=== PATIENT | male | born 1945 | race Caucasian/White ===

== ENCOUNTER 2020-07-28 23:53 | Inpatient (IN) ==
[2020-07-29] MEDS ORDERED: 0.9 % SODIUM CHLORIDE 1,000 ML IV ONE (00:06)
[2020-07-29] MEDS ORDERED: ACETAMINOPHEN 325 MG TABLET PO ONE (00:06)
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
[2020-07-29 02:11] LABS: Basophils # (Auto) 0.01 K/mcL (0.00-0.20); Basophils % (Auto) 0.1 % (0.0-2.0); Eosinophils # (Auto) 0.03 K/mcL (0.00-0.70); Eosinophils % (Auto) 0.3 % (0.0-7.0); Hematocrit 36.3 % (41.0-55.0); Hemoglobin 11.3 g/dL (13.5-16.5); Lymphocytes # (Auto) 0.92 K/mcL (1.50-4.80); Mean Cell Volume 91.7 fL (80.0-100.0); Mean Corpuscular HGB Conc 31.1 g/dL (31.0-36.0); Mean Platelet Volume 9.4 fL (7.4-10.4); Monocytes % (Auto) 6.5 % (1.0-12.0); Neutrophils % (Auto) 83.1 % (38.0-78.0); Platelet Count 198 K/mcL (140-440); RBC 3.96 M/mcL (4.50-5.90); Red Cell Distribution Width 16.1 % (11.5-14.5); WBC 9.2 K/mcL (4.5-11.0)
[2020-07-29 02:38] LABS: Appearance,Urine CLEAR (Clear); Bilirubin,Urine Negative (Negative); Color,Urine YELLOW; Culture Indicated,Urine No; Glucose,Urine (UA) Negative (Negative); Ketones,Urine Negative (Negative); Leukocyte Esterase,Urine Negative /ug (Negative); Mucus,Urine FEW /hpf; Nitrate,Urine Negative (Negative); Protein,Urine 30 mg/dL (Negative); Specific Gravity,Urine 1.015 (1.000-1.035); Urine Blood Negative (Negative); Urine Hyaline Cast 1 /lph (0-2); Urine RBC 6 /hpf (0-3); Urine Squamous Epithelial Cell < 1 /hpf (0-4); Urine WBC < 1 /hpf (0-4); Urobilinogen,Urine Negative
[2020-07-29 02:42] LABS: ALT/SGPT 33 U/L (<40); AST/SGOT 29 U/L (<40); Albumin 4.1 gm/dL (3.2-5.2); Albumin/Globulin Ratio 1.3 (1.0-2.3); Alkaline Phosphatase 96 U/L (39-117); Bilirubin,Total 0.2 mg/dL (0.1-1.0); Blood Urea Nitrogen 44 mg/dL (8-23); Calcium 8.7 mg/dL (8.6-10.4); Carbon Dioxide 22 mmol/L (22-30); Chloride 99 mmol/L (96-108); Globulin 3.2 gm/dL (2.2-3.7); Glomerular Filtration Rate 44; Glucose 122 mg/dL (70-105)
[2020-07-29] MEDS ORDERED: 0.9 % SODIUM CHLORIDE 1,000 ML IV SCH (03:15)
[2020-07-29] MEDS ORDERED: HYDROcodone/APAP 10/325MG TABLET PO ONE (07:16)
[2020-07-29] MEDS ORDERED: HYDROcodone/APAP 5/325MG TABLET PO ONE ×2 (07:21→07:28)
[2020-07-29] MEDS ORDERED: ONDANSETRON 4 MG/2 ML VIAL IV PRN (08:57)
[2020-07-29] MEDS ORDERED: DEXTROSE 31 GM ORAL.SUSP PO PRN (08:57)
[2020-07-29] MEDS ORDERED: HYDROcodone/APAP 5/325MG TABLET PO PRN (08:57)
[2020-07-29] MEDS ORDERED: DEXTROSE 50% 50 ML VIAL IV PRN (08:57)
[2020-07-29] MEDS ORDERED: REMDESIVIR 200 MG in 0.9 % SODIUM CHLORIDE 250 ML IV ONE ×2 (08:57→11:00)
[2020-07-29] MEDS ORDERED: ACETAMINOPHEN 325 MG TABLET PO PRN (08:57)
[2020-07-29] MEDS ORDERED: LACTULOSE 20 GM/30 ML ORAL.SOL PO PRN (08:57)
[2020-07-29] MEDS ORDERED: SENNOSIDES 1 TABLET PO PRN (08:57)
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
--- NOTE | 2020-07-29 09:18 | XRay Report ---
HISTORY: Fever FINDINGS: Lung volumes are normal. There is respiration motion artifact above the diaphragms. There is no apparent pneumonia. The heart is borderline enlarged but magnified. No congestive heart failure or pleural effusion are present. Degenerative changes are present in the cervical and thoracic spine. IMPRESSION: No evidence of pneumonia Interpreted and Authenticated by: Franki Jacobs 07/29/20
[2020-07-29 09:33] LABS: C-Reactive Protein 5.2 mg/dL (0.03-0.80); proBNP 443.8 pg/mL (<450.0)
[2020-07-29 10:06] LABS: Partial Thromboplastin Time 52.8 sec (20.0-37.0); Prothrombin Time 13.1 sec (11.9-14.5)
[2020-07-29] MEDS: ENOXAPARIN 40 MG/0.4 ML SYRINGE SQ SCH ×2 (10:09→20:18)
[2020-07-29] MEDS: DEXAMETHASONE 10 MG/ML VIAL IV SCH (10:09)
[2020-07-29] MEDS: DOCUSATE SODIUM 100 MG CAPSULE PO SCH ×2 (10:09→20:17)
[2020-07-29] MEDS: 0.9 % SODIUM CHLORIDE 1,000 ML IV SCH ×2 (10:10→23:46)
[2020-07-29] MEDS ORDERED: GABAPENTIN 300 MG CAPSULE PO ONE ×2 (10:44→11:32)
[2020-07-29] MEDS: INSULIN LISPRO 1 UNIT/0.01 ML UNIT SQ SCH ×3 (11:06→20:17)
[2020-07-29] MEDS: 0.9 % SODIUM CHLORIDE 10 ML SYRINGE IV SCH ×2 (14:49→20:18)
[2020-07-29] MEDS: HYDROcodone/APAP 10/325MG TABLET PO PRN ×2 (16:55→21:50)
[2020-07-29] MEDS: SIMVASTATIN 20 MG TABLET PO SCH (20:17)
[2020-07-29] MEDS: GABAPENTIN 300 MG CAPSULE PO SCH (20:17)
[2020-07-29] MEDS: VIT A,C & E/LUTEIN/MINERALS TABLET PO SCH (20:17)
[2020-07-29] MEDS: MAGNESIUM OXIDE 400 MG TABLET PO SCH (20:17)
[2020-07-30] MEDS: HYDROcodone/APAP 10/325MG TABLET PO PRN ×2 (04:04→11:59)
[2020-07-30] MEDS: 0.9 % SODIUM CHLORIDE 10 ML SYRINGE IV SCH ×3 (04:09→20:28)
[2020-07-30 06:35] LABS: Basophils # (Auto) 0.01 K/mcL (0.00-0.20); Basophils % (Auto) 0.1 % (0.0-2.0); Eosinophils # (Auto) 0 K/mcL (0.00-0.70); Eosinophils % (Auto) 0 % (0.0-7.0); Hematocrit 32.1 % (41.0-55.0); Hemoglobin 9.9 g/dL (13.5-16.5); Lymphocytes # (Auto) 1.17 K/mcL (1.50-4.80); Lymphocytes % (Auto) 14.2 % (15.0-49.0); Mean Cell Volume 91.5 fL (80.0-100.0); Mean Corpuscular HGB Conc 30.8 g/dL (31.0-36.0); Mean Platelet Volume 9.5 fL (7.4-10.4); Monocytes # (Auto) 0.42 K/mcL (0.10-0.90); Monocytes % (Auto) 5.1 % (1.0-12.0); Neutrophils % (Auto) 80.6 % (38.0-78.0); Platelet Count 162 K/mcL (140-440); RBC 3.51 M/mcL (4.50-5.90); Red Cell Distribution Width 16.1 % (11.5-14.5); WBC 8.2 K/mcL (4.5-11.0)
[2020-07-30 07:01] LABS: ALT/SGPT 29 U/L (<40); AST/SGOT 26 U/L (<40); Albumin 3.3 gm/dL (3.2-5.2); Albumin/Globulin Ratio 1.1 (1.0-2.3); Alkaline Phosphatase 70 U/L (39-117); Bilirubin,Direct < 0.2 mg/dL (0-0.3); Bilirubin,Total < 0.2 mg/dL (0.1-1.0); Blood Urea Nitrogen 28 mg/dL (8-23); Calcium 7.8 mg/dL (8.6-10.4); Carbon Dioxide 20 mmol/L (22-30); Chloride 108 mmol/L (96-108); Globulin 2.9 gm/dL (2.2-3.7); Glomerular Filtration Rate 58; Glucose 116 mg/dL (70-105); Lactate Dehydrogenase 217 U/L (135-225); Phosphorous 2.4 mg/dL (2.5-4.5); Triglycerides 81 mg/dL (<150); Uric Acid 8.1 mg/dL (2.5-8.0)
[2020-07-30] MEDS: GABAPENTIN 300 MG CAPSULE PO SCH ×2 (08:59→20:26)
[2020-07-30] MEDS: ENOXAPARIN 40 MG/0.4 ML SYRINGE SQ SCH ×2 (08:59→20:27)
[2020-07-30] MEDS: DEXAMETHASONE 10 MG/ML VIAL IV SCH (09:00)
[2020-07-30] MEDS: REMDESIVIR 100 MG in 0.9 % SODIUM CHLORIDE 250 ML IV SCH (09:00)
[2020-07-30] MEDS: OLMESARTAN MEDOXOMIL 20 MG TABLET PO SCH (09:00)
[2020-07-30] MEDS: NEUTRA PHOS 1 PACKET PO SCH ×2 (09:00→20:26)
[2020-07-30] MEDS: amLODIPine 5 MG TABLET PO SCH (09:01)
[2020-07-30] MEDS: INSULIN LISPRO 1 UNIT/0.01 ML UNIT SQ SCH ×4 (09:01→20:27)
[2020-07-30] MEDS: FUROSEMIDE 40 MG TABLET PO SCH (09:01)
[2020-07-30] MEDS: DOCUSATE SODIUM 100 MG CAPSULE PO SCH ×2 (09:01→20:26)
[2020-07-30] MEDS: ASPIRIN 325 MG ENTERIC COATED TABLET PO SCH (09:01)
[2020-07-30] MEDS: PANTOPRAZOLE 40 MG TABLET PO SCH (09:01)
[2020-07-30] MEDS: ALLOPURINOL 100 MG TABLET PO SCH (09:03)
[2020-07-30] MEDS: VIT A,C & E/LUTEIN/MINERALS TABLET PO SCH ×2 (09:03→20:26)
[2020-07-30] MEDS: 0.9 % SODIUM CHLORIDE 1,000 ML IV SCH ×2 (12:02→15:33)
--- NOTE | 2020-07-30 13:46 | Internal Med Progress Note ---
SUBJECTIVE Subjective Patient information: Note initiated : 07/30/20 at 1:41 pm Service Date, if different from initiated Date: [] Patient: Shubham Ceballos a 74 y/o M admitted on 07/29/20 for fever. Chief Complaint: [] Interval history: 07/29 Mr. Ceballos is a 74 year old M with a history of COPD, type 2 diabetes with neuropathy, hypertension, obstructive sleep apnea on CPAP at night who presents to the ED with 3 days of symptoms. History is obtained speaking the patient as well as reviewing old records. Patient received his first COVID-19 vaccine on 07/20. Initially did well after that. However last on 07/26 he started to develop head congestion, felt like he was having a head cold coming on. The next day on Thursday he felt like he was "hit by a truck" with severe myalgias, shaking chills and malaise. He was using pain medications and muscle relaxers with minimal relief. He slept most of the day. On Thursday he was still feeling poorly, by that evening he was too weak to get up out of bed and presents the ED late on Thursday with the above complaints. In the emergency department, the patient was febrile to 104.7 degrees, had room air sats of 90%, which improved with 2 L nasal cannula, was tachypneic at 25 breaths/min with normal pulse at 80. White count was normal, generally normal chemistries. Chest x-ray was clear. SARS-CoV-2 antigen was positive. Confirmatory Cepheid NAAT was also positive for SARS-CoV-2, negative for influenza and RSV. Patient is being admitted for treatment of severe COVID-19. 07/30 Patient feels about the same, still quite weak, though myalgias seem to be somewhat improved. Requiring 2 L nasal cannula. Notes he cannot taste or smell anything today. Tolerating remdesivir and dexamethasone. Pertinent ROS: As above. In addition cough, nonproductive. No chills today. Mouth does not feel is dry. Constitutional Vitals: Vital Signs Temp Pulse Resp BP Pulse Ox 100.1 F H 67 16 115/60 89 L 07/30/20 12:07 07/30/20 12:07 07/30/20 12:52 07/30/20 12:07/30/20 12:07 Period Temp Pulse Resp BP Sys/Gonzalez Pulse Ox Last 24 Hr 98.1 F-100.1 F 52-97 14-31 111-173/51-123 89-99 Intake and Output 07/29/20 07/30/20 07/30/20 21:59 05:59 13:59 Intake Total 475 1475 730 Output Total 1426 400 400 Balance -951 1075 330 Weight 276 lb 9.6 oz GENERAL: Sitting on edge of bed, appears mildly uncomfortable RESPIRATORY: Breath sounds coarse with scattered expiratory wheezes CARDIOVASCULAR: Regular rate and rhythm ABDOMEN: Obese, active bowel sounds, soft EXTREMITIES: Trace edema, warm NEURO: Alert, oriented x3, moves all extremities but has generalized weakness Intake & Output: Intake & Output 07/29/20 07/30/20 07/30/20 21:59 05:59 13:59 Intake Total 475 1475 730 Output Total 1426 400 400 Balance -951 1075 330 Weight 276 lb 9.6 oz Intake: IV 1000 250 Sodium Chloride 0.9% 1,000 ml @ 1000 75 mls/hr IV .[id number] [facility] Rx#: [id number] [place] 100 mg In Sodium 250 Chloride 0.9% 250 ml @ 500 mls/ hr IV DAILY [facility] Rx#:[id number] Oral 475 475 480 Output: Void Amount 1425 400 400 # of times incontinent of urine 1 Other: Meal Dinner Lunch Percent of Meal Consumed 100% 100% Urine Appearance Clear Clear Clear Urine Color Bright Yellow Dark Yellow Bright Yellow Urine Odor Normal # Voids 1 OBJ DATA Labs CBC & Chem 7: 07/30/20 05:14 07/30/20 05:14 Labs: Abnormal Lab Results 07/30/20 07/30/20 07/29/20 05:14 05:14 01:19 RBC 3.51 L Hgb 9.9 L Hct 32.1 L MCHC 30.8 L RDW 16.1 H Neut % (Auto) 80.6 H Lymph % (Auto) 14.2 L Lymph # (Auto) 1.17 L APTT D-Dimer Potassium Carbon Dioxide 20 L BUN 28 H Creatinine Glucose 116 H Uric Acid 8.1 H Calcium 7.8 L Phosphorus 2.4 L Lactate Dehydrogenase C-Reactive Protein Urine Protein 30 A Urine RBC 6 H Urine Mucus Few A 0307/29/20 07/29/20 00:29 00:29 00:25 RBC Hgb Hct MCHC RDW Neut % (Auto) Lymph % (Auto) Lymph # (Auto) APTT 52.8 H D-Dimer 1.23 H Potassium 5.3 H Carbon Dioxide BUN 44 H Creatinine 1.5 H Glucose 122 H Uric Acid Calcium Phosphorus Lactate Dehydrogenase 262 H C-Reactive Protein 5.20 H Urine Protein Urine RBC Urine Mucus 07/29/20 00:25 RBC 3.96 L Hgb 11.3 L Hct 36.3 L MCHC RDW 16.1 H Neut % (Auto) 83.1 H Lymph % (Auto) 10.0 L Lymph # (Auto) 0.92 L APTT D-Dimer Potassium Carbon Dioxide BUN Creatinine Glucose Uric Acid Calcium Phosphorus Lactate Dehydrogenase C-Reactive Protein Urine Protein Urine RBC Urine Mucus Meds: Medications Acetaminophen (Acetaminophen 325 Mg Tablet) 650 mg PO Q6HP PRN; Protocol PRN Reason: Per Pain Protocol/Fever > 101 Hydrocodone Bitart/Acetaminophen (Hydrocodone/Apap 10/325mg Tablet) 1 tab PO Q4-6HP PRN; Protocol PRN Reason: Per Pain Protocol Last Admin: 07/30/20 11:59 Dose: 1 tab Documented by: Allopurinol (Allopurinol 100 Mg Tablet) 100 mg PO QDAY [facility] Last Admin: 07/30/20 09:03 Dose: 100 mg Documented by: Amlodipine Besylate (Amlodipine 5 Mg Tablet) 5 mg PO DAILY [facility] Last Admin: 07/30/20 09:01 Dose: 5 mg Documented by: Aspirin (Aspirin 325 Mg Enteric Coated Tablet) 325 mg PO DAILY [facility] Last Admin: 07/30/20 09:01 Dose: 325 mg Documented by: Dexamethasone (Dexamethasone 10 Mg/Ml Vial) 6 mg IV DAILY [facility] Last Admin: 07/30/20 09:00 Dose: 6 mg Documented by: Dextrose (Dextrose 50% 50 Ml Vial) 0 ml IV UD PRN PRN Reason: Hypoglycemia Diagnostic Test (Pha) (Accu-Chek 1 Each Strip) 1 each FS ACHS [facility] Last Admin: 07/30/20 11:50 Dose: 1 each Documented by: Docusate Sodium (Docusate Sodium 100 Mg Capsule) 100 mg PO BID [facility] Last Admin: 07/30/20 09:01 Dose: 100 mg Documented by: Enoxaparin Sodium (Enoxaparin 40 Mg/0.4 Ml Syringe) 40 mg SQ BID [facility] Last Admin: 07/30/20 08:59 Dose: 40 mg Documented by: Furosemide (Furosemide 40 Mg Tablet) 40 mg PO DAILY [facility] Last Admin: 07/30/20 09:01 Dose: 40 mg Documented by: Gabapentin (Gabapentin 300 Mg Capsule) 1,800 mg PO BID [facility] Last Admin: 07/30/20 08:59 Dose: 1,800 mg Documented by: Glucose (Dextrose 31 Gm Oral.Susp) 15 gm PO PRN PRN PRN Reason: Hypoglycemia Sodium Chloride (Sodium Chloride 0.9%) 1,000 mls @ 75 mls/hr IV .[id number] [facility] Last Admin: 07/30/20 12:02 Dose: Not Given Documented by: REMDESIVIR 100 mg/ Sodium (Chloride) 250 mls @ 500 mls/hr IV DAILY [facility] Stop: 08/02/20 09:29 Last Infusion: 07/30/20 09:35 Dose: Infused Documented by: Insulin Human Lispro (Insulin Lispro 1 Unit/0.01 Ml Unit) 0 unit SQ ACHS [facility]; Protocol Last Admin: 07/30/20 11:58 Dose: 2 unit Documented by: Lactulose (Lactulose 20 Gm/30 Ml Oral.Samantha) 10 gm PO DAILYP PRN PRN Reason: Constipation Magnesium Oxide (Magnesium Oxide 400 Mg Tablet) 400 mg PO HS [facility] Last Admin: 07/29/20 20:17 Dose: 400 mg Documented by: Multivitamins/Minerals (Vit A,C & E/Lutein/Minerals Tablet) 1 tab PO BID [facility] Last Admin: 07/30/20 09:03 Dose: 1 tab Documented by: Olmesartan (Olmesartan Medoxomil 20 Mg Tablet) 40 mg PO DAILY [facility] Last Admin: 07/30/20 09:00 Dose: 40 mg Documented by: Ondansetron HCl (Ondansetron 4 Mg/2 Ml Vial) 4 mg IV Q4HP PRN; Protocol PRN Reason: Nausea And Vomiting Pantoprazole Sodium (Pantoprazole 40 Mg Tablet) 40 mg PO QAMAC [facility] Last Admin: 07/30/20 09:01 Dose: 40 mg Documented by: Budesonide- Formoterol [ Symbicort] 160-4.5 Mcg/Act Inhaler 1 dose INH BID [facility] Last Admin: 07/30/20 09:02 Dose: Not Given Documented by: Potassium/Phosphorus/Sodium (Neutra Phos 1 Packet) 2 packet PO BID [facility] Stop: 07/30/20 21:01 Last Admin: 07/30/20 09:00 Dose: 2 packet Documented by: Senna (Sennosides 1 Tablet) 2 tab PO HSP PRN PRN Reason: Constipation Simvastatin (Simvastatin 20 Mg Tablet) 20 mg PO HS [facility] Last Admin: 07/29/20 20:17 Dose: 20 mg Documented by: Sodium Chloride (0.9 % Sodium Chloride 10 Ml Syringe) 10 ml IV Q8 [facility] Last Admin: 07/30/20 04:09 Dose: 10 ml Documented by: A/P Narrative A/P Narrative: 74-year-old male with COPD, type 2 diabetes with neuropathy, chronic pain, sleep apnea presents with fevers, chills, dyspnea, found to be positive for SARS-CoV-2 #COVID-19: Severe Covid with room air saturations less than 94%, requiring supplemental oxygen -No infiltrates on chest x-ray at admission -Onset of symptoms approximately 6 days post first vaccine dose, unlikely to have achieved immunity at that point -SARS-CoV-2 rapid antigen and NAAT both positive #COPD: Not on oxygen at baseline, uses Symbicort -Follows with Dr. Post, last FEV1 noted in chart was 2.55 from 11/2016 -Wheezing on 07/30, will add albuterol #Anemia: Hemoglobin dropped with hydration. Has had mild normocytic anemia going back about 3 years #Type 2 diabetes: On Metformin #Peripheral neuropathy: On gabapentin. 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 #Obstructive sleep apnea: Requires CPAP at night to sleep #Spinal stenosis and chronic pain: Uses [place] and gabapentin at home #Coronary artery disease: Asymptomatic #Hypertension: On amlodipine #Hypercholesterolemia: On simvastatin (atorvastatin allergy noted, but simvastatin is a home med) #Alcohol use: Drinks 6+ beers a day, no history of withdrawal problems Plan: * Continue remdesivir, day #2/5 * Dexamethasone 6 mg IV daily, day #2 * Supplemental oxygen as needed * Continue Symbicort * Albuterol as needed for bronchospasm * CPAP at night per home settings * Follow hemoglobin * Hold metformin with illness * Diabetic diet, Accu-Cheks, sliding scale insulin * May need to consider long-acting insulin if significant hyperglycemia while receiving dexamethasone * Monitor for evidence of alcohol withdrawal * Continue home amlodipine, simvastatin, gabapentin, [place] for pain Prophylaxis: Enoxaparin 40 mg twice daily (higher dosing for COVID-19) CODE STATUS: Full code, discussed and he would wish to be intubated in event of worsening respiratory status Time Spent With Patient Total time spent with greater than 50% in coordination of care (as documented) at patient's floor/unit and/or counseling patient:: Greater than 35 minutes QUALITY VTE Deep Vein Thrombosis/Pulmonary Embolism Present on Admission: Yes
[2020-07-30] MEDS ORDERED: ALBUTEROL SULFATE 200 PUFF INHALER INH PRN (17:27)
[2020-07-30] MEDS: SIMVASTATIN 20 MG TABLET PO SCH (20:26)
[2020-07-30] MEDS: MAGNESIUM OXIDE 400 MG TABLET PO SCH (20:26)
[2020-07-31] MEDS: 0.9 % SODIUM CHLORIDE 1,000 ML IV SCH (04:54)
[2020-07-31] MEDS: 0.9 % SODIUM CHLORIDE 10 ML SYRINGE IV SCH ×4 (04:55→20:26)
[2020-07-31 07:24] LABS: Basophils # (Auto) 0.01 K/mcL (0.00-0.20); Basophils % (Auto) 0.2 % (0.0-2.0); Eosinophils # (Auto) 0 K/mcL (0.00-0.70); Eosinophils % (Auto) 0 % (0.0-7.0); Hematocrit 34.5 % (41.0-55.0); Hemoglobin 10.5 g/dL (13.5-16.5); Lymphocytes % (Auto) 19.7 % (15.0-49.0); Mean Corpuscular HGB Conc 30.4 g/dL (31.0-36.0); Mean Platelet Volume 9.6 fL (7.4-10.4); Monocytes # (Auto) 0.49 K/mcL (0.10-0.90); Monocytes % (Auto) 8.8 % (1.0-12.0); Neutrophils % (Auto) 71.3 % (38.0-78.0); Platelet Count 196 K/mcL (140-440); RBC 3.71 M/mcL (4.50-5.90); WBC 5.6 K/mcL (4.5-11.0)
[2020-07-31] MEDS: PANTOPRAZOLE 40 MG TABLET PO SCH (07:41)
[2020-07-31] MEDS: INSULIN LISPRO 1 UNIT/0.01 ML UNIT SQ SCH ×4 (07:41→19:53)
[2020-07-31 07:50] LABS: ALT/SGPT 42 U/L (<40); AST/SGOT 33 U/L (<40); Albumin 3.2 gm/dL (3.2-5.2); Albumin/Globulin Ratio 0.9 (1.0-2.3); Alkaline Phosphatase 75 U/L (39-117); Bilirubin,Direct < 0.2 mg/dL (0-0.3); Bilirubin,Total 0.3 mg/dL (0.1-1.0); Blood Urea Nitrogen 27 mg/dL (8-23); Calcium 7.9 mg/dL (8.6-10.4); Carbon Dioxide 20 mmol/L (22-30); Chloride 110 mmol/L (96-108); Globulin 3.4 gm/dL (2.2-3.7); Glomerular Filtration Rate 82; Glucose 118 mg/dL (70-105); Lactate Dehydrogenase 297 U/L (135-225); Phosphorous 2.5 mg/dL (2.5-4.5); Triglycerides 123 mg/dL (<150); Uric Acid 7.1 mg/dL (2.5-8.0)
[2020-07-31] MEDS: HYDROcodone/APAP 10/325MG TABLET PO PRN ×2 (09:39→22:18)
[2020-07-31] MEDS: OLMESARTAN MEDOXOMIL 20 MG TABLET PO SCH (09:39)
[2020-07-31] MEDS: VIT A,C & E/LUTEIN/MINERALS TABLET PO SCH ×2 (09:39→19:52)
[2020-07-31] MEDS: DOCUSATE SODIUM 100 MG CAPSULE PO SCH ×2 (09:40→19:52)
[2020-07-31] MEDS: ALLOPURINOL 100 MG TABLET PO SCH (09:40)
[2020-07-31] MEDS: FUROSEMIDE 40 MG TABLET PO SCH (09:40)
[2020-07-31] MEDS: amLODIPine 5 MG TABLET PO SCH (09:40)
[2020-07-31] MEDS: ASPIRIN 325 MG ENTERIC COATED TABLET PO SCH (09:40)
[2020-07-31] MEDS: REMDESIVIR 100 MG in 0.9 % SODIUM CHLORIDE 250 ML IV SCH (09:41)
[2020-07-31] MEDS: DEXAMETHASONE 10 MG/ML VIAL IV SCH (09:41)
[2020-07-31] MEDS: GABAPENTIN 300 MG CAPSULE PO SCH ×2 (09:44→19:51)
[2020-07-31] MEDS: ENOXAPARIN 40 MG/0.4 ML SYRINGE SQ SCH ×2 (09:44→19:51)
--- NOTE | 2020-07-31 11:26 | Internal Med Progress Note ---
SUBJECTIVE Subjective Patient information: Note initiated : 07/31/20 at 11:22 am Service Date, if different from initiated Date: [] Patient: Shubham Ceballos a 74 y/o M admitted on 07/29/20 for fever. Principal diagnosis: COVID-19 Interval history: 07/29 Mr. Ceballos is a 74 year old M with a history of COPD, type 2 diabetes with randolph ropathy, hypertension, obstructive sleep apnea on CPAP at night who presents to the ED with 3 days of symptoms. History is obtained speaking the patient as well as reviewing old records. Patient received his first COVID-19 vaccine on 07/20. Initially did well after that. However last on 07/26 he started to develop head congestion, felt like he was having a head cold coming on. The next day on Thursday he felt like he was "hit by a truck" with severe myalgias, shaking chills and malaise. He was using pain medications and muscle relaxers with minimal relief. He slept most of the day. On Thursday he was still feeling poorly, by that evening he was too weak to get up out of bed and presents the ED late on Thursday with the above complaints. In the emergency department, the patient was febrile to 104.7 degrees, had room air sats of 90%, which improved with 2 L nasal cannula, was tachypneic at 25 breaths/min with normal pulse at 80. White count was normal, generally normal chemistries. Chest x-ray was clear. SARS-CoV-2 antigen was positive. Confirmatory Cepheid NAAT was also positive for SARS-CoV-2, negative for influenza and RSV. Patient is being admitted for treatment of severe COVID-19. 07/30 Patient feels about the same, still quite weak, though myalgias seem to be somewhat improved. Requiring 2 L nasal cannula. Notes he cannot taste or smell anything today. Tolerating remdesivir and dexamethasone. 07/31 Patient up to chair for meals. Still feels quite weak and unsteady. Gets a bit lightheaded when moving around. Breathing is improved however. Inflammatory markers improving. Using CPAP with good saturations on room air (chronic for sleep) Pertinent ROS: As above Constitutional Vitals: Vital Signs Temp Pulse Resp BP Pulse Ox 98.1 F 66 24 H 166/73 92 07/31/20 09:01 07/31/20 11:05 07/31/20 11:05 07/31/20 11:01 07/31/20 11:05 Period Temp Pulse Resp BP Sys/Gonzalez Pulse Ox Last 24 Hr 97.4 F-100.1 F 36-91 13-30 115-179/55-123 88-98 Intake and Output 07/30/20 07/31/20 07/31/20 21:59 05:59 13:59 Intake Total 1000 1000 240 Output Total 1250 650 Balance -250 350 240 Weight 272 lb 8 oz GENERAL: In bed with CPAP on, appears comfortable RESPIRATORY: Few scattered expiratory wheezes bilaterally CARDIOVASCULAR: Regular, distant ABDOMEN: Obese, soft EXTREMITIES: No edema NEURO: Alert, oriented x3, generalized weakness Intake & Output: Intake & Output 07/30/20 07/31/20 07/31/20 21:59 05:59 13:59 Intake Total 1000 1000 240 Output Total 1250 650 Balance -250 350 240 Weight 272 lb 8 oz Intake: IV 1000 1000 Sodium Chloride 0.9% 1,000 ml @ 1000 1000 75 mls/hr IV .[id number] [facility] Rx#: [id number] Oral 240 Output: Urine Catheter Amount 600 Void Amount 650 650 Other: Urine Appearance Clear Clear Urine Color Bright Yellow Bright Yellow Urine Odor Normal Normal OBJ DATA Labs CBC & Chem 7: 07/31/20 05:24 07/31/20 05:23 Labs: Abnormal Lab Results 07/31/20 07/31/20 07/30/20 05:24 05:23 05:14 RBC 3.71 L Hgb 10.5 L Hct 34.5 L MCHC 30.4 L RDW 16.0 H Neut % (Auto) Lymph % (Auto) Lymph # (Auto) 1.10 L APTT D-Dimer Potassium Chloride 110 H Carbon Dioxide 20 L 20 L BUN 27 H 28 H Creatinine Glucose 118 H 116 H Uric Acid 8.1 H Calcium 7.9 L 7.8 L Phosphorus 2.4 L ALT 42 H Lactate Dehydrogenase 297 H C-Reactive Protein 4.10 H Albumin/Globulin Ratio 0.9 L Urine Protein Urine RBC Urine Mucus 07/30/20 07/29/20 07/29/20 05:14 01:19 00:29 RBC 3.51 L Hgb 9.9 L Hct 32.1 L MCHC 30.8 L RDW 16.1 H Neut % (Auto) 80.6 H Lymph % (Auto) 14.2 L Lymph # (Auto) 1.17 L APTT D-Dimer Potassium Chloride Carbon Dioxide BUN Creatinine Glucose Uric Acid Calcium Phosphorus ALT Lactate Dehydrogenase 262 H C-Reactive Protein 5.20 H Albumin/Globulin Ratio Urine Protein 30 A Urine RBC 6 H Urine Mucus Few A 07/29/20 07/29/20 07/29/20 00:29 00:25 00:25 RBC 3.96 L Hgb 11.3 L Hct 36.3 L MCHC RDW 16.1 H Neut % (Auto) 83.1 H Lymph % (Auto) 10.0 L Lymph # (Auto) 0.92 L APTT 52.8 H D-Dimer 1.23 H Potassium 5.3 H Chloride Carbon Dioxide BUN 44 H Creatinine 1.5 H Glucose 122 H Uric Acid Calcium Phosphorus ALT Lactate Dehydrogenase C-Reactive Protein Albumin/Globulin Ratio Urine Protein Urine RBC Urine Mucus Meds: Medications Acetaminophen (Acetaminophen 325 Mg Tablet) 650 mg PO Q6HP PRN; Protocol PRN Reason: Per Pain Protocol/Fever > 101 Hydrocodone Bitart/Acetaminophen (Hydrocodone/Apap 10/325mg Tablet) 1 tab PO Q4-6HP PRN; Protocol PRN Reason: Per Pain Protocol Last Admin: 07/31/20 09:39 Dose: 1 tab Documented by: Albuterol Sulfate (Albuterol Sulfate 200 Puff Inhaler) 2 puff INH Q4HP PRN PRN Reason: Shortness Of Breath Allopurinol (Allopurinol 100 Mg Tablet) 100 mg PO QDAY [facility] Last Admin: 07/31/20 09:40 Dose: 100 mg Documented by: Amlodipine Besylate (Amlodipine 5 Mg Tablet) 5 mg PO DAILY [facility] Last Admin: 07/31/20 09:40 Dose: 5 mg Documented by: Aspirin (Aspirin 325 Mg Enteric Coated Tablet) 325 mg PO DAILY [facility] Last Admin: 07/31/20 09:40 Dose: 325 mg Documented by: Dexamethasone (Dexamethasone 10 Mg/Ml Vial) 6 mg IV DAILY [facility] Last Admin: 07/31/20 09:41 Dose: 6 mg Documented by: Dextrose (Dextrose 50% 50 Ml Vial) 0 ml IV UD PRN PRN Reason: Hypoglycemia Diagnostic Test (Pha) (Accu-Chek 1 Each Strip) 1 each FS ACHS [facility] Last Admin: 07/31/20 07:41 Dose: 1 each Documented by: Docusate Sodium (Docusate Sodium 100 Mg Capsule) 100 mg PO BID [facility] Last Admin: 07/31/20 09:40 Dose: 100 mg Documented by: Enoxaparin Sodium (Enoxaparin 40 Mg/0.4 Ml Syringe) 40 mg SQ BID [facility] Last Admin: 07/31/20 09:44 Dose: 40 mg Documented by: Furosemide (Furosemide 40 Mg Tablet) 40 mg PO DAILY [facility] Last Admin: 07/31/20 09:40 Dose: 40 mg Documented by: Gabapentin (Gabapentin 300 Mg Capsule) 1,800 mg PO BID [facility] Last Admin: 07/31/20 09:44 Dose: 1,800 mg Documented by: Glucose (Dextrose 31 Gm Oral.Susp) 15 gm PO PRN PRN PRN Reason: Hypoglycemia Sodium Chloride (Sodium Chloride 0.9%) 1,000 mls @ 75 mls/hr IV .[id number] [facility] Last Admin: 07/31/20 04:54 Dose: 75 mls/hr Documented by: REMDESIVIR 100 mg/ Sodium (Chloride) 250 mls @ 500 mls/hr IV DAILY [facility] Stop: 08/02/20 09:29 Last Admin: 07/31/20 09:41 Dose: 500 mls/hr Documented by: Insulin Human Lispro (Insulin Lispro 1 Unit/0.01 Ml Unit) 0 unit SQ [facility]; Protocol Last Admin: 07/31/20 07:41 Dose: Not Given Documented by: Lactulose (Lactulose 20 Gm/30 Ml Oral.Samantha) 10 gm PO DAILYP PRN PRN Reason: Constipation Magnesium Oxide (Magnesium Oxide 400 Mg Tablet) 400 mg PO HS [facility] Last Admin: 07/30/20 20:26 Dose: 400 mg Documented by: Multivitamins/Minerals (Vit A,C & E/Lutein/Minerals Tablet) 1 tab PO BID [facility] Last Admin: 07/31/20 09:39 Dose: 1 tab Documented by: Olmesartan (Olmesartan Medoxomil 20 Mg Tablet) 40 mg PO DAILY [facility] Last Admin: 07/31/20 09:39 Dose: 40 mg Documented by: Ondansetron HCl (Ondansetron 4 Mg/2 Ml Vial) 4 mg IV Q4HP PRN; Protocol PRN Reason: Nausea And Vomiting Pantoprazole Sodium (Pantoprazole 40 Mg Tablet) 40 mg PO QAMAC [facility] Last Admin: 07/31/20 07:41 Dose: 40 mg Documented by: Budesonide- Formoterol [ Symbicort] 160-4.5 Mcg/Act Inhaler 1 dose INH BID [facility] Last Admin: 07/31/20 09:41 Dose: Not Given Documented by: Senna (Sennosides 1 Tablet) 2 tab PO HSP PRN PRN Reason: Constipation Simvastatin (Simvastatin 20 Mg Tablet) 20 mg PO HS [facility] Last Admin: 07/30/20 20:26 Dose: 20 mg Documented by: Sodium Chloride (0.9 % Sodium Chloride 10 Ml Syringe) 10 ml IV Q8 [facility] Last Admin: 07/31/20 04:55 Dose: 10 ml Documented by: A/P Narrative A/P Narrative: 74-year-old male with COPD, type 2 diabetes with neuropathy, chronic pain, sleep apnea presents with fevers, chills, dyspnea, found to be positive for SARS-CoV-2 #COVID-19: Severe Covid with room air saturations less than 94%, requiring supplemental oxygen -No infiltrates on chest x-ray at admission -Onset of symptoms approximately 6 days post first vaccine dose, unlikely to have achieved immunity at that point -SARS-CoV-2 rapid antigen and NAAT both positive -Starting to improve 07/31 #COPD: Not on oxygen at baseline, uses Symbicort -Follows with Dr. Post, last FEV1 noted in chart was 2.55 from 11/2016 -Wheezing on 07/30, will add albuterol PRN #Anemia: Hemoglobin dropped with hydration. Has had mild normocytic anemia going back about 3 years; improved 07/31 #Type 2 diabetes: On Metformin #Peripheral neuropathy: On gabapentin. Status post toe amputations due to nonh ealing neuropathic ulcers #Obstructive sleep apnea: Requires CPAP at night to sleep #Spinal stenosis and chronic pain: Uses [place] and gabapentin at home #Coronary artery disease: Asymptomatic #Hypertension: On amlodipine #Hypercholesterolemia: On simvastatin (atorvastatin allergy noted, but simvasta tin is a home med) #Alcohol use: Drinks 6+ beers a day, no history of withdrawal problems Plan: * Continue remdesivir, day #3/5 * Dexamethasone 6 mg IV daily, day #3 * Supplemental oxygen as needed * Continue Symbicort * Albuterol as needed for bronchospasm * CPAP at night per home settings * Saline lock * Follow hemoglobin * Hold metformin with illness * Diabetic diet, Accu-Cheks, sliding scale insulin * May need to consider long-acting insulin if significant hyperglycemia while receiving dexamethasone * Monitor for evidence of alcohol withdrawal * Continue home amlodipine, simvastatin, gabapentin, [place] for pain * Transfer to medical status Prophylaxis: Enoxaparin 40 mg twice daily (higher dosing for COVID-19) CODE STATUS: Full code, discussed and he would wish to be intubated in event of worsening respiratory status QUALITY VTE Deep Vein Thrombosis/Pulmonary Embolism Present on Admission: Yes
[2020-07-31] MEDS ORDERED: HYDROcodone/APAP 10/325MG TABLET PO PRN (13:06)
[2020-07-31] MEDS ORDERED: ONDANSETRON 4 MG/2 ML VIAL IV PRN (13:06)
[2020-07-31] MEDS ORDERED: ALBUTEROL SULFATE 200 PUFF INHALER INH PRN (13:06)
[2020-07-31] MEDS ORDERED: LACTULOSE 20 GM/30 ML ORAL.SOL PO PRN (13:06)
[2020-07-31] MEDS ORDERED: ACETAMINOPHEN 325 MG TABLET PO PRN (13:06)
[2020-07-31] MEDS ORDERED: SENNOSIDES 1 TABLET PO PRN (13:06)
[2020-07-31] MEDS ORDERED: DEXTROSE 50% 50 ML VIAL IV PRN (13:06)
[2020-07-31] MEDS ORDERED: DEXTROSE 31 GM ORAL.SUSP PO PRN (13:06)
[2020-07-31] MEDS ORDERED: LORazepam 2 MG/ML VIAL ONE (15:03)
[2020-07-31] MEDS: metFORMIN 500 MG TABLET PO SCH (16:33)
[2020-07-31] MEDS ORDERED: hydrALAZINE 20 MG/ML VIAL IV PRN (18:05)
[2020-07-31] MEDS: SIMVASTATIN 20 MG TABLET PO SCH (19:52)
[2020-07-31] MEDS: MAGNESIUM OXIDE 400 MG TABLET PO SCH (19:52)
[2020-07-31] MEDS: CRANBERRY EXTRACT 300 MG PO SCH (20:37)
[2020-08-01] MEDS: 0.9 % SODIUM CHLORIDE 10 ML SYRINGE IV SCH ×4 (05:00→20:50)
[2020-08-01] MEDS: INSULIN LISPRO 1 UNIT/0.01 ML UNIT SQ SCH ×4 (07:16→19:36)
[2020-08-01] MEDS: metFORMIN 500 MG TABLET PO SCH ×2 (07:20→17:07)
[2020-08-01] MEDS: PANTOPRAZOLE 40 MG TABLET PO SCH (07:28)
[2020-08-01] MEDS: POTASSIUM CHLORIDE 10 MEQ TABLET PO SCH (07:29)
[2020-08-01] MEDS: GABAPENTIN 300 MG CAPSULE PO SCH ×2 (07:29→19:33)
[2020-08-01] MEDS: DOCUSATE SODIUM 100 MG CAPSULE PO SCH ×2 (08:12→19:33)
[2020-08-01] MEDS: VIT A,C & E/LUTEIN/MINERALS TABLET PO SCH ×2 (08:13→19:33)
[2020-08-01] MEDS: OLMESARTAN MEDOXOMIL 20 MG TABLET PO SCH (08:13)
[2020-08-01] MEDS: FUROSEMIDE 40 MG TABLET PO SCH (08:13)
[2020-08-01] MEDS: ASPIRIN 325 MG ENTERIC COATED TABLET PO SCH (08:14)
[2020-08-01] MEDS: VITAMIN B COMPLEX 1 CAPSULE PO SCH (08:14)
[2020-08-01] MEDS: ENOXAPARIN 40 MG/0.4 ML SYRINGE SQ SCH ×2 (08:18→19:34)
[2020-08-01] MEDS: DEXAMETHASONE 10 MG/ML VIAL IV SCH (08:18)
[2020-08-01] MEDS: REMDESIVIR 100 MG in 0.9 % SODIUM CHLORIDE 250 ML IV SCH (08:32)
[2020-08-01] MEDS: CRANBERRY EXTRACT 300 MG PO SCH ×2 (08:32→20:50)
[2020-08-01] MEDS ORDERED: amLODIPine 5 MG TABLET PO SCH (09:00)
[2020-08-01] MEDS ORDERED: amLODIPine 5 MG TABLET PO ONE (09:15)
[2020-08-01] MEDS: ALLOPURINOL 100 MG TABLET PO SCH (09:20)
--- NOTE | 2020-08-01 14:04 | Internal Med Progress Note ---
SUBJECTIVE Subjective Patient information: Note initiated : 08/01/20 at 2:04 pm Service Date, if different from initiated Date: [] Patient: Shubham Ceballos a 74 y/o M admitted on 07/29/20 for fever. Chief Complaint: [] Principal diagnosis: COVID-19 Interval history: 07/29 Mr. Ceballos is a 74 year old M with a history of COPD, type 2 diabetes with neuropathy, hypertension, obstructive sleep apnea on CPAP at night who presents to the ED with 3 days of symptoms. History is obtained speaking the patient as well as reviewing old records. Patient received his first COVID-19 vaccine on 07/20. Initially did well after that. However last on 07/26 he started to develop head congestion, felt like he was having a head cold coming on. The next day on Thursday he felt like he was "hit by a truck" with severe myalgias, shaking chills and malaise. He was using pain medications and muscle relaxers with minimal relief. He slept most of the day. On Thursday he was still feeling poorly, by that evening he was too weak to get up out of bed and presents the ED late on Thursday with the above complaints. In the emergency department, the patient was febrile to 104.7 degrees, had room air sats of 90%, which improved with 2 L nasal cannula, was tachypneic at 25 breaths/min with normal pulse at 80. White count was normal, generally normal chemistries. Chest x-ray was clear. SARS-CoV-2 antigen was positive. Confirmatory Cepheid NAAT was also positive for SARS-CoV-2, negative for influenza and RSV. Patient is being admitted for treatment of severe COVID-19. 07/30 Patient feels about the same, still quite weak, though myalgias seem to be somewhat improved. Requiring 2 L nasal cannula. Notes he cannot taste or smell anything today. Tolerating remdesivir and dexamethasone. 07/31 Patient up to chair for meals. Still feels quite weak and unsteady. Gets a bit lightheaded when moving around. Breathing is improved however. Inflammatory markers improving. Using CPAP with good saturations on room air (chronic for sleep) 08/01-patient doing well. Day 4 remdesivir. Denies chest pain or shortness of breath. Currently on room air. No overnight events. No additional concerns per nursing staff. Stable hemodynamics. Tolerating diet. Maintaining contact precautions. LFTs minimal elevation. Anticipate discharge in 24 hours after last dose remdesivir Constitutional Vitals: Vital Signs Temp Pulse Resp BP Pulse Ox 98.8 F 74 14 175/87 95 08/01/20 12:00 08/01/20 12:00 08/01/20 12:00 08/01/20 12:00 08/01/20 12:00 Period Temp Pulse Resp BP Sys/Gonzalez Pulse Ox Last 24 Hr 96.4 F-98.8 F 41-74 14-22 124-175/61-87 94-96 Intake and Output 08/01/20 08/01/20 08/01/20 05:59 13:59 21:59 Intake Total 400 250 Balance 400 250 Alert oriented, no labored breathing, Nondistended abdomen No anxiety Intake & Output: Intake & Output 08/01/20 08/01/20 08/01/20 05:59 13:59 21:59 Intake Total 400 250 Balance 400 250 Intake: IV 250 Veklury 100 mg In Sodium 250 Chloride 0.9% 250 ml @ 500 mls/ hr IV DAILY [facility] Rx#:[id number] Oral 400 Other: Urine Appearance Clear Urine Color Bright Yellow Urine Odor Normal Stool Size Large Stool Color Brown Stool Consistency Soft Loose # Bowel Movements 1 OBJ DATA Labs CBC & Chem 7: 07/31/20 05:24 08/02/20 05:41 Labs: Abnormal Lab Results 07/31/20 07/31/20 07/30/20 05:24 05:23 05:14 RBC 3.71 L Hgb 10.5 L Hct 34.5 L MCHC 30.4 L RDW 16.0 H Neut % (Auto) Lymph % (Auto) Lymph # (Auto) 1.10 L Chloride 110 H Carbon Dioxide 20 L 20 L BUN 27 H 28 H Glucose 118 H 116 H Uric Acid 8.1 H Calcium 7.9 L 7.8 L Phosphorus 2.4 L ALT 42 H Lactate Dehydrogenase 297 H C-Reactive Protein 4.10 H Albumin/Globulin Ratio 0.9 L 07/30/20 05:14 RBC 3.51 L Hgb 9.9 L Hct 32.1 L MCHC 30.8 L RDW 16.1 H Neut % (Auto) 80.6 H Lymph % (Auto) 14.2 L Lymph # (Auto) 1.17 L Chloride Carbon Dioxide BUN Glucose Uric Acid Calcium Phosphorus ALT Lactate Dehydrogenase C-Reactive Protein Albumin/Globulin Ratio Meds: Medications Acetaminophen (Acetaminophen 325 Mg Tablet) 650 mg PO Q6HP PRN; Protocol PRN Reason: Per Pain Protocol/Fever > 101 Hydrocodone Bitart/Acetaminophen (Hydrocodone/Apap 10/325mg Tablet) 1 tab PO Q4-6HP PRN; Protocol PRN Reason: Per Pain Protocol Last Admin: 07/31/20 22:18 Dose: 1 tab Documented by: Albuterol Sulfate (Albuterol Sulfate 200 Puff Inhaler) 2 puff INH Q4HP PRN PRN Reason: Shortness Of Breath Allopurinol (Allopurinol 100 Mg Tablet) 100 mg PO QDAY [facility] Last Admin: 08/01/20 09:20 Dose: 100 mg Documented by: Amlodipine Besylate (Amlodipine 5 Mg Tablet) 10 mg PO DAILY [facility] Aspirin (Aspirin 325 Mg Enteric Coated Tablet) 325 mg PO DAILY [facility] Last Admin: 08/01/20 08:14 Dose: 325 mg Documented by: Dexamethasone (Dexamethasone 10 Mg/Ml Vial) 6 mg IV DAILY [facility] Last Admin: 08/01/20 08:18 Dose: 6 mg Documented by: Dextrose (Dextrose 50% 50 Ml Vial) 0 ml IV UD PRN PRN Reason: Hypoglycemia Diagnostic Test (Pha) (Accu-Chek 1 Each Strip) 1 each FS ACHS [facility] Last Admin: 08/01/20 11:16 Dose: 1 each Documented by: Docusate Sodium (Docusate Sodium 100 Mg Capsule) 100 mg PO BID [facility] Last Admin: 08/01/20 08:12 Dose: 100 mg Documented by: Enoxaparin Sodium (Enoxaparin 40 Mg/0.4 Ml Syringe) 40 mg SQ BID [facility] Last Admin: 08/01/20 08:18 Dose: 40 mg Documented by: Furosemide (Furosemide 40 Mg Tablet) 40 mg PO DAILY [facility] Last Admin: 08/01/20 08:13 Dose: 40 mg Documented by: Gabapentin (Gabapentin 300 Mg Capsule) 1,800 mg PO BID [facility] Last Admin: 08/01/20 07:29 Dose: 1,800 mg Documented by: Glucose (Dextrose 31 Gm Oral.Susp) 15 gm PO PRN PRN PRN Reason: Hypoglycemia Hydralazine HCl (Hydralazine 20 Mg/Ml Vial) 10 mg IV Q4-6HP PRN PRN Reason: Hypertension Last Admin: 07/31/20 19:53 Dose: 10 mg Documented by: REMDESIVIR 100 mg/ Sodium (Chloride) 250 mls @ 500 mls/hr IV DAILY [facility] Stop: 08/02/20 09:29 Last Infusion: 08/01/20 11:17 Dose: Infused Documented by: Insulin Human Lispro (Insulin Lispro 1 Unit/0.01 Ml Unit) 0 unit SQ [facility]; Protocol Last Admin: 08/01/20 11:16 Dose: Not Given Documented by: Lactulose (Lactulose 20 Gm/30 Ml Oral.Samantha) 10 gm PO DAILYP PRN PRN Reason: Constipation Magnesium Oxide (Magnesium Oxide 400 Mg Tablet) 400 mg PO HS [facility] Last Admin: 07/31/20 19:52 Dose: 400 mg Documented by: Metformin HCl (Metformin 500 Mg Tablet) 1,000 mg PO BIDCC [facility] Last Admin: 08/01/20 07:20 Dose: 1,000 mg Documented by: Multivitamins/Minerals (Vit A,C & E/Lutein/Minerals Tablet) 1 tab PO BID [facility] Last Admin: 08/01/20 08:13 Dose: 1 tab Documented by: Olmesartan (Olmesartan Medoxomil 20 Mg Tablet) 40 mg PO DAILY [facility] Last Admin: 08/01/20 08:13 Dose: 40 mg Documented by: Ondansetron HCl (Ondansetron 4 Mg/2 Ml Vial) 4 mg IV Q4HP PRN; Protocol PRN Reason: Nausea And Vomiting Pantoprazole Sodium (Pantoprazole 40 Mg Tablet) 40 mg PO QAMAC [facility] Last Admin: 08/01/20 07:28 Dose: 40 mg Documented by: Budesonide- Formoterol [ Symbicort] 160-4.5 Mcg/Act Inhaler 1 dose INH BID [facility] Last Admin: 08/01/20 08:33 Dose: Not Given Documented by: Cranberry Extract (300 Mg Tab) 1 dose PO BID [facility] Last Admin: 08/01/20 08:32 Dose: Not Given Documented by: Potassium Chloride (Potassium Chloride 10 Meq Tablet) 10 meq PO QAMCC [facility] Last Admin: 08/01/20 07:29 Dose: 10 meq Documented by: Senna (Sennosides 1 Tablet) 2 tab PO HSP PRN PRN Reason: Constipation Last Admin: 07/31/20 16:34 Dose: 2 tab Documented by: Simvastatin (Simvastatin 20 Mg Tablet) 20 mg PO HS [facility] Last Admin: 07/31/20 19:52 Dose: 20 mg Documented by: Sodium Chloride (0.9 % Sodium Chloride 10 Ml Syringe) 10 ml IV Q8 [facility] Last Admin: 08/01/20 05:00 Dose: 10 ml Documented by: Vitamin B Complex (Vitamin B Complex 1 Capsule) 1 cap PO DAILY [facility] Last Admin: 08/01/20 08:14 Dose: 1 cap Documented by: A/P Narrative A/P Narrative: 74-year-old male with COPD, type 2 diabetes with neuropathy, chronic pain, sleep apnea presents with fevers, chills, dyspnea, found to be positive for SARS-CoV-2 #COVID-19: Severe Covid with room air saturations less than 94%, requiring supplemental oxygen -No infiltrates on chest x-ray at admission -Onset of symptoms approximately 6 days post first vaccine dose, unlikely to have achieved immunity at that point -SARS-CoV-2 rapid antigen and NAAT both positive -Clinically improved now on room air #COPD: Not on oxygen at baseline, uses Symbicort -Follows with Dr. Post, last FEV1 noted in chart was 2.55 from 11/2016 -Wheezing on 07/30, will add albuterol PRN #Anemia: Hemoglobin dropped with hydration. Has had mild normocytic anemia going back about 3 years; improved 07/31 #Type 2 diabetes: On Metformin #Peripheral neuropathy: On gabapentin. 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 #Obstructive sleep apnea: Requires CPAP at night to sleep #Spinal stenosis and chronic pain: Uses [place] and gabapentin at home #Coronary artery disease: Asymptomatic #Hypertension: On amlodipine #Hypercholesterolemia: On simvastatin (atorvastatin allergy noted, but simvastatin is a home med) #Alcohol use: Drinks 6+ beers a day, no history of withdrawal problems Plan: * Continue remdesivir, day #4/5 * Dexamethasone 6 mg IV daily, day #4 * Supplemental oxygen as needed * Diabetic diet, Accu-Cheks, sliding scale insulin * Continue home amlodipine, simvastatin, gabapentin, [place] for pain Prophylaxis: Enoxaparin 40 mg twice daily (higher dosing for COVID-19) CODE STATUS: Full code, discussed and he would wish to be intubated in event of worsening respiratory status Time Spent With Patient Time: Total time spent is greater than 50% in coordination of care (as docshea mackenzie) at patient's floor/unit and/or counseling patient: QUALITY VTE Deep Vein Thrombosis/Pulmonary Embolism Present on Admission: Yes
[2020-08-01] MEDS: SIMVASTATIN 20 MG TABLET PO SCH (19:33)
[2020-08-01] MEDS: MAGNESIUM OXIDE 400 MG TABLET PO SCH (19:33)
[2020-08-01] MEDS: HYDROcodone/APAP 10/325MG TABLET PO PRN (19:36)
[2020-08-02] MEDS: 0.9 % SODIUM CHLORIDE 10 ML SYRINGE IV SCH ×2 (04:52→13:50)
[2020-08-02 06:49] LABS: ALT/SGPT 105 U/L (<40); AST/SGOT 51 U/L (<40); Albumin 3.3 gm/dL (3.2-5.2); Albumin/Globulin Ratio 0.9 (1.0-2.3); Alkaline Phosphatase 83 U/L (39-117); Bilirubin,Direct < 0.2 mg/dL (0-0.3); Bilirubin,Total 0.3 mg/dL (0.1-1.0); Blood Urea Nitrogen 33 mg/dL (8-23); Calcium 8.3 mg/dL (8.6-10.4); Carbon Dioxide 23 mmol/L (22-30); Chloride 108 mmol/L (96-108); Globulin 3.6 gm/dL (2.2-3.7); Glomerular Filtration Rate 64; Glucose 95 mg/dL (70-105); Lactate Dehydrogenase 245 U/L (135-225); Phosphorous 3.5 mg/dL (2.5-4.5); Triglycerides 254 mg/dL (<150)
[2020-08-02] MEDS: INSULIN LISPRO 1 UNIT/0.01 ML UNIT SQ SCH ×2 (07:17→11:45)
[2020-08-02] MEDS: metFORMIN 500 MG TABLET PO SCH (07:35)
[2020-08-02] MEDS: GABAPENTIN 300 MG CAPSULE PO SCH (07:36)
[2020-08-02] MEDS: PANTOPRAZOLE 40 MG TABLET PO SCH (07:37)
[2020-08-02] MEDS ORDERED: amLODIPine 5 MG TABLET PO SCH (09:00)
[2020-08-02] MEDS: VITAMIN B COMPLEX 1 CAPSULE PO SCH (09:16)
[2020-08-02] MEDS: OLMESARTAN MEDOXOMIL 20 MG TABLET PO SCH (09:26)
[2020-08-02] MEDS: DOCUSATE SODIUM 100 MG CAPSULE PO SCH (09:26)
[2020-08-02] MEDS: VIT A,C & E/LUTEIN/MINERALS TABLET PO SCH (09:27)
[2020-08-02] MEDS: ALLOPURINOL 100 MG TABLET PO SCH (09:28)
[2020-08-02] MEDS: ASPIRIN 325 MG ENTERIC COATED TABLET PO SCH (09:28)
[2020-08-02] MEDS: POTASSIUM CHLORIDE 10 MEQ TABLET PO SCH (09:28)
[2020-08-02] MEDS: DEXAMETHASONE 10 MG/ML VIAL IV SCH (09:29)
[2020-08-02] MEDS: ENOXAPARIN 40 MG/0.4 ML SYRINGE SQ SCH (09:29)
[2020-08-02] MEDS: FUROSEMIDE 40 MG TABLET PO SCH (09:30)
[2020-08-02] MEDS: REMDESIVIR 100 MG in 0.9 % SODIUM CHLORIDE 250 ML IV SCH (09:31)
[2020-08-02] MEDS: CRANBERRY EXTRACT 300 MG PO SCH (10:02)
--- NOTE | 2020-08-02 11:54 | Discharge Summary ---
Discharge Provider Provider Patient information: Note initiated : 08/02/20 at 11:52 am Service Date, if different from initiated Date: [] Patient: Shubham Ceballos 74 y/o M admitted on 07/29/20 for fever. Discharge diagnosis #COVID-19: Clinically improved status post 5 days remdesivir and dexamethasone. #COPD: -Continue bronchodilators.-Follows with Dr. Post, last FEV1 noted in chart was 2.55 from 11/2016 #Anemia: Mild stable #Type 2 diabetes: On Metformin/CC diet #Peripheral neuropathy: On gabapentin. 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 Ceballos is a 74 year old M with a history of COPD, type 2 diabetes with neurop athy, hypertension, obstructive sleep apnea on CPAP at night who presents to the ED with 3 days of symptoms. History is obtained speaking the patient as well as reviewing old records. Patient received his first COVID-19 vaccine on 07/20. Initially did well after that. However last on 07/26 he started to develop head congestion, felt like he was having a head cold coming on. The next day on Thursday he felt like he was "hit by a truck" with severe myalgias, shaking chills and malaise. He was using pain medications and muscle relaxers with minimal relief. He slept most of the day. On Thursday he was still feeling poorly, by that evening he was too weak to get up out of bed and presents the ED late on Thursday with the above complaints. In the emergency department, the patient was febrile to 104.7 degrees, had room air sats of 90%, which improved with 2 L nasal cannula, was tachypneic at 25 breaths/min with normal pulse at 80. White count was normal, generally normal chemistries. Chest x-ray was clear. SARS-CoV-2 antigen was positive. Confirmatory Cepheid NAAT was also positive for SARS-CoV-2, negative for influenza and RSV. Patient is being admitted for treatment of severe COVID-19. 07/30 Patient feels about the same, still quite weak, though myalgias seem to be somewhat improved. Requiring 2 L nasal cannula. Notes he cannot taste or smell anything today. Tolerating remdesivir and dexamethasone. 07/31 Patient up to chair for meals. Still feels quite weak and unsteady. Gets a bit lightheaded when moving around. Breathing is improved however. Inflammatory markers improving. Using CPAP with good saturations on room air (chronic for sleep) 08/01-patient doing well. Day 4 remdesivir. Denies chest pain or shortness of breath. Currently on room air. No overnight events. No additional concerns per nursing staff. Stable hemodynamics. Tolerating diet. Maintaining contact precautions. LFTs minimal elevation. Anticipate discharge in 24 hours after last dose remdesivir -08/02 patient doing a lot better. No overnight events. No concerns per staff. No fever chills nausea vomiting. Completed 5 days remdesivir. Discharging on additional 5 days oral dexamethasone. Follow-up PCP in 5 to 7 days Date of admission: 07/29/20 09:04 Discharge date: 08/02/20 Primary care physician: Reza Graham MD Consults: 07/29/20 Consult to Physician [CONS] Stat Comment: Consulting Provider: Abbi Frost Reason For Exam: Physician to Consult Discharge Meds Discharge Medications Home Medications cranberry extract 300 mg PO BID 02/12/15 [History Confirmed 07/29/20 Last Taken 03/28/18 08:00] vitamin B comp with C no.4 150 mg PO DAILY 02/12/15 [History Confirmed 07/29/20 Last Taken 03/28/18 08:00] aspirin 325 mg PO DAILY 06/05/15 [History Confirmed 07/29/20 Last Taken 07/28/20] CPAP #1 each 12/11/16 [Rx Confirmed 07/29/20 Last Taken Unknown] cpap mask #1 ea 06/01/18 [Rx Confirmed 07/29/20 Last Taken Unknown] amlodipine 5 mg tablet 5 mg PO DAILY #90 tab 02/24/19 [Rx Confirmed 07/29/20 Last Taken 07/28/20] metformin 500 mg tablet 1,000 mg PO BIDCC #180 tab 02/24/19 [Rx Confirmed 07/29/20 Last Taken 07/28/20] blood sugar diagnostic #10 each 03/25/19 [History Confirmed 07/29/20 Last Taken Unknown] lancets #100 each 05/30/19 [Rx Confirmed 07/29/20 Last Taken Unknown] furosemide 40 mg tablet 40 mg PO DAILY #90 tab 07/05/19 [Rx Confirmed 07/29/20 Last Taken 07/28/20] potassium chloride 10 mEq capsule,extended release 10 meq PO QAMCC #90 cap 07/05/19 [Rx Confirmed 07/29/20 Last Taken 07/28/20] simvastatin 20 mg tablet 20 mg PO HS #90 tab 09/23/19 [Rx Confirmed 07/29/20 Last Taken 07/28/20] Diabetic shoes #1 ea 11/01/19 [Rx Confirmed 07/29/20 Last Taken Unknown] budesonide-formoterol HFA 160 mcg-4.5 mcg/actuation aerosol inhaler 2 puff INHALATION BID PRN g 03/27/20 [History Confirmed 07/29/20 Last Taken 07/27/20] valsartan 320 mg tablet 320 mg PO QDAY 03/27/20 [History Confirmed 07/29/20 Last Taken 07/28/20] hydrocodone 10 mg-acetaminophen 325 mg tablet 1 tab PO Q4-6H PRN #180 tab 07/25/20 [Rx Confirmed 07/29/20 Last Taken 07/28/20 14:00] PreserVision AREDS-2 1 tab PO BID 07/29/20 [History Confirmed 07/29/20 Last Taken Unknown] allopurinol 100 mg PO QDAY 07/29/20 [History Confirmed 07/29/20 Last Taken Unknown] gabapentin 1,800 mg PO BID 07/29/20 [History Confirmed 07/29/20 Last Taken 07/28/20] garlic 1,250 mg PO BID 07/29/20 [History Confirmed 07/29/20 Last Taken Unknown] magnesium oxide 420 mg PO QHS 07/29/20 [History Confirmed 07/29/20 Last Taken 07/28/20] omega 5-eiq-nkm-fish oil 1 cap PO BID 07/29/20 [History Confirmed 07/29/20 Last Taken 07/28/20] dexamethasone 6 mg PO QDAY #5 tab 08/02/20 [Rx Last Taken Unknown] COURSE Hospital Course Hospital course: . Discharge diagnosis: COVID-19 Time Spent with Patient Time attestation: Total time spent providing and/or coordinating discharge services: EXAM Constitutional Vitals: Temp Pulse Resp BP Pulse Ox 98.0 F 88 18 143/65 93 08/02/20 11:46 08/02/20 11:46 08/02/20 11:46 08/02/20 11:46 08/02/20 11:46 Discharge Data Data Completed and Pending Labs on day of discharge: Labs from last 24 hours 08/02/20 05:41 Sodium 144 Potassium 4.3 Chloride 108 Carbon Dioxide 23 Anion Gap 13.0 BUN 33 H Creatinine 1.1 GFR Calculation 64 Glucose 95 Uric Acid 8.0 Calcium 8.3 L Phosphorus 3.5 Magnesium 1.8 Total Bilirubin 0.3 Direct Bilirubin < 0.2 GGT 59 AST 51 H ALT 105 H Alkaline Phosphatase 83 Lactate Dehydrogenase 245 H Total Protein 6.9 Albumin 3.3 Globulin 3.6 Albumin/Globulin Ratio 0.9 L Triglycerides 254 H Preliminary micro results at discharge 07/29/20 00:30 Blood Culture - Preliminary Blood 07/29/20 00:25 Blood Culture - Preliminary Blood Discharge Plan Patient/Caregiver Discharge Instructions Activity: other Diet: Consistent Carbohydrate Activity Restrictions/Additional Instructions: Continue dexamethasone for 5 days Follow-up PCP in 5 to 7 days Return to ER worsening fever chills shortness of breath Prescriptions: New dexamethasone 6 mg tablet 6 mg PO QDAY Qty: 5 RF: 0 Continued (DME) Accu-Chek Jeimy Plus test strp strip See Rx Instructions .ROUTE .MEDSUPPLY Qty: 10 RF: 0 amlodipine 5 mg tablet 5 mg PO DAILY Qty: 90 RF: 0 metformin 500 mg tablet 1,000 mg PO BIDCC Qty: 180 RF: 0 (DME) lancets [Accu-Chek Softclix Lancets] Misc See Rx Instructions .ROUTE .MEDSUPPLY Qty: 100 RF: 5 furosemide 40 mg tablet 40 mg PO DAILY Qty: 90 RF: 3 potassium chloride 10 mEq capsule, extended release 10 meq PO QAMCC Qty: 90 RF: 3 simvastatin 20 mg tablet 20 mg PO HS Qty: 90 RF: 3 (DME) Diabetic shoes Qty: 1 RF: 0 hydrocodone-acetaminophen 10-325 mg tablet 1 tab PO Q4-6H PRN (Reason: pain) Qty: 180 RF: 0 (DME) CPAP Qty: 1 RF: 8 Symbicort 160-4.5 mcg/actuation HFA aerosol inhaler 2 puff INHALATION BID PRN (Reason: COPD) RF: 0 valsartan 320 mg tablet 320 mg PO QDAY RF: 0 (DME) cpap mask Qty: 1 RF: 0 cranberry extract 300 MG tablet 300 mg PO BID RF: 0 vitamin B comp with C no.4 150 MG tablet 150 mg PO DAILY RF: 0 aspirin 325 MG tablet,delayed release (DR/EC) 325 mg PO DAILY RF: 0 gabapentin 600 mg tablet 1,800 mg PO BID RF: 0 omega 4-nln-evb-fish oil 300-1,000 mg capsule 1 cap PO BID RF: 0 magnesium oxide 400 mg magnesium capsule 420 mg PO QHS RF: 0 allopurinol 100 mg Tablet 100 mg PO QDAY RF: 0 garlic 1,250 mg Tablet 1,250 mg PO BID RF: 0 PreserVision AREDS-2 250-90-40-1 mg Capsule 1 tab PO BID RF: 0 Follow Up Plan Follow up with: Reza Graham MD [Primary Care Provider] - Patient Disposition: Home, Self-Care Rehab Potential: Fair I certify that the patient requires SNF services: No Overall status at discharge: patient is progressing back to baseline Discharge Orders: Discharge Order (Routine); Ordered 08/02/20 Ordered By: Garry HOBSON VTE Deep Vein Thrombosis/Pulmonary Embolism Present on Admission: Yes
== END 2020-08-02 14:22 | disposition home or self-care (01) | DRG 178 ==
LOC: ED 23:53 → ICU 07-29 08:50 → MEDSUR 07-31 15:40
PROVIDERS: ADMIT Internal Medicine; ATTEND Internal Medicine

== ENCOUNTER 2021-03-15 18:44 | Inpatient (IN) ==
[2021-03-15] MEDS ORDERED: IOPAMIDOL 100 ML BOTTLE IV ONE (18:45)
[2021-03-15] MEDS ORDERED: methylPREDNISolone SOD SUCC 125 MG/2 ML VIAL IV ONE (19:07)
[2021-03-15] MEDS ORDERED: IPRATROPIUM/ALBUTEROL 3 ML AMPUL.NEB NEB ONE (19:07)
[2021-03-15 19:56] LABS: Basophils # (Auto) 0.04 K/mcL (0.00-0.30); Basophils % (Auto) 0.2 % (0.0-2.0); Eosinophils # (Auto) 0.14 K/mcL (0.00-0.70); Eosinophils % (Auto) 0.9 % (0.0-7.0); Hematocrit 35.6 % (40.1-51.0); Hemoglobin 11.4 g/dL (13.7-17.5); Lymphocytes # (Auto) 1.45 K/mcL (1.50-4.80); Lymphocytes % (Auto) 8.9 % (15.5-49.0); Mean Cell Volume 93.4 fL (80.0-100.0); Mean Platelet Volume 9.7 fL (7.4-10.4); Monocytes # (Auto) 1.14 K/mcL (0.10-0.90); Platelet Count 281 K/mcL (140-440); RBC 3.81 M/mcL (4.63-6.08); Red Cell Distribution Width 15.2 % (11.5-14.5); WBC 16.3 K/mcL (4.5-11.0)
[2021-03-15 20:20] LABS: ALT/SGPT 18 U/L (<40); AST/SGOT 15 U/L (<40); Albumin 3.9 gm/dL (3.2-5.2); Albumin/Globulin Ratio 1.1 (1.0-2.3); Alkaline Phosphatase 107 U/L (39-117); Bilirubin,Total 0.3 mg/dL (0.1-1.0); Blood Urea Nitrogen 44 mg/dL (8-23); Calcium 8.8 mg/dL (8.6-10.4); Carbon Dioxide 20 mmol/L (22-30); Chloride 99 mmol/L (96-108); Globulin 3.7 gm/dL (2.2-3.7); Glomerular Filtration Rate 35; Glucose 133 mg/dL (70-105)
[2021-03-15] MEDS ORDERED: LORazepam 2 MG/ML VIAL IV ONE (20:20)
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
[2021-03-15] MEDS ORDERED: 0.9 % SODIUM CHLORIDE 500 ML IV ONE (21:13)
[2021-03-15] MEDS ORDERED: morphine 4 MG/ML VIAL IV ONE (21:18)
[2021-03-15] MEDS ORDERED: FUROSEMIDE 40 MG/4 ML VIAL IV ONE (22:42)
[2021-03-15] MEDS ORDERED: ONDANSETRON 4 MG/2 ML VIAL IV PRN (22:54)
[2021-03-15] MEDS ORDERED: HYDROcodone/APAP 5/325MG TABLET PO PRN (22:54)
[2021-03-15] MEDS ORDERED: ACETAMINOPHEN 325 MG TABLET PO PRN (22:54)
[2021-03-15] MEDS ORDERED: LORazepam 2 MG/ML VIAL IV PRN (23:14)
[2021-03-15] MEDS ORDERED: IPRATROPIUM/ALBUTEROL 3 ML AMPUL.NEB NEB PRN (23:15)
--- NOTE | 2021-03-16 04:56 | Ultrasound Report ---
CLINICAL INFORMATION: Right leg swelling COMPARISON: None. FINDINGS: The entire deep venous system including the common femoral, superficial femoral, popliteal and paired trifurcation calf veins are easily compressible and show normal venous blood flow on color and spectral Doppler. No evidence of thrombus IMPRESSION: Negative exam - no evidence of deep vein thrombosis. Interpreted and Authenticated by: Buster Luciano 03/16/21
--- NOTE | 2021-03-16 05:09 | XRay Report ---
CLINICAL INFORMATION: dyspnea COMPARISON: 03/14/2021 FINDINGS: Heart size is normal for technique. Mediastinum and pulmonary vessels are unremarkable. Small vague infiltrate seen in the right base. Minor left basilar atelectasis noted IMPRESSION: Small vague right basilar infiltrate and minor left basilar atelectasis Interpreted and Authenticated by: Buster Luciano 03/16/21
--- NOTE | 2021-03-16 06:11 | Cat Scan Report ---
CLINICAL INFORMATION: Dyspnea and elevated d-dimer COMPARISON: Abdomen CT 02/01/2014. TECHNIQUE: 80ml of Isovue-370 were injected intravenously. Using SmartPrep to maximize pulmonary artery opacification, .625mm helical slices were obtained from the lung apices through the lung bases. Following reconstruction, 2.5 mm sagittal, coronal, and axial reformations were processed. The exam was reviewed at mediastinal, lung, and bone windows. The exam was performed using radiation dose optimization techniques including, but not limited to, automated exposure control, adjustment of the mA and/or kV according to patient size and use of iterative reconstruction technique. FINDINGS: Pulmonary parenchymal windows show subsegmental atelectasis in the posterior lower lobes. Small focal region of airspace disease in the anterior segment left upper lobe on image 41 likely focal fibrosis. Pleural parenchymal scarring in the apical regions noted. The pleural spaces are normal-no effusions Mediastinal windows show the heart is mildly enlarged with moderate calcific and fibrofatty plaque in the coronary arteries. Lipomatous infiltration of the interatrial septum is unchanged from 2014 CT. The pulmonary arteries are normal diameter and well-opacified without evidence of embolus. Thoracic aorta is also normal diameter and well-opacified. There is no adenopathy in the mediastinal, hilar or axillary regions. Esophagus is grossly normal. Bone windows show moderate degenerative change throughout the mid/ lower thoracic spine with syndesmophytes bridging the thoracic vertebral bodies. No focal osseous lesions. Soft tissues of the chest wall are unremarkable. An 8.2 cm low-attenuation, gently lobulated left adrenal mass has slowly grown since the CT over eight years ago. At that time, it was 3 cm. This should represent a slow-growing, yet benign, adrenal adenoma. A 2.2 cm nodule, in the superior pole of the right kidney with central low-attenuation, was not seen on [address] This could represent a small renal cell carcinoma. 11 mm low-attenuation lesions posteriorly superior pole likely represents a cyst IMPRESSION: 1. No evidence of pulmonary embolus or other acute cardiopulmonary process. 2. 2.2 cm mass in the superior pole the right kidney not seen on the remote 2014 CT. This could represent renal cell carcinoma. Suggest: CT IVP. 3. 8.2 cm low-attenuation mass in the left adrenal gland shows very slow growth over the past eight years. 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 Interpreted and Authenticated by: Buster Luciano 03/16/21
[2021-03-16] MEDS ORDERED: hydrALAZINE 20 MG/ML VIAL IV PRN (08:42)
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
[2021-03-16 10:01] LABS: Anisocytosis 1+ (None Seen); Band Neutrophils % 4 % (0-10); Lymphocytes % 3 % (15-49); Monocytes % (Manual) 2 % (1-12); Platelet Estimate NORMAL (Normal); RBC Morphology ABNORMAL (Normal); Segmented Neutrophils % 91 % (38-78)
[2021-03-16] MEDS: FUROSEMIDE 40 MG TABLET PO SCH (10:05)
[2021-03-16] MEDS: metFORMIN 500 MG TABLET PO SCH ×2 (10:05→17:38)
[2021-03-16] MEDS: GABAPENTIN 300 MG CAPSULE PO SCH ×2 (10:05→20:19)
[2021-03-16] MEDS: ASPIRIN 325 MG ENTERIC COATED TABLET PO SCH (10:05)
[2021-03-16] MEDS: FOLIC ACID 1 MG TABLET PO SCH (10:05)
[2021-03-16] MEDS: THIAMINE 100 MG TABLET PO SCH (10:05)
[2021-03-16] MEDS: ALLOPURINOL 100 MG TABLET PO SCH (10:06)
[2021-03-16] MEDS: MULTIVIT,THER IRON,CA,FA & MIN 1 TABLET PO SCH (10:06)
[2021-03-16] MEDS ORDERED: VANCOMYCIN PER PHARMACY IV SCH (10:46)
[2021-03-16] MEDS ORDERED: DEXTROSE 50% 50 ML VIAL IV PRN (10:46)
[2021-03-16] MEDS ORDERED: POTASSIUM CHLORIDE 40 MEQ in DEXTROSE 5% IN WATER 500 ML IV PRN (10:46)
[2021-03-16] MEDS ORDERED: METOCLOPRAMIDE 10 MG/2 ML VIAL IV PRN (10:46)
[2021-03-16] MEDS ORDERED: POTASSIUM CHLORIDE 20 MEQ TABLET PO PRN ×2 (10:46)
[2021-03-16] MEDS ORDERED: SENNOSIDES 1 TABLET PO PRN (10:46)
[2021-03-16] MEDS ORDERED: ONDANSETRON 4 MG/2 ML VIAL IV PRN (10:46)
[2021-03-16] MEDS ORDERED: DEXTROSE 31 GM ORAL.SUSP PO PRN (10:46)
[2021-03-16] MEDS ORDERED: ACETAMINOPHEN 325 MG TABLET PO PRN (10:46)
[2021-03-16] MEDS ORDERED: MAGNESIUM SULFATE 2 GM/50 ML BAG IV PRN (10:46)
[2021-03-16] MEDS ORDERED: POLYETHYLENE GLYCOL 3350 17 GM PACKET PO PRN (10:46)
[2021-03-16] MEDS: HYDROcodone/APAP 10/325MG TABLET PO PRN ×2 (10:55→15:56)
[2021-03-16 11:45] LABS: Basophils # (Auto) 0.01 K/mcL (0.00-0.30); Basophils % (Auto) 0.1 % (0.0-2.0); Eosinophils # (Auto) 0 K/mcL (0.00-0.70); Eosinophils % (Auto) 0 % (0.0-7.0); Hematocrit 35.3 % (40.1-51.0); Hemoglobin 11.5 g/dL (13.7-17.5); Lymphocytes # (Auto) 0.69 K/mcL (1.50-4.80); Lymphocytes % (Auto) 4.3 % (15.5-49.0); Mean Cell Volume 93.1 fL (80.0-100.0); Mean Corpuscular HGB Conc 32.6 g/dL (31.0-36.0); Mean Platelet Volume 9.7 fL (7.4-10.4); Monocytes # (Auto) 0.41 K/mcL (0.10-0.90); Monocytes % (Auto) 2.5 % (1.0-12.0); Neutrophils % (Auto) 93.1 % (38.0-78.0); Platelet Count 267 K/mcL (140-440); RBC 3.79 M/mcL (4.63-6.08); Red Cell Distribution Width 15.2 % (11.5-14.5); WBC 16.2 K/mcL (4.5-11.0)
[2021-03-16 12:10] LABS: ALT/SGPT 18 U/L (<40); AST/SGOT 11 U/L (<40); Albumin 3.6 gm/dL (3.2-5.2); Albumin/Globulin Ratio 0.8 (1.0-2.3); Alkaline Phosphatase 113 U/L (39-117); Bilirubin,Direct < 0.2 mg/dL (0-0.3); Bilirubin,Total 0.2 mg/dL (0.1-1.0); Blood Urea Nitrogen 42 mg/dL (8-23); Calcium 9.3 mg/dL (8.6-10.4); Carbon Dioxide 17 mmol/L (22-30); Chloride 97 mmol/L (96-108); Globulin 4.3 gm/dL (2.2-3.7); Glomerular Filtration Rate 48; Glucose 257 mg/dL (70-105); Lactate Dehydrogenase 161 U/L (135-225); Phosphorous 2.6 mg/dL (2.5-4.5); Triglycerides 58 mg/dL (<150); Uric Acid 8.5 mg/dL (2.5-8.0)
[2021-03-16] MEDS ORDERED: METOPROLOL TARTRATE 5 MG/5 ML VIAL IV PRN (12:38)
[2021-03-16] MEDS: CEFEPIME 2 GM VIAL IV SCH ×2 (12:38→20:18)
[2021-03-16] MEDS: ENOXAPARIN 40 MG/0.4 ML SYRINGE SQ SCH ×2 (12:39→20:18)
[2021-03-16] MEDS: predniSONE 20 MG TABLET PO SCH (12:39)
[2021-03-16] MEDS: metroNIDAZOLE 500 MG/100 ML BAG IV SCH ×2 (12:40→19:05)
[2021-03-16] MEDS: INSULIN LISPRO 1 UNIT/0.01 ML UNIT SQ SCH ×3 (12:40→20:19)
[2021-03-16 13:04] LABS: Erythrocyte Sedimentation Rate 114 mm/hr (0-15)
[2021-03-16] MEDS: IPRATROPIUM/ALBUTEROL 3 ML AMPUL.NEB NEB SCH ×2 (13:10→19:13)
[2021-03-16] MEDS: METOPROLOL TARTRATE 5 MG/5 ML VIAL IV PRN (14:16)
[2021-03-16] MEDS: 0.9 % SODIUM CHLORIDE 10 ML SYRINGE IV SCH ×2 (14:17→20:20)
[2021-03-16] MEDS: VANCOMYCIN 2,000 MG in 0.9 % SODIUM CHLORIDE 500 ML IV SCH (14:21)
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
[2021-03-16] MEDS: SIMVASTATIN 20 MG TABLET PO SCH (20:19)
[2021-03-16] MEDS: DOCUSATE SODIUM 100 MG CAPSULE PO SCH (20:19)
[2021-03-17] MEDS: metroNIDAZOLE 500 MG/100 ML BAG IV SCH ×3 (02:54→20:26)
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
[2021-03-17] MEDS: metFORMIN 500 MG TABLET PO SCH ×2 (08:12→17:53)
[2021-03-17] MEDS ORDERED: INSULIN GLARGINE, HUMAN 1 UNIT/0.01 ML SQ ONE (08:15)
--- NOTE | 2021-03-17 08:15 | Internal Med Progress Note ---
SUBJECTIVE Subjective Patient information: Note initiated : 03/17/21 at 8:14 am Service Date, if different from initiated Date: [] Patient: Shubham Ceballos a 75 y/o M admitted on 03/16/21 for SOB and leg swelling. Chief Complaint: [] Interval history: History of present illness: Mr. Ceballos is a 75 year old M Presents to the ED with right leg swelling and also states more short of breath recently. was recently started on antibiotics for pneumonia at PCP office on . patient states that since he started taking antibiotic he felt dizzy and woozy and because of the leg is the reason he came into the ED. Afebrile in the ED. Sats low nineties on room air. Leukocytosis 16. Chronic anemia stable. Creatinine elevated in the ED 1.8. ED provider evaluated him and thought it related to COPD and CHF. As he was given Solu-Medrol and diuretics. Right leg ultrasound no DVT. CTA chest showed an incidental mass on the right kidney but otherwise unremarkable. Has been vaccinated against Covid. Patient has a wound of his right foot that has been seeing wound care for. His leg is swollen but he denies any increased redness or pain. Although his foot has been more painful. Feels little bit wheezy. States the breathing treatments he got in the ED h elped. Drinks 6-8 beers a night. 03/17 Patient feeling better today. Feels shortness of breath is baseline. Chronic cough stable. No new complaints. Seen by podiatry yesterday. Review of Systems: denies headache/fever/chills/nausea/vomiting/chest or abdominal pain/diarrhea. Otherwise see above. Constitutional Vitals: Vital Signs Temp Pulse Resp BP Pulse Ox 97.2 F 75 20 130/72 95 03/17/21 04:00 03/17/21 04:00 03/17/21 04:00 03/17/21 04:00 03/17/21 04:00 Period Temp Pulse Resp BP Sys/Gonzalez Pulse Ox Last 24 Hr 97.2 F-98.4 F 73-92 18-24 129-153/68-73 90-96 Intake and Output 03/16/21 03/17/21 03/17/21 21:59 05:59 13:59 Intake Total 700 100 Output Total 400 450 Balance 700 -300 -450 Weight 130.272 kg Intake & Output: Intake & Output 03/16/21 03/17/21 03/17/21 21:59 05:59 13:59 Intake Total 700 100 Output Total 400 450 Balance 700 -300 -450 Weight 130.272 kg Intake: IV 700 100 Vancomycin 2,000 mg In Sodium 500 Chloride 0.9% 500 ml @ 250 mls/ hr IV DAILY [facility] Rx#:[id number] Output: Void Amount 400 450 Other: Meal Dinner Percent of Meal Consumed 100% Feeding Ability Independent Urine Appearance Clear Clear Urine Color Straw Bright Yellow Exam: General: Alert, Awake, No acute Distress, obesity Eyes/N/T: EOMI, Head/Neck: neck supple, CV: RRR, No murmurs, Pulm: mild exp wheezing b/l, no rhonchi Abd: soft, nontender, +BS x4 Ext: no clubbing/cyanosis, RLE edema 2-3+ nontender to touch along leg, purulent small ulcer between 4th & 5th toe - malodorous Neuro: Alert, no focal deficits, moves all extremities, Skin: warm/dry OBJ DATA Labs CBC & Chem 7: 03/17/21 07:49 03/16/21 11:14 Labs: Abnormal Lab Results 03/16/21 03/16/21 03/16/21 11:14 11:14 09:02 WBC 16.2 H RBC 3.79 L Hgb 11.5 L Hct 35.3 L RDW 15.2 H Neut % (Auto) 93.1 H Lymph % (Auto) 4.3 L Lymph # (Auto) 0.69 L [place] # (Auto) Seg Neutrophils % Lymphocytes % Absolute Neutrophils 15.08 H RBC Morphology Anisocytosis ESR 114 H D-Dimer Sodium 129 L Carbon Dioxide 17 L BUN 42 H Creatinine 1.4 H Glucose 257 H Uric Acid 8.5 H C-Reactive Protein NT-Pro-B Natriuret Pep Globulin 4.3 H Albumin/Globulin Ratio 0.8 L Procalcitonin 0.17 H 03/16/21 03/16/21 03/15/21 09:02 09:02 19:16 WBC RBC Hgb Hct RDW Neut % (Auto) Lymph % (Auto) Lymph # (Auto) [place] # (Auto) Seg Neutrophils % 91 H Lymphocytes % 3 L Absolute Neutrophils RBC Morphology Abnormal A Anisocytosis 1+ A ESR D-Dimer Sodium Carbon Dioxide 20 L BUN 44 H Creatinine 1.8 H Glucose 133 H Uric Acid C-Reactive Protein 26.50 H NT-Pro-B Natriuret Pep 1253.0 H Globulin Albumin/Globulin Ratio Procalcitonin 03/15/21 03/15/21 19:16 19:16 WBC 16.3 H RBC 3.81 L Hgb 11.4 L Hct 35.6 L RDW 15.2 H Neut % (Auto) 83.0 H Lymph % (Auto) 8.9 L Lymph # (Auto) 1.45 L [place] # (Auto) 1.14 H Seg Neutrophils % Lymphocytes % Absolute Neutrophils 13.49 H RBC Morphology Anisocytosis ESR D-Dimer 2.36 H Sodium Carbon Dioxide BUN Creatinine Glucose Uric Acid C-Reactive Protein NT-Pro-B Natriuret Pep Globulin Albumin/Globulin Ratio Procalcitonin Meds: Medications Acetaminophen (Acetaminophen 325 Mg Tablet) 650 mg PO Q6HP PRN; Protocol PRN Reason: Per Pain Protocol/Fever > 101 Acetaminophen (Acetaminophen 325 Mg Tablet) 650 mg PO Q6HP PRN; Protocol PRN Reason: Per Pain Protocol/Fever > 101 Hydrocodone Bitart/Acetaminophen (Hydrocodone/Apap 10/325mg Tablet) 1 - 2 tab PO Q4-6HP PRN; Protocol PRN Reason: pain Last Admin: 03/16/21 15:56 Dose: 1 tab Documented by: Albuterol/Ipratropium (Ipratropium/Albuterol 3 Ml Ampul.Neb) 3 ml NEB Q4HP PRN PRN Reason: Shortness Of Breath Allopurinol (Allopurinol 100 Mg Tablet) 100 mg PO QDAY [facility] Last Admin: 03/16/21 10:06 Dose: 100 mg Documented by: Aspirin (Aspirin 325 Mg Enteric Coated Tablet) 325 mg PO DAILY [facility] Last Admin: 03/16/21 10:05 Dose: 325 mg Documented by: Cefepime HCl (Cefepime 2 Gm Vial) 1 gm IV Q12H [facility]; Protocol Last Admin: 03/16/21 20:18 Dose: 1 gm Documented by: Dextrose (Dextrose 50% 50 Ml Vial) 0 ml IV UD PRN PRN Reason: Hypoglycemia Diagnostic Test (Pha) (Accu-Chek 1 Each Strip) 1 each FS ACHS [facility] Last Admin: 03/17/21 08:11 Dose: 1 each Documented by: Docusate Sodium (Docusate Sodium 100 Mg Capsule) 100 mg PO BID [facility] Last Admin: 03/16/21 20:19 Dose: 100 mg Documented by: Enoxaparin Sodium (Enoxaparin 40 Mg/0.4 Ml Syringe) 40 mg SQ BID [facility] Last Admin: 03/16/21 20:18 Dose: 40 mg Documented by: Folic Acid (Folic Acid 1 Mg Tablet) 1 mg PO DAILY [facility] Last Admin: 03/16/21 10:05 Dose: 1 mg Documented by: Furosemide (Furosemide 40 Mg Tablet) 40 mg PO DAILY [facility] Last Admin: 03/16/21 10:05 Dose: 40 mg Documented by: Gabapentin (Gabapentin 300 Mg Capsule) 600 mg PO BID [facility] Last Admin: 03/16/21 20:19 Dose: 600 mg Documented by: Glucose (Dextrose 31 Gm Oral.Susp) 15 gm PO PRN PRN PRN Reason: Hypoglycemia Hydralazine HCl (Hydralazine 20 Mg/Ml Vial) 0 mg IV Q2HP PRN PRN Reason: Hypertension Potassium Chloride 40 meq/ (Dextrose) 520 mls @ 130 mls/hr IV UD PRN PRN Reason: Potassium < 3 Magnesium Sulfate (Magnesium Sulfate) 2 gm in 50 mls @ 50 mls/hr IV UD PRN PRN Reason: Magnesium </= 1.6 Metronidazole (Flagyl) 500 mg in 100 mls @ 100 mls/hr IV Q8H [facility]; Protocol Last Infusion: 03/17/21 04:50 Dose: Infused Documented by: Vancomycin HCl 2,000 mg/ (Sodium Chloride) 500 mls @ 250 mls/hr IV DAILY [facility] Stop: 03/17/21 13:00 Last Infusion: 03/16/21 16:54 Dose: Infused Documented by: Insulin Human Lispro (Insulin Lispro 1 Unit/0.01 Ml Unit) 0 unit SQ ACHS [facility]; Protocol Last Admin: 03/16/21 20:19 Dose: 8 units Documented by: Iron Carb/Multivit/[place]/Folic Acid (Multivit,Ther Iron,Ca,Fa & Min 1 Tablet) 1 tab PO DAILY [facility] Last Admin: 03/16/21 10:06 Dose: 1 tab Documented by: Lorazepam (Lorazepam 2 Mg/Ml Vial) 1 mg IV Q2-4HP PRN; Protocol PRN Reason: Alcohol Withdrawal Metformin HCl (Met[facility] 500 Mg Tablet) [facility] Last Admin: 03/17/21 08:12 Dose: Not Given Documented by: Metoclopramide HCl (Metoclopramide 10 Mg/2 Ml Vial) 10 mg IV Q6HP PRN PRN Reason: Nausea And Vomiting Metoprolol Tartrate (Metoprolol Tartrate 5 Mg/5 Ml Vial) 5 mg IV Q2HP PRN PRN Reason: Tachyarrhythmias HR>110 Last Admin: 03/16/21 14:16 Dose: 5 mg Documented by: Ondansetron HCl (Ondansetron 4 Mg/2 Ml Vial) 4 mg IV Q4HP PRN; Protocol PRN Reason: Nausea And Vomiting Ondansetron HCl (Ondansetron 4 Mg/2 Ml Vial) 4 mg IV Q4HP PRN PRN Reason: Nausea And Vomiting Budesonide- Formoterol [ Symbicort] 160-4.5 Mcg/Actuation Inhaler 1 dose INH BIDP PRN PRN Reason: COPD Polyethylene Glycol (Polyethylene Glycol 3350 17 Gm Packet) 17 gm PO DAILYP PRN PRN Reason: Constipation Potassium Chloride (Potassium Chloride 20 Meq Tablet) 40 meq PO UD PRN PRN Reason: Potssium is 3-3.5 Potassium Chloride (Potassium Chloride 20 Meq Tablet) 40 meq PO UD PRN PRN Reason: Potassium < 3 Prednisone (Prednisone 20 Mg Tablet) 60 mg PO [facility] Last Admin: 03/16/21 12:39 Dose: 60 mg Documented by: Senna (Sennosides 1 Tablet) 2 tab PO DAILYP PRN PRN Reason: Constipation Simvastatin (Simvastatin 20 Mg Tablet) 20 mg PO QHS [facility] Last Admin: 03/16/21 20:19 Dose: 20 mg Documented by: Sodium Chloride (0.9 % Sodium Chloride 10 Ml Syringe) 10 ml IV Q8 [facility] Last Admin: 03/16/21 20:20 Dose: 10 ml Documented by: Thiamine HCl (Thiamine 100 Mg Tablet) 100 mg PO DAILY [facility] Last Admin: 03/16/21 10:05 Dose: 100 mg Documented by: Tizanidine HCl (Tizanidine 4 Mg Tablet) 4 mg PO BIDP PRN PRN Reason: muscle spasticity Vancomycin HCl (Vancomycin Per Pharmacy) 1 order IV [facility]; Protocol A/P Narrative A/P Narrative: A: *Right foot/toe infection w/likely Osteo: -no DVT on u/s -leukocytosis slowly improving *AECOPD (Not on oxygen), mild: -CTA unremarkable *Generalized weakness/deconditioning: *Morbid obesity: *DM w/neuropathy: *LIV on CKD III: *Anemia, chronic: *KEZIA w/CPAP: *Spinal stenosis and chronic pain: *HTN/HLD: *Alcohol abuse: P: -steroids/nebs/RT -IS/Acapella -IV abx, pending WC -wound care team/podiatry -prn lasix -elevate legs -echo -CIWA, Beer with meals -SSI -home cpap -hold home norvasc/ARB for edema and liv - -pt/ot -ppx: lovenox Full code Time Spent With Patient Time: Total time spent is greater than 50% in coordination of care (as documented) at patient's floor/unit and/or counseling patient: QUALITY VTE Deep Vein Thrombosis/Pulmonary Embolism Present on Admission: No
[2021-03-17 08:59] LABS: Vancomycin,Random 8.1 ug/mL
[2021-03-17 09:00] LABS: Basophils # (Auto) 0.02 K/mcL (0.00-0.30); Basophils % (Auto) 0.1 % (0.0-2.0); Eosinophils # (Auto) 0 K/mcL (0.00-0.70); Eosinophils % (Auto) 0 % (0.0-7.0); Hematocrit 33.1 % (40.1-51.0); Hemoglobin 10.4 g/dL (13.7-17.5); Lymphocytes # (Auto) 0.83 K/mcL (1.50-4.80); Lymphocytes % (Auto) 5.4 % (15.5-49.0); Mean Cell Volume 94.6 fL (80.0-100.0); Mean Corpuscular HGB Conc 31.4 g/dL (31.0-36.0); Mean Platelet Volume 9.7 fL (7.4-10.4); Monocytes # (Auto) 0.58 K/mcL (0.10-0.90); Monocytes % (Auto) 3.8 % (1.0-12.0); Neutrophils % (Auto) 90.7 % (38.0-78.0); Platelet Count 269 K/mcL (140-440); Red Cell Distribution Width 15.4 % (11.5-14.5); WBC 15.3 K/mcL (4.5-11.0)
[2021-03-17] MEDS: INSULIN LISPRO 1 UNIT/0.01 ML UNIT SQ SCH ×4 (09:00→20:32)
[2021-03-17] MEDS: HYDROcodone/APAP 10/325MG TABLET PO PRN ×2 (09:01→14:00)
[2021-03-17] MEDS: MULTIVIT,THER IRON,CA,FA & MIN 1 TABLET PO SCH (09:01)
[2021-03-17] MEDS: 0.9 % SODIUM CHLORIDE 10 ML SYRINGE IV SCH ×3 (09:01→20:34)
[2021-03-17] MEDS: ASPIRIN 325 MG ENTERIC COATED TABLET PO SCH (09:02)
[2021-03-17] MEDS: FOLIC ACID 1 MG TABLET PO SCH (09:02)
[2021-03-17] MEDS: predniSONE 20 MG TABLET PO SCH ×2 (09:02→10:34)
[2021-03-17] MEDS: FUROSEMIDE 40 MG TABLET PO SCH (09:02)
[2021-03-17] MEDS: THIAMINE 100 MG TABLET PO SCH (09:03)
[2021-03-17] MEDS: GABAPENTIN 300 MG CAPSULE PO SCH ×2 (09:03→20:31)
[2021-03-17] MEDS: DOCUSATE SODIUM 100 MG CAPSULE PO SCH ×2 (09:03→20:31)
[2021-03-17] MEDS: ALLOPURINOL 100 MG TABLET PO SCH (09:03)
[2021-03-17] MEDS: ENOXAPARIN 40 MG/0.4 ML SYRINGE SQ SCH (09:03)
[2021-03-17] MEDS: CEFEPIME 2 GM VIAL IV SCH ×2 (09:06→21:35)
[2021-03-17 09:14] LABS: ALT/SGPT 24 U/L (<40); AST/SGOT 16 U/L (<40); Albumin 3.5 gm/dL (3.2-5.2); Albumin/Globulin Ratio 0.9 (1.0-2.3); Alkaline Phosphatase 100 U/L (39-117); Bilirubin,Direct < 0.2 mg/dL (0-0.3); Bilirubin,Total < 0.2 mg/dL (0.1-1.0); Blood Urea Nitrogen 42 mg/dL (8-23); Calcium 9.1 mg/dL (8.6-10.4); Carbon Dioxide 18 mmol/L (22-30); Chloride 107 mmol/L (96-108); Globulin 3.7 gm/dL (2.2-3.7); Glomerular Filtration Rate 64; Glucose 220 mg/dL (70-105); Lactate Dehydrogenase 144 U/L (135-225); Phosphorous 2.9 mg/dL (2.5-4.5); Triglycerides 126 mg/dL (<150); Uric Acid 8.5 mg/dL (2.5-8.0)
[2021-03-17] MEDS: IPRATROPIUM/ALBUTEROL 3 ML AMPUL.NEB NEB SCH ×4 (09:45→22:06)
[2021-03-17] MEDS: VANCOMYCIN 2,000 MG in 0.9 % SODIUM CHLORIDE 500 ML IV SCH (10:38)
--- NOTE | 2021-03-17 14:05 | XRay Report ---
CLINICAL INFORMATION: cellulitis right foot COMPARISON: MRI 03/16/2021. FINDINGS: Second ray amputation MTP level again noted. Moderate deformity of the the third and fourth proximal phalanges and the fifth proximal middle and distal phalanx suggesting malunified old fractures. There is no specific evidence for osteomyelitis the fourth proximal phalanx which is known to show increased signal on MRI. Periosteal new bone in the proximal and mid first metatarsal a 6 mm radiolucent lesion be supportive of osteomyelitis in the first metatarsal. Moderate degenerative change noted in the first MTP. There are hammertoe deformities in the third fourth and fifth toes. Two screws transfix old medial malleolar fracture and a lateral plate and screws transfix an old lateral malleolar fracture. Bone fracture is solidly unified and anatomically aligned. Diffuse soft tissue swelling is compatible with cellulitis IMPRESSION: 1. Osteomyelitis in the first metatarsal. Increased signal in this region acknowledged on prior day with MRI. 2. Deformity fourth proximal phalanx suggesting malunified old fracture. No specific evidence of osteomyelitis but this was clearly evident on MRI one day prior. 3. Malunified fractures of the third proximal phalanx and the fifth proximal, middle and distal phalanges. 4. Second ray amputation MTP level Interpreted and Authenticated by: Buster Luciano 03/17/21
--- NOTE | 2021-03-17 16:19 | EKG ---
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
--- NOTE | 2021-03-17 16:20 | EKG ---
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
[2021-03-17] MEDS: SIMVASTATIN 20 MG TABLET PO SCH (20:32)
[2021-03-17] MEDS: APIXABAN 5 MG TABLET PO SCH (20:32)
[2021-03-17] MEDS: tiZANidine 4 MG TABLET PO PRN (20:42)
[2021-03-18] MEDS: metroNIDAZOLE 500 MG/100 ML BAG IV SCH (03:56)
[2021-03-18] MEDS: HYDROcodone/APAP 10/325MG TABLET PO PRN ×4 (05:03→19:22)
[2021-03-18] MEDS: IPRATROPIUM/ALBUTEROL 3 ML AMPUL.NEB NEB SCH ×3 (06:17→21:29)
[2021-03-18] MEDS: 0.9 % SODIUM CHLORIDE 10 ML SYRINGE IV SCH ×3 (06:17→20:44)
[2021-03-18 06:26] LABS: Basophils # (Auto) 0.02 K/mcL (0.00-0.30); Basophils % (Auto) 0.2 % (0.0-2.0); Eosinophils # (Auto) 0 K/mcL (0.00-0.70); Eosinophils % (Auto) 0 % (0.0-7.0); Hematocrit 33.8 % (40.1-51.0); Hemoglobin 10.7 g/dL (13.7-17.5); Lymphocytes # (Auto) 1.67 K/mcL (1.50-4.80); Lymphocytes % (Auto) 14.2 % (15.5-49.0); Mean Cell Volume 94.9 fL (80.0-100.0); Mean Corpuscular HGB Conc 31.7 g/dL (31.0-36.0); Mean Platelet Volume 9.3 fL (7.4-10.4); Monocytes # (Auto) 0.55 K/mcL (0.10-0.90); Monocytes % (Auto) 4.7 % (1.0-12.0); Neutrophils % (Auto) 80.9 % (38.0-78.0); Platelet Count 287 K/mcL (140-440); RBC 3.56 M/mcL (4.63-6.08); Red Cell Distribution Width 15.3 % (11.5-14.5); WBC 11.7 K/mcL (4.5-11.0)
[2021-03-18] MEDS: INSULIN LISPRO 1 UNIT/0.01 ML UNIT SQ SCH ×4 (07:00→20:41)
--- NOTE | 2021-03-18 08:28 | Internal Med Progress Note ---
SUBJECTIVE Subjective Patient information: Note initiated : 03/18/21 at 8:25 am Service Date, if different from initiated Date: [] Patient: Shubham Ceballos a 75 y/o M admitted on 03/16/21 for SOB and leg swelling. Chief Complaint: [] Interval history: History of present illness: Mr. Ceballos is a 75 year old M Presents to the ED with right leg swelling and also states more short of breath recently. was recently started on antibiotics for pneumonia at PCP office on . patient states that since he started taking antibiotic he felt dizzy and woozy and because of the leg is the reason he came into the ED. Afebrile in the ED. Sats low nineties on room air. Leukocytosis 16. Chronic anemia stable. Creatinine elevated in the ED 1.8. ED provider evaluated him and thought it related to COPD and CHF. As he was given Solu-Medrol and diuretics. Right leg ultrasound no DVT. CTA chest showed an incidental mass on the right kidney but otherwise unremarkable. Has been vaccinated against Covid. Patient has a wound of his right foot that has been seeing wound care for. His leg is swollen but he denies any increased redness or pain. Although his foot has been more painful. Feels little bit wheezy. States the breathing treatments he got in the ED h elped. Drinks 6-8 beers a night. 03/17 Patient feeling better today. Feels shortness of breath is baseline. Chronic cough stable. No new complaints. Seen by podiatry yesterday. 03/18 Patient states poor sleep last night. Foot pain. No other complaints. Awaiting follow-up chemistry. Review of Systems: denies headache/fever/chills/nausea/vomiting/chest or abdominal pain/diarrhea. Otherwise see above. Constitutional Vitals: Vital Signs Temp Pulse Resp BP Pulse Ox 96.6 F L 74 20 144/82 95 03/18/21 04:00 03/18/21 04:00 03/18/21 07:46 03/18/21 04:00 03/18/21 07:46 Period Temp Pulse Resp BP Sys/Gonzalez Pulse Ox Last 24 Hr 96.6 F-98.6 F 71-85 16-22 129-151/68-84 93-98 Intake and Output 03/17/21 03/18/21 03/18/21 21:59 05:59 13:59 Intake Total 550 340 Output Total 250 1625 Balance 300 -1285 Intake & Output: Intake & Output 03/17/21 03/18/21 03/18/21 21:59 05:59 13:59 Intake Total 550 340 Output Total 250 1625 Balance 300 -1285 Intake: IV 200 100 Oral 350 240 Output: Void Amount 250 1625 Other: Meal Dinner Percent of Meal Consumed 100% Urine Appearance Clear Clear Urine Color Bright Yellow Straw Urine Odor Normal Normal Exam: General: Alert, Awake, No acute Distress, obesity Eyes/N/T: EOMI, Head/Neck: neck supple, CV: RRR, No murmurs, Pulm: mild exp wheezing b/l, no rhonchi Abd: soft, nontender, +BS x4 Ext: no clubbing/cyanosis, R foot in dressings Neuro: Alert, no focal deficits, moves all extremities, Skin: warm/dry OBJ DATA Labs CBC & Chem 7: 03/18/21 05:33 03/17/21 07:49 Labs: Abnormal Lab Results 03/18/21 03/17/21 03/17/21 05:33 07:49 07:49 WBC 11.7 H 15.3 H RBC 3.56 L 3.50 L Hgb 10.7 L 10.4 L Hct 33.8 L 33.1 L RDW 15.3 H 15.4 H Neut % (Auto) 80.9 H 90.7 H Lymph % (Auto) 14.2 L 5.4 L Lymph # (Auto) 0.83 L [place] # (Auto) Seg Neutrophils % Lymphocytes % Absolute Neutrophils 9.49 H 13.85 H RBC Morphology Anisocytosis ESR D-Dimer Sodium Carbon Dioxide 18 L BUN 42 H Creatinine Glucose 220 H Uric Acid 8.5 H C-Reactive Protein 13.50 H NT-Pro-B Natriuret Pep Globulin Albumin/Globulin Ratio 0.9 L Procalcitonin 03/16/21 03/16/21 03/16/21 11:14 11:14 09:02 WBC 16.2 H RBC 3.79 L Hgb 11.5 L Hct 35.3 L RDW 15.2 H Neut % (Auto) 93.1 H Lymph % (Auto) 4.3 L Lymph # (Auto) 0.69 L [place] # (Auto) Seg Neutrophils % Lymphocytes % Absolute Neutrophils 15.08 H RBC Morphology Anisocytosis ESR 114 H D-Dimer Sodium 129 L Carbon Dioxide 17 L BUN 42 H Creatinine 1.4 H Glucose 257 H Uric Acid 8.5 H C-Reactive Protein NT-Pro-B Natriuret Pep Globulin 4.3 H Albumin/Globulin Ratio 0.8 L Procalcitonin 0.17 H 03/16/21 03/16/21 03/15/21 09:02 09:02 19:16 WBC RBC Hgb Hct RDW Neut % (Auto) Lymph % (Auto) Lymph # (Auto) [place] # (Auto) Seg Neutrophils % 91 H Lymphocytes % 3 L Absolute Neutrophils RBC Morphology Abnormal A Anisocytosis 1+ A ESR D-Dimer Sodium Carbon Dioxide 20 L BUN 44 H Creatinine 1.8 H Glucose 133 H Uric Acid C-Reactive Protein 26.50 H NT-Pro-B Natriuret Pep 1253.0 H Globulin Albumin/Globulin Ratio Procalcitonin 03/15/21 03/15/21 19:16 19:16 WBC 16.3 H RBC 3.81 L Hgb 11.4 L Hct 35.6 L RDW 15.2 H Neut % (Auto) 83.0 H Lymph % (Auto) 8.9 L Lymph # (Auto) 1.45 L [place] # (Auto) 1.14 H Seg Neutrophils % Lymphocytes % Absolute Neutrophils 13.49 H RBC Morphology Anisocytosis ESR D-Dimer 2.36 H Sodium Carbon Dioxide BUN Creatinine Glucose Uric Acid C-Reactive Protein NT-Pro-B Natriuret Pep Globulin Albumin/Globulin Ratio Procalcitonin Meds: Medications Acetaminophen (Acetaminophen 325 Mg Tablet) 650 mg PO Q6HP PRN; Protocol PRN Reason: Per Pain Protocol/Fever > 101 Last Admin: 03/17/21 20:42 Dose: 650 mg Documented by: Acetaminophen (Acetaminophen 325 Mg Tablet) 650 mg PO Q6HP PRN; Protocol PRN Reason: Per Pain Protocol/Fever > 101 Hydrocodone Bitart/Acetaminophen (Hydrocodone/Apap 10/325mg Tablet) 1 - 2 tab PO Q4-6HP PRN; Protocol PRN Reason: pain Last Admin: 03/18/21 05:03 Dose: 1 tab Documented by: Albuterol/Ipratropium (Ipratropium/Albuterol 3 Ml Ampul.Neb) 3 ml NEB Q4HP PRN PRN Reason: Shortness Of Breath Albuterol/Ipratropium (Ipratropium/Albuterol 3 Ml Ampul.Neb) 3 ml NEB Q8H [facility] Last Admin: 03/18/21 06:17 Dose: 3 ml Documented by: Allopurinol (Allopurinol 100 Mg Tablet) 100 mg PO QDAY [facility] Last Admin: 03/17/21 09:03 Dose: 100 mg Documented by: Apixaban (Apixaban 5 Mg Tablet) 5 mg PO BID [facility] Last Admin: 03/17/21 20:32 Dose: 5 mg Documented by: Cefepime HCl (Cefepime 2 Gm Vial) 1 gm IV Q12H [facility]; Protocol Last Admin: 03/17/21 21:35 Dose: 1 gm Documented by: Dextrose (Dextrose 50% 50 Ml Vial) 0 ml IV UD PRN PRN Reason: Hypoglycemia Diagnostic Test (Pha) (Accu-Chek 1 Each Strip) 1 each FS ACHS [facility] Last Admin: 03/18/21 07:00 Dose: 1 each Documented by: Docusate Sodium (Docusate Sodium 100 Mg Capsule) 100 mg PO BID [facility] Last Admin: 03/17/21 20:31 Dose: 100 mg Documented by: Folic Acid (Folic Acid 1 Mg Tablet) 1 mg PO DAILY [facility] Last Admin: 03/17/21 09:02 Dose: 1 mg Documented by: Furosemide (Furosemide 40 Mg Tablet) 40 mg PO DAILY [facility] Last Admin: 03/17/21 09:02 Dose: 40 mg Documented by: Gabapentin (Gabapentin 300 Mg Capsule) 600 mg PO BID [facility] Last Admin: 03/17/21 20:31 Dose: 600 mg Documented by: Glucose (Dextrose 31 Gm Oral.Susp) 15 gm PO PRN PRN PRN Reason: Hypoglycemia Hydralazine HCl (Hydralazine 20 Mg/Ml Vial) 0 mg IV Q2HP PRN PRN Reason: Hypertension Potassium Chloride 40 meq/ (Dextrose) 520 mls @ 130 mls/hr IV UD PRN PRN Reason: Potassium < 3 Magnesium Sulfate (Magnesium Sulfate) 2 gm in 50 mls @ 50 mls/hr IV UD PRN PRN Reason: Magnesium </= 1.6 Metronidazole (Flagyl) 500 mg in 100 mls @ 100 mls/hr IV Q8H [facility]; Protocol Last Infusion: 03/18/21 05:18 Dose: Infused Documented by: Vancomycin HCl 2,000 mg/ (Sodium Chloride) 500 mls @ 250 mls/hr IV DAILY [facility] Insulin Human Lispro (Insulin Lispro 1 Unit/0.01 Ml Unit) [address] [facility]; Protocol Last Admin: 03/18/21 07:00 Dose: Not Given Documented by: Iron Carb/Multivit/Psych Np/Folic Acid (Multivit,Ther Iron,Ca,Fa & Min 1 Tablet) 1 tab PO DAILY [facility] Last Admin: 03/17/21 09:01 Dose: 1 tab Documented by: Lorazepam (Lorazepam 2 Mg/Ml Vial) 1 mg IV Q2-4HP PRN; Protocol PRN Reason: Alcohol Withdrawal Metoclopramide HCl (Metoclopramide 10 Mg/2 Ml Vial) 10 mg IV Q6HP PRN PRN Reason: Nausea And Vomiting Metoprolol Tartrate (Metoprolol Tartrate 5 Mg/5 Ml Vial) 5 mg IV Q2HP PRN PRN Reason: Tachyarrhythmias HR>110 Last Admin: 03/16/21 14:16 Dose: 5 mg Documented by: Ondansetron HCl (Ondansetron 4 Mg/2 Ml Vial) 4 mg IV Q4HP PRN PRN Reason: Nausea And Vomiting Budesonide- Formoterol [ Symbicort] 160-4.5 Mcg/Actuation Inhaler 1 dose INH BIDP PRN PRN Reason: COPD Polyethylene Glycol (Polyethylene Glycol 3350 17 Gm Packet) 17 gm PO DAILYP PRN PRN Reason: Constipation Last Admin: 03/17/21 10:02 Dose: 17 gm Documented by: Potassium Chloride (Potassium Chloride 20 Meq Tablet) 40 meq PO UD PRN PRN Reason: Potssium is 3-3.5 Potassium Chloride (Potassium Chloride 20 Meq Tablet) 40 meq PO UD PRN PRN Reason: Potassium < 3 Prednisone (Prednisone 20 Mg Tablet) 40 mg PO [facility] Last Admin: 03/17/21 09:02 Dose: 40 mg Documented by: Senna (Sennosides 1 Tablet) 2 tab PO DAILYP PRN PRN Reason: Constipation Simvastatin (Simvastatin 20 Mg Tablet) 20 mg PO QHS [facility] Last Admin: 03/17/21 20:32 Dose: 20 mg Documented by: Sodium Chloride (0.9 % Sodium Chloride 10 Ml Syringe) 10 ml IV Q8 [facility] Last Admin: 10/25/21 06:17 Dose: 10 ml Documented by: Thiamine HCl (Thiamine 100 Mg Tablet) 100 mg PO DAILY [facility] Last Admin: 03/17/21 09:03 Dose: 100 mg Documented by: Tizanidine HCl (Tizanidine 4 Mg Tablet) 4 mg PO BIDP PRN PRN Reason: muscle spasticity Last Admin: 03/17/21 20:42 Dose: 4 mg Documented by: Vancomycin HCl (Vancomycin Per Pharmacy) 1 order IV UD [facility]; Protocol A/P Narrative A/P Narrative: A: *Right foot/toe infection w/likely Osteo (strep agalactiae): -no DVT on u/s -leukocytosis improving, ESR high, crp improving *AECOPD (Not on oxygen), mild: -CTA unremarkable *Aflutter (new dx): 4:1 on ekg *Generalized weakness/deconditioning: *Morbid obesity: *DM w/neuropathy: *LIV on CKD III: improved *Anemia, chronic: *KEZIA w/CPAP: *Spinal stenosis and chronic pain: *HTN/HLD: *Alcohol abuse: P: -steroids(wean)/nebs/RT -IS/Acapella -IV abx (d/c vanco/flagyl, continue cefepime), pending final WC -wound care team/podiatry -prn IV lasix, cont home PO lasix -elevate legs -echo -CIWA, Beer with meals -SSI -home cpap -switched norvasc to lopressor, cont ARB -pt/ot -f/u with cardiology for Aflutter -ppx: eliqis started for aflutter Full code Time Spent With Patient Time: Total time spent is greater than 50% in coordination of care (as documented) at patient's floor/unit and/or counseling patient: QUALITY VTE Deep Vein Thrombosis/Pulmonary Embolism Present on Admission: No
[2021-03-18] MEDS: GABAPENTIN 300 MG CAPSULE PO SCH ×2 (08:32→20:40)
[2021-03-18] MEDS: APIXABAN 5 MG TABLET PO SCH ×2 (08:32→20:40)
[2021-03-18] MEDS: FUROSEMIDE 40 MG TABLET PO SCH (08:32)
[2021-03-18] MEDS: MULTIVIT,THER IRON,CA,FA & MIN 1 TABLET PO SCH (08:32)
[2021-03-18] MEDS: ALLOPURINOL 100 MG TABLET PO SCH (08:32)
[2021-03-18] MEDS: predniSONE 20 MG TABLET PO SCH (08:32)
[2021-03-18] MEDS: FOLIC ACID 1 MG TABLET PO SCH (08:32)
[2021-03-18] MEDS: METOPROLOL TARTRATE 5 MG/5 ML VIAL IV PRN (08:40)
[2021-03-18] MEDS: CEFEPIME 2 GM VIAL IV SCH ×2 (08:40→23:09)
[2021-03-18] MEDS: DOCUSATE SODIUM 100 MG CAPSULE PO SCH ×2 (08:46→20:40)
[2021-03-18] MEDS: THIAMINE 100 MG TABLET PO SCH (08:46)
[2021-03-18] MEDS ORDERED: LABETALOL 5 MG/ML ML IV PRN (08:51)
[2021-03-18] MEDS ORDERED: VANCOMYCIN 2,000 MG in 0.9 % SODIUM CHLORIDE 500 ML IV SCH (09:00)
--- NOTE | 2021-03-18 09:00 | EKG ---
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
[2021-03-18 09:02] LABS: ALT/SGPT 37 U/L (<40); AST/SGOT 19 U/L (<40); Albumin 3.4 gm/dL (3.2-5.2); Albumin/Globulin Ratio 0.9 (1.0-2.3); Alkaline Phosphatase 98 U/L (39-117); Bilirubin,Direct < 0.2 mg/dL (0-0.3); Bilirubin,Total < 0.2 mg/dL (0.1-1.0); Blood Urea Nitrogen 37 mg/dL (8-23); Carbon Dioxide 18 mmol/L (22-30); Chloride 113 mmol/L (96-108); Globulin 3.6 gm/dL (2.2-3.7); Glomerular Filtration Rate 72; Glucose 105 mg/dL (70-105); Lactate Dehydrogenase 152 U/L (135-225); Phosphorous 2.5 mg/dL (2.5-4.5); Triglycerides 81 mg/dL (<150); Uric Acid 8.5 mg/dL (2.5-8.0)
[2021-03-18] MEDS ORDERED: HYDROCHLOROTHIAZIDE 25 MG TABLET PO ONE (09:14)
[2021-03-18] MEDS ORDERED: DEXTROSE 5% IN WATER 250 ML IV SCH (09:15)
[2021-03-18] MEDS: INSULIN GLARGINE, HUMAN 1 UNIT/0.01 ML SQ SCH (09:20)
[2021-03-18] MEDS: OLMESARTAN MEDOXOMIL 20 MG TABLET PO SCH (09:20)
[2021-03-18] MEDS: METOPROLOL TARTRATE 25 MG TABLET PO SCH ×2 (09:25→20:39)
--- NOTE | 2021-03-18 15:08 | Orthopedic Progress Note ---
SUBJECTIVE Subjective Patient information: Note initiated : 03/18/21 at 3:06 pm Service Date, if different from initiated Date: [] Patient: Shubham Ceballos 75 y/o M admitted on 03/16/21 for SOB and leg swelling. Chief Complaint: [Right leg redness] No changes in leg / foot pain. Trouble sleeping. Constitutional Vitals: Vital Signs Temp Pulse Resp BP Pulse Ox 97.7 F 87 18 145/72 94 03/18/21 12:00 03/18/21 14:18 03/18/21 14:18 03/18/21 12:00 03/18/21 14:18 Period Temp Pulse Resp BP Sys/Gonzalez Pulse Ox Last 24 Hr 96.6 F-98.6 F 71-123 18-24 125-151/67-84 93-96 Intake and Output 03/18/21 03/18/21 03/18/21 05:59 13:59 21:59 Intake Total 340 1050 Output Total 1625 1950 Balance -1285 -900 Weight 287 lb 3.2 oz Patient Weight 03/19/21 05:59 Weight 287 lb 3.2 oz Intake & Output: Intake & Output 03/18/21 03/18/21 03/18/21 05:59 13:59 21:59 Intake Total 340 1050 Output Total 1625 1950 Balance -1285 -900 Weight 287 lb 3.2 oz Intake: IV 100 250 Dextrose 5% in Water 250 ml @ 250 125 mls/hr IV .Q2H GRISEL Rx#: [id number] Oral 240 800 Output: Void Amount 1625 1950 Other: Meal Lunch Percent of Meal Consumed 100% Feeding Ability Assist with Tray Set Up Urine Appearance Clear Clear Urine Color Bright Yellow Straw Urine Odor Normal Normal Stool Size Large Stool Color Brown Stool Consistency Formed # Voids 1 # Bowel Movements 1 OBJ DATA Labs CBC & Chem 7: 03/18/21 05:33 03/18/21 05:21 Labs: Abnormal Lab Results 03/18/21 03/18/21 03/17/21 05:33 05:21 07:49 WBC 11.7 H RBC 3.56 L Hgb 10.7 L Hct 33.8 L RDW 15.3 H Neut % (Auto) 80.9 H Lymph % (Auto) 14.2 L Lymph # (Auto) [place] # (Auto) Seg Neutrophils % Lymphocytes % Absolute Neutrophils 9.49 H RBC Morphology Anisocytosis ESR D-Dimer Sodium 147 H Chloride 113 H Carbon Dioxide 18 L 18 L BUN 37 H 42 H Creatinine Glucose 220 H Uric Acid 8.5 H 8.5 H C-Reactive Protein 13.50 H NT-Pro-B Natriuret Pep Globulin Albumin/Globulin Ratio 0.9 L 0.9 L Procalcitonin 03/17/21 03/16/21 03/16/21 07:49 11:14 11:14 WBC 15.3 H 16.2 H RBC 3.50 L 3.79 L Hgb 10.4 L 11.5 L Hct 33.1 L 35.3 L RDW 15.4 H 15.2 H Neut % (Auto) 90.7 H 93.1 H Lymph % (Auto) 5.4 L 4.3 L Lymph # (Auto) 0.83 L 0.69 L [place] # (Auto) Seg Neutrophils % Lymphocytes % Absolute Neutrophils 13.85 H 15.08 H RBC Morphology Anisocytosis ESR 114 H D-Dimer Sodium 129 L Chloride Carbon Dioxide 17 L BUN 42 H Creatinine 1.4 H Glucose 257 H Uric Acid 8.5 H C-Reactive Protein NT-Pro-B Natriuret Pep Globulin 4.3 H Albumin/Globulin Ratio 0.8 L Procalcitonin 03/16/21 03/16/21 03/16/21 09:02 09:02 09:02 WBC RBC Hgb Hct RDW Neut % (Auto) Lymph % (Auto) Lymph # (Auto) [place] # (Auto) Seg Neutrophils % 91 H Lymphocytes % 3 L Absolute Neutrophils RBC Morphology Abnormal A Anisocytosis 1+ A ESR D-Dimer Sodium Chloride Carbon Dioxide BUN Creatinine Glucose Uric Acid C-Reactive Protein 26.50 H NT-Pro-B Natriuret Pep Globulin Albumin/Globulin Ratio Procalcitonin 0.17 H 03/15/21 03/15/21 03/15/21 19:16 19:16 19:16 WBC 16.3 H RBC 3.81 L Hgb 11.4 L Hct 35.6 L RDW 15.2 H Neut % (Auto) 83.0 H Lymph % (Auto) 8.9 L Lymph # (Auto) 1.45 L [place] # (Auto) 1.14 H Seg Neutrophils % Lymphocytes % Absolute Neutrophils 13.49 H RBC Morphology Anisocytosis ESR D-Dimer 2.36 H Sodium Chloride Carbon Dioxide 20 L BUN 44 H Creatinine 1.8 H Glucose 133 H Uric Acid C-Reactive Protein NT-Pro-B Natriuret Pep 1253.0 H Globulin Albumin/Globulin Ratio Procalcitonin Meds: Medications Acetaminophen (Acetaminophen 325 Mg Tablet) 650 mg PO Q6HP PRN; Protocol PRN Reason: Per Pain Protocol/Fever > 101 Last Admin: 03/17/21 20:42 Dose: 650 mg Documented by: Acetaminophen (Acetaminophen 325 Mg Tablet) 650 mg PO Q6HP PRN; Protocol PRN Reason: Per Pain Protocol/Fever > 101 Hydrocodone Bitart/Acetaminophen (Hydrocodone/Apap 10/325mg Tablet) 1 - 2 tab PO Q4-6HP PRN; Protocol PRN Reason: pain Last Admin: 03/18/21 14:44 Dose: 1 tab Documented by: Albuterol/Ipratropium (Ipratropium/Albuterol 3 Ml Ampul.Neb) 3 ml NEB Q4HP PRN PRN Reason: Shortness Of Breath Albuterol/Ipratropium (Ipratropium/Albuterol 3 Ml Ampul.Neb) 3 ml NEB Q8H [facility] Last Admin: 03/18/21 13:59 Dose: 3 ml Documented by: Allopurinol (Allopurinol 100 Mg Tablet) 100 mg PO QDAY [facility] Last Admin: 03/18/21 08:32 Dose: 100 mg Documented by: Apixaban (Apixaban 5 Mg Tablet) 5 mg PO BID [facility] Last Admin: 03/18/21 08:32 Dose: 5 mg Documented by: Cefepime HCl (Cefepime 2 Gm Vial) 1 gm IV Q12H [facility]; Protocol Last Admin: 03/18/21 08:40 Dose: 1 gm Documented by: Dextrose (Dextrose 50% 50 Ml Vial) 0 ml IV UD PRN PRN Reason: Hypoglycemia Diagnostic Test (Pha) (Accu-Chek 1 Each Strip) 1 each FS ACHS [facility] Last Admin: 03/18/21 11:30 Dose: 1 each Documented by: Docusate Sodium (Docusate Sodium 100 Mg Capsule) 100 mg PO BID [facility] Last Admin: 03/18/21 08:46 Dose: 100 mg Documented by: Folic Acid (Folic Acid 1 Mg Tablet) 1 mg PO DAILY [facility] Last Admin: 03/18/21 08:32 Dose: 1 mg Documented by: Furosemide (Furosemide 40 Mg Tablet) 40 mg PO DAILY [facility] Last Admin: 03/18/21 08:32 Dose: 40 mg Documented by: Gabapentin (Gabapentin 300 Mg Capsule) 600 mg PO BID [facility] Last Admin: 03/18/21 08:32 Dose: 600 mg Documented by: Glucose (Dextrose 31 Gm Oral.Susp) 15 gm PO PRN PRN PRN Reason: Hypoglycemia Hydralazine HCl (Hydralazine 20 Mg/Ml Vial) 0 mg IV Q2HP PRN PRN Reason: Hypertension Potassium Chloride 40 meq/ (Dextrose) 520 mls @ 130 mls/hr IV UD PRN PRN Reason: Potassium < 3 Magnesium Sulfate (Magnesium Sulfate) 2 gm in 50 mls @ 50 mls/hr IV UD PRN PRN Reason: Magnesium </= 1.6 Insulin Glargine (Insulin Glargine, Human 1 Unit/0.01 Ml) 10 unit SQ DAILY [facility] Last Admin: 03/18/21 09:20 Dose: 10 units Documented by: Insulin Human Lispro (Insulin Lispro 1 Unit/0.01 Ml Unit) 0 unit SQ ACHS [facility]; Protocol Last Admin: 03/18/21 11:30 Dose: 6 units Documented by: Iron Carb/Multivit/Podiatric Aide/Folic Acid (Multivit,Ther Iron,Ca,Fa & Min 1 Tablet) 1 tab PO DAILY [facility] Last Admin: 03/18/21 08:32 Dose: 1 tab Documented by: Labetalol HCl (Labetalol 5 Mg/Ml Ml) 0 mg IV Q2HP PRN PRN Reason: Hypertension Lorazepam (Lorazepam 2 Mg/Ml Vial) 1 mg IV Q2-4HP PRN; Protocol PRN Reason: Alcohol Withdrawal Metoclopramide HCl (Metoclopramide 10 Mg/2 Ml Vial) 10 mg IV Q6HP PRN PRN Reason: Nausea And Vomiting Metoprolol Tartrate (Metoprolol Tartrate 5 Mg/5 Ml Vial) 5 mg IV Q2HP PRN PRN Reason: Tachyarrhythmias HR>110 Last Admin: 03/18/21 08:40 Dose: 5 mg Documented by: Metoprolol Tartrate (Metoprolol Tartrate 25 Mg Tablet) 12.5 mg PO BID [facility] Last Admin: 03/18/21 09:25 Dose: 12.5 mg Documented by: Olmesartan (Olmesartan Medoxomil 20 Mg Tablet) 40 mg PO DAILY [facility] Last Admin: 03/18/21 09:20 Dose: 40 mg Documented by: Ondansetron HCl (Ondansetron 4 Mg/2 Ml Vial) 4 mg IV Q4HP PRN PRN Reason: Nausea And Vomiting Budesonide- Formoterol [ Symbicort] 160-4.5 Mcg/Actuation Inhaler 1 dose INH BIDP PRN PRN Reason: COPD Polyethylene Glycol (Polyethylene Glycol 3350 17 Gm Packet) 17 gm PO DAILYP PRN PRN Reason: Constipation Last Admin: 03/17/21 10:02 Dose: 17 gm Documented by: Potassium Chloride (Potassium Chloride 20 Meq Tablet) 40 meq PO UD PRN PRN Reason: Potssium is 3-3.5 Potassium Chloride (Potassium Chloride 20 Meq Tablet) 40 meq PO UD PRN PRN Reason: Potassium < 3 Prednisone (Prednisone 20 Mg Tablet) [address] [facility] Senna (Sennosides 1 Tablet) 2 tab PO DAILYP PRN PRN Reason: Constipation Simvastatin (Simvastatin 20 Mg Tablet) 20 mg PO QHS [facility] Last Admin: 03/17/21 20:32 Dose: 20 mg Documented by: Sodium Chloride (0.9 % Sodium Chloride 10 Ml Syringe) 10 ml IV Q8 [facility] Last Admin: 03/18/21 13:09 Dose: 10 ml Documented by: Thiamine HCl (Thiamine 100 Mg Tablet) 100 mg PO DAILY [facility] Last Admin: 03/18/21 08:46 Dose: 100 mg Documented by: Tizanidine HCl (Tizanidine 4 Mg Tablet) 4 mg PO BIDP PRN PRN Reason: muscle spasticity Last Admin: 03/17/21 20:42 Dose: 4 mg Documented by: A/P Time Spent With Patient Time: Total time spent is greater than 50% in coordination of care (as documented) at patient's floor/unit and/or counseling patient: - Possible surgical candidate pending response to IV antibiotics - Possible amputaiton of right fourth toe / I&D right foot - Continue daily dressing changes
[2021-03-18] MEDS: SIMVASTATIN 20 MG TABLET PO SCH (20:39)
[2021-03-19] MEDS: IPRATROPIUM/ALBUTEROL 3 ML AMPUL.NEB NEB SCH ×3 (05:39→21:10)
[2021-03-19] MEDS: 0.9 % SODIUM CHLORIDE 10 ML SYRINGE IV SCH ×3 (05:39→21:46)
[2021-03-19] MEDS: INSULIN LISPRO 1 UNIT/0.01 ML UNIT SQ SCH ×4 (07:28→21:41)
[2021-03-19] MEDS: HYDROcodone/APAP 10/325MG TABLET PO PRN ×4 (07:48→21:43)
[2021-03-19 08:18] LABS: Basophils # (Auto) 0.03 K/mcL (0.00-0.30); Basophils % (Auto) 0.3 % (0.0-2.0); Eosinophils # (Auto) 0.07 K/mcL (0.00-0.70); Eosinophils % (Auto) 0.6 % (0.0-7.0); Hematocrit 34.9 % (40.1-51.0); Hemoglobin 11.3 g/dL (13.7-17.5); Lymphocytes % (Auto) 17.2 % (15.5-49.0); Mean Cell Volume 92.8 fL (80.0-100.0); Mean Corpuscular HGB Conc 32.4 g/dL (31.0-36.0); Mean Platelet Volume 9.5 fL (7.4-10.4); Monocytes % (Auto) 6.3 % (1.0-12.0); Neutrophils % (Auto) 75.6 % (38.0-78.0); Platelet Count 323 K/mcL (140-440); RBC 3.76 M/mcL (4.63-6.08); Red Cell Distribution Width 15.7 % (11.5-14.5); WBC 11.1 K/mcL (4.5-11.0)
[2021-03-19 08:43] LABS: ALT/SGPT 33 U/L (<40); AST/SGOT 12 U/L (<40); Albumin 3.6 gm/dL (3.2-5.2); Alkaline Phosphatase 97 U/L (39-117); Bilirubin,Total < 0.2 mg/dL (0.1-1.0); Blood Urea Nitrogen 28 mg/dL (8-23); Calcium 9.2 mg/dL (8.6-10.4); Carbon Dioxide 23 mmol/L (22-30); Chloride 108 mmol/L (96-108); Globulin 3.5 gm/dL (2.2-3.7); Glomerular Filtration Rate 82; Glucose 104 mg/dL (70-105)
[2021-03-19] MEDS: FOLIC ACID 1 MG TABLET PO SCH (09:04)
[2021-03-19] MEDS: DOCUSATE SODIUM 100 MG CAPSULE PO SCH ×2 (09:04→21:46)
[2021-03-19] MEDS: THIAMINE 100 MG TABLET PO SCH (09:04)
[2021-03-19] MEDS: GABAPENTIN 300 MG CAPSULE PO SCH ×2 (09:04→21:44)
[2021-03-19] MEDS: predniSONE 20 MG TABLET PO SCH (09:04)
[2021-03-19] MEDS: OLMESARTAN MEDOXOMIL 20 MG TABLET PO SCH (09:05)
[2021-03-19] MEDS: INSULIN GLARGINE, HUMAN 1 UNIT/0.01 ML SQ SCH (09:05)
[2021-03-19] MEDS: APIXABAN 5 MG TABLET PO SCH (09:05)
[2021-03-19] MEDS: FUROSEMIDE 40 MG TABLET PO SCH (09:05)
[2021-03-19] MEDS: MULTIVIT,THER IRON,CA,FA & MIN 1 TABLET PO SCH (09:05)
[2021-03-19] MEDS: ALLOPURINOL 100 MG TABLET PO SCH (09:05)
[2021-03-19] MEDS: METOPROLOL TARTRATE 25 MG TABLET PO SCH ×2 (09:05→21:45)
[2021-03-19] MEDS: CEFEPIME 1 GM VIAL IV SCH ×2 (09:27→21:44)
--- NOTE | 2021-03-19 11:24 | Internal Med Progress Note ---
SUBJECTIVE Subjective Patient information: Note initiated : 03/19/21 at 11:18 am Service Date, if different from initiated Date: [] Patient: Shubham Ceballos a 75 y/o M admitted on 03/16/21 for SOB and leg swelling. Chief Complaint: [right foot osteomyelitis] Interval history: History of present illness: Mr. Ceballos is a 75 year old M Presents to the ED with right leg swelling and also states more short of breath recently. was recently started on antibiotics for pneumonia at PCP office on . patient states that since he started taking antibiotic he felt dizzy and woozy and because of the leg is the reason he came into the ED. Afebrile in the ED. Sats low nineties on room air. Leukocytosis 16. Chronic anemia stable. Creatinine elevated in the ED 1.8. ED provider evaluated him and thought it related to COPD and CHF. As he was given Solu-Medrol and diuretics. Right leg ultrasound no DVT. CTA chest showed an incidental mass on the right kidney but otherwise unremarkable. Has been vaccinated against Covid. Patient has a wound of his right foot that has been seeing wound care for. His leg is swollen but he denies any increased redness or pain. Although his foot has been more painful. Feels little bit wheezy. States the breathing treatments he got in the ED helped. Drinks 6-8 beers a night. 03/17 Patient feeling better today. Feels shortness of breath is baseline. Chronic cough stable. No new complaints. Seen by podiatry yesterday. 03/18 Patient states poor sleep last night. Foot pain. No other complaints. Awaiting follow-up chemistry. 03/19: Afebrile overnight. c/o 7/10 sharp constant right foot pain. Denies fever or chills. c/o productive cough with white sputum. c/o wheezing. Denies chest pain or tightness. Constitutional Vitals: Vital Signs Temp Pulse Resp BP Pulse Ox 36.7 C 62 24 H 177/75 95 03/19/21 07:42 03/19/21 07:42 03/19/21 07:50 03/19/21 07:42 03/19/21 07:50 Period Temp Pulse Resp BP Sys/Gonzalez Pulse Ox Last 24 Hr 36.3 C-36.8 C 62-90 18-28 141-177/72-81 92-96 Intake and Output 03/18/21 03/19/21 03/19/21 21:59 05:59 13:59 Intake Total 1300 300 Output Total 1525 250 450 Balance -225 50 -450 Weight 126.099 kg Intake & Output: Intake & Output 03/18/21 03/19/21 03/19/21 21:59 05:59 13:59 Intake Total 1300 300 Output Total 1525 250 450 Balance -225 50 -450 Weight 126.099 kg Intake: Oral 1300 300 Output: Void Amount 1525 250 450 # of times incontinent of urine 0 Other: Meal Dinner Percent of Meal Consumed 100% Feeding Ability Independent Urine Appearance Clear Clear Clear Urine Color Bright Yellow Bright Yellow Pale Urine Odor Normal Normal General appearance: cooperative and no acute distress Head Head exam: Present atraumatic and normocephalic Eye Eye exam: Present EOMI and PERRL ENT ENT exam: Present mucous membranes moist, normal exam and normal external ear exam Neck Neck exam: Present normal inspection; Absent lymphadenopathy, tenderness and thyromegaly Respiratory Respiratory exam: Absent accessory muscle use, respiratory distress and wheezes Cardiovascular Cardiovascular exam: Present irregular rhythm; Absent JVD GI/Abdominal GI/Abdominal exam: Present normal bowel sounds and soft; Absent organomegaly and tenderness Rectal Rectal exam: Present deferred Extremities Exam Extremities exam: Present full ROM, normal capillary refill, pedal edema and tenderness; Absent normal inspection Additional comments: Right 2nd toe surgically amputated. Ulcer between the web of right 4th and 5th toe with surrounding erythema swelling and tenderness to palpation. Neurological Exam Neurological exam: Present alert, CN II-XII intact and oriented X3; Absent motor sensory deficit Psychiatric Psychiatric exam: Present normal affect and normal mood; Absent anxious and depressed Skin Skin exam: Present dry, erythema and warm; Absent intact Additional comments: Right 2nd toe surgically amputated. Ulcer between the web of right 4th and 5th toe with surrounding erythema swellin g and tenderness to palpation. OBJ DATA Labs CBC & Chem 7: 03/19/21 05:25 03/19/21 05:25 Labs: Abnormal Lab Results 03/19/21 03/19/21 03/18/21 05:25 05:25 05:33 WBC 11.1 H 11.7 H RBC 3.76 L 3.56 L Hgb 11.3 L 10.7 L Hct 34.9 L 33.8 L RDW 15.7 H 15.3 H Neut % (Auto) 80.9 H Lymph % (Auto) 14.2 L Lymph # (Auto) Absolute Neutrophils 8.36 H 9.49 H ESR Sodium Chloride Carbon Dioxide BUN 28 H Creatinine Glucose Uric Acid C-Reactive Protein Globulin Albumin/Globulin Ratio 03/18/21 03/17/21 03/17/21 05:21 07:49 07:49 WBC 15.3 H RBC 3.50 L Hgb 10.4 L Hct 33.1 L RDW 15.4 H Neut % (Auto) 90.7 H Lymph % (Auto) 5.4 L Lymph # (Auto) 0.83 L Absolute Neutrophils 13.85 H ESR Sodium 147 H Chloride 113 H Carbon Dioxide 18 L 18 L BUN 37 H 42 H Creatinine Glucose 220 H Uric Acid 8.5 H 8.5 H C-Reactive Protein 13.50 H Globulin Albumin/Globulin Ratio 0.9 L 0.9 L 03/16/21 03/16/21 11:14 11:14 WBC 16.2 H RBC 3.79 L Hgb 11.5 L Hct 35.3 L RDW 15.2 H Neut % (Auto) 93.1 H Lymph % (Auto) 4.3 L Lymph # (Auto) 0.69 L Absolute Neutrophils 15.08 H ESR 114 H Sodium 129 L Chloride Carbon Dioxide 17 L BUN 42 H Creatinine 1.4 H Glucose 257 H Uric Acid 8.5 H C-Reactive Protein Globulin 4.3 H Albumin/Globulin Ratio 0.8 L Meds: Medications Acetaminophen (Acetaminophen 325 Mg Tablet) 650 mg PO Q6HP PRN; Protocol PRN Reason: Per Pain Protocol/Fever > 101 Last Admin: 03/17/21 20:42 Dose: 650 mg Documented by: Acetaminophen (Acetaminophen 325 Mg Tablet) 650 mg PO Q6HP PRN; Protocol PRN Reason: Per Pain Protocol/Fever > 101 Hydrocodone Bitart/Acetaminophen (Hydrocodone/Apap 10/325mg Tablet) 1 - 2 tab PO Q4-6HP PRN; Protocol PRN Reason: pain Last Admin: 03/19/21 07:48 Dose: 2 tab Documented by: Albuterol/Ipratropium (Ipratropium/Albuterol 3 Ml Ampul.Neb) 3 ml NEB Q4HP PRN PRN Reason: Shortness Of Breath Albuterol/Ipratropium (Ipratropium/Albuterol 3 Ml Ampul.Neb) 3 ml NEB Q8H [facility] Last Admin: 03/19/21 05:39 Dose: 3 ml Documented by: Allopurinol (Allopurinol 100 Mg Tablet) 100 mg PO QDAY [facility] Last Admin: 03/19/21 09:05 Dose: 100 mg Documented by: Cefepime HCl (Cefepime 1 Gm Vial) 1 gm IV Q12H [facility]; Protocol Last Admin: 03/19/21 09:27 Dose: 1 gm Documented by: Dextrose (Dextrose 50% 50 Ml Vial) 0 ml IV UD PRN PRN Reason: Hypoglycemia Diagnostic Test (Pha) (Accu-Chek 1 Each Strip) 1 each FS ACHS [facility] Last Admin: 03/19/21 07:28 Dose: 1 each Documented by: Docusate Sodium (Docusate Sodium 100 Mg Capsule) 100 mg PO BID [facility] Last Admin: 03/19/21 09:04 Dose: 100 mg Documented by: Folic Acid (Folic Acid 1 Mg Tablet) 1 mg PO DAILY [facility] Last Admin: 03/19/21 09:04 Dose: 1 mg Documented by: Furosemide (Furosemide 40 Mg Tablet) 40 mg PO DAILY [facility] Last Admin: 03/19/21 09:05 Dose: 40 mg Documented by: Gabapentin (Gabapentin 300 Mg Capsule) 600 mg PO BID [facility] Last Admin: 03/19/21 09:04 Dose: 600 mg Documented by: Glucose (Dextrose 31 Gm Oral.Susp) 15 gm PO PRN PRN PRN Reason: Hypoglycemia Hydralazine HCl (Hydralazine 20 Mg/Ml Vial) 0 mg IV Q2HP PRN PRN Reason: Hypertension Potassium Chloride 40 meq/ (Dextrose) 520 mls @ 130 mls/hr IV UD PRN PRN Reason: Potassium < 3 Magnesium Sulfate (Magnesium Sulfate) 2 gm in 50 mls @ 50 mls/hr IV UD PRN PRN Reason: Magnesium </= 1.6 Insulin Glargine (Insulin Glargine, Human 1 Unit/0.01 Ml) 10 unit SQ DAILY [facility] Last Admin: 03/19/21 09:05 Dose: 10 units Documented by: Insulin Human Lispro (Insulin Lispro 1 Unit/0.01 Ml Unit) 0 unit SQ ACHS [facility]; Protocol Last Admin: 03/19/21 07:28 Dose: Not Given Documented by: Iron Carb/Multivit/[place]/Folic Acid (Multivit,Ther Iron,Ca,Fa & Min 1 Tablet) 1 tab PO DAILY [facility] Last Admin: 03/19/21 09:05 Dose: 1 tab Documented by: Labetalol HCl (Labetalol 5 Mg/Ml Ml) 0 mg IV Q2HP PRN PRN Reason: Hypertension Lorazepam (Lorazepam 2 Mg/Ml Vial) 1 mg IV Q2-4HP PRN; Protocol PRN Reason: Alcohol Withdrawal Metoclopramide HCl (Metoclopramide 10 Mg/2 Ml Vial) 10 mg IV Q6HP PRN PRN Reason: Nausea And Vomiting Metoprolol Tartrate (Metoprolol Tartrate 5 Mg/5 Ml Vial) 5 mg IV Q2HP PRN PRN Reason: Tachyarrhythmias HR>110 Last Admin: 03/18/21 08:40 Dose: 5 mg Documented by: Metoprolol Tartrate (Metoprolol Tartrate 25 Mg Tablet) 12.5 mg PO BID [facility] Last Admin: 03/19/21 09:05 Dose: 12.5 mg Documented by: Morphine Sulfate (Morphine 4 Mg/Ml Vial) 4 mg IV Q4HP PRN; Protocol PRN Reason: Per Pain Protocol Olmesartan (Olmesartan Medoxomil 20 Mg Tablet) 40 mg PO DAILY [facility] Last Admin: 03/19/21 09:05 Dose: 40 mg Documented by: Ondansetron HCl (Ondansetron 4 Mg/2 Ml Vial) 4 mg IV Q4HP PRN PRN Reason: Nausea And Vomiting Budesonide- Formoterol [ Symbicort] 160-4.5 Mcg/Actuation Inhaler 1 dose INH BIDP PRN PRN Reason: COPD Polyethylene Glycol (Polyethylene Glycol 3350 17 Gm Packet) 17 gm PO DAILYP PRN PRN Reason: Constipation Last Admin: 03/17/21 10:02 Dose: 17 gm Documented by: Potassium Chloride (Potassium Chloride 20 Meq Tablet) 40 meq PO UD PRN PRN Reason: Potssium is 3-3.5 Potassium Chloride (Potassium Chloride 20 Meq Tablet) 40 meq PO UD PRN PRN Reason: Potassium < 3 Prednisone (Prednisone 20 Mg Tablet) 20 mg PO [facility] Last Admin: 03/19/21 09:04 Dose: 20 mg Documented by: Senna (Sennosides 1 Tablet) 2 tab PO DAILYP PRN PRN Reason: Constipation Simvastatin (Simvastatin 20 Mg Tablet) 20 mg PO QHS [facility] Last Admin: 03/18/21 20:39 Dose: 20 mg Documented by: Sodium Chloride (0.9 % Sodium Chloride 10 Ml Syringe) 10 ml IV Q8 [facility] Last Admin: 03/19/21 05:39 Dose: 10 ml Documented by: Thiamine HCl (Thiamine 100 Mg Tablet) 100 mg PO DAILY [facility] Last Admin: 03/19/21 09:04 Dose: 100 mg Documented by: Tizanidine HCl (Tizanidine 4 Mg Tablet) 4 mg PO BIDP PRN PRN Reason: muscle spasticity Last Admin: 03/17/21 20:42 Dose: 4 mg Documented by: A/P Assessment and plan (1) COPD exacerbation: Status: Acute (2) Diabetic peripheral neuropathy: Status: Chronic (3) Hyperlipidemia: Status: Chronic (4) KEZIA on CPAP: Status: Chronic (5) Essential (primary) hypertension: Status: Acute (6) Diabetic ulcer of right foot: Status: Acute (7) Osteomyelitis of right foot: Status: Acute Narrative A/P Narrative: Assessment and Plans: 1. Diabetic right foot ulcer with osteomyelitis: Stays in inpatient med surg Dr. Warner on the case Possible surgical candidate pending response to antibiotics Possible amputation of right 4th toe/ I&D right foot on Thursday 03/22 Continue daily dressing change Cefepime Gabapentin Tylenol PRN fever/mild pain [place] PRN moderate pain Morphine IV PRN severe pain Blood culture, no growth to date Wound culture no growth to date Physical therapy Occupational therapy HgA1c Hold any oral hypoglycemics Insulin Lantus 10 unit daily Correctional scale insulin AC HS Accu Chek AC HS Hypoglycemia protocol Diabetic diet then NPO after midnight 2. Atrial flutter: Lopressor for rate control Hold Eliquis for pending surgery on Thursday 3. Essential HTN: Currently normotensive Benicar Lopressor Lasix PO 4. Mixed dyslipidemia: Continue statin therapy 5. COPD exacerbation: Currently on room air DuoNEB NEB scheduled q8hr Prednisone 6. 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
--- NOTE | 2021-03-19 13:50 | Orthopedic Progress Note ---
SUBJECTIVE Subjective Patient information: Note initiated : 03/19/21 at 1:48 pm Service Date, if different from initiated Date: [] Patient: Shubham Ceballos 75 y/o M admitted on 03/16/21 for SOB and leg swelling. Chief Complaint: [right leg pain] Shubham continues to complain of pain to the right lower extremity he says the swelling is not as bad but the pain from his foot is unbearable. He is open to anything at this point including amputation of the toe if it would help his pain. He verbalizes an understanding that this is a serious chronic ongoing condition and that a long-term solution needs to be addressed as to his current infections to his lower extremity. He is open to the idea of having surgery soon and would like to explore that option this week if possible. Constitutional Vitals: Vital Signs Temp Pulse Resp BP Pulse Ox 98.0 F 62 24 H 177/75 95 03/19/21 07:42 03/19/21 07:42 03/19/21 07:50 03/19/21 07:42 03/19/21 07:50 Period Temp Pulse Resp BP Sys/Gonzalez Pulse Ox Last 24 Hr 97.4 F-98.2 F 62-90 18-28 141-177/74-81 92-96 Intake and Output 03/18/21 03/19/21 03/19/21 21:59 05:59 13:59 Intake Total 1300 300 200 Output Total 4981 756 4677 Balance -225 50 -1175 Weight 278 lb Intake & Output: Intake & Output 03/18/21 03/19/21 03/19/21 21:59 05:59 13:59 Intake Total 1300 300 200 Output Total 4749 829 0910 Balance -225 50 -1175 Weight 278 lb Intake: Oral 1300 300 200 Output: Void Amount 3930 479 6677 # of times incontinent of urine 0 Other: Meal Dinner Breakfast Percent of Meal Consumed 100% 0% Feeding Ability Independent Urine Appearance Clear Clear Clear Urine Color Bright Yellow Bright Yellow Bright Yellow Urine Odor Normal Normal OBJ DATA Labs CBC & Chem 7: 03/19/21 05:25 03/19/21 05:25 Labs: Abnormal Lab Results 03/19/21 03/19/21 03/18/21 05:25 05:25 05:33 WBC 11.1 H 11.7 H RBC 3.76 L 3.56 L Hgb 11.3 L 10.7 L Hct 34.9 L 33.8 L RDW 15.7 H 15.3 H Neut % (Auto) 80.9 H Lymph % (Auto) 14.2 L Lymph # (Auto) Absolute Neutrophils 8.36 H 9.49 H Sodium Chloride Carbon Dioxide BUN 28 H Glucose Uric Acid C-Reactive Protein Albumin/Globulin Ratio 03/18/21 03/17/21 03/17/21 05:21 07:49 07:49 WBC 15.3 H RBC 3.50 L Hgb 10.4 L Hct 33.1 L RDW 15.4 H Neut % (Auto) 90.7 H Lymph % (Auto) 5.4 L Lymph # (Auto) 0.83 L Absolute Neutrophils 13.85 H Sodium 147 H Chloride 113 H Carbon Dioxide 18 L 18 L BUN 37 H 42 H Glucose 220 H Uric Acid 8.5 H 8.5 H C-Reactive Protein 13.50 H Albumin/Globulin Ratio 0.9 L 0.9 L Meds: Medications Acetaminophen (Acetaminophen 325 Mg Tablet) 650 mg PO Q6HP PRN; Protocol PRN Reason: Per Pain Protocol/Fever > 101 Last Admin: 03/17/21 20:42 Dose: 650 mg Documented by: Acetaminophen (Acetaminophen 325 Mg Tablet) 650 mg PO Q6HP PRN; Protocol PRN Reason: Per Pain Protocol/Fever > 101 Hydrocodone Bitart/Acetaminophen (Hydrocodone/Apap 10/325mg Tablet) 1 - 2 tab PO Q4-6HP PRN; Protocol PRN Reason: pain Last Admin: 03/19/21 11:53 Dose: 2 tab Documented by: Albuterol/Ipratropium (Ipratropium/Albuterol 3 Ml Ampul.Neb) 3 ml NEB Q4HP PRN PRN Reason: Shortness Of Breath Albuterol/Ipratropium (Ipratropium/Albuterol 3 Ml Ampul.Neb) 3 ml NEB Q8H [facility] Last Admin: 03/19/21 05:39 Dose: 3 ml Documented by: Allopurinol (Allopurinol 100 Mg Tablet) 100 mg PO QDAY [facility] Last Admin: 03/19/21 09:05 Dose: 100 mg Documented by: Cefepime HCl (Cefepime 1 Gm Vial) 1 gm IV Q12H [facility]; Protocol Last Admin: 03/19/21 09:27 Dose: 1 gm Documented by: Dextrose (Dextrose 50% 50 Ml Vial) 0 ml IV UD PRN PRN Reason: Hypoglycemia Diagnostic Test (Pha) (Accu-Chek 1 Each Strip) 1 each FS ACHS [facility] Last Admin: 03/19/21 11:32 Dose: 1 each Documented by: Docusate Sodium (Docusate Sodium 100 Mg Capsule) 100 mg PO BID [facility] Last Admin: 03/19/21 09:04 Dose: 100 mg Documented by: Folic Acid (Folic Acid 1 Mg Tablet) 1 mg PO DAILY [facility] Last Admin: 03/19/21 09:04 Dose: 1 mg Documented by: Furosemide (Furosemide 40 Mg Tablet) 40 mg PO DAILY [facility] Last Admin: 03/19/21 09:05 Dose: 40 mg Documented by: Gabapentin (Gabapentin 300 Mg Capsule) 600 mg PO BID [facility] Last Admin: 03/19/21 09:04 Dose: 600 mg Documented by: Glucose (Dextrose 31 Gm Oral.Susp) 15 gm PO PRN PRN PRN Reason: Hypoglycemia Heparin Sodium (Porcine) (Heparin 5,000 Unit/Ml Vial) 5,000 unit SQ Q12 [facility] Hydralazine HCl (Hydralazine 20 Mg/Ml Vial) 0 mg IV Q2HP PRN PRN Reason: Hypertension Potassium Chloride 40 meq/ (Dextrose) 520 mls @ 130 mls/hr IV UD PRN PRN Reason: Potassium < 3 Magnesium Sulfate (Magnesium Sulfate) 2 gm in 50 mls @ 50 mls/hr IV UD PRN PRN Reason: Magnesium </= 1.6 Insulin Glargine (Insulin Glargine, Human 1 Unit/0.01 Ml) 10 unit SQ DAILY [facility] Last Admin: 03/19/21 09:05 Dose: 10 units Documented by: Insulin Human Lispro (Insulin Lispro 1 Unit/0.01 Ml Unit) 0 unit SQ [facility]; Protocol Last Admin: 03/19/21 11:31 Dose: 2 units Documented by: Iron Carb/Multivit/[place]/Folic Acid (Multivit,Ther Iron,Ca,Fa & Min 1 Tablet) 1 tab PO DAILY [facility] Last Admin: 03/19/21 09:05 Dose: 1 tab Documented by: Labetalol HCl (Labetalol 5 Mg/Ml Ml) 0 mg IV Q2HP PRN PRN Reason: Hypertension Lorazepam (Lorazepam 2 Mg/Ml Vial) 1 mg IV Q2-4HP PRN; Protocol PRN Reason: Alcohol Withdrawal Metoclopramide HCl (Metoclopramide 10 Mg/2 Ml Vial) 10 mg IV Q6HP PRN PRN Reason: Nausea And Vomiting Metoprolol Tartrate (Metoprolol Tartrate 5 Mg/5 Ml Vial) 5 mg IV Q2HP PRN PRN Reason: Tachyarrhythmias HR>110 Last Admin: 03/18/21 08:40 Dose: 5 mg Documented by: Metoprolol Tartrate (Metoprolol Tartrate 25 Mg Tablet) 12.5 mg PO BID [facility] Last Admin: 03/19/21 09:05 Dose: 12.5 mg Documented by: Morphine Sulfate (Morphine 4 Mg/Ml Vial) 4 mg IV Q4HP PRN; Protocol PRN Reason: Per Pain Protocol Olmesartan (Olmesartan Medoxomil 20 Mg Tablet) 40 mg PO DAILY [facility] Last Admin: 03/19/21 09:05 Dose: 40 mg Documented by: Ondansetron HCl (Ondansetron 4 Mg/2 Ml Vial) 4 mg IV Q4HP PRN PRN Reason: Nausea And Vomiting Pantoprazole Sodium (Pantoprazole 40 Mg Tablet) 40 mg PO [facility] Budesonide- Formoterol [ Symbicort] 160-4.5 Mcg/Actuation Inhaler 1 dose INH BIDP PRN PRN Reason: COPD Polyethylene Glycol (Polyethylene Glycol 3350 17 Gm Packet) 17 gm PO DAILYP PRN PRN Reason: Constipation Last Admin: 03/17/21 10:02 Dose: 17 gm Documented by: Potassium Chloride (Potassium Chloride 20 Meq Tablet) 40 meq PO UD PRN PRN Reason: Potssium is 3-3.5 Potassium Chloride (Potassium Chloride 20 Meq Tablet) 40 meq PO UD PRN PRN Reason: Potassium < 3 Prednisone (Prednisone 20 Mg Tablet) 20 mg PO [facility] Last Admin: 03/19/21 09:04 Dose: 20 mg Documented by: Senna (Sennosides 1 Tablet) 2 tab PO DAILYP PRN PRN Reason: Constipation Simvastatin (Simvastatin 20 Mg Tablet) 20 mg PO QHS [facility] Last Admin: 03/18/21 20:39 Dose: 20 mg Documented by: Sodium Chloride (0.9 % Sodium Chloride 10 Ml Syringe) 10 ml IV Q8 [facility] Last Admin: 03/19/21 05:39 Dose: 10 ml Documented by: Thiamine HCl (Thiamine 100 Mg Tablet) 100 mg PO DAILY [facility] Last Admin: 03/19/21 09:04 Dose: 100 mg Documented by: Tizanidine HCl (Tizanidine 4 Mg Tablet) 4 mg PO BIDP PRN PRN Reason: muscle spasticity Last Admin: 03/17/21 20:42 Dose: 4 mg Documented by: A/P Time Spent With Patient Time: Total time spent is greater than 50% in coordination of care (as documented) at patient's floor/unit and/or counseling patient: Patient undergo right fourth toe amputation with incision and drainage of the right foot on Thursday.
[2021-03-19] MEDS: HEPARIN 5,000 UNIT/ML VIAL SQ SCH (21:42)
[2021-03-19] MEDS: SIMVASTATIN 20 MG TABLET PO SCH (21:46)
[2021-03-19] MEDS: PANTOPRAZOLE 40 MG TABLET PO SCH (21:46)
[2021-03-20] MEDS: HYDROcodone/APAP 10/325MG TABLET PO PRN ×4 (05:14→20:58)
[2021-03-20] MEDS: IPRATROPIUM/ALBUTEROL 3 ML AMPUL.NEB NEB SCH ×3 (05:14→22:00)
[2021-03-20] MEDS: 0.9 % SODIUM CHLORIDE 10 ML SYRINGE IV SCH ×3 (05:14→20:56)
[2021-03-20] MEDS: INSULIN LISPRO 1 UNIT/0.01 ML UNIT SQ SCH ×4 (07:33→20:55)
[2021-03-20 07:37] LABS: Basophils # (Auto) 0.06 K/mcL (0.00-0.30); Basophils % (Auto) 0.5 % (0.0-2.0); Eosinophils % (Auto) 1.6 % (0.0-7.0); Hematocrit 37.9 % (40.1-51.0); Hemoglobin 11.6 g/dL (13.7-17.5); Lymphocytes # (Auto) 2.19 K/mcL (1.50-4.80); Lymphocytes % (Auto) 17.9 % (15.5-49.0); Mean Cell Volume 95.7 fL (80.0-100.0); Mean Corpuscular HGB Conc 30.6 g/dL (31.0-36.0); Monocytes # (Auto) 0.87 K/mcL (0.10-0.90); Monocytes % (Auto) 7.1 % (1.0-12.0); Neutrophils % (Auto) 72.9 % (38.0-78.0); Platelet Count 335 K/mcL (140-440); RBC 3.96 M/mcL (4.63-6.08); Red Cell Distribution Width 15.3 % (11.5-14.5); WBC 12.3 K/mcL (4.5-11.0)
[2021-03-20 08:15] LABS: ALT/SGPT 35 U/L (<40); AST/SGOT 16 U/L (<40); Albumin 3.4 gm/dL (3.2-5.2); Albumin/Globulin Ratio 0.9 (1.0-2.3); Alkaline Phosphatase 95 U/L (39-117); Bilirubin,Total 0.2 mg/dL (0.1-1.0); Blood Urea Nitrogen 31 mg/dL (8-23); Calcium 8.8 mg/dL (8.6-10.4); Carbon Dioxide 21 mmol/L (22-30); Chloride 106 mmol/L (96-108); Globulin 3.6 gm/dL (2.2-3.7); Glomerular Filtration Rate 72; Glucose 110 mg/dL (70-105)
[2021-03-20] MEDS: METOPROLOL TARTRATE 25 MG TABLET PO SCH ×2 (09:42→21:03)
[2021-03-20] MEDS: MULTIVIT,THER IRON,CA,FA & MIN 1 TABLET PO SCH (09:42)
[2021-03-20] MEDS: FOLIC ACID 1 MG TABLET PO SCH (09:42)
[2021-03-20] MEDS: OLMESARTAN MEDOXOMIL 20 MG TABLET PO SCH (09:42)
[2021-03-20] MEDS: GABAPENTIN 300 MG CAPSULE PO SCH ×2 (09:42→20:57)
[2021-03-20] MEDS: DOCUSATE SODIUM 100 MG CAPSULE PO SCH ×2 (09:42→20:57)
[2021-03-20] MEDS: THIAMINE 100 MG TABLET PO SCH (09:42)
[2021-03-20] MEDS: HEPARIN 5,000 UNIT/ML VIAL SQ SCH ×2 (09:43→20:56)
[2021-03-20] MEDS: FUROSEMIDE 40 MG TABLET PO SCH (09:43)
[2021-03-20] MEDS: INSULIN GLARGINE, HUMAN 1 UNIT/0.01 ML SQ SCH (09:43)
[2021-03-20] MEDS: ALLOPURINOL 100 MG TABLET PO SCH (09:43)
[2021-03-20] MEDS: predniSONE 20 MG TABLET PO SCH (09:43)
[2021-03-20] MEDS: CEFEPIME 1 GM VIAL IV SCH ×2 (09:44→20:56)
--- NOTE | 2021-03-20 14:28 | Internal Med Progress Note ---
SUBJECTIVE Subjective Patient information: Note initiated : 03/20/21 at 2:25 pm Service Date, if different from initiated Date: [] Patient: Shubham Ceballos a 75 y/o M admitted on 03/16/21 for SOB and leg swelling. Chief Complaint: [right diabetic foot with osteomyelitis] Interval history: History of present illness: Mr. Ceballos is a 75 year old M Presents to the ED with right leg swelling and also states more short of breath recently. was recently started on antibiotics for pneumonia at PCP office on . patient states that since he started taking antibiotic he felt dizzy and woozy and because of the leg is the reason he came into the ED. Afebrile in the ED. Sats low nineties on room air. Leukocytosis 16. Chronic anemia stable. Creatinine elevated in the ED 1.8. ED provider evaluated him and thought it related to COPD and CHF. As he was g iven Solu-Medrol and diuretics. Right leg ultrasound no DVT. CTA chest showed an incidental mass on the right kidney but otherwise unremarkable. Has been vaccinated against Covid. Patient has a wound of his right foot that has been seeing wound care for. His leg is swollen but he denies any increased redness or pain. Although his foot has been more painful. Feels little bit wheezy. States the breathing treatments he got in the ED helped. Drinks 6-8 beers a night. 03/17 Patient feeling better today. Feels shortness of breath is baseline. Chronic cough stable. No new complaints. Seen by podiatry yesterday. 03/18 Patient states poor sleep last night. Foot pain. No other complaints. Awaiting follow-up chemistry. 03/19: Afebrile overnight. c/o 7/10 sharp constant right foot pain. Denies fever or chills. c/o productive cough with white sputum. c/o wheezing. Denies chest pain or tightness. 03/20: Afebrile overnight. c/o mild sharp constant right foot pain. Denies fever or chills. c/o productive cough with white sputum. Denies wheezing. Denies chest pain or tightness. Constitutional Vitals: Vital Signs Temp Pulse Resp BP Pulse Ox 36.4 C 85 24 H 146/82 94 03/20/21 12:00 03/20/21 12:00 03/20/21 12:00 03/20/21 12:00 03/20/21 12:00 Period Temp Pulse Resp BP Sys/Gonzalez Pulse Ox Last 24 Hr 36.0 C-36.7 C 81-93 20-24 135-180/82-95 92-96 Intake and Output 03/20/21 03/20/21 03/20/21 05:59 13:59 21:59 Intake Total 50 Output Total 300 Balance 50 -300 Intake & Output: Intake & Output 03/20/21 03/20/21 03/20/21 05:59 13:59 21:59 Intake Total 50 Output Total 300 Balance 50 -300 Intake: Oral 50 Output: Void Amount 300 General appearance: cooperative and no acute distress Head Head exam: Present atraumatic and normocephalic Eye Eye exam: Present EOMI and PERRL ENT ENT exam: Present mucous membranes moist, normal exam and normal external ear exam Neck Neck exam: Present normal inspection; Absent lymphadenopathy, tenderness and thyromegaly Respiratory Respiratory exam: Present rhonchi; Absent accessory muscle use, respiratory distress and wheezes Cardiovascular Cardiovascular exam: Present irregular rhythm; Absent JVD GI/Abdominal GI/Abdominal exam: Present normal bowel sounds and soft; Absent organomegaly and tenderness Rectal Rectal exam: Present deferred Extremities Exam Extremities exam: Present full ROM, normal capillary refill, pedal edema and tenderness; Absent normal inspection Additional comments: Right 2nd toe surgically amputated. Ulcer between the web of right 4th and 5th toe with surrounding erythema swelling and tenderness to palpation. Neurological Exam Neurological exam: Present alert, CN II-XII intact and oriented X3; Absent motor sensory deficit Psychiatric Psychiatric exam: Present normal affect and normal mood; Absent anxious and depressed Skin Skin exam: Present dry, erythema and warm; Absent intact Additional comments: Right 2nd toe surgically amputated. Ulcer between the web of right 4th and 5th toe with surrounding erythema swelling and tenderness to palpation. OBJ DATA Labs CBC & Chem 7: 03/20/21 05:30 03/20/21 05:30 Labs: Abnormal Lab Results 03/20/21 03/20/21 03/19/21 05:30 05:30 05:25 WBC 12.3 H RBC 3.96 L Hgb 11.6 L Hct 37.9 L MCHC 30.6 L RDW 15.3 H Neut % (Auto) Lymph % (Auto) Absolute Neutrophils 8.93 H Sodium Chloride Carbon Dioxide 21 L BUN 31 H 28 H Glucose 110 H Uric Acid Albumin/Globulin Ratio 0.9 L 03/19/21 03/18/21 03/18/21 05:25 05:33 05:21 WBC 11.1 H 11.7 H RBC 3.76 L 3.56 L Hgb 11.3 L 10.7 L Hct 34.9 L 33.8 L MCHC RDW 15.7 H 15.3 H Neut % (Auto) 80.9 H Lymph % (Auto) 14.2 L Absolute Neutrophils 8.36 H 9.49 H Sodium 147 H Chloride 113 H Carbon Dioxide 18 L BUN 37 H Glucose Uric Acid 8.5 H Albumin/Globulin Ratio 0.9 L Meds: Medications Acetaminophen (Acetaminophen 325 Mg Tablet) 650 mg PO Q6HP PRN; Protocol PRN Reason: Per Pain Protocol/Fever > 101 Last Admin: 03/17/21 20:42 Dose: 650 mg Documented by: Acetaminophen (Acetaminophen 325 Mg Tablet) 650 mg PO Q6HP PRN; Protocol PRN Reason: Per Pain Protocol/Fever > 101 Hydrocodone Bitart/Acetaminophen (Hydrocodone/Apap 10/325mg Tablet) 1 - 2 tab PO Q4-6HP PRN; Protocol PRN Reason: pain Last Admin: 03/20/21 09:43 Dose: 2 tab Documented by: Albuterol/Ipratropium (Ipratropium/Albuterol 3 Ml Ampul.Neb) 3 ml NEB Q4HP PRN PRN Reason: Shortness Of Breath Albuterol/Ipratropium (Ipratropium/Albuterol 3 Ml Ampul.Neb) 3 ml NEB Q8H [facility] Last Admin: 03/20/21 05:14 Dose: 3 ml Documented by: Allopurinol (Allopurinol 100 Mg Tablet) 100 mg PO QDAY [facility] Last Admin: 03/20/21 09:43 Dose: 100 mg Documented by: Cefepime HCl (Cefepime 1 Gm Vial) 1 gm IV Q12H [facility]; Protocol Last Admin: 03/20/21 09:44 Dose: 1 gm Documented by: Dextrose (Dextrose 50% 50 Ml Vial) 0 ml IV UD PRN PRN Reason: Hypoglycemia Diagnostic Test (Pha) (Accu-Chek 1 Each Strip) 1 each FS ACHS [facility] Last Admin: 03/20/21 11:57 Dose: 1 each Documented by: Docusate Sodium (Docusate Sodium 100 Mg Capsule) 100 mg PO BID [facility] Last Admin: 03/20/21 09:42 Dose: 100 mg Documented by: Folic Acid (Folic Acid 1 Mg Tablet) 1 mg PO DAILY [facility] Last Admin: 03/20/21 09:42 Dose: 1 mg Documented by: Furosemide (Furosemide 40 Mg Tablet) 40 mg PO DAILY [facility] Last Admin: 03/20/21 09:43 Dose: 40 mg Documented by: Gabapentin (Gabapentin 300 Mg Capsule) 600 mg PO BID [facility] Last Admin: 03/20/21 09:42 Dose: 600 mg Documented by: Glucose (Dextrose 31 Gm Oral.Susp) 15 gm PO PRN PRN PRN Reason: Hypoglycemia Heparin Sodium (Porcine) (Heparin 5,000 Unit/Ml Vial) 5,000 unit SQ Q12 [facility] Last Admin: 03/20/21 09:43 Dose: 5,000 unit Documented by: Hydralazine HCl (Hydralazine 20 Mg/Ml Vial) 0 mg IV Q2HP PRN PRN Reason: Hypertension Potassium Chloride 40 meq/ (Dextrose) 520 mls @ 130 mls/hr IV UD PRN PRN Reason: Potassium < 3 Magnesium Sulfate (Magnesium Sulfate) 2 gm in 50 mls @ 50 mls/hr IV UD PRN PRN Reason: Magnesium </= 1.6 Insulin Glargine (Insulin Glargine, Human 1 Unit/0.01 Ml) 10 unit SQ DAILY [facility] Last Admin: 03/20/21 09:43 Dose: 10 units Documented by: Insulin Human Lispro (Insulin Lispro 1 Unit/0.01 Ml Unit) 0 unit SQ ACHS [facility]; Protocol Last Admin: 03/20/21 11:57 Dose: 6 units Documented by: Iron Carb/Multivit/[place]/Folic Acid (Multivit,Ther Iron,Ca,Fa & Min 1 Tablet) 1 tab PO DAILY [facility] Last Admin: 03/20/21 09:42 Dose: 1 tab Documented by: Labetalol HCl (Labetalol 5 Mg/Ml Ml) 0 mg IV Q2HP PRN PRN Reason: Hypertension Lorazepam (Lorazepam 2 Mg/Ml Vial) 1 mg IV Q2-4HP PRN; Protocol PRN Reason: Alcohol Withdrawal Metoclopramide HCl (Metoclopramide 10 Mg/2 Ml Vial) 10 mg IV Q6HP PRN PRN Reason: Nausea And Vomiting Metoprolol Tartrate (Metoprolol Tartrate 5 Mg/5 Ml Vial) 5 mg IV Q2HP PRN PRN Reason: Tachyarrhythmias HR>110 Last Admin: 03/18/21 08:40 Dose: 5 mg Documented by: Metoprolol Tartrate (Metoprolol Tartrate 25 Mg Tablet) 12.5 mg PO BID [facility] Last Admin: 03/20/21 09:42 Dose: 12.5 mg Documented by: Morphine Sulfate (Morphine 4 Mg/Ml Vial) 4 mg IV Q4HP PRN; Protocol PRN Reason: Per Pain Protocol Olmesartan (Olmesartan Medoxomil 20 Mg Tablet) 40 mg PO DAILY [facility] Last Admin: 03/20/21 09:42 Dose: 40 mg Documented by: Ondansetron HCl (Ondansetron 4 Mg/2 Ml Vial) 4 mg IV Q4HP PRN PRN Reason: Nausea And Vomiting Pantoprazole Sodium (Pantoprazole 40 Mg Tablet) 40 mg PO [facility] Last Admin: 03/19/21 21:46 Dose: 40 mg Documented by: Budesonide- Formoterol [ Symbicort] 160-4.5 Mcg/Actuation Inhaler 1 dose INH BIDP PRN PRN Reason: COPD Polyethylene Glycol (Polyethylene Glycol 3350 17 Gm Packet) 17 gm PO DAILYP PRN PRN Reason: Constipation Last Admin: 03/17/21 10:02 Dose: 17 gm Documented by: Potassium Chloride (Potassium Chloride 20 Meq Tablet) 40 meq PO UD PRN PRN Reason: Potssium is 3-3.5 Potassium Chloride (Potassium Chloride 20 Meq Tablet) 40 meq PO UD PRN PRN Reason: Potassium < 3 Prednisone (Prednisone 20 Mg Tablet) 20 mg PO [facility] Last Admin: 03/20/21 09:43 Dose: 20 mg Documented by: Senna (Sennosides 1 Tablet) 2 tab PO DAILYP PRN PRN Reason: Constipation Simvastatin (Simvastatin 20 Mg Tablet) 20 mg PO QHS [facility] Last Admin: 03/19/21 21:46 Dose: 20 mg Documented by: Sodium Chloride (0.9 % Sodium Chloride 10 Ml Syringe) 10 ml IV Q8 [facility] Last Admin: 03/20/21 05:14 Dose: 10 ml Documented by: Thiamine HCl (Thiamine 100 Mg Tablet) 100 mg PO DAILY [facility] Last Admin: 03/20/21 09:42 Dose: 100 mg Documented by: Tizanidine HCl (Tizanidine 4 Mg Tablet) 4 mg PO BIDP PRN PRN Reason: muscle spasticity Last Admin: 03/17/21 20:42 Dose: 4 mg Documented by: A/P Assessment and plan (1) COPD exacerbation: Status: Acute (2) Diabetic peripheral neuropathy: Status: Chronic (3) Hyperlipidemia: Status: Chronic (4) KEZIA on CPAP: Status: Chronic (5) Essential (primary) hypertension: Status: Acute (6) Diabetic ulcer of right foot: Status: Acute (7) Osteomyelitis of right foot: Status: Acute Narrative A/P Narrative: Assessment and Plans: 1. Diabetic right foot ulcer with osteomyelitis: Stays in inpatient med surg Dr. Warner on the case Possible surgical candidate pending response to antibiotics Possible amputation of right 4th toe/ I&D right foot on Thursday 03/22 Continue daily dressing change Cefepime Gabapentin Tylenol PRN fever/mild pain [place] PRN moderate pain Morphine IV PRN severe pain Blood culture, no growth to date Wound culture growing group b strep Physical therapy Occupational therapy HgA1c Hold any oral hypoglycemics Insulin Lantus 20 unit daily Correctional scale insulin AC HS Accu Chek AC HS Hypoglycemia protocol Diabetic diet then NPO after midnight 2. Atrial flutter: Lopressor for rate control Hold Eliquis for pending surgery on Thursday 3. Essential HTN: Currently normotensive Benicar Lopressor Lasix PO 4. Mixed dyslipidemia: Continue statin therapy 5. COPD exacerbation: Currently on room air DuoNEB NEB scheduled q8hr Prednisone 6. 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
[2021-03-20] MEDS: PANTOPRAZOLE 40 MG TABLET PO SCH (20:57)
[2021-03-20] MEDS: SIMVASTATIN 20 MG TABLET PO SCH (20:57)
[2021-03-21] MEDS: IPRATROPIUM/ALBUTEROL 3 ML AMPUL.NEB NEB SCH ×2 (06:00→13:22)
[2021-03-21] MEDS: 0.9 % SODIUM CHLORIDE 10 ML SYRINGE IV SCH ×3 (06:00→22:22)
[2021-03-21 07:24] LABS: Basophils # (Auto) 0.08 K/mcL (0.00-0.30); Basophils % (Auto) 0.7 % (0.0-2.0); Eosinophils # (Auto) 0.27 K/mcL (0.00-0.70); Eosinophils % (Auto) 2.2 % (0.0-7.0); Hematocrit 38.1 % (40.1-51.0); Hemoglobin 11.6 g/dL (13.7-17.5); Lymphocytes # (Auto) 2.57 K/mcL (1.50-4.80); Lymphocytes % (Auto) 21.3 % (15.5-49.0); Mean Cell Volume 96.5 fL (80.0-100.0); Mean Corpuscular HGB Conc 30.4 g/dL (31.0-36.0); Mean Platelet Volume 9.2 fL (7.4-10.4); Monocytes # (Auto) 0.78 K/mcL (0.10-0.90); Monocytes % (Auto) 6.5 % (1.0-12.0); Neutrophils % (Auto) 69.3 % (38.0-78.0); Platelet Count 369 K/mcL (140-440); RBC 3.95 M/mcL (4.63-6.08); Red Cell Distribution Width 15.3 % (11.5-14.5); WBC 12.1 K/mcL (4.5-11.0)
[2021-03-21] MEDS: HYDROcodone/APAP 10/325MG TABLET PO PRN ×4 (07:24→23:35)
[2021-03-21] MEDS: GABAPENTIN 300 MG CAPSULE PO SCH ×2 (07:25→21:24)
[2021-03-21] MEDS: morphine 4 MG/ML VIAL IV PRN (07:26)
[2021-03-21 08:08] LABS: ALT/SGPT 30 U/L (<40); AST/SGOT 13 U/L (<40); Albumin 3.2 gm/dL (3.2-5.2); Albumin/Globulin Ratio 0.9 (1.0-2.3); Alkaline Phosphatase 92 U/L (39-117); Bilirubin,Total < 0.2 mg/dL (0.1-1.0); Blood Urea Nitrogen 31 mg/dL (8-23); Calcium 8.8 mg/dL (8.6-10.4); Carbon Dioxide 20 mmol/L (22-30); Chloride 109 mmol/L (96-108); Globulin 3.7 gm/dL (2.2-3.7); Glomerular Filtration Rate 64; Glucose 105 mg/dL (70-105)
[2021-03-21] MEDS: INSULIN LISPRO 1 UNIT/0.01 ML UNIT SQ SCH ×4 (08:58→21:26)
--- NOTE | 2021-03-21 09:42 | Orthopedic Progress Note ---
SUBJECTIVE Subjective Patient information: Note initiated : 03/21/21 at 9:40 am Service Date, if different from initiated Date: [] Patient: Shubham Ceballos 75 y/o M admitted on 03/16/21 for SOB and leg swelling. Chief Complaint: [Right foot infection] Pain continues to be steady with intermittent swelling. Malodorous. Constitutional Vitals: Vital Signs Temp Pulse Resp BP Pulse Ox 98 F 83 17 165/91 92 03/21/21 06:39 03/21/21 06:39 03/21/21 06:39 03/21/21 06:39 03/21/21 06:39 Period Temp Pulse Resp BP Sys/Gonzalez Pulse Ox Last 24 Hr 97.0 F-98.5 F 66-85 17-24 124-165/60-91 91-95 Intake and Output 03/20/21 03/21/21 03/21/21 21:59 05:59 13:59 Intake Total 720 470 Output Total 1225 700 Balance -505 -230 Weight 277 lb Intake & Output: Intake & Output 03/20/21 03/21/21 03/21/21 21:59 05:59 13:59 Intake Total 720 470 Output Total 1225 700 Balance -505 -230 Weight 277 lb Intake: Oral 720 470 Output: Void Amount 1225 700 Other: Meal Dinner Percent of Meal Consumed 100% Feeding Ability Independent Urine Appearance Clear Clear Urine Color Bright Yellow Bright Yellow OBJ DATA Labs CBC & Chem 7: 03/21/21 05:24 03/21/21 05:23 Labs: Abnormal Lab Results 03/21/21 03/21/21 03/20/21 05:24 05:23 05:30 WBC 12.1 H RBC 3.95 L Hgb 11.6 L Hct 38.1 L MCHC 30.4 L RDW 15.3 H Absolute Neutrophils 8.38 H Chloride 109 H Carbon Dioxide 20 L 21 L BUN 31 H 31 H Glucose 110 H Albumin/Globulin Ratio 0.9 L 0.9 L 03/20/21 03/19/21 03/19/21 05:30 05:25 05:25 WBC 12.3 H 11.1 H RBC 3.96 L 3.76 L Hgb 11.6 L 11.3 L Hct 37.9 L 34.9 L MCHC 30.6 L RDW 15.3 H 15.7 H Absolute Neutrophils 8.93 H 8.36 H Chloride Carbon Dioxide BUN 28 H Glucose Albumin/Globulin Ratio Meds: Medications Acetaminophen (Acetaminophen 325 Mg Tablet) 650 mg PO Q6HP PRN; Protocol PRN Reason: Per Pain Protocol/Fever > 101 Last Admin: 03/17/21 20:42 Dose: 650 mg Documented by: Acetaminophen (Acetaminophen 325 Mg Tablet) 650 mg PO Q6HP PRN; Protocol PRN Reason: Per Pain Protocol/Fever > 101 Hydrocodone Bitart/Acetaminophen (Hydrocodone/Apap 10/325mg Tablet) 1 - 2 tab PO Q4-6HP PRN; Protocol PRN Reason: pain Last Admin: 03/21/21 07:24 Dose: 2 tab Documented by: Albuterol/Ipratropium (Ipratropium/Albuterol 3 Ml Ampul.Neb) 3 ml NEB Q4HP PRN PRN Reason: Shortness Of Breath Albuterol/Ipratropium (Ipratropium/Albuterol 3 Ml Ampul.Neb) 3 ml NEB Q8H [facility] Last Admin: 03/21/21 06:00 Dose: 3 ml Documented by: Allopurinol (Allopurinol 100 Mg Tablet) 100 mg PO QDAY [facility] Last Admin: 03/20/21 09:43 Dose: 100 mg Documented by: Cefepime HCl (Cefepime 1 Gm Vial) 1 gm IV Q12H [facility]; Protocol Last Admin: 03/20/21 20:56 Dose: 1 gm Documented by: Dextrose (Dextrose 50% 50 Ml Vial) 0 ml IV UD PRN PRN Reason: Hypoglycemia Diagnostic Test (Pha) (Accu-Chek 1 Each Strip) 1 each FS ACHS [facility] Last Admin: 03/21/21 08:58 Dose: 1 each Documented by: Docusate Sodium (Docusate Sodium 100 Mg Capsule) 100 mg PO BID [facility] Last Admin: 03/20/21 20:57 Dose: 100 mg Documented by: Folic Acid (Folic Acid 1 Mg Tablet) 1 mg PO DAILY [facility] Last Admin: 03/20/21 09:42 Dose: 1 mg Documented by: Furosemide (Furosemide 40 Mg Tablet) 40 mg PO DAILY [facility] Last Admin: 03/20/21 09:43 Dose: 40 mg Documented by: Gabapentin (Gabapentin 300 Mg Capsule) 600 mg PO BID [facility] Last Admin: 03/21/21 07:25 Dose: 600 mg Documented by: Glucose (Dextrose 31 Gm Oral.Susp) 15 gm PO PRN PRN PRN Reason: Hypoglycemia Heparin Sodium (Porcine) (Heparin 5,000 Unit/Ml Vial) 5,000 unit SQ Q12 [facility] Last Admin: 03/20/21 20:56 Dose: 5,000 unit Documented by: Hydralazine HCl (Hydralazine 20 Mg/Ml Vial) 0 mg IV Q2HP PRN PRN Reason: Hypertension Potassium Chloride 40 meq/ (Dextrose) 520 mls @ 130 mls/hr IV UD PRN PRN Reason: Potassium < 3 Magnesium Sulfate (Magnesium Sulfate) 2 gm in 50 mls @ 50 mls/hr IV UD PRN PRN Reason: Magnesium </= 1.6 Insulin Glargine (Insulin Glargine, Human 1 Unit/0.01 Ml) 10 unit SQ DAILY [facility] Last Admin: 03/20/21 09:43 Dose: 10 units Documented by: Insulin Human Lispro (Insulin Lispro 1 Unit/0.01 Ml Unit) 0 unit SQ ACHS [facility]; Protocol Last Admin: 03/21/21 08:58 Dose: Not Given Documented by: Iron Carb/Multivit/[place]/Folic Acid (Multivit,Ther Iron,Ca,Fa & Min 1 Tablet) 1 tab PO DAILY [facility] Last Admin: 03/20/21 09:42 Dose: 1 tab Documented by: Labetalol HCl (Labetalol 5 Mg/Ml Ml) 0 mg IV Q2HP PRN PRN Reason: Hypertension Lorazepam (Lorazepam 2 Mg/Ml Vial) 1 mg IV Q2-4HP PRN; Protocol PRN Reason: Alcohol Withdrawal Metoclopramide HCl (Metoclopramide 10 Mg/2 Ml Vial) 10 mg IV Q6HP PRN PRN Reason: Nausea And Vomiting Metoprolol Tartrate (Metoprolol Tartrate 5 Mg/5 Ml Vial) 5 mg IV Q2HP PRN PRN Reason: Tachyarrhythmias HR>110 Last Admin: 03/18/21 08:40 Dose: 5 mg Documented by: Metoprolol Tartrate (Metoprolol Tartrate 25 Mg Tablet) 12.5 mg PO BID [facility] Last Admin: 03/20/21 21:03 Dose: 12.5 mg Documented by: Morphine Sulfate (Morphine 4 Mg/Ml Vial) 4 mg IV Q4HP PRN; Protocol PRN Reason: Per Pain Protocol Last Admin: 03/21/21 07:26 Dose: 4 mg Documented by: Olmesartan (Olmesartan Medoxomil 20 Mg Tablet) 40 mg PO DAILY [facility] Last Admin: 03/20/21 09:42 Dose: 40 mg Documented by: Ondansetron HCl (Ondansetron 4 Mg/2 Ml Vial) 4 mg IV Q4HP PRN PRN Reason: Nausea And Vomiting Pantoprazole Sodium (Pantoprazole 40 Mg Tablet) 40 mg PO HS [facility] Last Admin: 03/20/21 20:57 Dose: 40 mg Documented by: Budesonide- Formoterol [ Symbicort] 160-4.5 Mcg/Actuation Inhaler 1 dose INH BIDP PRN PRN Reason: COPD Polyethylene Glycol (Polyethylene Glycol 3350 17 Gm Packet) 17 gm PO DAILYP PRN PRN Reason: Constipation Last Admin: 03/17/21 10:02 Dose: 17 gm Documented by: Potassium Chloride (Potassium Chloride 20 Meq Tablet) 40 meq PO UD PRN PRN Reason: Potssium is 3-3.5 Potassium Chloride (Potassium Chloride 20 Meq Tablet) 40 meq PO UD PRN PRN Reason: Potassium < 3 Senna (Sennosides 1 Tablet) 2 tab PO DAILYP PRN PRN Reason: Constipation Simvastatin (Simvastatin 20 Mg Tablet) 20 mg PO QHS [facility] Last Admin: 03/20/21 20:57 Dose: 20 mg Documented by: Sodium Chloride (0.9 % Sodium Chloride 10 Ml Syringe) 10 ml IV Q8 [facility] Last Admin: 03/21/21 06:00 Dose: 10 ml Documented by: Thiamine HCl (Thiamine 100 Mg Tablet) 100 mg PO DAILY [facility] Last Admin: 03/20/21 09:42 Dose: 100 mg Documented by: Tizanidine HCl (Tizanidine 4 Mg Tablet) 4 mg PO BIDP PRN PRN Reason: muscle spasticity Last Admin: 03/17/21 20:42 Dose: 4 mg Documented by: A/P Time Spent With Patient Time: Heart Inspection: No cardiac heaves or lifts. Symmetrical expansion with respiration, no other wall motions. Palpation: No thrills appreciated. Point of maximal impulse (PMI) (apical impulse) noted at midclavicular line, in fifth intercostal space. Auscultation: Normal S1 and S2, with regular rate and rhythm. S2 > S1 at the base, S1 > S2 at apex. No splitting of the heart sounds heard. No murmur. No S3 or S4, no friction rub. Lungs Lungs are clear to auscultation and percussion bilaterally No crackles heard in the lung bases bilaterally PLAN: 1. Incision and drainage of the right foot 2. Amputation right fourth toe
[2021-03-21] MEDS: THIAMINE 100 MG TABLET PO SCH (13:35)
[2021-03-21] MEDS: HEPARIN 5,000 UNIT/ML VIAL SQ SCH ×2 (13:36→22:22)
[2021-03-21] MEDS: METOPROLOL TARTRATE 25 MG TABLET PO SCH ×2 (13:36→21:25)
[2021-03-21] MEDS: FOLIC ACID 1 MG TABLET PO SCH (13:36)
[2021-03-21] MEDS: OLMESARTAN MEDOXOMIL 20 MG TABLET PO SCH (13:36)
[2021-03-21] MEDS: MULTIVIT,THER IRON,CA,FA & MIN 1 TABLET PO SCH (13:37)
[2021-03-21] MEDS: FUROSEMIDE 40 MG TABLET PO SCH (13:37)
[2021-03-21] MEDS: CEFEPIME 1 GM VIAL IV SCH ×2 (13:37→22:22)
[2021-03-21] MEDS: DOCUSATE SODIUM 100 MG CAPSULE PO SCH ×2 (13:38→21:24)
[2021-03-21] MEDS: INSULIN GLARGINE, HUMAN 1 UNIT/0.01 ML SQ SCH (13:38)
[2021-03-21] MEDS: ALLOPURINOL 100 MG TABLET PO SCH (13:39)
--- NOTE | 2021-03-21 15:29 | Internal Med Progress Note ---
SUBJECTIVE Subjective Patient information: Note initiated : 03/21/21 at 3:26 pm Service Date, if different from initiated Date: [] Patient: Shubham Ceballos a 75 y/o M admitted on 03/16/21 for SOB and leg swelling. Chief Complaint: [Right diabetic foot with osteomyelitis] Interval history: History of present illness: Mr. Ceballos is a 75 year old M Presents to the ED with right leg swelling and also states more short of breath recently. was recently started on antibiotics for pneumonia at PCP office on . patient states that since he started taking antibiotic he felt dizzy and woozy and because of the leg is the reason he came into the ED. Afebrile in the ED. Sats low nineties on room air. Leukocytosis 16. Chronic anemia stable. Creatinine elevated in the ED 1.8. ED provider evaluated him and thought it related to COPD and CHF. As he was g iven Solu-Medrol and diuretics. Right leg ultrasound no DVT. CTA chest showed an incidental mass on the right kidney but otherwise unremarkable. Has been vaccinated against Covid. Patient has a wound of his right foot that has been seeing wound care for. His leg is swollen but he denies any increased redness or pain. Although his foot has been more painful. Feels little bit wheezy. States the breathing treatments he got in the ED helped. Drinks 6-8 beers a night. 03/17 Patient feeling better today. Feels shortness of breath is baseline. Chronic cough stable. No new complaints. Seen by podiatry yesterday. 03/18 Patient states poor sleep last night. Foot pain. No other complaints. Awaiting follow-up chemistry. 03/19: Afebrile overnight. c/o 7/10 sharp constant right foot pain. Denies fever or chills. c/o productive cough with white sputum. c/o wheezing. Denies chest pain or tightness. 03/20: Afebrile overnight. c/o mild sharp constant right foot pain. Denies fever or chills. c/o productive cough with white sputum. Denies wheezing. Denies chest pain or tightness. 03/21: Afebrile overnight. c/o mild sharp constant right foot pain. Denies fever or chills. Denies any cough or sputum production. Denies wheezing. Denies chest pain or tightness. Constitutional Vitals: Vital Signs Temp Pulse Resp BP Pulse Ox 36.8 C 85 18 119/66 93 03/21/21 11:21 03/21/21 13:22 03/21/21 13:22 03/21/21 11:21 03/21/21 13:22 Period Temp Pulse Resp BP Sys/Gonzalez Pulse Ox Last 24 Hr 36.1 C-36.9 C 66-85 17-24 119-165/60-91 91-95 Intake and Output 03/21/21 03/21/21 03/21/21 05:59 13:59 21:59 Intake Total 470 480 Output Total 700 1143 Balance -230 -663 Weight 125.645 kg Patient Weight 03/22/21 05:59 Weight 125.645 kg Intake & Output: Intake & Output 03/21/21 03/21/21 03/21/21 05:59 13:59 21:59 Intake Total 470 480 Output Total 700 1143 Balance -230 -663 Weight 125.645 kg Intake: Oral 470 480 Output: Void Amount 700 1140 # of times incontinent of urine 3 Other: Meal Breakfast Percent of Meal Consumed 100% Urine Appearance Clear Urine Color Bright Yellow General appearance: cooperative and no acute distress Head Head exam: Present atraumatic and normocephalic Eye Eye exam: Present EOMI and PERRL ENT ENT exam: Present mucous membranes moist, normal exam and normal external ear exam Neck Neck exam: Present normal inspection; Absent lymphadenopathy, tenderness and thyromegaly Respiratory Respiratory exam: Absent accessory muscle use, respiratory distress and wheezes Cardiovascular Cardiovascular exam: Present normal rate and rhythm; Absent JVD GI/Abdominal GI/Abdominal exam: Present normal bowel sounds and soft; Absent organomegaly and tenderness Rectal Rectal exam: Present deferred Extremities Exam Extremities exam: Present full ROM, normal capillary refill and tenderness; Absent normal inspection Additional comments: Right foot covered by wound dressing Neurological Exam Neurological exam: Present alert, CN II-XII intact and oriented X3; Absent motor sensory deficit Psychiatric Psychiatric exam: Present normal affect and normal mood; Absent anxious and depressed Skin Skin exam: Present dry; Absent intact Additional comments: Right foot covered by wound dressing OBJ DATA Labs CBC & Chem 7: 03/21/21 05:24 03/21/21 05:23 Labs: Abnormal Lab Results 03/21/21 03/21/2121 05:24 05:23 05:30 WBC 12.1 H RBC 3.95 L Hgb 11.6 L Hct 38.1 L MCHC 30.4 L RDW 15.3 H Absolute Neutrophils 8.38 H Chloride 109 H Carbon Dioxide 20 L 21 L BUN 31 H 31 H Glucose 110 H Albumin/Globulin Ratio 0.9 L 0.9 L 03/20/21 03/19/21 03/19/21 05:30 05:25 05:25 WBC 12.3 H 11.1 H RBC 3.96 L 3.76 L Hgb 11.6 L 11.3 L Hct 37.9 L 34.9 L MCHC 30.6 L RDW 15.3 H 15.7 H Absolute Neutrophils 8.93 H 8.36 H Chloride Carbon Dioxide BUN 28 H Glucose Albumin/Globulin Ratio Meds: Medications Acetaminophen (Acetaminophen 325 Mg Tablet) 650 mg PO Q6HP PRN; Protocol PRN Reason: Per Pain Protocol/Fever > 101 Last Admin: 03/17/21 20:42 Dose: 650 mg Documented by: Acetaminophen (Acetaminophen 325 Mg Tablet) 650 mg PO Q6HP PRN; Protocol PRN Reason: Per Pain Protocol/Fever > 101 Hydrocodone Bitart/Acetaminophen (Hydrocodone/Apap 10/325mg Tablet) 1 - 2 tab PO Q4-6HP PRN; Protocol PRN Reason: pain Last Admin: 03/21/21 13:40 Dose: 2 tab Documented by: Albuterol/Ipratropium (Ipratropium/Albuterol 3 Ml Ampul.Neb) 3 ml NEB Q4HP PRN PRN Reason: Shortness Of Breath Albuterol/Ipratropium (Ipratropium/Albuterol 3 Ml Ampul.Neb) 3 ml NEB Q8H [facility] Last Admin: 03/21/21 13:22 Dose: 3 ml Documented by: Allopurinol (Allopurinol 100 Mg Tablet) 100 mg PO QDAY [facility] Last Admin: 03/21/21 13:39 Dose: 100 mg Documented by: Cefepime HCl (Cefepime 1 Gm Vial) 1 gm IV Q12H [facility]; Protocol Last Admin: 03/21/21 13:37 Dose: 1 gm Documented by: Dextrose (Dextrose 50% 50 Ml Vial) 0 ml IV UD PRN PRN Reason: Hypoglycemia Diagnostic Test (Pha) (Accu-Chek 1 Each Strip) 1 each FS ACHS [facility] Last Admin: 03/21/21 13:38 Dose: 1 each Documented by: Docusate Sodium (Docusate Sodium 100 Mg Capsule) 100 mg PO BID [facility] Last Admin: 03/21/21 13:38 Dose: 100 mg Documented by: Folic Acid (Folic Acid 1 Mg Tablet) 1 mg PO DAILY [facility] Last Admin: 03/21/21 13:36 Dose: 1 mg Documented by: Furosemide (Furosemide 40 Mg Tablet) 40 mg PO DAILY [facility] Last Admin: 03/21/21 13:37 Dose: 40 mg Documented by: Gabapentin (Gabapentin 300 Mg Capsule) 600 mg PO BID [facility] Last Admin: 03/21/21 07:25 Dose: 600 mg Documented by: Glucose (Dextrose 31 Gm Oral.Susp) 15 gm PO PRN PRN PRN Reason: Hypoglycemia Heparin Sodium (Porcine) (Heparin 5,000 Unit/Ml Vial) 5,000 unit SQ Q12 [facility] Last Admin: 03/21/21 13:36 Dose: Not Given Documented by: Hydralazine HCl (Hydralazine 20 Mg/Ml Vial) 0 mg IV Q2HP PRN PRN Reason: Hypertension Potassium Chloride 40 meq/ (Dextrose) 520 mls @ 130 mls/hr IV UD PRN PRN Reason: Potassium < 3 Magnesium Sulfate (Magnesium Sulfate) 2 gm in 50 mls @ 50 mls/hr IV UD PRN PRN Reason: Magnesium </= 1.6 Insulin Glargine (Insulin Glargine, Human 1 Unit/0.01 Ml) 10 unit SQ DAILY [facility] Last Admin: 03/21/21 13:38 Dose: 10 units Documented by: Insulin Human Lispro (Insulin Lispro 1 Unit/0.01 Ml Unit) 0 unit SQ [facility]; Protocol Last Admin: 03/21/21 13:37 Dose: 4 units Documented by: Iron Carb/Multivit/[place]/Folic Acid (Multivit,Ther Iron,Ca,Fa & Min 1 Tablet) 1 tab PO DAILY [facility] Last Admin: 03/21/21 13:37 Dose: 1 tab Documented by: Labetalol HCl (Labetalol 5 Mg/Ml Ml) 0 mg IV Q2HP PRN PRN Reason: Hypertension Lorazepam (Lorazepam 2 Mg/Ml Vial) 1 mg IV Q2-4HP PRN; Protocol PRN Reason: Alcohol Withdrawal Metoclopramide HCl (Metoclopramide 10 Mg/2 Ml Vial) 10 mg IV Q6HP PRN PRN Reason: Nausea And Vomiting Metoprolol Tartrate (Metoprolol Tartrate 5 Mg/5 Ml Vial) 5 mg IV Q2HP PRN PRN Reason: Tachyarrhythmias HR>110 Last Admin: 03/18/21 08:40 Dose: 5 mg Documented by: Metoprolol Tartrate (Metoprolol Tartrate 25 Mg Tablet) 12.5 mg PO BID [facility] Last Admin: 03/21/21 13:36 Dose: 12.5 mg Documented by: Morphine Sulfate (Morphine 4 Mg/Ml Vial) 4 mg IV Q4HP PRN; Protocol PRN Reason: Per Pain Protocol Last Admin: 03/21/21 07:26 Dose: 4 mg Documented by: Olmesartan (Olmesartan Medoxomil 20 Mg Tablet) 40 mg PO DAILY [facility] Last Admin: 03/21/21 13:36 Dose: 40 mg Documented by: Ondansetron HCl (Ondansetron 4 Mg/2 Ml Vial) 4 mg IV Q4HP PRN PRN Reason: Nausea And Vomiting Pantoprazole Sodium (Pantoprazole 40 Mg Tablet) 40 mg PO HS [facility] Last Admin: 03/20/21 20:57 Dose: 40 mg Documented by: Budesonide- Formoterol [ Symbicort] 160-4.5 Mcg/Actuation Inhaler 1 dose INH BIDP PRN PRN Reason: COPD Polyethylene Glycol (Polyethylene Glycol 3350 17 Gm Packet) 17 gm PO DAILYP PRN PRN Reason: Constipation Last Admin: 03/17/21 10:02 Dose: 17 gm Documented by: Potassium Chloride (Potassium Chloride 20 Meq Tablet) 40 meq PO UD PRN PRN Reason: Potssium is 3-3.5 Potassium Chloride (Potassium Chloride 20 Meq Tablet) 40 meq PO UD PRN PRN Reason: Potassium < 3 Senna (Sennosides 1 Tablet) 2 tab PO DAILYP PRN PRN Reason: Constipation Simvastatin (Simvastatin 20 Mg Tablet) 20 mg PO QHS [facility] Last Admin: 03/20/21 20:57 Dose: 20 mg Documented by: Sodium Chloride (0.9 % Sodium Chloride 10 Ml Syringe) 10 ml IV Q8 [facility] Last Admin: 03/21/21 13:46 Dose: 10 ml Documented by: Thiamine HCl (Thiamine 100 Mg Tablet) 100 mg PO DAILY [facility] Last Admin: 03/21/21 13:35 Dose: 100 mg Documented by: Tizanidine HCl (Tizanidine 4 Mg Tablet) 4 mg PO BIDP PRN PRN Reason: muscle spasticity Last Admin: 03/17/21 20:42 Dose: 4 mg Documented by: A/P Assessment and plan (1) COPD exacerbation: Status: Acute (2) Diabetic peripheral neuropathy: Status: Chronic (3) Hyperlipidemia: Status: Chronic (4) KEZIA on CPAP: Status: Chronic (5) Essential (primary) hypertension: Status: Acute (6) Diabetic ulcer of right foot: Status: Acute (7) Osteomyelitis of right foot: Status: Acute Narrative A/P Narrative: Assessment and Plans: 1. Diabetic right foot ulcer with osteomyelitis: Stays in inpatient med surg Dr. Warner on the case Possible surgical candidate pending response to antibiotics Possible amputation of right 4th toe/ I&D right foot on Thursday 03/22 Continue daily dressing change Cefepime Gabapentin Tylenol PRN fever/mild pain [place] PRN moderate pain Morphine IV PRN severe pain Blood culture, no growth to date Wound culture growing group b strep Physical therapy Occupational therapy HgA1c Hold any oral hypoglycemics Insulin Lantus 20 unit daily Correctional scale insulin AC HS Accu Chek AC HS Hypoglycemia protocol Diabetic diet then NPO after midnight 2. Atrial flutter: Lopressor for rate control Hold Eliquis for pending surgery on Thursday 3. Essential HTN: Currently normotensive Benicar Lopressor Lasix PO 4. Mixed dyslipidemia: Continue statin therapy 5. COPD exacerbation: Currently on room air DuoNEB NEB scheduled q8hr Prednisone 6. 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
[2021-03-21] MEDS: SIMVASTATIN 20 MG TABLET PO SCH (21:24)
[2021-03-21] MEDS: PANTOPRAZOLE 40 MG TABLET PO SCH (21:25)
[2021-03-22] MEDS: HYDROcodone/APAP 10/325MG TABLET PO PRN ×5 (03:46→20:04)
[2021-03-22] MEDS ORDERED: SCOPOLAMINE 1 PATCH PATCH TOPICAL PRN (07:00)
[2021-03-22 07:01] LABS: Basophils # (Auto) 0.09 K/mcL (0.00-0.30); Basophils % (Auto) 0.7 % (0.0-2.0); Eosinophils # (Auto) 0.37 K/mcL (0.00-0.70); Hematocrit 37.8 % (40.1-51.0); Hemoglobin 11.5 g/dL (13.7-17.5); Lymphocytes # (Auto) 2.59 K/mcL (1.50-4.80); Lymphocytes % (Auto) 20.7 % (15.5-49.0); Mean Cell Volume 95.7 fL (80.0-100.0); Mean Corpuscular HGB Conc 30.4 g/dL (31.0-36.0); Mean Platelet Volume 9.1 fL (7.4-10.4); Monocytes # (Auto) 0.85 K/mcL (0.10-0.90); Monocytes % (Auto) 6.8 % (1.0-12.0); Neutrophils % (Auto) 68.8 % (38.0-78.0); Platelet Count 391 K/mcL (140-440); RBC 3.95 M/mcL (4.63-6.08); Red Cell Distribution Width 15.2 % (11.5-14.5); WBC 12.5 K/mcL (4.5-11.0)
[2021-03-22] MEDS: INSULIN LISPRO 1 UNIT/0.01 ML UNIT SQ SCH ×4 (07:34→21:04)
[2021-03-22 07:40] LABS: ALT/SGPT 25 U/L (<40); AST/SGOT 13 U/L (<40); Albumin 3.1 gm/dL (3.2-5.2); Albumin/Globulin Ratio 0.8 (1.0-2.3); Alkaline Phosphatase 88 U/L (39-117); Bilirubin,Total 0.2 mg/dL (0.1-1.0); Blood Urea Nitrogen 35 mg/dL (8-23); Calcium 9.1 mg/dL (8.6-10.4); Carbon Dioxide 20 mmol/L (22-30); Chloride 108 mmol/L (96-108); Globulin 3.7 gm/dL (2.2-3.7); Glomerular Filtration Rate 52; Glucose 103 mg/dL (70-105)
[2021-03-22] MEDS: 0.9 % SODIUM CHLORIDE 10 ML SYRINGE IV SCH ×3 (07:47→21:06)
[2021-03-22] MEDS ORDERED: ETOMIDATE 20 MG/10 ML VIAL IV ONE (09:04)
[2021-03-22] MEDS ORDERED: GLYCOPYRROLATE 0.2 MG/ML VIAL IV ONE (09:04)
[2021-03-22] MEDS ORDERED: fentaNYL 100 MCG/2 ML VIAL IV ONE (09:04)
[2021-03-22] MEDS ORDERED: MIDAZOLAM 2 MG/2 ML VIAL ONE (09:04)
[2021-03-22] MEDS ORDERED: METOPROLOL TARTRATE 5 MG/5 ML VIAL IV ONE (09:04)
[2021-03-22] MEDS ORDERED: KETAMINE 50 MG/ML Syringe (ANEST) IV ONE (09:04)
[2021-03-22] MEDS ORDERED: DEXAMETHASONE 10 MG/ML VIAL ONE (09:04)
[2021-03-22] MEDS ORDERED: ONDANSETRON 4 MG/2 ML VIAL ONE (09:04)
[2021-03-22] MEDS ORDERED: BUPIVACAINE 0.5% 50 ML VIAL IJ ONE (09:19)
[2021-03-22] MEDS ORDERED: VANCOMYCIN 1 GM VIAL TOPICAL SCH (09:30)
[2021-03-22] MEDS ORDERED: GENTAMICIN SULFATE 800 MG/20 ML VIAL IR ONE (09:30)
[2021-03-22] MEDS ORDERED: IPRATROPIUM/ALBUTEROL 3 ML AMPUL.NEB NEB PRN (09:33)
--- NOTE | 2021-03-22 09:34 | Brief Operative Note ---
Brief Operative Note Date of procedure: 03/22/21 Pre-op diagnosis: Right fourth toe osteomyelitis, right lower extremity cellul itis Post-op diagnosis: same Procedure: Right fourth toe amputation, right foot incision and drainage Grafts/Implants: No Anesthesia: MAC and local Complications: none Surgeon: David Warner Estimated blood loss (cc): 50 Specimens Removed/Pathology: other (right fourth toe, deep culture) Condition: other (fair) Disposition: floor
--- NOTE | 2021-03-22 09:57 | Operative Note ---
DATE OF OPERATION: 03/22/2021 PREOPERATIVE DIAGNOSIS: Right fourth toe osteomyelitis, right lower extremity cellulitis. POSTOPERATIVE DIAGNOSIS: Right fourth toe osteomyelitis, right lower extremity cellulitis. PROCEDURE: Right fourth toe amputation, right foot incision and drainage. IMPLANTS: None. ANESTHESIA: GETA. COMPLICATIONS: None. TOURNIQUET TIME: 50 mL SPECIMENS: Right fourth toe deep culture. CONDITION: Fair. DISPOSITION: Floor. PROCEDURE IN DETAIL: The patient was brought to the operating room in his bed. He remained in his hospital bed throughout the procedure. Monitored anesthesia care was initiated with local injection of 10 mL of 0.5% Marcaine in a proximal Feliciano block fashion. There was noted to be red, swollen foot with a dusky fourth toe consistent with osteomyelitis on preoperative assessment. Malodorous drainage from the fourth/fifth interspace where there was noted to be 0.8 cm wound maceration present. The wound was opened and there was malodorous discharge and drainage, which was cultured with a deep tissue swab and sent for Gram stain microbiological assessment. The fourth toe was then removed completely at the proximal metatarsophalangeal joint. This was sent for pathological assessment. The remaining foot was opened with a 5 cm incision directly overlying the apex of the swelling consistent with MRI. A 3 liter bag of normal saline was used to irrigate this area under pulse lavage. Hemostat was used to open any other additional pockets of abscesses and the area was then packed with Betadine-soaked gauze. A gram of vancomycin powder was added as well. This was dressed with Xeroform, 4 x 4 gauze, Kerlix, Casimiro wrap. The patient tolerated the procedure and anesthesia well. He will be transferred to the floor for continued antibiotic therapy and monitoring. TOMÁS:dami Job ID: [id number] Doc ID: [id number] David Warner DPM
--- NOTE | 2021-03-22 10:25 | Internal Med Progress Note ---
SUBJECTIVE Subjective Patient information: Note initiated : 03/22/21 at 10:23 am Service Date, if different from initiated Date: [] Patient: Shubham Ceballos a 75 y/o M admitted on 03/16/21 for SOB and leg swelling. Chief Complaint: [diabetic foot ] Interval history: History of present illness: Mr. Ceballos is a 75 year old M Presents to the ED with right leg swelling and also states more short of breath recently. was recently started on antibiotics for pneumonia at PCP office on . patient states that since he started taking antibiotic he felt dizzy and woozy and because of the leg is the reason he came into the ED. Afebrile in the ED. Sats low nineties on room air. Leukocytosis 16. Chronic anemia stable. Creatinine elevated in the ED 1.8. ED provider evaluated him and thought it related to COPD and CHF. As he was given Solu-Medrol and diuretics. Right leg ultrasound no DVT. CTA chest showed an incidental mass on the right kidney but otherwise unremarkable. Has been vaccinated against Covid. Patient has a wound of his right foot that has been seeing wound care for. His leg is swollen but he denies any increased redness or pain. Although his foot has been more painful. Feels little bit wheezy. States the breathing treatments he got in the ED helped. Drinks 6-8 beers a night. 03/17 Patient feeling better today. Feels shortness of breath is baseline. Chronic cough stable. No new complaints. Seen by podiatry yesterday. 03/18 Patient states poor sleep last night. Foot pain. No other complaints. Awaiting follow-up chemistry. 03/19: Afebrile overnight. c/o 7/10 sharp constant right foot pain. Denies fever or chills. c/o productive cough with white sputum. c/o wheezing. Denies chest pain or tightness. 03/20: Afebrile overnight. c/o mild sharp constant right foot pain. Denies fever or chills. c/o productive cough with white sputum. Denies wheezing. Denies chest pain or tightness. 03/21: Afebrile overnight. c/o mild sharp constant right foot pain. Denies fever or chills. Denies any cough or sputum production. Denies wheezing. Denies chest pain or tightness. 03/22: Currently in the OR. No major overnight events. Constitutional Vitals: Vital Signs Temp Pulse Resp BP Pulse Ox 37.3 C H 82 16 123/80 92 03/22/21 09:52 03/22/21 09:52 03/22/21 09:52 03/22/21 09:52 03/22/21 09:52 Period Temp Pulse Resp BP Sys/Gonzalez Pulse Ox Last 24 Hr 36.4 C-37.3 C 77-85 16-20 111-154/66-89 92-95 Intake and Output 03/21/21 03/22/21 03/22/21 21:59 05:59 13:59 Intake Total 1080 230 400 Output Total 2343 600 10 Balance -1263 -370 390 Weight 125.645 kg 125.963 kg Intake & Output: Intake & Output 03/21/21 03/22/21 03/22/21 21:59 05:59 13:59 Intake Total 1080 230 400 Output Total 2343 600 10 Balance -1263 -370 390 Weight 125.645 kg 125.963 kg Intake: Oral 1080 230 IV - Manual Only 400 Output: Void Amount 2340 600 # of times incontinent of urine 3 Estimated Blood Loss 10 Other: Meal Lunch Percent of Meal Consumed 100% Urine Appearance Clear Clear Clear Urine Color Bright Yellow Bright Yellow Bright Yellow Urine Odor Normal Stool Size Moderate Stool Color Brown Stool Consistency Formed Hannah # Bowel Movements 1 Exam: Currently in the OR OBJ DATA Labs CBC & Chem 7: 03/22/21 05:27 03/22/21 05:27 Labs: Abnormal Lab Results 03/22/21 03/22/21 03/21/21 05:27 05:27 05:24 WBC 12.5 H 12.1 H RBC 3.95 L 3.95 L Hgb 11.5 L 11.6 L Hct 37.8 L 38.1 L MCHC 30.4 L 30.4 L RDW 15.2 H 15.3 H Absolute Neutrophils 8.62 H 8.38 H Chloride Carbon Dioxide 20 L BUN 35 H Creatinine 1.3 H Glucose Albumin 3.1 L Albumin/Globulin Ratio 0.8 L 03/21/21 03/20/21 03/20/21 05:23 05:30 05:30 WBC 12.3 H RBC 3.96 L Hgb 11.6 L Hct 37.9 L MCHC 30.6 L RDW 15.3 H Absolute Neutrophils 8.93 H Chloride 109 H Carbon Dioxide 20 L 21 L BUN 31 H 31 H Creatinine Glucose 110 H Albumin Albumin/Globulin Ratio 0.9 L 0.9 L Meds: Medications Acetaminophen (Acetaminophen 325 Mg Tablet) 650 mg PO Q6HP PRN; Protocol PRN Reason: Per Pain Protocol/Fever > 101 Last Admin: 03/17/21 20:42 Dose: 650 mg Documented by: Acetaminophen (Acetaminophen 325 Mg Tablet) 650 mg PO Q6HP PRN; Protocol PRN Reason: Per Pain Protocol/Fever > 101 Hydrocodone Bitart/Acetaminophen (Hydrocodone/Apap 10/325mg Tablet) 1 - 2 tab PO Q4-6HP PRN; Protocol PRN Reason: pain Last Admin: 03/22/21 03:46 Dose: 2 tab Documented by: Albuterol/Ipratropium (Ipratropium/Albuterol 3 Ml Ampul.Neb) 3 ml NEB Q4HP PRN PRN Reason: Shortness Of Breath Albuterol/Ipratropium (Ipratropium/Albuterol 3 Ml Ampul.Neb) 3 ml NEB ONCE PRN PRN Reason: Wheezing Stop: 03/22/21 11:33 Allopurinol (Allopurinol 100 Mg Tablet) 100 mg PO QDAY [facility] Last Admin: 03/21/21 13:39 Dose: 100 mg Documented by: Cefepime HCl (Cefepime 1 Gm Vial) 1 gm IV Q12H [facility]; Protocol Last Admin: 03/21/21 22:22 Dose: 1 gm Documented by: Dextrose (Dextrose 50% 50 Ml Vial) 0 ml IV UD PRN PRN Reason: Hypoglycemia Diagnostic Test (Pha) (Accu-Chek 1 Each Strip) 1 each FS ACHS [facility] Last Admin: 03/22/21 07:33 Dose: 1 each Documented by: Docusate Sodium (Docusate Sodium 100 Mg Capsule) 100 mg PO BID [facility] Last Admin: 03/21/21 21:24 Dose: 100 mg Documented by: Folic Acid (Folic Acid 1 Mg Tablet) 1 mg PO DAILY [facility] Last Admin: 03/21/21 13:36 Dose: 1 mg Documented by: Furosemide (Furosemide 40 Mg Tablet) 40 mg PO DAILY [facility] Last Admin: 03/21/21 13:37 Dose: 40 mg Documented by: Gabapentin (Gabapentin 300 Mg Capsule) 600 mg PO BID [facility] Last Admin: 03/21/21 21:24 Dose: 600 mg Documented by: Glucose (Dextrose 31 Gm Oral.Susp) 15 gm PO PRN PRN PRN Reason: Hypoglycemia Heparin Sodium (Porcine) (Heparin 5,000 Unit/Ml Vial) 5,000 unit SQ Q12 [facility] Last Admin: 03/21/21 22:22 Dose: Not Given Documented by: Hydralazine HCl (Hydralazine 20 Mg/Ml Vial) 0 mg IV Q2HP PRN PRN Reason: Hypertension Potassium Chloride 40 meq/ (Dextrose) 520 mls @ 130 mls/hr IV UD PRN PRN Reason: Potassium < 3 Magnesium Sulfate (Magnesium Sulfate) 2 gm in 50 mls @ 50 mls/hr IV UD PRN PRN Reason: Magnesium </= 1.6 Insulin Glargine (Insulin Glargine, Human 1 Unit/0.01 Ml) 10 unit SQ DAILY [facility] Last Admin: 03/21/21 13:38 Dose: 10 units Documented by: Insulin Human Lispro (Insulin Lispro 1 Unit/0.01 Ml Unit) 0 unit SQ ACHS [facility]; Protocol Last Admin: 03/22/21 07:34 Dose: Not Given Documented by: Iron Carb/Multivit/[place]/Folic Acid (Multivit,Ther Iron,Ca,Fa & Min 1 Tablet) 1 tab PO DAILY [facility] Last Admin: 03/21/21 13:37 Dose: 1 tab Documented by: Labetalol HCl (Labetalol 5 Mg/Ml Ml) 0 mg IV Q2HP PRN PRN Reason: Hypertension Lorazepam (Lorazepam 2 Mg/Ml Vial) 1 mg IV Q2-4HP PRN; Protocol PRN Reason: Alcohol Withdrawal Metoclopramide HCl (Metoclopramide 10 Mg/2 Ml Vial) 10 mg IV Q6HP PRN PRN Reason: Nausea And Vomiting Metoprolol Tartrate (Metoprolol Tartrate 5 Mg/5 Ml Vial) 5 mg IV Q2HP PRN PRN Reason: Tachyarrhythmias HR>110 Last Admin: 03/18/21 08:40 Dose: 5 mg Documented by: Metoprolol Tartrate (Metoprolol Tartrate 25 Mg Tablet) 12.5 mg PO BID [facility] Last Admin: 03/21/21 21:25 Dose: 12.5 mg Documented by: Morphine Sulfate (Morphine 4 Mg/Ml Vial) 4 mg IV Q4HP PRN; Protocol PRN Reason: Per Pain Protocol Last Admin: 03/21/21 07:26 Dose: 4 mg Documented by: Olmesartan (Olmesartan Medoxomil 20 Mg Tablet) 40 mg PO DAILY [facility] Last Admin: 03/21/21 13:36 Dose: 40 mg Documented by: Ondansetron HCl (Ondansetron 4 Mg/2 Ml Vial) 4 mg IV Q4HP PRN PRN Reason: Nausea And Vomiting Pantoprazole Sodium (Pantoprazole 40 Mg Tablet) 40 mg PO HS [facility] Last Admin: 03/21/21 21:25 Dose: 40 mg Documented by: Budesonide- Formoterol [ Symbicort] 160-4.5 Mcg/Actuation Inhaler 1 dose INH B IDP PRN PRN Reason: COPD Polyethylene Glycol (Polyethylene Glycol 3350 17 Gm Packet) 17 gm PO DAILYP PRN PRN Reason: Constipation Last Admin: 03/17/21 10:02 Dose: 17 gm Documented by: Potassium Chloride (Potassium Chloride 20 Meq Tablet) 40 meq PO UD PRN PRN Reason: Potssium is 3-3.5 Potassium Chloride (Potassium Chloride 20 Meq Tablet) 40 meq PO UD PRN PRN Reason: Potassium < 3 Scopolamine (Scopolamine 1 Patch Patch) 1 patch TOPICAL PREOP PRN PRN Reason: Nausea And Vomiting Senna (Sennosides 1 Tablet) 2 tab PO DAILYP PRN PRN Reason: Constipation Simvastatin (Simvastatin 20 Mg Tablet) 20 mg PO QHS [facility] Last Admin: 03/21/21 21:24 Dose: 20 mg Documented by: Sodium Chloride (0.9 % Sodium Chloride 10 Ml Syringe) 10 ml IV Q8 [facility] Last Admin: 03/22/21 07:47 Dose: 10 ml Documented by: Thiamine HCl (Thiamine 100 Mg Tablet) 100 mg PO DAILY [facility] Last Admin: 03/21/21 13:35 Dose: 100 mg Documented by: Tizanidine HCl (Tizanidine 4 Mg Tablet) 4 mg PO BIDP PRN PRN Reason: muscle spasticity Last Admin: 03/17/21 20:42 Dose: 4 mg Documented by: Vancomycin HCl (Vancomycin 1 Gm Vial) 1 gm TOPICAL ONCE [facility]; Protocol Last Admin: 03/22/21 09:35 Dose: 1 gm Documented by: A/P Assessment and plan (1) COPD exacerbation: Status: Acute (2) Diabetic peripheral neuropathy: Status: Chronic (3) Hyperlipidemia: Status: Chronic (4) KEZIA on CPAP: Status: Chronic (5) Essential (primary) hypertension: Status: Acute (6) Diabetic ulcer of right foot: Status: Acute (7) Osteomyelitis of right foot: Status: Acute Narrative A/P Narrative: Assessment and Plans: 1. Diabetic right foot ulcer with osteomyelitis: Stays in inpatient med surg Dr. 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 Atrial flutter: Lopressor for rate control Hold Eliquis for pending surgery on Thursday 3. Essential HTN: Currently normotensive Benicar Lopressor Lasix PO 4. Mixed dyslipidemia: Continue statin therapy 5. COPD exacerbation: Currently on room air DuoNEB NEB scheduled q8hr Prednisone 6. 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
[2021-03-22] MEDS: GABAPENTIN 300 MG CAPSULE PO SCH ×2 (10:56→21:06)
[2021-03-22] MEDS: FUROSEMIDE 40 MG TABLET PO SCH (10:57)
[2021-03-22] MEDS: ALLOPURINOL 100 MG TABLET PO SCH (10:57)
[2021-03-22] MEDS: METOPROLOL TARTRATE 25 MG TABLET PO SCH ×2 (11:09→21:06)
[2021-03-22] MEDS: FOLIC ACID 1 MG TABLET PO SCH (11:28)
[2021-03-22] MEDS: HEPARIN 5,000 UNIT/ML VIAL SQ SCH ×2 (11:28→21:04)
[2021-03-22] MEDS: DOCUSATE SODIUM 100 MG CAPSULE PO SCH ×2 (11:29→21:06)
[2021-03-22] MEDS: THIAMINE 100 MG TABLET PO SCH (11:29)
[2021-03-22] MEDS: MULTIVIT,THER IRON,CA,FA & MIN 1 TABLET PO SCH (11:29)
[2021-03-22] MEDS: CEFEPIME 1 GM VIAL IV SCH ×3 (15:21→21:05)
[2021-03-22] MEDS: OLMESARTAN MEDOXOMIL 20 MG TABLET PO SCH (15:22)
[2021-03-22] MEDS: INSULIN GLARGINE, HUMAN 1 UNIT/0.01 ML SQ SCH (15:23)
[2021-03-22] MEDS: SIMVASTATIN 20 MG TABLET PO SCH (21:06)
[2021-03-22] MEDS: PANTOPRAZOLE 40 MG TABLET PO SCH (21:07)
[2021-03-23] MEDS: HYDROcodone/APAP 10/325MG TABLET PO PRN ×4 (02:55→20:36)
[2021-03-23 06:43] LABS: Basophils # (Auto) 0.04 K/mcL (0.00-0.30); Basophils % (Auto) 0.3 % (0.0-2.0); Eosinophils # (Auto) 0.17 K/mcL (0.00-0.70); Eosinophils % (Auto) 1.3 % (0.0-7.0); Hematocrit 35.6 % (40.1-51.0); Hemoglobin 11.3 g/dL (13.7-17.5); Lymphocytes # (Auto) 2.42 K/mcL (1.50-4.80); Lymphocytes % (Auto) 18.1 % (15.5-49.0); Mean Cell Volume 96.2 fL (80.0-100.0); Mean Corpuscular HGB Conc 31.7 g/dL (31.0-36.0); Mean Platelet Volume 9.1 fL (7.4-10.4); Monocytes # (Auto) 0.73 K/mcL (0.10-0.90); Monocytes % (Auto) 5.4 % (1.0-12.0); Neutrophils % (Auto) 74.9 % (38.0-78.0); Platelet Count 391 K/mcL (140-440); WBC 13.4 K/mcL (4.5-11.0)
[2021-03-23 06:54] LABS: ALT/SGPT 25 U/L (<40); AST/SGOT 14 U/L (<40); Albumin 3.1 gm/dL (3.2-5.2); Albumin/Globulin Ratio 0.8 (1.0-2.3); Alkaline Phosphatase 86 U/L (39-117); Bilirubin,Direct < 0.2 mg/dL (0-0.3); Bilirubin,Total 0.2 mg/dL (0.1-1.0); Blood Urea Nitrogen 39 mg/dL (8-23); Calcium 9.1 mg/dL (8.6-10.4); Carbon Dioxide 20 mmol/L (22-30); Chloride 105 mmol/L (96-108); Globulin 3.7 gm/dL (2.2-3.7); Glomerular Filtration Rate 52; Glucose 156 mg/dL (70-105); Lactate Dehydrogenase 153 U/L (135-225); Phosphorous 3.4 mg/dL (2.5-4.5); Triglycerides 241 mg/dL (<150); Uric Acid 8.8 mg/dL (2.5-8.0)
[2021-03-23] MEDS: METOPROLOL TARTRATE 25 MG TABLET PO SCH (07:19)
[2021-03-23] MEDS: 0.9 % SODIUM CHLORIDE 10 ML SYRINGE IV SCH ×4 (07:22→21:41)
[2021-03-23] MEDS: INSULIN LISPRO 1 UNIT/0.01 ML UNIT SQ SCH ×4 (07:22→20:35)
[2021-03-23] MEDS: CEFEPIME 1 GM VIAL IV SCH ×4 (07:49→21:41)
[2021-03-23] MEDS: MULTIVIT,THER IRON,CA,FA & MIN 1 TABLET PO SCH (07:50)
[2021-03-23] MEDS: GABAPENTIN 300 MG CAPSULE PO SCH ×2 (07:50→20:35)
[2021-03-23] MEDS: DOCUSATE SODIUM 100 MG CAPSULE PO SCH ×2 (07:50→20:36)
[2021-03-23] MEDS: OLMESARTAN MEDOXOMIL 20 MG TABLET PO SCH (07:50)
[2021-03-23] MEDS: THIAMINE 100 MG TABLET PO SCH (07:50)
[2021-03-23] MEDS: FOLIC ACID 1 MG TABLET PO SCH (07:50)
[2021-03-23] MEDS: ALLOPURINOL 100 MG TABLET PO SCH (07:50)
[2021-03-23] MEDS: INSULIN GLARGINE, HUMAN 1 UNIT/0.01 ML SQ SCH (07:51)
[2021-03-23] MEDS: FUROSEMIDE 40 MG TABLET PO SCH (07:51)
[2021-03-23] MEDS: HEPARIN 5,000 UNIT/ML VIAL SQ SCH ×2 (07:51→20:34)
--- NOTE | 2021-03-23 19:36 | Internal Med Progress Note ---
SUBJECTIVE Subjective Patient information: Note initiated : 03/23/21 at 7:35 pm Service Date, if different from initiated Date: [] Patient: Shubham Ceballos a 75 y/o M admitted on 03/16/21 for SOB and leg swelling. Chief Complaint: Follow-up diabetic foot infection/osteomyelitis Interval history: Mr. Ceballos is a 75 year old M Presents to the ED with right leg swelling and also states more short of breath recently. was recently started on antibiotics for pneumonia at PCP office on . patient states that since he started taking antibiotic he felt dizzy and woozy and because of the leg is the reason he came into the ED. Afebrile in the ED. Sats low nineties on room air. Leukocytosis 16. Chronic anemia stable. Creatinine elevated in the ED 1.8. ED provider evaluated him and thought it related to COPD and CHF. As he was given Solu-Medrol and diuretics. Right leg ultrasound no DVT. CTA chest showed an incidental mass on the right kidney but otherwise unremarkable. Has been vaccinated against Covid. Patient has a wound of his right foot that has been seeing wound care for. His leg is swollen but he denies any increased redness or pain. Although his foot has been more painful. Feels little bit wheezy. States the breathing treatments he got in the ED helped. Drinks 6-8 beers a night. 03/17 Patient feeling better today. Feels shortness of breath is baseline. Chronic cough stable. No new complaints. Seen by podiatry yesterday. 03/18 Patient states poor sleep last night. Foot pain. No other complaints. Awaiting follow-up chemistry. 03/19: Afebrile overnight. c/o 7/10 sharp constant right foot pain. Denies fever or chills. c/o productive cough with white sputum. c/o wheezing. Denies chest pain or tightness. 03/20: Afebrile overnight. c/o mild sharp constant right foot pain. Denies fever or chills. c/o productive cough with white sputum. Denies wheezing. Denies chest pain or tightness. 03/21: Afebrile overnight. c/o mild sharp constant right foot pain. Denies fever or chills. Denies any cough or sputum production. Denies wheezing. Denies chest pain or tightness. 03/22: Currently in the OR. No major overnight events. 03/23: Recognizes me from when I took care of him back in July when he had COVID-19. Doing well postoperatively. Having lunch when I visited him. Later in the day, having difficulty with IV access. If he is going to require significant IV antibiotics, will require a PICC line, better to put it in sooner than later. Continues to be bradycardic and in atrial flutter rhythm, sometimes dipping into the 30s at night. Intraoperative cultures and bone cultures pending. Constitutional Vitals: Vital Signs Temp Pulse Resp BP Pulse Ox 97.7 F 74 20 105/50 92 03/23/21 15:47 03/23/21 15:47 03/23/21 15:47 03/23/21 15:47 03/23/21 15:47 Period Temp Pulse Resp BP Sys/Gonzalez Pulse Ox Last 24 Hr 97.2 F-98 F 57-83 16-20 105-146/50-90 90-95 Intake and Output 03/23/21 03/23/21 03/23/21 05:59 13:59 21:59 Intake Total 420 1280 480 Output Total 525 600 900 Balance -105 680 -420 Intake & Output: Intake & Output 03/23/21 03/23/21 03/23/21 05:59 13:59 21:59 Intake Total 420 1280 480 Output Total 525 600 900 Balance -105 680 -420 Intake: Oral 420 1280 480 Output: Void Amount 525 600 900 Other: Meal Egg salad, cheese stick Breakfast Lunch Percent of Meal Consumed 100% 100% Feeding Ability Independent Independent Urine Appearance Clear Clear Clear Urine Color Dark Yellow Bright Yellow Bright Yellow Stool Size Large Stool Color Brown Stool Consistency Formed GENERAL: Sitting on edge of bed eating lunch in no acute distress RESPIRATORY: Clear bilaterally CARDIOVASCULAR: Irregular, mildly bradycardic ABDOMEN: Nondistended EXTREMITIES: Right foot with surgical dressings in place, they are clean and intact NEURO: Alert, oriented x3, moves all extremities OBJ DATA Labs CBC & Chem 7: 03/23/21 05:39 03/23/21 05:39 Labs: Abnormal Lab Results 03/23/21 03/23/21 03/22/21 05:39 05:39 05:27 WBC 13.4 H RBC 3.70 L Hgb 11.3 L Hct 35.6 L MCHC RDW 15.0 H Absolute Neutrophils 10.04 H Chloride Carbon Dioxide 20 L 20 L BUN 39 H 35 H Creatinine 1.3 H 1.3 H Glucose 156 H Uric Acid 8.8 H Albumin 3.1 L 3.1 L Albumin/Globulin Ratio 0.8 L 0.8 L Triglycerides 241 H 03/22/21 03/21/21 03/21/21 05:27 05:24 05:23 WBC 12.5 H 12.1 H RBC 3.95 L 3.95 L Hgb 11.5 L 11.6 L Hct 37.8 L 38.1 L MCHC 30.4 L 30.4 L RDW 15.2 H 15.3 H Absolute Neutrophils 8.62 H 8.38 H Chloride 109 H Carbon Dioxide 20 L BUN 31 H Creatinine Glucose Uric Acid Albumin Albumin/Globulin Ratio 0.9 L Triglycerides Microbiology 03/18/21 14:47 Blood Culture - Final Blood 03/18/21 14:40 Blood Culture - Final Blood 03/22/21 10:08 Anaerobic Culture - Preliminary Foot - Right Tissue Culture - Final 03/16/21 13:33 Gram Stain - Final Wound - Superficial Wound Culture - Final Strep agalactiae - (group b) 03/16/21 13:33 Respiratory Virus Panel (PCR) - Final Nasopharynx 03/16/21 13:34 Respiratory Panel (PCR) - Final Nasopharynx 03/16/21 13:29 MRSA (PCR) - Final Nose 03/15/21 23:05 SARS-CoV-2 by PCR (LIZABETH) - Final Nasopharynx Meds: Medications Acetaminophen (Acetaminophen 325 Mg Tablet) 650 mg PO Q6HP PRN; Protocol PRN Reason: Per Pain Protocol/Fever > 101 Hydrocodone Bitart/Acetaminophen (Hydrocodone/Apap 10/325mg Tablet) 1 - 2 tab PO Q4-6HP PRN; Protocol PRN Reason: pain Last Admin: 03/23/21 16:13 Dose: 2 tab Documented by: Albuterol/Ipratropium (Ipratropium/Albuterol 3 Ml Ampul.Neb) 3 ml NEB Q4HP PRN PRN Reason: Shortness Of Breath Allopurinol (Allopurinol 100 Mg Tablet) 100 mg PO QDAY [facility] Last Admin: 03/23/21 07:50 Dose: 100 mg Documented by: Cefepime HCl (Cefepime 1 Gm Vial) 1 gm IV Q12H [facility]; Protocol Last Admin: 03/23/21 07:49 Dose: 1 gm Documented by: Dextrose (Dextrose 50% 50 Ml Vial) 0 ml IV UD PRN PRN Reason: Hypoglycemia Diagnostic Test (Pha) (Accu-Chek 1 Each Strip) 1 each FS [facility] Last Admin: 03/23/21 17:01 Dose: 1 each Documented by: Docusate Sodium (Docusate Sodium 100 Mg Capsule) 100 mg PO BID [facility] Last Admin: 03/23/21 07:50 Dose: 100 mg Documented by: Folic Acid (Folic Acid 1 Mg Tablet) 1 mg PO DAILY [facility] Last Admin: 03/23/21 07:50 Dose: 1 mg Documented by: Furosemide (Furosemide 40 Mg Tablet) 40 mg PO DAILY [facility] Last Admin: 03/23/21 07:51 Dose: 40 mg Documented by: Gabapentin (Gabapentin 300 Mg Capsule) 600 mg PO BID [facility] Last Admin: 03/23/21 07:50 Dose: 600 mg Documented by: Glucose (Dextrose 31 Gm Oral.Susp) 15 gm PO PRN PRN PRN Reason: Hypoglycemia Heparin Sodium (Porcine) (Heparin 5,000 Unit/Ml Vial) 5,000 unit SQ Q12 [facility] Last Admin: 03/23/21 07:51 Dose: 5,000 unit Documented by: Hydralazine HCl (Hydralazine 20 Mg/Ml Vial) 0 mg IV Q2HP PRN PRN Reason: Hypertension Potassium Chloride 40 meq/ (Dextrose) 520 mls @ 130 mls/hr IV UD PRN PRN Reason: Potassium < 3 Magnesium Sulfate (Magnesium Sulfate) 2 gm in 50 mls @ 50 mls/hr IV UD PRN PRN Reason: Magnesium </= 1.6 Insulin Glargine (Insulin Glargine, Human 1 Unit/0.01 Ml) 10 unit SQ DAILY [facility] Last Admin: 03/23/21 07:51 Dose: 10 units Documented by: Insulin Human Lispro (Insulin Lispro 1 Unit/0.01 Ml Unit) 0 unit SQ [facility]; Protocol Last Admin: 03/23/21 17:02 Dose: 6 units Documented by: Iron Carb/Multivit/Dietetic Technician Registered/Folic Acid (Multivit,Ther Iron,Ca,Fa & Min 1 Tablet) 1 tab PO DAILY [facility] Last Admin: 03/23/21 07:50 Dose: 1 tab Documented by: Labetalol HCl (Labetalol 5 Mg/Ml Ml) 0 mg IV Q2HP PRN PRN Reason: Hypertension Lorazepam (Lorazepam 2 Mg/Ml Vial) 1 mg IV Q2-4HP PRN; Protocol PRN Reason: Alcohol Withdrawal Metoclopramide HCl (Metoclopramide 10 Mg/2 Ml Vial) 10 mg IV Q6HP PRN PRN Reason: Nausea And Vomiting Metoprolol Tartrate (Metoprolol Tartrate 5 Mg/5 Ml Vial) 5 mg IV Q2HP PRN PRN Reason: Tachyarrhythmias HR>110 Last Admin: 03/18/21 08:40 Dose: 5 mg Documented by: Morphine Sulfate (Morphine 4 Mg/Ml Vial) 4 mg IV Q4HP PRN; Protocol PRN Reason: Per Pain Protocol Last Admin: 03/21/21 07:26 Dose: 4 mg Documented by: Olmesartan (Olmesartan Medoxomil 20 Mg Tablet) 40 mg PO DAILY [facility] Last Admin: 03/23/21 07:50 Dose: 40 mg Documented by: Ondansetron HCl (Ondansetron 4 Mg/2 Ml Vial) 4 mg IV Q4HP PRN PRN Reason: Nausea And Vomiting Pantoprazole Sodium (Pantoprazole 40 Mg Tablet) 40 mg PO [facility] Last Admin: 03/22/21 21:07 Dose: 40 mg Documented by: Budesonide- Formoterol [ Symbicort] 160-4.5 Mcg/Actuation Inhaler 1 dose INH BIDP PRN PRN Reason: COPD Polyethylene Glycol (Polyethylene Glycol 3350 17 Gm Packet) 17 gm PO DAILYP PRN PRN Reason: Constipation Last Admin: 03/17/21 10:02 Dose: 17 gm Documented by: Potassium Chloride (Potassium Chloride 20 Meq Tablet) 40 meq PO UD PRN PRN Reason: Potssium is 3-3.5 Potassium Chloride (Potassium Chloride 20 Meq Tablet) 40 meq PO UD PRN PRN Reason: Potassium < 3 Scopolamine (Scopolamine 1 Patch Patch) 1 patch TOPICAL PREOP PRN PRN Reason: Nausea And Vomiting Senna (Sennosides 1 Tablet) 2 tab PO DAILYP PRN PRN Reason: Constipation [facility]vastatin ([facility] 20 Mg Table[facility]) [facility] Last Admin: 03/22/21 21:06 Dose: 20 mg Documented by: Sodium Chloride (0.9 % Sodium Chloride 10 Ml Syringe) 10 ml IV Q8 [facility] Last Admin: 03/23/21 12:25 Dose: 10 ml Documented by: Thiamine HCl (Thiamine 100 Mg Tablet) 100 mg PO DAILY [facility] Last Admin: 03/23/21 07:50 Dose: 100 mg Documented by: Tizanidine HCl (Tizanidine 4 Mg Tablet) 4 mg PO BIDP PRN PRN Reason: muscle spasticity Last Admin: 03/17/21 20:42 Dose: 4 mg Documented by: A/P Narrative A/P Narrative: Assessment: Diabetic right foot ulcer with osteomyelitis: -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 Warner following -On cefepime -Initial wound culture growing group b strep -Intraoperative and bone cultures pending Type 2 diabetes mellitus -Hemoglobin A1c 6.0% -On Lantus 20 units daily -On sliding scale insulin Atrial flutter -With bradycardic response -Previously with tachycardia and was on metoprolol (while going through withdrawal) -Stopping metoprolol due to bradycardia 03/23 -Holding apixaban in the postoperative period Alcohol abuse with withdrawal -Drink 6-8 beers a day -Went through withdrawal earlier in hospitalization -Currently without any symptoms as of 03/23 Essential HTN -Currently normotensive -On olmesartan Mixed dyslipidemia -Continue statin therapy COPD exacerbation -Currently on room air -DuoNEB NEB scheduled q8hr -Prednisone Mass on superior pole of right kidney, 2.2cm -Outpatient follow up IV pyelogram Plan: * Continue antibiotics * Follow-up cultures from the OR * Narrow antibiotics based on culture data * Continue to follow white count * Continue with diabetes care * Increase gabapentin to 1200 mg twice daily (states home dose is 1600 mg twice daily) * Resume apixaban when cleared by surgery * Continue with olmesartan for blood pressure * Stop metoprolol given bradycardia * Continue statin * Continue DuoNeb and prednisone for COPD exacerbation * Consider PICC line sooner if it appears he will need prolonged antibiotics (difficult IV access) QUALITY VTE Deep Vein Thrombosis/Pulmonary Embolism Present on Admission: No
[2021-03-23] MEDS: SIMVASTATIN 20 MG TABLET PO SCH (20:35)
[2021-03-23] MEDS: PANTOPRAZOLE 40 MG TABLET PO SCH (20:36)
[2021-03-23] MEDS ORDERED: GABAPENTIN 300 MG CAPSULE PO ONE (21:26)
[2021-03-23] MEDS ORDERED: GABAPENTIN 300 MG CAPSULE ONE (22:19)
[2021-03-24] MEDS: HYDROcodone/APAP 10/325MG TABLET PO PRN ×5 (02:09→21:18)
[2021-03-24] MEDS: 0.9 % SODIUM CHLORIDE 10 ML SYRINGE IV SCH ×3 (05:54→21:24)
[2021-03-24 06:54] LABS: Basophils # (Auto) 0.06 K/mcL (0.00-0.30); Basophils % (Auto) 0.5 % (0.0-2.0); Eosinophils # (Auto) 0.22 K/mcL (0.00-0.70); Eosinophils % (Auto) 1.9 % (0.0-7.0); Hemoglobin 11.4 g/dL (13.7-17.5); Lymphocytes # (Auto) 2.62 K/mcL (1.50-4.80); Lymphocytes % (Auto) 22.4 % (15.5-49.0); Mean Cell Volume 95.5 fL (80.0-100.0); Mean Corpuscular HGB Conc 31.7 g/dL (31.0-36.0); Mean Platelet Volume 9.1 fL (7.4-10.4); Monocytes # (Auto) 0.71 K/mcL (0.10-0.90); Monocytes % (Auto) 6.1 % (1.0-12.0); Neutrophils % (Auto) 69.1 % (38.0-78.0); Platelet Count 370 K/mcL (140-440); RBC 3.77 M/mcL (4.63-6.08); Red Cell Distribution Width 14.9 % (11.5-14.5); WBC 11.7 K/mcL (4.5-11.0)
[2021-03-24 07:10] LABS: Blood Urea Nitrogen 37 mg/dL (8-23); Calcium 9.1 mg/dL (8.6-10.4); Carbon Dioxide 19 mmol/L (22-30); Chloride 106 mmol/L (96-108); Glomerular Filtration Rate 48; Glucose 108 mg/dL (70-105)
[2021-03-24] MEDS: INSULIN LISPRO 1 UNIT/0.01 ML UNIT SQ SCH ×4 (07:21→21:17)
--- NOTE | 2021-03-24 08:22 | Internal Med Progress Note ---
SUBJECTIVE Subjective Patient information: Note initiated : 03/24/21 at 8:22 am Service Date, if different from initiated Date: [] Patient: Shubham Ceballos a 75 y/o M admitted on 03/16/21 for SOB and leg swelling. Chief Complaint: Follow-up diabetic foot infection Interval history: Mr. Ceballos is a 75 year old M Presents to the ED with right leg swelling and also states more short of breath recently. was recently started on antibiotics for pneumonia at PCP office on . patient states that since he started taking antibiotic he felt dizzy and woozy and because of the leg is the reason he came into the ED. Afebrile in the ED. Sats low nineties on room air. Leukocytosis 16. Chronic anemia stable. Creatinine elevated in the ED 1.8. ED provider evaluated him and thought it related to COPD and CHF. As he was given Solu-Medrol and diuretics. Right leg ultrasound no DVT. CTA chest showed an incidental mass on the right kidney but otherwise unremarkable. Has been vaccinated against Covid. Patient has a wound of his right foot that has been seeing wound care for. His leg is swollen but he denies any increased redness or pain. Although his foot has been more painful. Feels little bit wheezy. States the breathing treatments he got in the ED helped. Drinks 6-8 beers a night. 03/17 Patient feeling better today. Feels shortness of breath is baseline. Chronic cough stable. No new complaints. Seen by podiatry yesterday. 03/18 Patient states poor sleep last night. Foot pain. No other complaints. Awaiting follow-up chemistry. 03/19: Afebrile overnight. c/o 7/10 sharp constant right foot pain. Denies fever or chills. c/o productive cough with white sputum. c/o wheezing. Denies chest pain or tightness. 03/20: Afebrile overnight. c/o mild sharp constant right foot pain. Denies fever or chills. c/o productive cough with white sputum. Denies wheezing. Denies chest pain or tightness. 03/21: Afebrile overnight. c/o mild sharp constant right foot pain. Denies fever or chills. Denies any cough or sputum production. Denies wheezing. Denies chest pain or tightness. 03/22: Currently in the OR. No major overnight events. 03/23: Recognizes me from when I took care of him back in July when he had COVID-19. Doing well postoperatively. Having lunch when I visited him. Later in the day, having difficulty with IV access. If he is going to require significant IV antibiotics, will require a PICC line, better to put it in sooner than later. Continues to be bradycardic and in atrial flutter rhythm, sometimes dipping into the 30s at night. Intraoperative cultures and bone cultures pending. 03/24: No new complaints this morning. Up having breakfast. In sinus rhythm this morning. Intraoperative tissue and bone cultures remain pending. White count decreased to 11.7 today. Creatinine up to 1.4. Constitutional Vitals: Vital Signs Temp Pulse Resp BP Pulse Ox 97.8 F 77 20 124/72 91 03/24/21 07:16 03/24/21 07:16 03/24/21 07:16 03/24/21 07:16 03/24/21 07:16 Period Temp Pulse Resp BP Sys/Gonzalez Pulse Ox Last 24 Hr 97.7 F-98.9 F 69-83 16-20 105-146/50-87 91-94 Intake and Output 03/23/21 03/24/21 03/24/21 21:59 05:59 13:59 Intake Total 1080 350 720 Output Total 1550 975 325 Balance -470 -625 395 Weight 275 lb 4.8 oz Intake & Output: Intake & Output 03/23/21 03/24/21 03/24/21 21:59 05:59 13:59 Intake Total 1080 350 720 Output Total 1550 975 325 Balance -470 -625 395 Weight 275 lb 4.8 oz Intake: Oral 1080 350 720 Output: Urine Catheter Amount 325 Void Amount 1225 975 325 Other: Meal Dinner Percent of Meal Consumed 100% Feeding Ability Independent Urine Appearance Clear Clear Clear Urine Color Bright Yellow Bright Yellow Bright Yellow Stool Size Large Stool Color Brown Stool Consistency Formed GENERAL: In bed no acute distress RESPIRATORY: Clear bilaterally CARDIOVASCULAR: Regular ABDOMEN: Obese, soft EXTREMITIES: Right lower extremity with surgical dressings in place, clean and dry NEURO: Alert, oriented x3, decreased sensation in the distal lower extremities OBJ DATA Labs CBC & Chem 7: 03/24/21 05:45 03/24/21 05:44 Labs: Abnormal Lab Results 03/24/21 03/24/21 03/23/21 05:45 05:44 05:39 WBC 11.7 H RBC 3.77 L Hgb 11.4 L Hct 36.0 L MCHC RDW 14.9 H Absolute Neutrophils 8.11 H Carbon Dioxide 19 L 20 L BUN 37 H 39 H Creatinine 1.4 H 1.3 H Glucose 108 H 156 H Uric Acid 8.8 H Albumin 3.1 L Albumin/Globulin Ratio 0.8 L Triglycerides 241 H 03/23/21 03/22/21 03/22/21 05:39 05:27 05:27 WBC 13.4 H 12.5 H RBC 3.70 L 3.95 L Hgb 11.3 L 11.5 L Hct 35.6 L 37.8 L MCHC 30.4 L RDW 15.0 H 15.2 H Absolute Neutrophils 10.04 H 8.62 H Carbon Dioxide 20 L BUN 35 H Creatinine 1.3 H Glucose Uric Acid Albumin 3.1 L Albumin/Globulin Ratio 0.8 L Triglycerides Microbiology 03/22/21 10:08 Anaerobic Culture - Preliminary Foot - Right Tissue Culture - Final 03/18/21 14:47 Blood Culture - Final Blood 03/18/21 14:40 Blood Culture - Final Blood 03/16/21 13:33 Gram Stain - Final Wound - Superficial Wound Culture - Final Strep agalactiae - (group b) 03/16/21 13:33 Respiratory Virus Panel (PCR) - Final Nasopharynx 03/16/21 13:34 Respiratory Panel (PCR) - Final Nasopharynx 03/16/21 13:29 MRSA (PCR) - Final Nose 03/15/21 23:05 SARS-CoV-2 by PCR (LIZABETH) - Final Nasopharynx Meds: Medications Acetaminophen (Acetaminophen 325 Mg Tablet) 650 mg PO Q6HP PRN; Protocol PRN Reason: Per Pain Protocol/Fever > 101 Hydrocodone Bitart/Acetaminophen (Hydrocodone/Apap 10/325mg Tablet) 1 - 2 tab PO Q4-6HP PRN; Protocol PRN Reason: pain Last Admin: 03/24/21 07:12 Dose: 2 tab Documented by: Albuterol/Ipratropium (Ipratropium/Albuterol 3 Ml Ampul.Neb) 3 ml NEB Q4HP PRN PRN Reason: Shortness Of Breath Allopurinol (Allopurinol 100 Mg Tablet) 100 mg PO QDAY [facility] Last Admin: 03/23/21 07:50 Dose: 100 mg Documented by: Cefepime HCl (Cefepime 1 Gm Vial) 1 gm IV Q12H [facility]; Protocol Last Admin: 03/23/21 21:41 Dose: 1 gm Documented by: Dextrose (Dextrose 50% 50 Ml Vial) 0 ml IV UD PRN PRN Reason: Hypoglycemia Diagnostic Test (Pha) (Accu-Chek 1 Each Strip) 1 each FS ACHS [facility] Last Admin: 03/24/21 07:13 Dose: 1 each Documented by: Docusate Sodium (Docusate Sodium 100 Mg Capsule) 100 mg PO BID [facility] Last Admin: 03/23/21 20:36 Dose: 100 mg Documented by: Folic Acid (Folic Acid 1 Mg Tablet) 1 mg PO DAILY [facility] Last Admin: 03/23/21 07:50 Dose: 1 mg Documented by: Furosemide (Furosemide 40 Mg Tablet) 40 mg PO DAILY [facility] Last Admin: 03/23/21 07:51 Dose: 40 mg Documented by: Gabapentin (Gabapentin 400 Mg Capsule) 1,200 mg PO BID [facility] Glucose (Dextrose 31 Gm Oral.Susp) 15 gm PO PRN PRN PRN Reason: Hypoglycemia Heparin Sodium (Porcine) (Heparin 5,000 Unit/Ml Vial) 5,000 unit SQ Q12 [facility] Last Admin: 03/23/21 20:34 Dose: 5,000 unit Documented by: Hydralazine HCl (Hydralazine 20 Mg/Ml Vial) 0 mg IV Q2HP PRN PRN Reason: Hypertension Potassium Chloride 40 meq/ (Dextrose) 520 mls @ 130 mls/hr IV UD PRN PRN Reason: Potassium < 3 Magnesium Sulfate (Magnesium Sulfate) 2 gm in 50 mls @ 50 mls/hr IV UD PRN PRN Reason: Magnesium </= 1.6 Insulin Glargine (Insulin Glargine, Human 1 Unit/0.01 Ml) 10 unit SQ DAILY [facility] Last Admin: 03/23/21 07:51 Dose: 10 units Documented by: Insulin Human Lispro (Insulin Lispro 1 Unit/0.01 Ml Unit) 0 unit SQ [facility]; Protocol Last Admin: 03/24/21 07:21 Dose: Not Given Documented by: Iron Carb/Multivit/[place]/Folic Acid (Multivit,Ther Iron,Ca,Fa & Min 1 Tablet) 1 tab PO DAILY [facility] Last Admin: 03/23/21 07:50 Dose: 1 tab Documented by: Labetalol HCl (Labetalol 5 Mg/Ml Ml) 0 mg IV Q2HP PRN PRN Reason: Hypertension Lorazepam (Lorazepam 2 Mg/Ml Vial) 1 mg IV Q2-4HP PRN; Protocol PRN Reason: Alcohol Withdrawal Metoclopramide HCl (Metoclopramide 10 Mg/2 Ml Vial) 10 mg IV Q6HP PRN PRN Reason: Nausea And Vomiting Metoprolol Tartrate (Metoprolol Tartrate 5 Mg/5 Ml Vial) 5 mg IV Q2HP PRN PRN Reason: Tachyarrhythmias HR>110 Last Admin: 03/18/21 08:40 Dose: 5 mg Documented by: Morphine Sulfate (Morphine 4 Mg/Ml Vial) 4 mg IV Q4HP PRN; Protocol PRN Reason: Per Pain Protocol Last Admin: 03/21/21 07:26 Dose: 4 mg Documented by: Olmesartan (Olmesartan Medoxomil 20 Mg Tablet) 40 mg PO DAILY [facility] Last Admin: 03/23/21 07:50 Dose: 40 mg Documented by: Ondansetron HCl (Ondansetron 4 Mg/2 Ml Vial) 4 mg IV Q4HP PRN PRN Reason: Nausea And Vomiting Pantoprazole Sodium (Pantoprazole 40 Mg Tablet) 40 mg PO HS [facility] Last Admin: 03/23/21 20:36 Dose: 40 mg Documented by: Budesonide- Formoterol [ Symbicort] 160-4.5 Mcg/Actuation Inhaler 1 dose INH BIDP PRN PRN Reason: COPD Polyethylene Glycol (Polyethylene Glycol 3350 17 Gm Packet) 17 gm PO DAILYP PRN PRN Reason: Constipation Last Admin: 03/17/21 10:02 Dose: 17 gm Documented by: Potassium Chloride (Potassium Chloride 20 Meq Tablet) 40 meq PO UD PRN PRN Reason: Potssium is 3-3.5 Potassium Chloride (Potassium Chloride 20 Meq Tablet) 40 meq PO UD PRN PRN Reason: Potassium < 3 Scopolamine (Scopolamine 1 Patch Patch) 1 patch TOPICAL PREOP PRN PRN Reason: Nausea And Vomiting Senna (Sennosides 1 Tablet) 2 tab PO DAILYP PRN PRN Reason: Constipation Simvastatin (Simvastatin 20 Mg Tablet) 20 mg PO QHS [facility] Last Admin: 03/23/21 20:35 Dose: 20 mg Documented by: Sodium Chloride (0.9 % Sodium Chloride 10 Ml Syringe) 10 ml IV Q8 [facility] Last Admin: 03/24/21 05:54 Dose: 10 ml Documented by: Thiamine HCl (Thiamine 100 Mg Tablet) 100 mg PO DAILY [facility] Last Admin: 03/23/21 07:50 Dose: 100 mg Documented by: Tizanidine HCl (Tizanidine 4 Mg Tablet) 4 mg PO BIDP PRN PRN Reason: muscle spasticity Last Admin: 03/17/21 20:42 Dose: 4 mg Documented by: A/P Narrative A/P Narrative: Assessment: Diabetic right foot ulcer with osteomyelitis: -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 Warner following -On cefepime -Initial wound culture growing group b strep -Intraoperative and bone cultures pending Type 2 diabetes mellitus -Hemoglobin A1c 6.0% -On Lantus 20 units daily -On sliding scale insulin Atrial flutter -With bradycardic response -Previously with tachycardia and was on metoprolol (while going through withdrawal) -Stopping metoprolol due to bradycardia 03/23 -Holding apixaban in the postoperative period -In sinus rhythm a.m. 03/24 Alcohol abuse with withdrawal -Drinks 6-8 beers a day -Went through withdrawal earlier in hospitalization -Currently without any symptoms as of 03/23 Essential HTN -Currently normotensive -On olmesartan Mixed dyslipidemia -Continue statin therapy COPD exacerbation -Currently on room air -DuoNEB NEB scheduled q8hr -Prednisone Mass on superior pole of right kidney, 2.2cm -Outpatient follow up IV pyelogram Plan: * Recheck creatinine in a.m., consider IV fluids if not returning towards baseli ne * Continue antibiotics * Follow-up intraoperative tissue and bone cultures * Narrow antibiotics based on culture data * Continue to follow white count * Continue with diabetes care * Continue increased gabapentin dose, 1200 mg twice daily (states home dose is 1600 mg twice daily) * Resume apixaban when cleared by surgery * Continue with olmesartan for blood pressure * Stopped metoprolol due to bradycardia * Continue statin * Continue DuoNeb and prednisone for COPD exacerbation * Consider PICC line sooner if it appears he will need prolonged antibiotics (difficult IV access) Time Spent With Patient Time: Total time spent is greater than 50% in coordination of care (as documented) at patient's floor/unit and/or counseling patient: Total time spent with greater than 50% in coordination of care (as documented) at patient's floor/unit and/or counseling patient:: 25 - 35 minutes QUALITY VTE Deep Vein Thrombosis/Pulmonary Embolism Present on Admission: No
[2021-03-24] MEDS: CEFEPIME 1 GM VIAL IV SCH ×2 (08:49→21:24)
[2021-03-24] MEDS: GABAPENTIN 400 MG CAPSULE PO SCH ×2 (08:50→21:17)
[2021-03-24] MEDS: FOLIC ACID 1 MG TABLET PO SCH (08:50)
[2021-03-24] MEDS: HEPARIN 5,000 UNIT/ML VIAL SQ SCH ×2 (08:50→21:17)
[2021-03-24] MEDS: INSULIN GLARGINE, HUMAN 1 UNIT/0.01 ML SQ SCH (08:50)
[2021-03-24] MEDS: THIAMINE 100 MG TABLET PO SCH (08:50)
[2021-03-24] MEDS: MULTIVIT,THER IRON,CA,FA & MIN 1 TABLET PO SCH (08:50)
[2021-03-24] MEDS: OLMESARTAN MEDOXOMIL 20 MG TABLET PO SCH (08:51)
[2021-03-24] MEDS: ALLOPURINOL 100 MG TABLET PO SCH (08:51)
[2021-03-24] MEDS: DOCUSATE SODIUM 100 MG CAPSULE PO SCH ×2 (08:51→21:17)
[2021-03-24] MEDS: FUROSEMIDE 40 MG TABLET PO SCH (08:51)
[2021-03-24] MEDS: PANTOPRAZOLE 40 MG TABLET PO SCH (21:18)
[2021-03-24] MEDS: SIMVASTATIN 20 MG TABLET PO SCH (21:18)
[2021-03-25] MEDS: HYDROcodone/APAP 10/325MG TABLET PO PRN ×5 (01:51→21:50)
[2021-03-25] MEDS: 0.9 % SODIUM CHLORIDE 10 ML SYRINGE IV SCH ×3 (05:56→21:56)
[2021-03-25] MEDS: INSULIN LISPRO 1 UNIT/0.01 ML UNIT SQ SCH ×4 (07:00→21:46)
[2021-03-25 07:38] LABS: Albumin 3.2 gm/dL (3.2-5.2); Blood Urea Nitrogen 37 mg/dL (8-23); Calcium 8.8 mg/dL (8.6-10.4); Carbon Dioxide 21 mmol/L (22-30); Chloride 105 mmol/L (96-108); Glomerular Filtration Rate 58; Glucose 111 mg/dL (70-105); Phosphorous 3.5 mg/dL (2.5-4.5)
[2021-03-25 08:05] LABS: Basophils # (Auto) 0.07 K/mcL (0.00-0.30); Basophils % (Auto) 0.6 % (0.0-2.0); Eosinophils # (Auto) 0.19 K/mcL (0.00-0.70); Eosinophils % (Auto) 1.6 % (0.0-7.0); Hematocrit 36.6 % (40.1-51.0); Hemoglobin 11.4 g/dL (13.7-17.5); Lymphocytes # (Auto) 2.49 K/mcL (1.50-4.80); Mean Cell Volume 95.6 fL (80.0-100.0); Mean Corpuscular HGB Conc 31.1 g/dL (31.0-36.0); Mean Platelet Volume 9.2 fL (7.4-10.4); Monocytes # (Auto) 0.82 K/mcL (0.10-0.90); Monocytes % (Auto) 6.9 % (1.0-12.0); Neutrophils % (Auto) 69.9 % (38.0-78.0); Platelet Count 390 K/mcL (140-440); RBC 3.83 M/mcL (4.63-6.08); Red Cell Distribution Width 15.1 % (11.5-14.5); WBC 11.9 K/mcL (4.5-11.0)
[2021-03-25] MEDS: INSULIN GLARGINE, HUMAN 1 UNIT/0.01 ML SQ SCH (08:18)
[2021-03-25] MEDS: ALLOPURINOL 100 MG TABLET PO SCH (08:18)
[2021-03-25] MEDS: THIAMINE 100 MG TABLET PO SCH (08:18)
[2021-03-25] MEDS: MULTIVIT,THER IRON,CA,FA & MIN 1 TABLET PO SCH (08:18)
[2021-03-25] MEDS: GABAPENTIN 400 MG CAPSULE PO SCH ×2 (08:18→21:49)
[2021-03-25] MEDS: DOCUSATE SODIUM 100 MG CAPSULE PO SCH ×2 (08:18→21:52)
[2021-03-25] MEDS: OLMESARTAN MEDOXOMIL 20 MG TABLET PO SCH (08:18)
[2021-03-25] MEDS: FUROSEMIDE 40 MG TABLET PO SCH (08:18)
[2021-03-25] MEDS: FOLIC ACID 1 MG TABLET PO SCH (08:18)
[2021-03-25] MEDS: HEPARIN 5,000 UNIT/ML VIAL SQ SCH ×2 (08:19→21:49)
[2021-03-25] MEDS: CEFEPIME 1 GM VIAL IV SCH ×2 (08:25→21:47)
[2021-03-25] MEDS: morphine 4 MG/ML VIAL IV PRN (14:18)
--- NOTE | 2021-03-25 14:38 | Surgical Pathology Report ---
Histology Microscopic Diagnosis Specimen A- RIGHT FOURTH TOE, AMPUTATION: --- SOFT TISSUE ACUTE NECROTIZING INFLAMMATION INVOLVING INKED MARGIN. --- NO ACUTE OSTEOMYELITIS IDENTIFIED. (EBD) Gross Description Received in formalin labeled right fourth toe, is a 5.5 cm long and up to 2.1 cm in diameter [place]-white distal toe. The nail-plate is intact, 1.3 x 1.1 cm and up to 0.2 cm thick. Immediately adjacent to the soft tissue margin is an 1.5 x 1.5 cm area of sloughing. No ulceration is identified. The bone margin extends 2 cm from the skin and soft tissue margins and ends in an articular surface. The margins are inked black. Following decalcification patient representative sections are submitted as follows: A1-A2 - composite cross section of toe; A3 - additional skin with sloughing. (DMT:melina) Electronically Signed Lisette Stevens MD, FCAP Electronically Signed 03/25/2021 14:37
[2021-03-25] MEDS ORDERED: AMPICILLIN SODIUM 2 GM VIAL IV SCH (20:15)
--- NOTE | 2021-03-25 20:26 | Internal Med Progress Note ---
SUBJECTIVE Subjective Patient information: Note initiated : 03/25/21 at 8:19 pm Service Date, if different from initiated Date: [] Patient: Shubham Ceballos 75 y/o M admitted on 03/16/21 for SOB and leg swelling. Chief Complaint: [right foot infection] Principal diagnosis: right foot osteomyelitis Interval history: Pt remains on cefepime but there are cultures growing enterococcus species and the wbc remains elevated. Pt says the right foot inflammation partially improves but persists. Pertinent ROS: denies fevers. continues to have sweats says blood sugars at home up and down like here but at home has not insulin and [facility] only provide and require him to fingerstick once qod. Is willing to give self insulin Additional PMFSH (Level 3 Only): Diabetic foot ulcer Constitutional Vitals: Vital Signs Temp Pulse Resp BP Pulse Ox 99.2 F H 94 H 20 133/69 94 03/25/21 16:00 03/25/21 16:00 03/25/21 16:00 03/25/21 16:00 03/25/21 16:00 Period Temp Pulse Resp BP Sys/Gonzalez Pulse Ox Last 24 Hr 97.0 F-99.2 F 79-94 16-20 115-140/63-85 90-94 Intake and Output 03/25/21 03/25/21 03/25/21 05:59 13:59 21:59 Intake Total 510 750 300 Output Total 725 600 300 Balance -215 150 0 Intake & Output: Intake & Output 03/25/21 03/25/21 03/25/21 05:59 13:59 21:59 Intake Total 510 750 300 Output Total 725 600 300 Balance -215 150 0 Intake: Oral 510 750 300 Output: Urine Catheter Amount 225 Void Amount 500 600 300 Other: Meal Lunch Percent of Meal Consumed 75% Feeding Ability Independent Urine Appearance Clear Clear Clear Urine Color Bright Yellow Bright Yellow Bright Yellow Urine Odor Normal Strong Stool Size Large Stool Color Brown Stool Consistency Soft Additional findings Additional findings: GEN WDWN WM mod obese mentation alert oriented and pleasant CV RRR no murmur Lungs CTA ABd soft obese non tender feet bilat wrapped right met amputation. ankle with edema mild increased warmth. pt able to feel ankles and but feet are numb OBJ DATA Labs CBC & Chem 7: 03/25/21 05:54 03/25/21 05:54 Labs: Abnormal Lab Results 03/25/21 03/25/21 03/24/21 05:54 05:54 05:45 WBC 11.9 H 11.7 H RBC 3.83 L 3.77 L Hgb 11.4 L 11.4 L Hct 36.6 L 36.0 L RDW 15.1 H 14.9 H Absolute Neutrophils 8.29 H 8.11 H Carbon Dioxide 21 L BUN 37 H Creatinine Glucose 111 H Uric Acid Albumin Albumin/Globulin Ratio Triglycerides 03/24/21 03/23/21 03/23/21 05:44 05:39 05:39 WBC 13.4 H RBC 3.70 L Hgb 11.3 L Hct 35.6 L RDW 15.0 H Absolute Neutrophils 10.04 H Carbon Dioxide 19 L 20 L BUN 37 H 39 H Creatinine 1.4 H 1.3 H Glucose 108 H 156 H Uric Acid 8.8 H Albumin 3.1 L Albumin/Globulin Ratio 0.8 L Triglycerides 241 H Meds: Medications Acetaminophen (Acetaminophen 325 Mg Tablet) 650 mg PO Q6HP PRN; Protocol PRN Reason: Per Pain Protocol/Fever > 101 Last Admin: 03/25/21 16:32 Dose: 650 mg Documented by: Hydrocodone Bitart/Acetaminophen (Hydrocodone/Apap 10/325mg Tablet) 1 - 2 tab PO Q4-6HP PRN; Protocol PRN Reason: pain Last Admin: 03/25/21 17:02 Dose: 2 tab Documented by: Albuterol/Ipratropium (Ipratropium/Albuterol 3 Ml Ampul.Neb) 3 ml NEB Q4HP PRN PRN Reason: Shortness Of Breath Allopurinol (Allopurinol 100 Mg Tablet) 100 mg PO QDAY [facility] Last Admin: 03/25/21 08:18 Dose: 100 mg Documented by: Ampicillin Sodium (Ampicillin Sodium 2 Gm Vial) 2 gm IV Q6H [facility]; Protocol Stop: 04/24/21 20:16 Cefepime HCl (Cefepime 1 Gm Vial) 1 gm IV Q12H [facility]; Protocol Last Admin: 03/25/21 08:25 Dose: 1 gm Documented by: Dextrose (Dextrose 50% 50 Ml Vial) 0 ml IV UD PRN PRN Reason: Hypoglycemia Diagnostic Test (Pha) (Accu-Chek 1 Each Strip) 1 each FS ACHS [facility] Last Admin: 03/25/21 16:27 Dose: 1 each Documented by: Docusate Sodium (Docusate Sodium 100 Mg Capsule) 100 mg PO BID [facility] Last Admin: 03/25/21 08:18 Dose: 100 mg Documented by: Folic Acid (Folic Acid 1 Mg Tablet) 1 mg PO DAILY [facility] Last Admin: 03/25/21 08:18 Dose: 1 mg Documented by: Furosemide (Furosemide 40 Mg Tablet) 40 mg PO DAILY [facility] Last Admin: 03/25/21 08:18 Dose: 40 mg Documented by: Gabapentin (Gabapentin 400 Mg Capsule) 1,200 mg PO BID [facility] Last Admin: 03/25/21 08:18 Dose: 1,200 mg Documented by: Glucose (Dextrose 31 Gm Oral.Susp) 15 gm PO PRN PRN PRN Reason: Hypoglycemia Heparin Sodium (Porcine) (Heparin 5,000 Unit/Ml Vial) 5,000 unit SQ Q12 [facility] Last Admin: 03/25/21 08:19 Dose: 5,000 unit Documented by: Hydralazine HCl (Hydralazine 20 Mg/Ml Vial) 0 mg IV Q2HP PRN PRN Reason: Hypertension Potassium Chloride 40 meq/ (Dextrose) 520 mls @ 130 mls/hr IV UD PRN PRN Reason: Potassium < 3 Magnesium Sulfate (Magnesium Sulfate) 2 gm in 50 mls @ 50 mls/hr IV UD PRN PRN Reason: Magnesium </= 1.6 Insulin Glargine (Insulin Glargine, Human 1 Unit/0.01 Ml) 10 unit SQ DAILY [facility] Last Admin: 03/25/21 08:18 Dose: 10 units Documented by: Insulin Human Lispro (Insulin Lispro 1 Unit/0.01 Ml Unit) 0 unit SQ ACHS [facility]; Protocol Last Admin: 03/25/21 16:50 Dose: Not Given Documented by: Iron Carb/Multivit/[employer]/Folic Acid (Multivit,Ther Iron,Ca,Fa & Min 1 Tablet) 1 tab PO DAILY [facility] Last Admin: 03/25/21 08:18 Dose: 1 tab Documented by: Labetalol HCl (Labetalol 5 Mg/Ml Ml) 0 mg IV Q2HP PRN PRN Reason: Hypertension Lorazepam (Lorazepam 2 Mg/Ml Vial) 1 mg IV Q2-4HP PRN; Protocol PRN Reason: Alcohol Withdrawal Metoclopramide HCl (Metoclopramide 10 Mg/2 Ml Vial) 10 mg IV Q6HP PRN PRN Reason: Nausea And Vomiting Metoprolol Tartrate (Metoprolol Tartrate 5 Mg/5 Ml Vial) 5 mg IV Q2HP PRN PRN Reason: Tachyarrhythmias HR>110 Last Admin: 03/18/21 08:40 Dose: 5 mg Documented by: Morphine Sulfate (Morphine 4 Mg/Ml Vial) 4 mg IV Q4HP PRN; Protocol PRN Reason: Per Pain Protocol Last Admin: 03/25/21 14:18 Dose: 4 mg Documented by: Olmesartan (Olmesartan Medoxomil 20 Mg Tablet) 40 mg PO DAILY [facility] Last Admin: 03/25/21 08:18 Dose: 40 mg Documented by: Ondansetron HCl (Ondansetron 4 Mg/2 Ml Vial) 4 mg IV Q4HP PRN PRN Reason: Nausea And Vomiting Pantoprazole Sodium (Pantoprazole 40 Mg Tablet) 40 mg PO HS [facility] Last Admin: 03/24/21 21:18 Dose: 40 mg Documented by: Budesonide- Formoterol [ Symbicort] 160-4.5 Mcg/Actuation Inhaler 1 dose INH BIDP PRN PRN Reason: COPD Polyethylene Glycol (Polyethylene Glycol 3350 17 Gm Packet) 17 gm PO DAILYP PRN PRN Reason: Constipation Last Admin: 03/17/21 10:02 Dose: 17 gm Documented by: Potassium Chloride (Potassium Chloride 20 Meq Tablet) 40 meq PO UD PRN PRN Reason: Potssium is 3-3.5 Potassium Chloride (Potassium Chloride 20 Meq Tablet) 40 meq PO UD PRN PRN Reason: Potassium < 3 Scopolamine (Scopolamine 1 Patch Patch) 1 patch TOPICAL PREOP PRN PRN Reason: Nausea And Vomiting Senna (Sennosides 1 Tablet) 2 tab PO DAILYP PRN PRN Reason: Constipation Simvastatin (Simvastatin 20 Mg Tablet) 20 mg PO QHS [facility] Last Admin: 03/24/21 21:18 Dose: 20 mg Documented by: Sodium Chloride (0.9 % Sodium Chloride 10 Ml Syringe) 10 ml IV Q8 [facility] Last Admin: 03/25/21 14:19 Dose: 10 ml Documented by: Thiamine HCl (Thiamine 100 Mg Tablet) 100 mg PO DAILY [facility] Last Admin: 03/25/21 08:18 Dose: 100 mg Documented by: Tizanidine HCl (Tizanidine 4 Mg Tablet) 4 mg PO BIDP PRN PRN Reason: muscle spasticity Last Admin: 03/17/21 20:42 Dose: 4 mg Documented by: A/P Assessment and plan (1) Osteomyelitis of right foot: Status: Acute Comment: will need to cover enterococcus and start with ampicillin 2gm q 6 now. recheck lab in morning including CRP and procalcitonin (2) Diabetic peripheral neuropathy: Status: Chronic Comment: not complaining of pain Time Spent With Patient Time: Total time spent is greater than 50% in coordination of care (as documented) at patient's floor/unit and/or counseling patient: 30 mins QUALITY VTE Deep Vein Thrombosis/Pulmonary Embolism Present on Admission: No
[2021-03-25] MEDS: AMPICILLIN SODIUM 2 GM in 0.9 % SODIUM CHLORIDE 100 ML IV SCH (21:45)
[2021-03-25] MEDS: PANTOPRAZOLE 40 MG TABLET PO SCH (21:51)
[2021-03-25] MEDS: SIMVASTATIN 20 MG TABLET PO SCH (21:51)
[2021-03-26] MEDS: AMPICILLIN SODIUM 2 GM in 0.9 % SODIUM CHLORIDE 100 ML IV SCH ×5 (01:36→22:33)
[2021-03-26] MEDS: 0.9 % SODIUM CHLORIDE 10 ML SYRINGE IV SCH ×4 (06:00→20:48)
[2021-03-26 06:43] LABS: Basophils # (Auto) 0.07 K/mcL (0.00-0.30); Basophils % (Auto) 0.6 % (0.0-2.0); Eosinophils # (Auto) 0.16 K/mcL (0.00-0.70); Eosinophils % (Auto) 1.3 % (0.0-7.0); Hemoglobin 11.1 g/dL (13.7-17.5); Lymphocytes # (Auto) 2.08 K/mcL (1.50-4.80); Lymphocytes % (Auto) 17.4 % (15.5-49.0); Mean Cell Volume 95.6 fL (80.0-100.0); Mean Platelet Volume 9.2 fL (7.4-10.4); Monocytes # (Auto) 0.69 K/mcL (0.10-0.90); Monocytes % (Auto) 5.8 % (1.0-12.0); Neutrophils % (Auto) 74.9 % (38.0-78.0); Platelet Count 392 K/mcL (140-440); RBC 3.87 M/mcL (4.63-6.08); Red Cell Distribution Width 15.1 % (11.5-14.5)
[2021-03-26] MEDS: HYDROcodone/APAP 10/325MG TABLET PO PRN ×3 (07:07→20:45)
[2021-03-26] MEDS: INSULIN LISPRO 1 UNIT/0.01 ML UNIT SQ SCH ×4 (07:12→20:39)
[2021-03-26 07:21] LABS: ALT/SGPT 23 U/L (<40); AST/SGOT 15 U/L (<40); Albumin/Globulin Ratio 0.7 (1.0-2.3); Alkaline Phosphatase 92 U/L (39-117); Bilirubin,Total 0.2 mg/dL (0.1-1.0); Blood Urea Nitrogen 42 mg/dL (8-23); Calcium 9.2 mg/dL (8.6-10.4); Carbon Dioxide 18 mmol/L (22-30); Chloride 105 mmol/L (96-108); Globulin 4.2 gm/dL (2.2-3.7); Glomerular Filtration Rate 41; Glucose 136 mg/dL (70-105)
[2021-03-26] MEDS: GABAPENTIN 400 MG CAPSULE PO SCH ×2 (08:42→20:38)
[2021-03-26] MEDS: HEPARIN 5,000 UNIT/ML VIAL SQ SCH ×2 (08:42→20:38)
[2021-03-26] MEDS: OLMESARTAN MEDOXOMIL 20 MG TABLET PO SCH (08:42)
[2021-03-26] MEDS: THIAMINE 100 MG TABLET PO SCH (08:43)
[2021-03-26] MEDS: ALLOPURINOL 100 MG TABLET PO SCH (08:43)
[2021-03-26] MEDS: FUROSEMIDE 40 MG TABLET PO SCH (08:43)
[2021-03-26] MEDS: INSULIN GLARGINE, HUMAN 1 UNIT/0.01 ML SQ SCH (08:43)
[2021-03-26] MEDS: DOCUSATE SODIUM 100 MG CAPSULE PO SCH ×2 (08:43→20:40)
[2021-03-26] MEDS: MULTIVIT,THER IRON,CA,FA & MIN 1 TABLET PO SCH (08:43)
[2021-03-26] MEDS: FOLIC ACID 1 MG TABLET PO SCH (08:43)
[2021-03-26] MEDS: CEFEPIME 1 GM VIAL IV SCH ×2 (08:53→20:38)
[2021-03-26] MEDS: PANTOPRAZOLE 40 MG TABLET PO SCH (20:39)
[2021-03-26] MEDS: SIMVASTATIN 20 MG TABLET PO SCH (20:40)
[2021-03-26] MEDS: tiZANidine 4 MG TABLET PO PRN (20:40)
[2021-03-27] MEDS: AMPICILLIN SODIUM 2 GM in 0.9 % SODIUM CHLORIDE 100 ML IV SCH ×5 (06:14→23:32)
[2021-03-27] MEDS: 0.9 % SODIUM CHLORIDE 10 ML SYRINGE IV SCH ×4 (06:15→22:10)
[2021-03-27] MEDS: HYDROcodone/APAP 10/325MG TABLET PO PRN ×4 (06:20→22:05)
[2021-03-27] MEDS: INSULIN LISPRO 1 UNIT/0.01 ML UNIT SQ SCH ×4 (07:03→22:03)
[2021-03-27 08:35] LABS: Basophils # (Auto) 0.07 K/mcL (0.00-0.30); Basophils % (Auto) 0.5 % (0.0-2.0); Eosinophils % (Auto) 1.6 % (0.0-7.0); Hematocrit 35.4 % (40.1-51.0); Hemoglobin 10.5 g/dL (13.7-17.5); Lymphocytes # (Auto) 2.51 K/mcL (1.50-4.80); Lymphocytes % (Auto) 19.7 % (15.5-49.0); Mean Cell Volume 96.7 fL (80.0-100.0); Mean Corpuscular HGB Conc 29.7 g/dL (31.0-36.0); Mean Platelet Volume 9.4 fL (7.4-10.4); Monocytes % (Auto) 6.3 % (1.0-12.0); Neutrophils % (Auto) 71.9 % (38.0-78.0); Platelet Count 385 K/mcL (140-440); RBC 3.66 M/mcL (4.63-6.08); Red Cell Distribution Width 15.2 % (11.5-14.5); WBC 12.8 K/mcL (4.5-11.0)
[2021-03-27 08:43] LABS: Blood Urea Nitrogen 38 mg/dL (8-23); Calcium 9.2 mg/dL (8.6-10.4); Carbon Dioxide 20 mmol/L (22-30); Chloride 103 mmol/L (96-108); Glomerular Filtration Rate 44; Glucose 134 mg/dL (70-105)
[2021-03-27] MEDS: CEFEPIME 1 GM VIAL IV SCH ×2 (08:46→22:04)
[2021-03-27] MEDS: INSULIN GLARGINE, HUMAN 1 UNIT/0.01 ML SQ SCH (08:46)
[2021-03-27] MEDS: HEPARIN 5,000 UNIT/ML VIAL SQ SCH ×2 (08:46→22:04)
[2021-03-27] MEDS: GABAPENTIN 400 MG CAPSULE PO SCH ×2 (08:46→22:05)
[2021-03-27] MEDS: ALLOPURINOL 100 MG TABLET PO SCH (08:47)
[2021-03-27] MEDS: THIAMINE 100 MG TABLET PO SCH (08:47)
[2021-03-27] MEDS: FOLIC ACID 1 MG TABLET PO SCH (08:47)
[2021-03-27] MEDS: MULTIVIT,THER IRON,CA,FA & MIN 1 TABLET PO SCH (08:47)
[2021-03-27] MEDS: FUROSEMIDE 40 MG TABLET PO SCH (08:47)
[2021-03-27] MEDS: DOCUSATE SODIUM 100 MG CAPSULE PO SCH ×2 (08:47→22:06)
[2021-03-27] MEDS: OLMESARTAN MEDOXOMIL 20 MG TABLET PO SCH (08:47)
--- NOTE | 2021-03-27 09:19 | Internal Med Progress Note ---
SUBJECTIVE Subjective Patient information: Note initiated : 03/27/21 at 9:04 am Service Date, if different from initiated Date: [] Patient: Shubham Ceballos 75 y/o M admitted on 03/16/21 for SOB and leg swelling. Chief Complaint: [] Principal diagnosis: right foot osteomyelitis Interval history: 75 yo WM admitted 03/16 with right foot DFU. Pt says doesnt check blood sugars beyond qod at home. pt had resection of right 4th toe 03/22 and grew multiple organisms including actinomyces, enterococcus. I added ampicillin to cefepime for the enterococcus. There is persistent elevated wbc and CRP but procalcitonin was ok on the 03/26. The patient says he cant feel his feet so doesnt hurt. He thinks swelling is down some. Says was discovered when his dog kept licking his right foot so he thought initially was just dirty feet then was suspicious but could examine his own feet and lives alone. Had it looked at at wound care where he was already getting care for left foot. Was bandaged up but then became further right foot infected. see above. Pertinent ROS: no fever Additional PMFSH (Level 3 Only): poorly controlled diabetes Morbid Obesity Obstructive sleep apnea alcohol use habitual Constitutional Vitals: Vital Signs Temp Pulse Resp BP Pulse Ox 98.6 F 75 22 140/81 90 03/27/21 08:00 03/27/21 08:00 03/27/21 08:00 03/27/21 08:00 03/27/21 08:00 Period Temp Pulse Resp BP Sys/Gonzalez Pulse Ox Last 24 Hr 97.8 F-98.6 F 75-103 22-24 109-146/64-81 90-96 Intake and Output 03/26/21 03/27/21 03/27/21 21:59 05:59 13:59 Intake Total 600 590 240 Output Total 250 650 325 Balance 350 -60 -85 Weight 125.373 kg Intake & Output: Intake & Output 03/26/21 03/27/21 03/27/21 21:59 05:59 13:59 Intake Total 600 590 240 Output Total 250 650 325 Balance 350 -60 -85 Weight 125.373 kg Intake: IV 100 100 Ampicillin 2 gm In Sodium 100 100 Chloride 0.9% 100 ml @ 100 mls/ hr IV Q8H [facility] Rx#:[id number] Oral 500 490 240 Output: Void Amount 250 650 325 Other: Urine Appearance Clear Urine Color Light Amee Bright Yellow Urine Odor Strong Strong Additional findings Additional findings: GEN WDWN Morbidly obese WM in NAD CV RRR Lungs CTA Calves 1+ ankle edema right 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 soiled bandage but not soaked or with odor or excess pus. right foot warm and mild erythema but not hot or red. OBJ DATA Labs CBC & Chem 7: 03/27/21 05:18 03/27/21 05:18 Labs: Abnormal Lab Results 03/27/21 03/27/21 03/26/21 05:18 05:18 05:24 WBC 12.8 H RBC 3.66 L Hgb 10.5 L Hct 35.4 L MCHC 29.7 L RDW 15.2 H Absolute Neutrophils 9.18 H Carbon Dioxide 20 L 18 L Anion Gap 17.0 H BUN 38 H 42 H Creatinine 1.5 H 1.6 H Glucose 134 H 136 H C-Reactive Protein 7.10 H 7.10 H Albumin 3.0 L Globulin 4.2 H Albumin/Globulin Ratio 0.7 L 03/26/21 03/25/21 03/25/21 05:24 05:54 05:54 WBC 12.0 H 11.9 H RBC 3.87 L 3.83 L Hgb 11.1 L 11.4 L Hct 37.0 L 36.6 L MCHC 30.0 L RDW 15.1 H 15.1 H Absolute Neutrophils 8.97 H 8.29 H Carbon Dioxide 21 L Anion Gap BUN 37 H Creatinine Glucose 111 H C-Reactive Protein Albumin Globulin Albumin/Globulin Ratio Meds: Medications Acetaminophen (Acetaminophen 325 Mg Tablet) 650 mg PO Q6HP PRN; Protocol PRN Reason: Per Pain Protocol/Fever > 101 Last Admin: 03/25/21 16:32 Dose: 650 mg Documented by: Hydrocodone Bitart/Acetaminophen (Hydrocodone/Apap 10/325mg Tablet) 1 - 2 tab PO Q4-6HP PRN; Protocol PRN Reason: pain Last Admin: 03/27/21 06:20 Dose: 2 tab Documented by: Albuterol/Ipratropium (Ipratropium/Albuterol 3 Ml Ampul.Neb) 3 ml NEB Q4HP PRN PRN Reason: Shortness Of Breath Allopurinol (Allopurinol 100 Mg Tablet) 100 mg PO QDAY [facility] Last Admin: 03/27/21 08:47 Dose: 100 mg Documented by: Cefepime HCl (Cefepime 1 Gm Vial) 1 gm IV Q12H [facility]; Protocol Last Admin: 03/27/21 08:46 Dose: 1 gm Documented by: Dextrose (Dextrose 50% 50 Ml Vial) 0 ml IV UD PRN PRN Reason: Hypoglycemia Diagnostic Test (Pha) (Accu-Chek 1 Each Strip) 1 each FS ACHS [facility] Last Admin: 03/27/21 07:01 Dose: 1 each Documented by: Docusate Sodium (Docusate Sodium 100 Mg Capsule) 100 mg PO BID [facility] Last Admin: 03/27/21 08:47 Dose: 100 mg Documented by: Folic Acid (Folic Acid 1 Mg Tablet) 1 mg PO DAILY [facility] Last Admin: 03/27/21 08:47 Dose: 1 mg Documented by: Furosemide (Furosemide 40 Mg Tablet) 40 mg PO DAILY [facility] Last Admin: 03/27/21 08:47 Dose: 40 mg Documented by: Gabapentin (Gabapentin 400 Mg Capsule) 1,200 mg PO BID [facility] Last Admin: 03/27/21 08:46 Dose: 1,200 mg Documented by: Glucose (Dextrose 31 Gm Oral.Susp) 15 gm PO PRN PRN PRN Reason: Hypoglycemia Heparin Sodium (Porcine) (Heparin 5,000 Unit/Ml Vial) 5,000 unit SQ Q12 [facility] Last Admin: 03/27/21 08:46 Dose: 5,000 unit Documented by: Ampicillin Sodium 2 gm/ Sodium (Chloride) 100 mls @ 100 mls/hr IV Q8H [facility] Last Admin: 03/27/21 06:15 Dose: Not Given Documented by: Insulin Glargine (Insulin Glargine, Human 1 Unit/0.01 Ml) 10 unit SQ DAILY [facility] Last Admin: 03/27/21 08:46 Dose: 10 units Documented by: Insulin Human Lispro (Insulin Lispro 1 Unit/0.01 Ml Unit) 0 unit SQ [facility]; Protocol Last Admin: 03/27/21 07:03 Dose: Not Given Documented by: Iron Carb/Multivit/Surgical Asst/Folic Acid (Multivit,Ther Iron,Ca,Fa & Min 1 Tablet) 1 tab PO DAILY [facility] Last Admin: 03/27/21 08:47 Dose: 1 tab Documented by: Lorazepam (Lorazepam 2 Mg/Ml Vial) 1 mg IV Q2-4HP PRN; Protocol PRN Reason: Alcohol Withdrawal Metoclopramide HCl (Metoclopramide 10 Mg/2 Ml Vial) 10 mg IV Q6HP PRN PRN Reason: Nausea And Vomiting Morphine Sulfate (Morphine 4 Mg/Ml Vial) 4 mg IV Q4HP PRN; Protocol PRN Reason: Per Pain Protocol Last Admin: 03/25/21 14:18 Dose: 4 mg Documented by: Olmesartan (Olmesartan Medoxomil 20 Mg Tablet) 40 mg PO DAILY [facility] Last Admin: 03/27/21 08:47 Dose: 40 mg Documented by: Ondansetron HCl (Ondansetron 4 Mg/2 Ml Vial) 4 mg IV Q4HP PRN PRN Reason: Nausea And Vomiting Pantoprazole Sodium (Pantoprazole 40 Mg Tablet) 40 mg PO HS [facility] Last Admin: 03/26/21 20:39 Dose: 40 mg Documented by: Budesonide- Formoterol [ Symbicort] 160-4.5 Mcg/Actuation Inhaler 1 dose INH BIDP PRN PRN Reason: COPD Polyethylene Glycol (Polyethylene Glycol 3350 17 Gm Packet) 17 gm PO DAILYP PRN PRN Reason: Constipation Last Admin: 03/17/21 10:02 Dose: 17 gm Documented by: Potassium Chloride (Potassium Chloride 20 Meq Tablet) 40 meq PO UD PRN PRN Reason: Potssium is 3-3.5 Potassium Chloride (Potassium Chloride 20 Meq Tablet) 40 meq PO UD PRN PRN Reason: Potassium < 3 Scopolamine (Scopolamine 1 Patch Patch) 1 patch TOPICAL PREOP PRN PRN Reason: Nausea And Vomiting Senna (Sennosides 1 Tablet) 2 tab PO DAILYP PRN PRN Reason: Constipation Simvastatin (Simvastatin 20 Mg Tablet) 20 mg PO QHS [facility] Last Admin: 03/26/21 20:40 Dose: 20 mg Documented by: Sodium Chloride (0.9 % Sodium Chloride 10 Ml Syringe) 10 ml IV Q8 [facility] Last Admin: 03/27/21 06:15 Dose: 10 ml Documented by: Thiamine HCl (Thiamine 100 Mg Tablet) 100 mg PO DAILY [facility] Last Admin: 03/27/21 08:47 Dose: 100 mg Documented by: Tizanidine HCl (Tizanidine 4 Mg Tablet) 4 mg PO BIDP PRN PRN Reason: muscle spasticity Last Admin: 03/26/21 20:40 Dose: 4 mg Documented by: A/P Assessment and plan (1) Osteomyelitis of right foot: Status: Acute Comment: will need to cover enterococcus and start with ampicillin 2gm q 6 now. recheck lab in morning including CRP and procalcitonin again. multiple organisms including soil saprophytes. was licked by a dog for several days. resection cultures still positive but there is some decreased but persistent exam inflammation no odor or pus. 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 I counseled him that he needs to examine his feet daily and needs to lose weight to decrease pressure on his smaller and numb foot. (2) Diabetic ulcer of right foot: Status: Acute Comment: as above (3) Sleep apnea with use of continuous positive airway pressure (CPAP): Status: Chronic Comment: cont CPAP (4) Morbid obesity with BMI of 40.0-44.9, adult: Status: Acute Comment: change to [id number] michelle diet for wt loss weight daily. goal 2-3 lbs wt loss per week Time Spent With Patient Time: Total time spent is greater than 50% in coordination of care (as documented) at patient's floor/unit and/or counseling patient:50 mins QUALITY VTE Deep Vein Thrombosis/Pulmonary Embolism Present on Admission: No
[2021-03-27] MEDS ORDERED: 0.9 % SODIUM CHLORIDE 10 ML SYRINGE IV PRN (11:12)
--- NOTE | 2021-03-27 12:32 | Internal Med Progress Note ---
SUBJECTIVE Subjective Patient information: Note initiated : 03/27/21 at 12:24 pm Service Date, if different from initiated Date: [] Patient: Shubham Ceballos a 75 y/o M admitted on 03/16/21 for SOB and leg swelling. Chief Complaint: [] Principal diagnosis: right foot osteomyelitis Interval history: History of present illness: Mr. Ceballos is a 75 year old M Presents to the ED with right leg swelling and also states more short of breath recently. was recently started on antibiotics for pneumonia at PCP office on . patient states that since he started taking antibiotic he felt dizzy and woozy and because of the leg is the reason he came into the ED. Afebrile in the ED. Sats low nineties on room air. Leukocytosis 16. Chronic anemia stable. Creatinine elevated in the ED 1.8. ED provider evaluated him and thought it related to COPD and CHF. As he was given Solu-Medrol and diuretics. Right leg ultrasound no DVT. CTA chest showed an incidental mass on the right kidney but otherwise unremarkable. Has been vaccinated against Covid. Patient has a wound of his right foot that has been seeing wound care for. His leg is swollen but he denies any increased redness or pain. Although his foot has been more painful. Feels little bit wheezy. States the breathing treatments he got in the ED helped. Drinks 6-8 beers a night. 03/17 Patient feeling better today. Feels shortness of breath is baseline. Chronic cough stable. No new complaints. Seen by podiatry yesterday. 03/18 Patient states poor sleep last night. Foot pain. No other complaints. Awaiting follow-up chemistry. 03/19: Afebrile overnight. c/o 7/10 sharp constant right foot pain. Denies fever or chills. c/o productive cough with white sputum. c/o wheezing. Denies chest pain or tightness. 03/20: Afebrile overnight. c/o mild sharp constant right foot pain. Denies fever or chills. c/o productive cough with white sputum. Denies wheezing. Denies chest pain or tightness. 03/21: Afebrile overnight. c/o mild sharp constant right foot pain. Denies fever or chills. Denies any cough or sputum production. Denies wheezing. Denies chest pain or tightness. 03/22: Currently in the OR. No major overnight events. 03/23: Recognizes me from when I took care of him back in July when he had COVID-19. Doing well postoperatively. Having lunch when I visited him. Later in the day, having difficulty with IV access. If he is going to require significant IV antibiotics, will require a PICC line, better to put it in sooner than later. Continues to be bradycardic and in atrial flutter rhythm, sometimes dipping into the 30s at night. Intraoperative cultures and bone cultures pending. 03/24: No new complaints this morning. Up having breakfast. In sinus rhythm this morning. Intraoperative tissue and bone cultures remain pending. White count decreased to 11.7 today. Creatinine up to 1.4. 03/25 Pt remains on cefepime but there are cultures growing enterococcus species and the wbc remains elevated. Pt says the right foot inflammation partially improves but persists. 03/26 Pt says doesnt check blood sugars beyond qod at home. pt had resection of right 4th toe 03/22 and grew multiple organisms including actinomyces, enterococcus. I added ampicillin to cefepime for the enterococcus. There is persistent elevated wbc and CRP but procalcitonin was ok on the 03/26. The patient says he cant feel his feet so doesnt hurt. He thinks swelling is down some. 03/27 He thinks swelling is down some. Says was discovered when his dog kept licking his right foot so he thought initially was just dirty feet then was suspicious but could examine his own feet and lives alone. Had it looked at at wound care where he was already getting care for left foot. Was bandaged up but then became further right foot infected. see above. 03/28 Review of Systems: denies headache/fever/chills/nausea/vomiting/chest or abdominal pain/diarrhea. Otherwise see above. Constitutional Vitals: Vital Signs Temp Pulse Resp BP Pulse Ox 98.6 F 75 22 140/81 90 03/27/21 08:00 03/27/21 08:00 03/27/21 08:00 03/27/21 08:00 03/27/21 08:00 Period Temp Pulse Resp BP Sys/Gonzalez Pulse Ox Last 24 Hr 97.8 F-98.6 F 75-98 22-24 109-146/67-81 90-94 Intake and Output 03/26/21 03/27/21 03/27/21 21:59 05:59 13:59 Intake Total 600 590 240 Output Total 250 650 525 Balance 350 -60 -285 Weight 125.373 kg Intake & Output: Intake & Output 03/26/21 03/27/21 03/27/21 21:59 05:59 13:59 Intake Total 600 590 240 Output Total 250 650 525 Balance 350 -60 -285 Weight 125.373 kg Intake: IV 100 100 Ampicillin 2 gm In Sodium 100 100 Chloride 0.9% 100 ml @ 100 mls/ hr IV Q8H [facility] Rx#:[id number] Oral 500 490 240 Output: Void Amount 250 650 525 Other: Urine Appearance Clear Urine Color Light Amee Dark Yellow Urine Odor Strong Strong Exam: General: Alert, Awake, No acute Distress, obesity Eyes/N/T: EOMI, Head/Neck: neck supple, CV: RRR, No murmurs, Pulm: mild exp wheezing b/l, no rhonchi Abd: soft, nontender, +BS x4 Ext: no clubbing/cyanosis, b/l LE edema, 4th toe amputation dressings intact Neuro: Alert, no focal deficits, moves all extremities, Skin: warm/dry OBJ DATA Labs CBC & Chem 7: 03/27/21 05:18 03/27/21 05:18 Labs: Abnormal Lab Results 03/27/21 03/27/21 03/26/21 05:18 05:18 05:24 WBC 12.8 H RBC 3.66 L Hgb 10.5 L Hct 35.4 L MCHC 29.7 L RDW 15.2 H Absolute Neutrophils 9.18 H Carbon Dioxide 20 L 18 L Anion Gap 17.0 H BUN 38 H 42 H Creatinine 1.5 H 1.6 H Glucose 134 H 136 H C-Reactive Protein 7.10 H 7.10 H Albumin 3.0 L Globulin 4.2 H Albumin/Globulin Ratio 0.7 L 03/26/21 03/25/21 03/25/21 05:24 05:54 05:54 WBC 12.0 H 11.9 H RBC 3.87 L 3.83 L Hgb 11.1 L 11.4 L Hct 37.0 L 36.6 L MCHC 30.0 L RDW 15.1 H 15.1 H Absolute Neutrophils 8.97 H 8.29 H Carbon Dioxide 21 L Anion Gap BUN 37 H Creatinine Glucose 111 H C-Reactive Protein Albumin Globulin Albumin/Globulin Ratio Meds: Medications Acetaminophen (Acetaminophen 325 Mg Tablet) 650 mg PO Q6HP PRN; Protocol PRN Reason: Per Pain Protocol/Fever > 101 Last Admin: 03/25/21 16:32 Dose: 650 mg Documented by: Hydrocodone Bitart/Acetaminophen (Hydrocodone/Apap 10/325mg Tablet) 1 - 2 tab PO Q4-6HP PRN; Protocol PRN Reason: pain Last Admin: 03/27/21 11:26 Dose: 2 tab Documented by: Albuterol/Ipratropium (Ipratropium/Albuterol 3 Ml Ampul.Neb) 3 ml NEB Q4HP PRN PRN Reason: Shortness Of Breath Allopurinol (Allopurinol 100 Mg Tablet) 100 mg PO QDAY [facility] Last Admin: 03/27/21 08:47 Dose: 100 mg Documented by: Cefepime HCl (Cefepime 1 Gm Vial) 1 gm IV Q12H [facility]; Protocol Last Admin: 03/27/21 08:46 Dose: 1 gm Documented by: Dextrose (Dextrose 50% 50 Ml Vial) 0 ml IV UD PRN PRN Reason: Hypoglycemia Diagnostic Test (Pha) (Accu-Chek 1 Each Strip) 1 each FS ACHS [facility] Last Admin: 03/27/21 11:21 Dose: 1 each Documented by: Docusate Sodium (Docusate Sodium 100 Mg Capsule) 100 mg PO BID [facility] Last Admin: 03/27/21 08:47 Dose: 100 mg Documented by: Folic Acid (Folic Acid 1 Mg Tablet) 1 mg PO DAILY [facility] Last Admin: 03/27/21 08:47 Dose: 1 mg Documented by: Furosemide (Furosemide 40 Mg Tablet) 40 mg PO DAILY [facility] Last Admin: 03/27/21 08:47 Dose: 40 mg Documented by: Gabapentin (Gabapentin 400 Mg Capsule) 1,200 mg PO BID [facility] Last Admin: 03/27/21 08:46 Dose: 1,200 mg Documented by: Glucose (Dextrose 31 Gm Oral.Susp) 15 gm PO PRN PRN PRN Reason: Hypoglycemia Heparin Sodium (Porcine) (Heparin 5,000 Unit/Ml Vial) 5,000 unit SQ Q12 [facility] Last Admin: 03/27/21 08:46 Dose: 5,000 unit Documented by: Heparin Sodium (Porcine) (Heparin Flush 10 Units/Ml 5 Ml Syringe) 2 ml IV Q12 [facility] Ampicillin Sodium 2 gm/ Sodium (Chloride) 100 mls @ 100 mls/hr IV Q8H [facility] Last Admin: 03/27/21 06:15 Dose: Not Given Documented by: Insulin Glargine (Insulin Glargine, Human 1 Unit/0.01 Ml) 10 unit SQ DAILY [facility] Last Admin: 03/27/21 08:46 Dose: 10 units Documented by: Insulin Human Lispro (Insulin Lispro 1 Unit/0.01 Ml Unit) 0 unit SQ ACHS [facility]; Protocol Last Admin: 03/27/21 07:03 Dose: Not Given Documented by: Iron Carb/Multivit/[place]/Folic Acid (Multivit,Ther Iron,Ca,Fa & Min 1 Tablet) 1 tab PO DAILY [facility] Last Admin: 03/27/21 08:47 Dose: 1 tab Documented by: Lorazepam (Lorazepam 2 Mg/Ml Vial) 1 mg IV Q2-4HP PRN; Protocol PRN Reason: Alcohol Withdrawal Metoclopramide HCl (Metoclopramide 10 Mg/2 Ml Vial) 10 mg IV Q6HP PRN PRN Reason: Nausea And Vomiting Morphine Sulfate (Morphine 4 Mg/Ml Vial) 4 mg IV Q4HP PRN; Protocol PRN Reason: Per Pain Protocol Last Admin: 03/25/21 14:18 Dose: 4 mg Documented by: Olmesartan (Olmesartan Medoxomil 20 Mg Tablet) 40 mg PO DAILY [facility] Last Admin: 03/27/21 08:47 Dose: 40 mg Documented by: Ondansetron HCl (Ondansetron 4 Mg/2 Ml Vial) 4 mg IV Q4HP PRN PRN Reason: Nausea And Vomiting Pantoprazole Sodium (Pantoprazole 40 Mg Tablet) 40 mg PO HS [facility] Last Admin: 03/26/21 20:39 Dose: 40 mg Documented by: Budesonide- Formoterol [ Symbicort] 160-4.5 Mcg/Actuation Inhaler 1 dose INH BIDP PRN PRN Reason: COPD Polyethylene Glycol (Polyethylene Glycol 3350 17 Gm Packet) 17 gm PO DAILYP PRN PRN Reason: Constipation Last Admin: 03/17/21 10:02 Dose: 17 gm Documented by: Potassium Chloride (Potassium Chloride 20 Meq Tablet) 40 meq PO UD PRN PRN Reason: Potssium is 3-3.5 Potassium Chloride (Potassium Chloride 20 Meq Tablet) 40 meq PO UD PRN PRN Reason: Potassium < 3 Scopolamine (Scopolamine 1 Patch Patch) 1 patch TOPICAL PREOP PRN PRN Reason: Nausea And Vomiting Senna (Sennosides 1 Tablet) 2 tab PO DAILYP PRN PRN Reason: Constipation Simvastatin (Simvastatin 20 Mg Tablet) 20 mg PO QHS [facility] Last Admin: 03/26/21 20:40 Dose: 20 mg Documented by: Sodium Chloride (0.9 % Sodium Chloride 10 Ml Syringe) 10 ml IV Q8 [facility] Last Admin: 03/27/21 06:15 Dose: 10 ml Documented by: Sodium Chloride (0.9 % Sodium Chloride 10 Ml Syringe) 10 ml IV UD PRN PRN Reason: FLUSH Sodium Chloride (0.9 % Sodium Chloride 10 Ml Syringe) 10 ml IV Q12 [facility] Thiamine HCl (Thiamine 100 Mg Tablet) 100 mg PO DAILY [facility] Last Admin: 03/27/21 08:47 Dose: 100 mg Documented by: Tizanidine HCl (Tizanidine 4 Mg Tablet) 4 mg PO BIDP PRN PRN Reason: muscle spasticity Last Admin: 03/26/21 20:40 Dose: 4 mg Documented by: A/P Narrative A/P Narrative: A: *Right foot/toe infection w/Osteo (wound growing strep agalactiae/actinomyces/enterococcus): 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) - *AECOPD (Not on oxygen), mild: resolved -CTA unremarkable *Aflutter (new dx): BB stopped d/t bradycardia *Generalized weakness/deconditioning: *Morbid obesity: *DM w/neuropathy: *LIV on CKD III: improved *Anemia, chronic: *KEZIA w/CPAP: *Spinal stenosis and chronic pain: *HTN/HLD: *Alcohol abuse: went through withdrawal *Mass on superior pole of right kidney, 2.2cm -Outpatient follow up IV pyelogram P: -ampicillin 2gm q 6 /cefepime -wound care team/podiatry -prn IV lasix, cont home PO lasix -elevate legs -echo -CIWA, Beer with meals -IS/Acapella -SSI -home cpap -cont ARB, stopped BB d/t bradycardia -Continue increased gabapentin dose, 1200 mg twice daily (states home dose is 1600 mg twice daily) Continue with olmesartan for blood pressure -pt/ot -PIC line -f/u with cardiology for Aflutter -ppx: eliqis held for surgery, restart. home ppi Full code Time Spent With Patient Time: Total time spent is greater than 50% in coordination of care (as documented) at patient's floor/unit and/or counseling patient: QUALITY VTE Deep Vein Thrombosis/Pulmonary Embolism Present on Admission: No
--- NOTE | 2021-03-27 17:09 | XRay Report ---
INDICATION: PICC PLACEMENT TECHNIQUE: AP portable semiupright chest x-ray COMPARISON: None FINDINGS:Right-sided PICC line with its tip in the right atrium. Lungs:Lungs are negative. No focal pulmonary parenchymal infiltrate or mass Heart, vascular:No significant cardiomegaly. Pulmonary vascularity is normal. No pulmonary edema or pulmonary congestion Mediastinum, adelina:No mediastinal widening. No hilar mass Pleura:No pleural fluid. No pleural-based mass or calcification Skeletal:Negative. IMPRESSION: Right-sided PICC line has its tip in the right atrium. Interpreted and Authenticated by: Buster Azul 03/27/21
[2021-03-27] MEDS: SIMVASTATIN 20 MG TABLET PO SCH (22:05)
[2021-03-27] MEDS: PANTOPRAZOLE 40 MG TABLET PO SCH (22:06)
[2021-03-28] MEDS: AMPICILLIN SODIUM 2 GM in 0.9 % SODIUM CHLORIDE 100 ML IV SCH ×3 (06:09→22:09)
[2021-03-28] MEDS: 0.9 % SODIUM CHLORIDE 10 ML SYRINGE IV SCH ×5 (06:11→23:17)
[2021-03-28] MEDS: HYDROcodone/APAP 10/325MG TABLET PO PRN ×4 (06:12→21:56)
[2021-03-28 06:32] LABS: Basophils # (Auto) 0.06 K/mcL (0.00-0.30); Basophils % (Auto) 0.6 % (0.0-2.0); Hematocrit 33.8 % (40.1-51.0); Hemoglobin 10.3 g/dL (13.7-17.5); Lymphocytes # (Auto) 2.07 K/mcL (1.50-4.80); Lymphocytes % (Auto) 20.4 % (15.5-49.0); Mean Cell Volume 96.3 fL (80.0-100.0); Mean Corpuscular HGB Conc 30.5 g/dL (31.0-36.0); Mean Platelet Volume 9.1 fL (7.4-10.4); Monocytes # (Auto) 0.71 K/mcL (0.10-0.90); Platelet Count 333 K/mcL (140-440); RBC 3.51 M/mcL (4.63-6.08); Red Cell Distribution Width 14.9 % (11.5-14.5); WBC 10.1 K/mcL (4.5-11.0)
[2021-03-28 07:03] LABS: Estimated Average Glucose(eAG) 134 mg/dL; Hemoglobin A1C 6.3 % Hgb (4.0-6.0)
[2021-03-28 07:08] LABS: Blood Urea Nitrogen 33 mg/dL (8-23); Calcium 9.1 mg/dL (8.6-10.4); Carbon Dioxide 18 mmol/L (22-30); Chloride 106 mmol/L (96-108); Glomerular Filtration Rate 48; Glucose 110 mg/dL (70-105)
[2021-03-28] MEDS: INSULIN LISPRO 1 UNIT/0.01 ML UNIT SQ SCH ×4 (07:30→20:29)
[2021-03-28] MEDS ORDERED: LABETALOL 5 MG/ML ML IV PRN (07:46)
[2021-03-28] MEDS ORDERED: hydrALAZINE 20 MG/ML VIAL IV PRN (07:46)
--- NOTE | 2021-03-28 07:49 | Internal Med Progress Note ---
SUBJECTIVE Subjective Patient information: Note initiated : 03/28/21 at 7:42 am Service Date, if different from initiated Date: [] Patient: Shubham Ceballos a 75 y/o M admitted on 03/16/21 for SOB and leg swelling. Chief Complaint: [] Principal diagnosis: right foot osteomyelitis Interval history: History of present illness: Mr. Ceballos is a 75 year old M Presents to the ED with right leg swelling and also states more short of breath recently. was recently started on antibiotics for pneumonia at PCP office on . patient states that since he started taking antibiotic he felt dizzy and woozy and because of the leg is the reason he came into the ED. Afebrile in the ED. Sats low nineties on room air. Leukocytosis 16. Chronic anemia stable. Creatinine elevated in the ED 1.8. ED provider evaluated him and thought it related to COPD and CHF. As he was given Solu-Medrol and diuretics. Right leg ultrasound no DVT. CTA chest showed an incidental mass on the right kidney but otherwise unremarkable. Has been vaccinated against Covid. Patient has a wound of his right foot that has been seeing wound care for. His leg is swollen but he denies any increased redness or pain. Although his foot has been more painful. Feels little bit wheezy. States the breathing treatments he got in the ED helped. Drinks 6-8 beers a night. 03/17 Patient feeling better today. Feels shortness of breath is baseline. Chronic cough stable. No new complaints. Seen by podiatry yesterday. 03/18 Patient states poor sleep last night. Foot pain. No other complaints. Awaiting follow-up chemistry. 03/19: Afebrile overnight. c/o 7/10 sharp constant right foot pain. Denies fever or chills. c/o productive cough with white sputum. c/o wheezing. Denies chest pain or tightness. 03/20: Afebrile overnight. c/o mild sharp constant right foot pain. Denies fever or chills. c/o productive cough with white sputum. Denies wheezing. Denies chest pain or tightness. 03/21: Afebrile overnight. c/o mild sharp constant right foot pain. Denies fever or chills. Denies any cough or sputum production. Denies wheezing. Denies chest pain or tightness. 03/22: Currently in the OR. No major overnight events. 03/23: Recognizes me from when I took care of him back in July when he had COVID-19. Doing well postoperatively. Having lunch when I visited him. Later in the day, having difficulty with IV access. If he is going to require significant IV antibiotics, will require a PICC line, better to put it in sooner than later. Continues to be bradycardic and in atrial flutter rhythm, sometimes dipping into the 30s at night. Intraoperative cultures and bone cultures pending. 03/24: No new complaints this morning. Up having breakfast. In sinus rhythm this morning. Intraoperative tissue and bone cultures remain pending. White count decreased to 11.7 today. Creatinine up to 1.4. 03/25 Pt remains on cefepime but there are cultures growing enterococcus species and the wbc remains elevated. Pt says the right foot inflammation partially improves but persists. 03/26 Pt says doesnt check blood sugars beyond qod at home. pt had resection of right 4th toe 03/22 and grew multiple organisms including actinomyces, enterococcus. I added ampicillin to cefepime for the enterococcus. There is persistent elevated wbc and CRP but procalcitonin was ok on the 03/26. The patient says he cant feel his feet so doesnt hurt. He thinks swelling is down some. 03/27 He thinks swelling is down some. Says was discovered when his dog kept licking his right foot so he thought initially was just dirty feet then was suspicious but could examine his own feet and lives alone. Had it looked at at wound care where he was already getting care for left foot. Was bandaged up but then became further right foot infected. see above. 03/28 No overnight event or new complaints. Leukocytosis resolved. CRP improving Review of Systems: denies headache/fever/chills/nausea/vomiting/chest or abdominal pain/diarrhea. Otherwise see above. Constitutional Vitals: Vital Signs Temp Pulse Resp BP Pulse Ox 98.1 F 71 19 129/68 91 03/28/21 06:57 03/28/21 06:57 03/28/21 06:57 03/28/21 06:57 03/28/21 06:57 Period Temp Pulse Resp BP Sys/Gonzalez Pulse Ox Last 24 Hr 97.3 F-98.8 F 71-117 19- 126-153/64-82 90-98 Intake and Output 03/27/21 03/28/21 03/28/21 21:59 05:59 13:59 Intake Total 100 700 Output Total 1000 200 525 Balance -900 500 -525 Weight 124.42 kg Intake & Output: Intake & Output 03/27/21 03/28/21 03/28/21 21:59 05:59 13:59 Intake Total 100 700 Output Total 1000 200 525 Balance -900 500 -525 Weight 124.42 kg Intake: IV 100 100 Ampicillin 2 gm In Sodium 100 100 Chloride 0.9% 100 ml @ 100 mls/ hr IV Q8H [facility] Rx#:[id number] Oral 600 Output: Void Amount 1000 200 525 Other: Urine Appearance Clear Clear Urine Color Dark Yellow Bright Yellow Bright Yellow Urine Odor Normal Strong Exam: General: Alert, Awake, No acute Distress, obesity Eyes/N/T: EOMI, Head/Neck: neck supple, CV: RRR, No murmurs, Pulm: clear b/l, no wheezing/rhonchi Abd: soft, nontender, +BS x4 Ext: no clubbing/cyanosis, b/l LE edema, 4th toe amputation dressings intact Neuro: Alert, no focal deficits, moves all extremities, Skin: warm/dry OBJ DATA Labs CBC & Chem 7: 03/28/21 05:28 03/28/21 05:28 Labs: Abnormal Lab Results 03/28/21 03/28/21 03/27/21 05:28 05:28 05:18 WBC RBC 3.51 L Hgb 10.3 L Hct 33.8 L MCHC 30.5 L RDW 14.9 H Absolute Neutrophils Carbon Dioxide 18 L 20 L Anion Gap BUN 33 H 38 H Creatinine 1.4 H 1.5 H Glucose 110 H 134 H Hemoglobin A1c 6.3 H C-Reactive Protein 6.60 H 7.10 H Albumin Globulin Albumin/Globulin Ratio 03/27/21 03/26/21 03/26/21 05:18 05:24 05:24 WBC 12.8 H 12.0 H RBC 3.66 L 3.87 L Hgb 10.5 L 11.1 L Hct 35.4 L 37.0 L MCHC 29.7 L 30.0 L RDW 15.2 H 15.1 H Absolute Neutrophils 9.18 H 8.97 H Carbon Dioxide 18 L Anion Gap 17.0 H BUN 42 H Creatinine 1.6 H Glucose 136 H Hemoglobin A1c C-Reactive Protein 7.10 H Albumin 3.0 L Globulin 4.2 H Albumin/Globulin Ratio 0.7 L 03/25/21 05:54 WBC 11.9 H RBC 3.83 L Hgb 11.4 L Hct 36.6 L MCHC RDW 15.1 H Absolute Neutrophils 8.29 H Carbon Dioxide Anion Gap BUN Creatinine Glucose Hemoglobin A1c C-Reactive Protein Albumin Globulin Albumin/Globulin Ratio Meds: Medications Acetaminophen (Acetaminophen 325 Mg Tablet) 650 mg PO Q6HP PRN; Protocol PRN Reason: Per Pain Protocol/Fever > 101 Last Admin: 03/25/21 16:32 Dose: 650 mg Documented by: Hydrocodone Bitart/Acetaminophen (Hydrocodone/Apap 10/325mg Tablet) 1 - 2 tab PO Q4-6HP PRN; Protocol PRN Reason: pain Last Admin: 03/28/21 06:12 Dose: 2 tab Documented by: Albuterol/Ipratropium (Ipratropium/Albuterol 3 Ml Ampul.Neb) 3 ml NEB Q4HP PRN PRN Reason: Shortness Of Breath Allopurinol (Allopurinol 100 Mg Tablet) 100 mg PO QDAY [facility] Last Admin: 03/27/21 08:47 Dose: 100 mg Documented by: Cefepime HCl (Cefepime 1 Gm Vial) 1 gm IV Q12H [facility]; Protocol Last Admin: 03/27/21 22:04 Dose: 1 gm Documented by: Dextrose (Dextrose 50% 50 Ml Vial) 0 ml IV UD PRN PRN Reason: Hypoglycemia Diagnostic Test (Pha) (Accu-Chek 1 Each Strip) 1 each FS ACHS [facility] Last Admin: 03/27/21 22:02 Dose: 1 each Documented by: Docusate Sodium (Docusate Sodium 100 Mg Capsule) 100 mg PO BID [facility] Last Admin: 03/27/21 22:06 Dose: 100 mg Documented by: Folic Acid (Folic Acid 1 Mg Tablet) 1 mg PO DAILY [facility] Last Admin: 03/27/21 08:47 Dose: 1 mg Documented by: Furosemide (Furosemide 40 Mg Tablet) 40 mg PO DAILY [facility] Last Admin: 03/27/21 08:47 Dose: 40 mg Documented by: Gabapentin (Gabapentin 400 Mg Capsule) 1,200 mg PO BID [facility] Last Admin: 03/27/21 22:05 Dose: 1,200 mg Documented by: Glucose (Dextrose 31 Gm Oral.Susp) 15 gm PO PRN PRN PRN Reason: Hypoglycemia Heparin Sodium (Porcine) (Heparin 5,000 Unit/Ml Vial) 5,000 unit SQ Q12 [facility] Last Admin: 03/27/21 22:04 Dose: 5,000 unit Documented by: Heparin Sodium (Porcine) (Heparin Flush 10 Units/Ml 5 Ml Syringe) 2 ml IV Q12 [facility] Last Admin: 03/27/21 22:04 Dose: 2 ml Documented by: Ampicillin Sodium 2 gm/ Sodium (Chloride) 100 mls @ 100 mls/hr IV Q8H [facility] Last Admin: 03/28/21 06:09 Dose: 100 mls/hr Documented by: Insulin Glargine (Insulin Glargine, Human 1 Unit/0.01 Ml) 10 unit SQ DAILY [facility] Last Admin: 03/27/21 08:46 Dose: 10 units Documented by: Insulin Human Lispro (Insulin Lispro 1 Unit/0.01 Ml Unit) 0 unit SQ ACHS [facility]; Protocol Last Admin: 03/27/21 22:03 Dose: 4 units Documented by: Iron Carb/Multivit/Airdox Fitter/Folic Acid (Multivit,Ther Iron,Ca,Fa & Min 1 Tablet) 1 tab PO DAILY [facility] Last Admin: 03/27/21 08:47 Dose: 1 tab Documented by: Lorazepam (Lorazepam 2 Mg/Ml Vial) 1 mg IV Q2-4HP PRN; Protocol PRN Reason: Alcohol Withdrawal Metoclopramide HCl (Metoclopramide 10 Mg/2 Ml Vial) 10 mg IV Q6HP PRN PRN Reason: Nausea And Vomiting Morphine Sulfate (Morphine 4 Mg/Ml Vial) 4 mg IV Q4HP PRN; Protocol PRN Reason: Per Pain Protocol Last Admin: 03/25/21 14:18 Dose: 4 mg Documented by: Olmesartan (Olmesartan Medoxomil 20 Mg Tablet) 40 mg PO DAILY [facility] Last Admin: 03/27/21 08:47 Dose: 40 mg Documented by: Ondansetron HCl (Ondansetron 4 Mg/2 Ml Vial) 4 mg IV Q4HP PRN PRN Reason: Nausea And Vomiting Pantoprazole Sodium (Pantoprazole 40 Mg Tablet) 40 mg PO HS [facility] Last Admin: 03/27/21 22:06 Dose: 40 mg Documented by: Budesonide- Formoterol [ Symbicort] 160-4.5 Mcg/Actuation Inhaler 1 dose INH BIDP PRN PRN Reason: COPD Polyethylene Glycol (Polyethylene Glycol 3350 17 Gm Packet) 17 gm PO DAILYP PRN PRN Reason: Constipation Last Admin: 03/17/21 10:02 Dose: 17 gm Documented by: Potassium Chloride (Potassium Chloride 20 Meq Tablet) 40 meq PO UD PRN PRN Reason: Potssium is 3-3.5 Potassium Chloride (Potassium Chloride 20 Meq Tablet) 40 meq PO UD PRN PRN Reason: Potassium < 3 Scopolamine (Scopolamine 1 Patch Patch) 1 patch TOPICAL PREOP PRN PRN Reason: Nausea And Vomiting Senna (Sennosides 1 Tablet) 2 tab PO DAILYP PRN PRN Reason: Constipation Simvastatin (Simvastatin 20 Mg Tablet) 20 mg PO QHS [facility] Last Admin: 03/27/21 22:05 Dose: 20 mg Documented by: Sodium Chloride (0.9 % Sodium Chloride 10 Ml Syringe) 10 ml IV Q8 [facility] Last Admin: 03/28/21 06:11 Dose: 10 ml Documented by: Sodium Chloride (0.9 % Sodium Chloride 10 Ml Syringe) 10 ml IV UD PRN PRN Reason: FLUSH Sodium Chloride (0.9 % Sodium Chloride 10 Ml Syringe) 10 ml IV Q12 [facility] Last Admin: 03/27/21 22:10 Dose: 10 ml Documented by: Thiamine HCl (Thiamine 100 Mg Tablet) 100 mg PO DAILY [facility] Last Admin: 03/27/21 08:47 Dose: 100 mg Documented by: Tizanidine HCl (Tizanidine 4 Mg Tablet) 4 mg PO BIDP PRN PRN Reason: muscle spasticity Last Admin: 03/26/21 20:40 Dose: 4 mg Documented by: A/P Narrative A/P Narrative: A: *Right foot/toe infec w/Osteo (WC growing strep agalactiae/actinomyces /enterococcus): s/p Right 4th toe amp (03/22) -leukocytosis resolved *AECOPD (Not on oxygen), mild: resolved -CTA unremarkable *Aflutter (new dx): BB stopped d/t bradycardia. converted back to sinus 03/24 -echo with EF 50-55, mild-mod reduced RV systolic *Generalized weakness/deconditioning: *Morbid obesity: *DM w/neuropathy: A1c 6.3 *CKD III: *Anemia, chronic: *KEZIA w/CPAP: *Spinal stenosis and chronic pain: *HTN/HLD: *Alcohol abuse: went through withdrawal *Mass on superior pole of right kidney, 2.2cm -Outpatient follow up IV pyelogram P: -ampicillin 2gm q 6 /cefepime, PICC line placed -wound care team/podiatry -elevate legs -IS/Acapella -SSI -home cpap -hold lasix today, hold ARB for now and f/u renal fxn -stopped BB d/t bradycardia -Continue increased gabapentin dose, 1200 mg twice daily (states home dose is 1600 mg twice daily) -pt/ot -f/u with cardiology for Aflutter -ppx: eliqis / home ppi Full code Time Spent With Patient Time: Total time spent is greater than 50% in coordination of care (as documented) at patient's floor/unit and/or counseling patient: QUALITY VTE Deep Vein Thrombosis/Pulmonary Embolism Present on Admission: No
--- NOTE | 2021-03-28 10:20 | Discharge Summary ---
Discharge Provider Provider Patient information: Note initiated : 03/28/21 at 10:16 am Service Date, if different from initiated Date: [] Patient: Shubham Ceballos 75 y/o M admitted on 03/16/21 for SOB and leg swelling. Chief Complaint: [] Date of admission: 03/16/21 00:07 Discharge date: 03/28/21 Primary care physician: Reza Graham MD Consults: 03/15/21 Consult to Physician [CONS] Stat Comment: Consulting Provider: Renan Ledesma Reason For Exam: Physician to Consult 03/16/21 10:51 Consult to Physician [CONS] Routine Comment: Consulting Provider: David Warner Reason For Exam: Physician to Consult 03/28/21 08:40 Consult to Physician [CONS] Routine Comment: snf referral Consulting Provider: [facility] Reason For Exam: Physician to Consult Discharge Meds Discharge Medications Home Medications cranberry extract 300 mg PO BID 02/12/15 [History Confirmed 03/16/21 Last Taken 03/28/18 08:00] vitamin B comp with C no.4 150 mg PO DAILY 02/12/15 [History Confirmed 03/16/21 Last Taken 03/28/18 08:00] CPAP #1 each 12/11/16 [Rx Confirmed 03/16/21 Last Taken Unknown] cpap mask #1 ea 06/01/18 [Rx Confirmed 03/16/21 Last Taken Unknown] blood sugar diagnostic #10 each 03/25/19 [History Confirmed 03/16/21 Last Taken Unknown] lancets #100 each 05/30/19 [Rx Confirmed 03/16/21 Last Taken Unknown] furosemide 40 mg tablet 40 mg PO DAILY #90 tab 07/05/19 [Rx Confirmed 03/16/21 Last Taken 07/28/20] potassium chloride 10 mEq capsule,extended release 10 meq PO QAMCC #90 cap 07/05/19 [Rx Confirmed 03/16/21 Last Taken 07/28/20] Diabetic shoes #1 ea 11/01/19 [Rx Confirmed 03/16/21 Last Taken Unknown] budesonide-formoterol HFA 160 mcg-4.5 mcg/actuation aerosol inhaler 2 puff INHALATION BID PRN g 03/27/20 [History Confirmed 03/16/21 Last Taken 07/27/20] PreserVision AREDS-2 1 tab PO BID 07/29/20 [History Confirmed 03/16/21 Last Taken Unknown] allopurinol 100 mg PO QDAY 07/29/20 [History Confirmed 03/16/21 Last Taken Unknown] garlic 1,250 mg PO BID 07/29/20 [History Confirmed 03/16/21 Last Taken Unknown] magnesium oxide 420 mg PO QHS 07/29/20 [History Confirmed 03/16/21 Last Taken 07/28/20] omega 4-vcl-ehw-fish oil 1 cap PO BID 07/29/20 [History Confirmed 03/16/21 Last Taken 07/28/20] tizanidine 4 mg capsule 4 mg PO BID PRN #30 cap 08/20/20 [Rx Confirmed 03/16/21 Last Taken Unknown] metformin 500 mg PO BIDCC 03/16/21 [History Confirmed 03/16/21 Last Taken Unknown] simvastatin 20 mg PO QHS 03/16/21 [History Confirmed 03/16/21 Last Taken Unknown] valsartan 320 mg PO QDAY 03/16/21 [History Confirmed 03/16/21 Last Taken Unknown] amoxicillin-pot clavulanate [Augmentin XR] 1 tab PO TID #42 tab 03/28/21 [Rx Last Taken Unknown] ampicillin-sulbactam [Unasyn] 3 g IV Q8H #24 ea 03/28/21 [Rx Last Taken Unknown] apixaban [Eliquis] 5 mg PO BID #60 tab 03/28/21 [Rx Last Taken Unknown] gabapentin 1,200 mg PO BID #1 tab 03/28/21 [Rx Last Taken Unknown] hydrocodone-acetaminophen 2 tab PO Q6HP PRN #20 tab 03/28/21 [Rx Last Taken Unknown] COURSE Hospital Course Hospital course: Interval history: History of present illness: Mr. Ceballos is a 75 year old M Presents to the ED with right leg swelling and also states more short of breath recently. was recently started on antibiotics for pneumonia at PCP office on . patient states that since he started taking antibiotic he felt dizzy and woozy and because of the leg is the reason he came into the ED. Afebrile in the ED. Sats low nineties on room air. Leukocytosis 16. Chronic anemia stable. Creatinine elevated in the ED 1.8. ED provider evaluated him and thought it related to COPD and CHF. As he was given Solu-Medrol and diuretics. Right leg ultrasound no DVT. CTA chest showed an incidental mass on the right kidney but otherwise unremarkable. Has been vaccinated against Covid. Patient has a wound of his right foot that has been seeing wound care for. His leg is swollen but he denies any increased redness or pain. Although his foot has been more painful. Feels little bit wheezy. States the breathing treatments he got in the ED helped. Drinks 6-8 beers a night. 03/17 Patient feeling better today. Feels shortness of breath is baseline. Chronic cough stable. No new complaints. Seen by podiatry yesterday. 03/18 Patient states poor sleep last night. Foot pain. No other complaints. Awaiting follow-up chemistry. 03/19: Afebrile overnight. c/o 7/10 sharp constant right foot pain. Denies fever or chills. c/o productive cough with white sputum. c/o wheezing. Denies chest pain or tightness. 03/20: Afebrile overnight. c/o mild sharp constant right foot pain. Denies fever or chills. c/o productive cough with white sputum. Denies wheezing. Denies chest pain or tightness. 03/21: Afebrile overnight. c/o mild sharp constant right foot pain. Denies fever or chills. Denies any cough or sputum production. Denies wheezing. Denies chest pain or tightness. 03/22: Currently in the OR. No major overnight events. 03/23: Recognizes me from when I took care of him back in July when he had COVID-19. Doing well postoperatively. Having lunch when I visited him. Later in the day, having difficulty with IV access. If he is going to require significant IV antibiotics, will require a PICC line, better to put it in sooner than later. Continues to be bradycardic and in atrial flutter rhythm, sometimes dipping into the 30s at night. Intraoperative cultures and bone cultures pending. 03/24: No new complaints this morning. Up having breakfast. In sinus rhythm this morning. Intraoperative tissue and bone cultures remain pending. White count decreased to 11.7 today. Creatinine up to 1.4. 03/25 Pt remains on cefepime but there are cultures growing enterococcus species and the wbc remains elevated. Pt says the right foot inflammation partially improves but persists. 03/26 Pt says doesnt check blood sugars beyond qod at home. pt had resection of right 4th toe 03/22 and grew multiple organisms including actinomyces, enterococcus. I added ampicillin to cefepime for the enterococcus. There is persistent elevated wbc and CRP but procalcitonin was ok on the 03/26. The patient says he cant feel his feet so doesnt hurt. He thinks swelling is down some. 03/27 He thinks swelling is down some. Says was discovered when his dog kept licking his right foot so he thought initially was just dirty feet then was suspicious but could examine his own feet and lives alone. Had it looked at at wound care where he was already getting care for left foot. Was bandaged up but then became further right foot inf ected. see above. 03/28 No overnight event or new complaints. Leukocytosis resolved. CRP improving discussed the case with infectious disease Dr. Chase, who recommended 2 weeks of IV Unasyn 3g tid from surgery date on followed by Augmentin 1gm tid for 2 more weeks. A: *Right foot/toe infec w/Osteo (WC growing strep agalactiae/actinomyces/enterococcus): s/p Right 4th toe amp (03/22) -leukocytosis resolved *AECOPD (Not on oxygen), mild: resolved -CTA unremarkable *Aflutter (new dx): BB stopped d/t bradycardia. converted back to sinus 03/24 -echo with EF 50-55, mild-mod reduced RV systolic *Generalized weakness/deconditioning: *Morbid obesity: *DM w/neuropathy: A1c 6.3 *CKD III: *Anemia, chronic: *KEZIA w/CPAP: *Spinal stenosis and chronic pain: *HTN/HLD: *Alcohol abuse: went through withdrawal *Mass on superior pole of right kidney, 2.2cm -Outpatient follow up IV pyelogram Discharge diagnosis: Right foot toe infection with osteomyelitis COPD a flutter Secondary discharge diagnosis: Morbid obesity diabetes generalized weakness deconditioning chronic kidney disease chronic anemia obstructive sleep apnea chronic pain hypertension alcohol abuse mass superior pole of right kidney Time Spent with Patient Time attestation: Total time spent providing and/or coordinating discharge services: EXAM Constitutional Vitals: Temp Pulse Resp BP Pulse Ox 98.1 F 71 19 129/68 91 03/28/21 06:57 03/28/21 06:57 03/28/21 06:57 03/28/21 06:57 03/28/21 06:57 Discharge Data Data Completed and Pending Labs on day of discharge: Labs from last 24 hours 03/28/21 03/28/21 03/28/21 05:28 05:28 05:28 WBC RBC Hgb Hct MCV MCH MCHC RDW Plt Count MPV Neut % (Auto) Lymph % (Auto) [place] % (Auto) Eos % (Auto) Baso % (Auto) Lymph # (Auto) [place] # (Auto) Eos # (Auto) Baso # (Auto) Absolute Neutrophils Sodium 138 Potassium 4.8 Chloride 106 Carbon Dioxide 18 L Anion Gap 14.0 BUN 33 H Creatinine 1.4 H GFR Calculation 48 Glucose 110 H Hemoglobin A1c 6.3 H Estim Average Glucose 134 Uric Acid 8.0 Calcium 9.1 C-Reactive Protein 6.60 H Procalcitonin 0.06 03/28/21 05:28 WBC 10.1 RBC 3.51 L Hgb 10.3 L Hct 33.8 L MCV 96.3 MCH 29.3 MCHC 30.5 L RDW 14.9 H Plt Count 333 MPV 9.1 Neut % (Auto) 70.0 Lymph % (Auto) 20.4 [place] % (Auto) 7.0 Eos % (Auto) 2.0 Baso % (Auto) 0.6 Lymph # (Auto) 2.07 [place] # (Auto) 0.71 Eos # (Auto) 0.20 Baso # (Auto) 0.06 Absolute Neutrophils 7.10 Sodium Potassium Chloride Carbon Dioxide Anion Gap BUN Creatinine GFR Calculation Glucose Hemoglobin A1c Estim Average Glucose Uric Acid Calcium C-Reactive Protein Procalcitonin Preliminary micro results at discharge 03/22/21 10:08 Anaerobic Culture - Preliminary Foot - Right Discharge Plan Patient/Caregiver Discharge Instructions Activity: increase activity as tolerated Diet: Consistent Carbohydrate Instructions: Atrial Flutter (DC) Activity Restrictions/Additional Instructions: f/u with pcp regarding incidental right kidney mass for outpt CT IVP. Weekly cmp,cbc,crp, esr while on IV Abx - send to PCP/Dr. Boss PICC line care until d/c'd on 04/05/2021. Do not start Augmentin until 04/06/2021. Prescriptions: New Eliquis 5 mg Tablet 5 mg PO BID Qty: 60 RF: 0 ampicillin-sulbactam [Unasyn] 3 gram recon soln 3 g IV Q8H Qty: 24 RF: 0 amoxicillin-pot clavulanate [Augmentin XR] 1,000-62.5 mg tablet extended release 12 hr 1 tab PO TID Qty: 42 RF: 0 Continued (DME) Accu-Chek Jeimy Plus test strp strip See Rx Instructions .ROUTE .MEDSUPPLY Qty: 10 RF: 0 (DME) lancets [Accu-Chek Softclix Lancets] Misc See Rx Instructions .ROUTE .MEDSUPPLY Qty: 100 RF: 5 furosemide 40 mg tablet 40 mg PO DAILY Qty: 90 RF: 3 potassium chloride 10 mEq capsule, extended release 10 meq PO QAMCC Qty: 90 RF: 3 (DME) Diabetic shoes Qty: 1 RF: 0 (DME) CPAP Qty: 1 RF: 8 Symbicort 160-4.5 mcg/actuation HFA aerosol inhaler 2 puff INHALATION BID PRN (Reason: COPD) RF: 0 (DME) cpap mask Qty: 1 RF: 0 tizanidine 4 mg capsule 4 mg PO BID PRN (Reason: muscle spasticity) Qty: 30 RF: 3 cranberry extract 300 MG tablet 300 mg PO BID RF: 0 vitamin B comp with C no.4 150 MG tablet 150 mg PO DAILY RF: 0 omega 4-xwd-yqx-fish oil 300-1,000 mg capsule 1 cap PO BID RF: 0 magnesium oxide 400 mg magnesium capsule 420 mg PO QHS RF: 0 allopurinol 100 mg Tablet 100 mg PO QDAY RF: 0 garlic 1,250 mg Tablet 1,250 mg PO BID RF: 0 PreserVision AREDS-2 250-90-40-1 mg Capsule 1 tab PO BID RF: 0 simvastatin 20 mg Tablet 20 mg PO QHS RF: 0 valsartan 320 mg Tablet 320 mg PO QDAY RF: 0 metformin 500 mg tablet 500 mg PO BIDCC RF: 0 Changed gabapentin 600 mg tablet 1,200 mg PO BID Qty: 1 RF: 0 hydrocodone-acetaminophen 10-325 mg tablet 2 tab PO Q6HP PRN (Reason: pain) Qty: 20 RF: 0 Discontinued amlodipine 5 mg tablet 5 mg PO DAILY Qty: 90 RF: 0 levofloxacin 750 mg tablet 750 mg PO QDAY Qty: 10 RF: 0 aspirin 325 MG tablet,delayed release (DR/EC) 325 mg PO DAILY RF: 0 aspirin 325 mg Tablet 325 mg PO QDAY RF: 0 Follow Up Plan Follow up with: Reza Graham MD [Primary Care Provider] - Daivd Warner DPM [Physician] - Patient Disposition: Xfer SNF Prognosis: Fair Rehab Potential: Fair I certify that the patient requires SNF services: Yes Overall status at discharge: patient is progressing back to baseline Discharge Orders: Discharge Order (Routine); Ordered 03/28/21 [facility]/Pulmonary Embolism Present on Admission: No
[2021-03-28] MEDS ORDERED: metroNIDAZOLE 500 MG/100 ML BAG IV ONE (10:23)
[2021-03-28] MEDS: GABAPENTIN 400 MG CAPSULE PO SCH ×2 (10:35→20:30)
[2021-03-28] MEDS: FOLIC ACID 1 MG TABLET PO SCH (10:35)
[2021-03-28] MEDS: ALLOPURINOL 100 MG TABLET PO SCH (10:35)
[2021-03-28] MEDS: MULTIVIT,THER IRON,CA,FA & MIN 1 TABLET PO SCH (10:35)
[2021-03-28] MEDS: THIAMINE 100 MG TABLET PO SCH (10:35)
[2021-03-28] MEDS: DOCUSATE SODIUM 100 MG CAPSULE PO SCH ×2 (10:35→20:30)
[2021-03-28] MEDS: APIXABAN 5 MG TABLET PO SCH ×2 (10:35→20:30)
[2021-03-28] MEDS: INSULIN GLARGINE, HUMAN 1 UNIT/0.01 ML SQ SCH (10:37)
[2021-03-28] MEDS: CEFEPIME 1 GM VIAL IV SCH ×2 (10:51→20:30)
[2021-03-28] MEDS: SIMVASTATIN 20 MG TABLET PO SCH (20:30)
[2021-03-28] MEDS: PANTOPRAZOLE 40 MG TABLET PO SCH (20:31)
[2021-03-29] MEDS: HYDROcodone/APAP 10/325MG TABLET PO PRN ×2 (03:52→11:33)
[2021-03-29] MEDS: 0.9 % SODIUM CHLORIDE 10 ML SYRINGE IV SCH ×2 (05:28→09:59)
[2021-03-29] MEDS: AMPICILLIN SODIUM 2 GM in 0.9 % SODIUM CHLORIDE 100 ML IV SCH (05:28)
[2021-03-29] MEDS: INSULIN LISPRO 1 UNIT/0.01 ML UNIT SQ SCH ×2 (07:04→11:49)
[2021-03-29] MEDS: DOCUSATE SODIUM 100 MG CAPSULE PO SCH (09:55)
[2021-03-29] MEDS: GABAPENTIN 400 MG CAPSULE PO SCH (09:55)
[2021-03-29] MEDS: MULTIVIT,THER IRON,CA,FA & MIN 1 TABLET PO SCH (09:55)
[2021-03-29] MEDS: THIAMINE 100 MG TABLET PO SCH (09:55)
[2021-03-29] MEDS: APIXABAN 5 MG TABLET PO SCH (09:55)
[2021-03-29] MEDS: FOLIC ACID 1 MG TABLET PO SCH (09:55)
[2021-03-29] MEDS: ALLOPURINOL 100 MG TABLET PO SCH (09:55)
[2021-03-29] MEDS: INSULIN GLARGINE, HUMAN 1 UNIT/0.01 ML SQ SCH (09:56)
[2021-03-29] MEDS: CEFEPIME 1 GM VIAL IV SCH (10:08)
--- NOTE | 2021-03-31 17:01 | EKG ---
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
== END 2021-03-29 12:45 | DRG 616 ==
LOC: ED 18:44 → MEDSUR 03-16 00:07
PROVIDERS: ADMIT Internal Medicine; ATTEND Internal Medicine

== ENCOUNTER 2022-08-13 11:19 | Inpatient (IN) ==
[2022-08-13 11:42] LABS: POC Calcium, Ionized 1.25 (1.16-1.32); POC Potassium 5.8 (3.3-5.1)
[2022-08-13] MEDS ORDERED: CALCIUM GLUCONATE 4.65 MEQ/10 ML VIAL IV ONE (13:56)
[2022-08-13] MEDS ORDERED: DEXTROSE 50% 50 ML VIAL IV ONE (14:03)
[2022-08-13] MEDS ORDERED: INSULIN REGULAR, HUMAN 1 UNIT/0.01 ML UNIT IV ONE (14:03)
[2022-08-13] MEDS ORDERED: DEXTROSE 50% 50 ML SYRINGE IV ONE (14:14)
[2022-08-13] MEDS ORDERED: CALCIUM GLUCONATE 9.3 MEQ in DEXTROSE 5% IN WATER 50 ML IV ONE (14:30)
[2022-08-13 14:31] LABS: Basophils # (Auto) 0.13 K/mcL (0.00-0.30); Basophils % (Auto) 0.4 % (0.0-2.0); Eosinophils # (Auto) 1.47 K/mcL (0.00-0.70); Eosinophils % (Auto) 4.4 % (0.0-7.0); Hemoglobin 9.6 g/dL (13.7-17.5); Lymphocytes # (Auto) 1.68 K/mcL (1.50-4.80); Lymphocytes % (Auto) 5.1 % (15.5-49.0); Mean Cell Volume 88.6 fL (80.0-100.0); Monocytes # (Auto) 1.22 K/mcL (0.10-0.90); Monocytes % (Auto) 3.7 % (1.0-12.0); Neutrophils % (Auto) 83.4 % (38.0-78.0); Platelet Count 598 K/mcL (140-440); RBC 3.61 M/mcL (4.63-6.08); Red Cell Distribution Width 16.7 % (11.5-14.5); WBC 33.1 K/mcL (4.5-11.0)
--- NOTE | 2022-08-13 15:08 | XRay Report ---
CLINICAL INFORMATION: Elevated white blood cell count COMPARISON: None. TECHNIQUE: Portable FINDINGS films taken in extreme leftward rotation accentuates the cardiomediastinal silhouette. Pulmonary vessels are normal. Moderate infiltrate present in the left base with small left pleural effusion. IMPRESSION: Moderate left basilar infiltrate. Interpreted and Authenticated by: Buster Luciano 08/13/22
[2022-08-13] MEDS ORDERED: VANCOMYCIN 1,000 MG in 0.9 % SODIUM CHLORIDE 250 ML IV ONE (15:21)
[2022-08-13] MEDS ORDERED: 0.9 % SODIUM CHLORIDE 1,000 ML IV ONE (15:22)
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
[2022-08-13] MEDS ORDERED: PIPERACILLIN SODIUM/TAZOBACTAM 3.375 GM in DEXTROSE 5% IN WATER 50 ML IV SCH ×2 (15:30→20:00)
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
[2022-08-13 17:15] LABS: Erythrocyte Sedimentation Rate 126 mm/hr (0-20)
[2022-08-13] MEDS ORDERED: HYDROcodone/APAP 10/325MG TABLET PO ONE ×2 (17:18→17:20)
[2022-08-13 17:42] LABS: Anisocytosis 1+ (None Seen); Band Neutrophils % 8 % (0-10); Eosinophils % (Manual) 7 % (0-7); Hypochromasia 1+ (None Seen); Lymphocytes % 14 % (15-49); Monocytes % (Manual) 3 % (1-12); Polychromasia 1+ (None Seen); RBC Morphology ABNORMAL (Normal); Segmented Neutrophils % 68 % (38-78)
[2022-08-13 19:53] LABS: Alcohol, Urine None Detected; Amphetamine Screen,Urine None detected; Barbiturate Screen,Urine None detected; Benzodiazepines Screen,Urine None detected; Cannabinoid Screen,Urine None detected; Cocaine Screen,Urine None detected; Opiate Screen,Urine Suspect Positive; Oxycodone, Urine Screen None detected; Phencyclidine Screen,Urine None detected
[2022-08-13] MEDS ORDERED: ONDANSETRON 4 MG/2 ML VIAL IV PRN (20:00)
[2022-08-13] MEDS ORDERED: POTASSIUM CHLORIDE 20 MEQ TABLET PO PRN ×2 (20:00)
[2022-08-13] MEDS ORDERED: IPRATROPIUM/ALBUTEROL 3 ML AMPUL.NEB NEB PRN (20:00)
[2022-08-13] MEDS ORDERED: DEXTROSE 50% 50 ML VIAL IV PRN (20:00)
[2022-08-13] MEDS ORDERED: POLYETHYLENE GLYCOL 3350 17 GM PACKET PO PRN (20:00)
[2022-08-13] MEDS ORDERED: VANCOMYCIN PER PHARMACY IV ONE (20:00)
[2022-08-13] MEDS ORDERED: DEXTROSE 31 GM ORAL.SUSP PO PRN (20:00)
[2022-08-13] MEDS ORDERED: POTASSIUM CHLORIDE 40 MEQ in DEXTROSE 5% IN WATER 500 ML IV PRN (20:00)
[2022-08-13] MEDS ORDERED: LABETALOL 5 MG/ML ML IV PRN (20:00)
[2022-08-13] MEDS ORDERED: SENNOSIDES 1 TABLET PO PRN (20:00)
[2022-08-13] MEDS ORDERED: ACETAMINOPHEN 325 MG TABLET PO PRN (20:00)
[2022-08-13] MEDS ORDERED: MAGNESIUM SULFATE 2 GM/50 ML BAG IV PRN (20:00)
[2022-08-13] MEDS ORDERED: SODIUM POLYSTYRENE SULFONATE 15 GM/60 ML SUSPENSION PO ONE (20:00)
[2022-08-13] MEDS ORDERED: VANCOMYCIN 500 MG in 0.9 % SODIUM CHLORIDE 100 ML IV ONE (20:30)
[2022-08-13 20:35] LABS: INR 1.7 (0.9-1.1)
[2022-08-13] MEDS: 0.9 % SODIUM CHLORIDE 1,000 ML IV SCH (20:53)
[2022-08-13] MEDS ORDERED: HEPARIN 5,000 UNIT/ML VIAL SQ SCH (21:00)
[2022-08-13] MEDS ORDERED: GABAPENTIN 400 MG CAPSULE PO SCH (21:00)
[2022-08-13] MEDS ORDERED: HYDROcodone/APAP 10/325MG TABLET PO PRN (21:01)
[2022-08-13] MEDS ORDERED: GABAPENTIN 300 MG CAPSULE PO ONE (22:00)
[2022-08-13] MEDS: APIXABAN 5 MG TABLET PO SCH (22:06)
[2022-08-13] MEDS: DOCUSATE SODIUM 100 MG CAPSULE PO SCH (22:07)
[2022-08-13] MEDS: SIMVASTATIN 20 MG TABLET PO SCH (22:07)
[2022-08-13] MEDS: VIT A,C & E/LUTEIN/MINERALS TABLET PO SCH (22:07)
[2022-08-13] MEDS: 0.9 % SODIUM CHLORIDE 10 ML SYRINGE IV SCH (22:08)
[2022-08-13] MEDS: HYDROcodone/APAP 10/325MG TABLET PO PRN (22:15)
[2022-08-13] MEDS: TAMSULOSIN 0.4 MG CAPSULE PO SCH (22:25)
[2022-08-13] MEDS: INSULIN LISPRO 1 UNIT/0.01 ML UNIT SQ SCH (22:25)
[2022-08-13] MEDS: PIPERACILLIN SODIUM/TAZOBACTAM 2.25 GM in DEXTROSE 5% IN WATER 50 ML IV SCH (23:15)
[2022-08-14] MEDS: 0.9 % SODIUM CHLORIDE 1,000 ML IV SCH ×2 (04:28→07:34)
[2022-08-14] MEDS: PIPERACILLIN SODIUM/TAZOBACTAM 2.25 GM in DEXTROSE 5% IN WATER 50 ML IV SCH ×4 (04:38→21:57)
[2022-08-14] MEDS: 0.9 % SODIUM CHLORIDE 10 ML SYRINGE IV SCH ×4 (05:51→20:10)
[2022-08-14] MEDS: hydrALAZINE 20 MG/ML VIAL IV PRN (06:07)
[2022-08-14 06:39] LABS: Hematocrit 28.9 % (40.1-51.0); Hemoglobin 8.7 g/dL (13.7-17.5); Mean Cell Volume 87.6 fL (80.0-100.0); Mean Corpuscular HGB Conc 30.1 g/dL (31.0-36.0); Mean Platelet Volume 8.9 fL (8.8-12.5); Platelet Count 491 K/mcL (140-440); Red Cell Distribution Width 16.9 % (11.5-14.5); WBC 28.9 K/mcL (4.5-11.0)
[2022-08-14 06:59] LABS: ALT/SGPT 35 U/L (<40); AST/SGOT 16 U/L (<40); Albumin 3.3 gm/dL (3.2-5.2); Albumin/Globulin Ratio 0.8 (1.0-2.3); Alkaline Phosphatase 173 U/L (39-117); Bilirubin,Direct < 0.2 mg/dL (0-0.3); Bilirubin,Total 0.2 mg/dL (0.1-1.0); Blood Urea Nitrogen 30 mg/dL (8-23); Calcium 9.3 mg/dL (8.6-10.4); Carbon Dioxide 18 mmol/L (22-30); Chloride 108 mmol/L (96-108); Globulin 4.1 gm/dL (2.2-3.7); Glomerular Filtration Rate 47; Glucose 108 mg/dL (70-105); Lactate Dehydrogenase 229 U/L (135-225); Phosphorous 4.7 mg/dL (2.5-4.5); Triglycerides 154 mg/dL (<150); Uric Acid 4.9 mg/dL (2.5-8.0)
--- NOTE | 2022-08-14 07:27 | Internal Med Progress Note ---
SUBJECTIVE Subjective Patient information: Note initiated : 08/14/22 at 7:23 am Service Date, if different from initiated Date: [] Patient: Shubham Ceballos a 76 y/o M admitted on 08/13/22 for Elevated WBC and K+. Chief Complaint: [] Interval history: History of present illness: Mr. Ceballos is a 76 year old M Presents from the [facility] for leukocytosis of about 40,000 hyperkalemia of 6.0. Patient given Kayexalate prior to arrival. Patient had washout of the left knee on 28 July for infected knee previously had surgery last February total knee arthroplasty. Patient says that since he has had that washout he has been declining. Patient was recently on cefdinir because is felt he had an aspiration pneumonia. But in looking at the imaging it looks like he has had this left lower lobe infiltrate for some time, appears to be chronic In the ED was evaluated and found to have a leukocytosis of 32,000 at this time with a platelets of 598 likely reactive. BUN and creatinine are elevated at 39/2.0. Creatinine potassium 5.8. Blood cultures were drawn and Vanco and Zosyn were given. Chest x-ray showed left lower lobe infiltrate although there was a CXR on 07/31 with reported left basilar infiltrate on and effusion. No lactic acidosis. CRP is elevated. Looking at old notes patient was actually discharged from [facility] on the treated for left lower lobe pneumonia and felt to be aspiration related as well. 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 He also had a right kidney mass and a left adrenal mass. He also had a adrenal mass and kidney mass. There was discussion in the [facility] notes about referral to oncology but I am not sure if he is seeing oncology yet. The left lung infiltrate seems to be chronic and suspect related to malignancy. Patient denies any increased cough or shortness of breath, patient does have some mild chronic shortness of breath. Patient given broad-spectrum antibiotics in the ED and IV fluids. Also given insulin glucose for the hyperkalemia. 08/14 No overnight or new complaints. Only complaint is headache. Just feels weak in general. Sounds like he is on Eliquis for paroxysmal atrial fibrillation. Renal function is improving and potassium better. Leukocytosis better and likely chronic. Anemia present Review of Systems: Pertinent positives as above, plus headache. Denies fever/chills/nausea/vomiting/chest or abdominal pain/cough/dyspnea/diarrhea. PHYSICAL EXAM General: Alert, Awake, No acute Distress, obese Eyes/N/T: EOMI, no scleral icterus, Head/Neck: neck supple, full ROM, CV: Reg, No murmurs, Pulm: diminished on Left, mild b/l wheezing, no respiratory distress Abd: soft, nontender, +BS x4 Ext: no clubbing/cyanosis, trace b/l LE edema, nontender, venous stasis changes, left knee incision site looks clean dry no erythema or induration Neuro: Alert, no focal deficits, moves all extremities,sensations intact b/l upper/lower Psychiatric: Skin: warm/dry, normal color Constitutional Vitals: Vital Signs Temp Pulse Resp BP Pulse Ox O2 Del Method O2 Flow Rate 97.8 F 88 20 168/69 94 Room Air 2 08/14/22 03:42 08/14/22 03:42 08/14/22 03:42 08/14/22 06:03 08/14/22 03:42 08/14/22 03:42 08/13/22 22:41 Period Temp Pulse Resp BP Sys/Gonzalez Pulse Ox O2 Del Method O2 Flow Rate Last 24 Hr 96.0 F-98.5 F 72-102 16-26 103-183/47-120 91-97 CPAP-Room Air 2 Intake and Output 08/13/22 08/14/22 08/14/22 19:59 03:59 11:59 Intake Total 627 776 2438 Output Total 350 700 650 Balance 20 -550 400 Weight 110.45 kg Intake & Output: Intake & Output 08/13/22 08/14/22 08/14/22 19:59 03:59 11:59 Intake Total 583 775 3603 Output Total 350 700 650 Balance 20 -550 400 Weight 110.45 kg Intake: IV 278 872 1902 Sodium Chloride 0.9% 1,000 ml @ 1000 100 mls/hr IV BOLUS ONE Rx#: [id number] Calcium Gluconate 9.3 Meq In 70 Dextrose 5% in Water 50 ml @ 70 mls/hr IV ONCE ONE Rx#: [id number] Zosyn 2.25 gm In Dextrose 5% in 50 50 Water 50 ml @ 100 mls/hr IV Q6H [facility] Rx#:[id number] Zosyn 3.375 gm In Dextrose 5% 50 in Water 50 ml @ 100 mls/hr IV PREOP [facility] Rx#:[id number] Vancomycin 500 mg In Sodium 100 Chloride 0.9% 100 ml @ 100 mls/ hr IV ONCE ONE Rx#:[id number] Vancomycin 1,000 mg In Sodium 250 Chloride 0.9% 250 ml @ 250 mls/ hr IV ONCE ONE Rx#:[id number] Output: Void Amount 350 700 Urine/Stool Mix 650 Other: Urine Appearance Clear Clear Urine Color Yellow Yellow Stool Size Small Large Stool Color Brown Brown Stool Consistency Soft Soft Loose # Bowel Movements 1 OBJ DATA Labs 08/14/22 05:45 08/14/22 05:45 Labs: Abnormal Lab Results 08/14/22 08/14/22 08/13/22 05:45 05:45 19:19 WBC 28.9 H RBC 3.30 L Hgb 8.7 L Hct 28.9 L POC Hct MCHC 30.1 L RDW 16.9 H Plt Count 491 H Immature Gran % (Auto) Neut % (Auto) Lymph % (Auto) Hamb[place] # (Auto) Eos # (Auto) Lymphocytes % Immature Gran # Absolute Neutrophils Platelet Estimate RBC Morphology Polychromasia Hypochromasia Anisocytosis ESR PT INR POC Potassium POC Chloride Carbon Dioxide 18 L POC Total CO2 POC BUN BUN 30 H Creatinine 1.4 H POC Creatinine Glucose 108 H Phosphorus 4.7 H Alkaline Phosphatase 173 H Lactate Dehydrogenase 229 H C-Reactive Protein 7.50 H Globulin 4.1 H Albumin/Globulin Ratio 0.8 L Triglycerides 154 H Procalcitonin Urine Opiates Screen Suspect positive A 08/13/22 08/13/22 08/13/22 11:36 11:33 11:33 WBC RBC Hgb Hct POC Hct 31.0 L MCHC RDW Plt Count Immature Gran % (Auto) Neut % (Auto) Lymph % (Auto) [place] # (Auto) Eos # (Auto) Lymphocytes % Immature Gran # Absolute Neutrophils Platelet Estimate RBC Morphology Polychromasia Hypochromasia Anisocytosis ESR PT 21.0 H INR 1.7 H POC Potassium 5.8 H POC Chloride 113 H Carbon Dioxide POC Total CO2 20.0 L POC BUN 39 H BUN Creatinine POC Creatinine 2.0 H Glucose Phosphorus Alkaline Phosphatase Lactate Dehydrogenase C-Reactive Protein 9.70 H Globulin Albumin/Globulin Ratio Triglycerides Procalcitonin Urine Opiates Screen 08/13/22 08/13/22 08/13/22 11:33 11:30 11:30 WBC 33.1 H* RBC 3.61 L Hgb 9.6 L Hct 32.0 L POC Hct MCHC 30.0 L RDW 16.7 H Plt Count 598 H Immature Gran % (Auto) 3.0 H Neut % (Auto) 83.4 H Lymph % (Auto) 5.1 L Hamb[place] # (Auto) 1.22 H Eos # (Auto) 1.47 H Lymphocytes % 14 L Immature Gran # 1.00 H Absolute Neutrophils 27.64 H Platelet Estimate Decreased A RBC Morphology Abnormal A Polychromasia 1+ A Hypochromasia 1+ A Anisocytosis 1+ A ESR 126 H PT INR POC Potassium POC Chloride Carbon Dioxide POC Total CO2 POC BUN BUN Creatinine POC Creatinine Glucose Phosphorus Alkaline Phosphatase Lactate Dehydrogenase C-Reactive Protein Globulin Albumin/Globulin Ratio Triglycerides Procalcitonin 0.22 H Urine Opiates Screen Meds: Medications Acetaminophen (Acetaminophen 325 Mg Tablet) 650 mg PO Q6HP PRN; Protocol PRN Reason: Per Pain Protocol/Fever > 101 Hydrocodone Bitart/Acetaminophen (Hydrocodone/Apap 10/325mg Tablet) 2 tab PO Q6HP PRN; Protocol PRN Reason: Pain Last Admin: 08/13/22 22:15 Dose: 2 tab Albuterol/Ipratropium (Ipratropium/Albuterol 3 Ml Ampul.Neb) 3 ml NEB Q4HP PRN PRN Reason: Shortness Of Breath Allopurinol (Allopurinol 100 Mg Tablet) 50 mg PO QAM [facility] Amlodipine Besylate (Amlodipine 5 Mg Tablet) 10 mg PO QAM [facility] Apixaban (Apixaban 5 Mg Tablet) 5 mg PO BID [facility] Last Admin: 08/13/22 22:06 Dose: 5 mg Dextrose (Dextrose 50% 50 Ml Vial) 0 ml IV UD PRN PRN Reason: Per Sliding Scale Diagnostic Test (Pha) (Accu-Chek 1 Each Strip) 1 each FS ACHS [facility] Last Admin: 08/13/22 22:20 Dose: 1 each Docusate Sodium (Docusate Sodium 100 Mg Capsule) 100 mg PO BID [facility] Last Admin: 08/13/22 22:07 Dose: 100 mg Gabapentin (Gabapentin 300 Mg Capsule) 900 mg PO BID [facility] Glucose (Dextrose 31 Gm Oral.Susp) 15 gm PO PRN PRN PRN Reason: Hypoglycemia Hydralazine HCl (Hydralazine 20 Mg/Ml Vial) 0 mg IV Q2HP PRN PRN Reason: Hypertension Last Admin: 08/14/22 06:07 Dose: 10 mg Potassium Chloride 40 meq/ (Dextrose) 520 mls @ 130 mls/hr IV UD PRN PRN Reason: Potassium < 3 Magnesium Sulfate (Magnesium Sulfate) 2 gm in 50 mls @ 50 mls/hr IV UD PRN PRN Reason: Magnesium </= 1.6 Sodium Chloride (Sodium Chloride 0.9%) 1,000 mls @ 100 mls/hr IV .Q10H [facility] Stop: 08/14/22 15:59 Last Admin: 08/14/22 04:28 Dose: 100 mls/hr Piperacillin Sod/Tazobactam (Sod 2.25 gm/ Dextrose) 50 mls @ 100 mls/hr IV Q6H [facility] Last Infusion: 08/14/22 05:08 Dose: Infused Insulin Human Lispro (Insulin Lispro 1 Unit/0.01 Ml Unit) 0 unit SQ ACHS [facility]; Protocol Last Admin: 08/13/22 22:25 Dose: 2 units Labetalol HCl (Labetalol 5 Mg/Ml Ml) 0 mg IV Q2HP PRN PRN Reason: Hypertension Lidocaine (Lidocaine Patch) 1 patch TOPICAL DAILY@1000 GRISEL Multivitamins/Minerals (Vit A,C & E/Lutein/Minerals Tablet) 1 tab PO BID [facility] Last Admin: 08/13/22 22:07 Dose: 1 tab Ondansetron HCl (Ondansetron 4 Mg/2 Ml Vial) 4 mg IV Q4HP PRN PRN Reason: Nausea And Vomiting Polyethylene Glycol (Polyethylene Glycol 3350 17 Gm Packet) 17 gm PO DAILYP PRN PRN Reason: Constipation Potassium Chloride (Potassium Chloride 20 Meq Tablet) 40 meq PO UD PRN PRN Reason: Potssium is 3-3.5 Potassium Chloride (Potassium Chloride 20 Meq Tablet) 40 meq PO UD PRN PRN Reason: Potassium < 3 Senna (Sennosides 1 Tablet) 2 tab PO DAILYP PRN PRN Reason: Constipation Simvastatin (Simvastatin 20 Mg Tablet) 20 mg PO QHS [facility] Last Admin: 08/13/22 22:07 Dose: 20 mg Sodium Chloride (0.9 % Sodium Chloride 10 Ml Syringe) 10 ml IV Q8 [facility] Last Admin: 08/14/22 06:04 Dose: 10 ml Tamsulosin HCl (Tamsulosin 0.4 Mg Capsule) 0.4 mg PO QAM [facility] Last Admin: 08/13/22 22:25 Dose: 0.4 mg Vancomycin HCl (Vancomycin Per Pharmacy) 1 order IV ONCE ONE; Protocol Stop: 08/13/22 20:01 Last Admin: 08/13/22 21:03 Dose: Not Given A/P Narrative A/P Narrative: A: *Concern for LLL PNA, possible aspiration: -although these lung findings appear chronic and may be related to malignancy, although an underlying pna/pos-obstructive pna or aspiration pna is certainly possible. PCT low *Leukocytosis, acute on chronic:no bandemia ?infection on top of chronicity. 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 *PAF: on eliquis *COPD(not on home oxygen): *Obesity: BMI 38 *KEZIA on CPAP: *DM2: *HTN/HLD: cont statin *Tobacco abuse: *Chronic pain: *h/o gout: P: -Empiric antibiotics pending work-up including BC's, SC if possible, -eval for underlying infection, mrsa screen neg -check PCT, man Diff, -IS/Acapella, prn nebs -IVF d/c -Follow-up renal function, monitor UOP and fluid balance -Follow-up potassium, s/p Kayexalate -hold home ARB for now, cont Norvasc -home KCl stopped -ST eval -SSI -PT/OT -CM for placement needs -Follow-up closely with oncology -ppx: Home Eliquis DNR Time Spent With Patient Time: Total time spent is greater than 50% in coordination of care (as documented) at patient's floor/unit and/or counseling patient: Subsequent: Total time with patient: 50 - 65 Minutes
[2022-08-14] MEDS: HYDROcodone/APAP 10/325MG TABLET PO PRN ×3 (07:32→20:44)
[2022-08-14] MEDS: INSULIN LISPRO 1 UNIT/0.01 ML UNIT SQ SCH ×4 (07:35→20:17)
[2022-08-14] MEDS ORDERED: VANCOMYCIN PER PHARMACY IV SCH (08:15)
[2022-08-14] MEDS: VIT A,C & E/LUTEIN/MINERALS TABLET PO SCH ×2 (08:26→20:10)
[2022-08-14] MEDS: ALLOPURINOL 100 MG TABLET PO SCH (08:26)
[2022-08-14] MEDS: APIXABAN 5 MG TABLET PO SCH ×2 (08:26→20:10)
[2022-08-14] MEDS: amLODIPine 5 MG TABLET PO SCH (08:27)
[2022-08-14] MEDS: TAMSULOSIN 0.4 MG CAPSULE PO SCH (08:28)
[2022-08-14] MEDS: DOCUSATE SODIUM 100 MG CAPSULE PO SCH ×2 (08:28→20:10)
[2022-08-14] MEDS ORDERED: METOPROLOL TARTRATE 5 MG/5 ML VIAL IV PRN (08:39)
[2022-08-14] MEDS ORDERED: ENOXAPARIN 40 MG/0.4 ML SYRINGE SQ SCH (09:00)
[2022-08-14] MEDS ORDERED: GABAPENTIN 300 MG CAPSULE PO SCH (09:00)
[2022-08-14] MEDS ORDERED: VANCOMYCIN 1,500 MG in 0.9 % SODIUM CHLORIDE 500 ML IV SCH (09:00)
[2022-08-14 09:26] LABS: Anisocytosis 1+ (None Seen); Band Neutrophils % 4 % (0-10); Eosinophils % (Manual) 4 % (0-7); Hypochromasia 1+ (None Seen); Lymphocytes % 6 % (15-49); Monocytes % (Manual) 5 % (1-12); Platelet Estimate INCREASED (Normal); Polychromasia FEW (None Seen); RBC Morphology ABNORMAL (Normal); Segmented Neutrophils % 81 % (38-78)
[2022-08-14] MEDS: LIDOCAINE PATCH TOPICAL SCH (10:41)
--- NOTE | 2022-08-14 13:08 | Cat Scan Report ---
CLINICAL INFORMATION: Elevated white blood cell count. Former smoker. Sleep apnea COMPARISON: Chest CT approximately 1.5 years ago 03/15/2021 TECHNIQUE: 0.625 mm axial slices were obtained from the lung apices through the bases without intravenous contrast. 2.5 mm Sagittal, coronal and axial reformatted images were processed and reviewed at bone, lung and soft tissue windows. 7 mm axial MIP images were also reconstructed to optimize pulmonary nodule detection.The exam was performed using radiation dose optimization techniques including, but not limited to, automated exposure control, adjustment of the mA and/or kV according to patient size and use of iterative reconstruction technique. FINDINGS: Pulmonary parenchymal windows show mild centrilobular emphysema featuring chronic bronchitis with elevated lung volumes and wall thickening/ dilatation of the bronchi. There are scattered bullae in the upper lobes. A 7.3 centimeter well-circumscribed solid mass has developed in the paramediastinal anterior segment of the left upper lobe. It is suspicious for primary lung carcinoma. Moderate subsegmental atelectasis of the inferior left lower lobe appreciated with moderate elevation of the left diaphragm. Small region of groundglass airspace disease developing in the medial basilar segment right lower lobe. Is likely inflammatory or fibrosis. A tiny left pleural effusion noted. Mediastinal windows show the heart is mildly enlarged with extremely heavy calcific plaque in the coronary arteries. This has progressed. The noncontrast thoracic aorta and pulmonary arteries are normal diameter. No definite abnormally enlarged mediastinal hilar or axillary lymph nodes appreciated. The esophagus is grossly normal. The thyroid is unremarkable. Bone windows show no osseous metastases. Moderate degenerative disease seen throughout the mid lower thoracic spine. Ossification anterior longitudinal ligament present in the low mid lower thoracic spine. Soft tissues of the chest wall are normal. Images through the superior abdomen show 9 cm well-circumscribed mass in the left adrenal gland which measures between 16 and 40 Hounsfield units with peripheral calcification. It is unchanged in size compared to the exam 1.5 years ago and likely represents a large benign adenoma. A 2.7 cm well-circumscribed solid lesion projecting from the superior pole the right kidney as increased from 2.2 cm. It may represent stage I renal cell carcinoma. A 11 mm simple cyst in the posterior superior pole of the right kidney is unchanged. The right adrenal gland, spleen, liver gallbladder and bile ducts are normal. IMPRESSION: 1. 7.3 cm mass in the anterior segment of the left upper lobe adjacent to the mediastinum. It is suspicious for primary lung carcinoma. Suggest CT-guided biopsy. No evidence of adenopathy or metastatic disease. 2. 9 cm well-circumscribed left adrenal mass-stable for 1.5 years ago. 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 3. 2.6 cm solid mass superior pole of the right kidney as increased from 2.2 cm the previous study. This could represent a low-grade renal cell carcinoma. Suggest CT IVP. The patient cannot tolerate iodinated contrast due to renal insufficiency, then suggest abdominal MRI. 4. Moderate centrilobular emphysema. 5. Mild elevation left diaphragm resulting in subsegmental atelectasis in the overlying left lower lobe. Interpreted and Authenticated by: Buster Luciano 08/14/22
--- NOTE | 2022-08-14 14:29 | Internal Med Progress Note ---
SUBJECTIVE Subjective Patient information: Note initiated : 08/14/22 at 2:27 pm Service Date, if different from initiated Date: [] Patient: Shubham Ceballos a 76 y/o M admitted on 08/13/22 for Elevated WBC and K+. Chief Complaint: [] Additional PMFSH (Level 3 Only): Mr. Ceballos is a 76 year old male with history of CAD, diabetes mellitus 2, hypertension, COPD, atrial fibrillation, morbid obesity was discharged on 08/04/2022 from [facility] where he was treated for left knee gouty arthritis and underwent washout by orthopedics. 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 There was discussion in Tama's notes about referral to oncology but it is unclear if patient saw oncology. Patient MRSA screen was positive. He was treated with vancomycin, Zosyn and was discharged to SNF on Zyvox and cefdinir. At the time of discharge his WBC count was 20,000. Patient presented to our ER on 08/13/2022 with a WBC count of 40,000 and hyperkalemia of 6.0 on outpatient labs. In the ED patient lab work showed leukocytosis of 32,000, platelets 598 likely reactive, BUN and creatinine elevated at 39/2.0, serum potassium 5.8. Lactic acid was normal. CRP was elevated. Chest x-ray showed left lower lobe infiltrate, patient was started on vancomycin and Zosyn and was given insulin for hyperkalemia. Patient did not have much in the way of cough, he has mild chronic shortness of breath. 08/15 Review of previous record shows that patient has mild chronic leukocytosis. WBC has improved to 28,000 however no labs available from this morning. CRP has trended down. Hyperkalemia has resolved. Mild chronic anemia unchanged. Patient reports that he has minimal cough, and may have produced some clear sputum but denies any shortness of breath. He received as needed hydralazine and labetalol for his blood pressure of 150 systolic overnight. He has lidocaine patch for chronic pain. Review of Systems: Constitutional Constitutional: No fever, chills, feeling better EENT Eyes: Absent change in vision Nose, mouth and throat: Absent sore throat Cardiovascular Cardiovascular: Absent chest pain, dyspnea or palpatations Respiratory Respiratory: Reports some cough and clear sputum Gastrointestinal Gastrointestinal: Absent abdominal pain; Absent nausea Genitourinary Genitourinary: No flank pain Musculoskeletal Musculoskeletal: Denies any muscle or joint pain Integumentary Integumentary: Absent rash Neurological Neurological: Absent headache, focal weakness PHYSICAL EXAM General: Alert and awake, well nourished male, in no acute distress Eyes/N/T: EOMI, no scleral icterus, PERRL, Head/Neck: neck supple, full ROM, normocephalic atraumatic CV: RRR, No murmurs, normal s1/s2 Pulm: Mild bilateral rales in the mid and lower zone, on 2 L nasal cannula oxygen Abd: soft, nontender, +BS x4 : No flank pain Ext: no clubbing/cyanosis/edema, nontender Neuro: Alert, no focal deficits, moves all extremities, CN 2-12 grossly intact, sensations intact b/l upper/lower Psychiatric: Appropriate mood and affect Skin: warm/dry, normal color Constitutional Vitals: Vital Signs Temp Pulse Resp BP Pulse Ox O2 Del Method O2 Flow Rate 97.8 F 100 H 20 137/91 97 Room Air 2 08/14/22 12:00 08/14/22 12:00 08/14/22 12:00 08/14/22 12:00 08/14/22 12:00 08/14/22 12:00 08/13/22 22:41 Period Temp Pulse Resp BP Sys/Gonzalez Pulse Ox O2 Del Method O2 Flow Rate Last 24 Hr 97.6 F-98.5 F 88-102 17-26 127-183/67-120 92-97 CPAP-Room Air 2 Intake and Output 08/14/22 08/14/22 08/14/22 03:59 11:59 19:59 Intake Total 150 1580 480 Output Total 700 650 Balance -550 930 480 Intake & Output: Intake & Output 08/14/22 08/14/22 08/14/22 03:59 11:59 19:59 Intake Total 150 1580 480 Output Total 700 650 Balance -550 930 480 Intake: IV 150 1100 Sodium Chloride 0.9% 1,000 ml @ 1000 100 mls/hr IV BOLUS ONE Rx#: [id number] Zosyn 2.25 gm In Dextrose 5% in 50 100 Water 50 ml @ 100 mls/hr IV Q6H [facility] Rx#:[id number] Vancomycin 500 mg In Sodium 100 Chloride 0.9% 100 ml @ 100 mls/ hr IV ONCE ONE Rx#:[id number] Oral 480 480 Output: Void Amount 700 Urine/Stool Mix 650 Other: Meal Breakfast Percent of Meal Consumed 25% 50% Feeding Ability Assist with Tray Set Up Assist with Tray Set Up Urine Appearance Clear Urine Color Yellow Stool Size Small Small Small Stool Color Brown Brown Brown Stool Consistency Soft Soft Soft Loose # Bowel Movements 1 1 OBJ DATA Labs 08/14/22 05:45 08/14/22 05:45 Labs: Abnormal Lab Results 08/14/22 08/14/22 08/13/22 05:45 05:45 19:19 WBC 28.9 H RBC 3.30 L Hgb 8.7 L Hct 28.9 L POC Hct MCHC 30.1 L RDW 16.9 H Plt Count 491 H Immature Gran % (Auto) Neut % (Auto) Lymph % (Auto) [place] # (Auto) Eos # (Auto) Seg Neutrophils % 81 H Lymphocytes % 6 L Immature Gran # Absolute Neutrophils Platelet Estimate Increased A RBC Morphology Abnormal A Polychromasia Few A Hypochromasia 1+ A Anisocytosis 1+ A ESR PT INR POC Potassium POC Chloride Carbon Dioxide 18 L POC Total CO2 POC BUN BUN 30 H Creatinine 1.4 H POC Creatinine Glucose 108 H Phosphorus 4.7 H Alkaline Phosphatase 173 H Lactate Dehydrogenase 229 H C-Reactive Protein 7.50 H Globulin 4.1 H Albumin/Globulin Ratio 0.8 L Triglycerides 154 H Procalcitonin Urine Opiates Screen Suspect positive A 08/13/22 08/13/22 08/13/22 11:36 11:33 11:33 WBC RBC Hgb Hct POC Hct 31.0 L MCHC RDW Plt Count Immature Gran % (Auto) Neut % (Auto) Lymph % (Auto) [place] # (Auto) Eos # (Auto) Seg Neutrophils % Lymphocytes % Immature Gran # Absolute Neutrophils Platelet Estimate RBC Morphology Polychromasia Hypochromasia Anisocytosis ESR PT 21.0 H INR 1.7 H POC Potassium 5.8 H POC Chloride 113 H Carbon Dioxide POC Total CO2 20.0 L POC BUN 39 H BUN Creatinine POC Creatinine 2.0 H Glucose Phosphorus Alkaline Phosphatase Lactate Dehydrogenase C-Reactive Protein 9.70 H Globulin Albumin/Globulin Ratio Triglycerides Procalcitonin Urine Opiates Screen 08/13/22 08/13/22 08/13/22 11:33 11:30 11:30 WBC 33.1 H* RBC 3.61 L Hgb 9.6 L Hct 32.0 L POC Hct MCHC 30.0 L RDW 16.7 H Plt Count 598 H Immature Gran % (Auto) 3.0 H Neut % (Auto) 83.4 H Lymph % (Auto) 5.1 L [place] # (Auto) 1.22 H Eos # (Auto) 1.47 H Seg Neutrophils % Lymphocytes % 14 L Immature Gran # 1.00 H Absolute Neutrophils 27.64 H Platelet Estimate Decreased A RBC Morphology Abnormal A Polychromasia 1+ A Hypochromasia 1+ A Anisocytosis 1+ A ESR 126 H PT INR POC Potassium POC Chloride Carbon Dioxide POC Total CO2 POC BUN BUN Creatinine POC Creatinine Glucose Phosphorus Alkaline Phosphatase Lactate Dehydrogenase C-Reactive Protein Globulin Albumin/Globulin Ratio Triglycerides Procalcitonin 0.22 H Urine Opiates Screen Meds: Medications Acetaminophen (Acetaminophen 325 Mg Tablet) 650 mg PO Q6HP PRN; Protocol PRN Reason: Per Pain Protocol/Fever > 101 Hydrocodone Bitart/Acetaminophen (Hydrocodone/Apap 10/325mg Tablet) 2 tab PO Q6HP PRN; Protocol PRN Reason: Pain Last Admin: 08/14/22 13:47 Dose: 2 tab Albuterol/Ipratropium (Ipratropium/Albuterol 3 Ml Ampul.Neb) 3 ml NEB Q4HP PRN PRN Reason: Shortness Of Breath Allopurinol (Allopurinol 100 Mg Tablet) 50 mg PO QAM [facility] Last Admin: 08/14/22 08:26 Dose: 50 mg Amlodipine Besylate (Amlodipine 5 Mg Tablet) 10 mg PO QAM [facility] Last Admin: 08/14/22 08:27 Dose: 10 mg Apixaban (Apixaban 5 Mg Tablet) 5 mg PO BID [facility] Last Admin: 08/14/22 08:26 Dose: 5 mg Dextrose (Dextrose 50% 50 Ml Vial) 0 ml IV UD PRN PRN Reason: Per Sliding Scale Diagnostic Test (Pha) (Accu-Chek 1 Each Strip) 1 each FS ACHS [facility] Last Admin: 08/14/22 11:48 Dose: 1 each Docusate Sodium (Docusate Sodium 100 Mg Capsule) 100 mg PO BID [facility] Last Admin: 08/14/22 08:28 Dose: Not Given Gabapentin (Gabapentin 300 Mg Capsule) 600 mg PO BID [facility] Glucose (Dextrose 31 Gm Oral.Susp) 15 gm PO PRN PRN PRN Reason: Hypoglycemia Hydralazine HCl (Hydralazine 20 Mg/Ml Vial) 0 mg IV Q2HP PRN PRN Reason: Hypertension Last Admin: 08/14/22 06:07 Dose: 10 mg Potassium Chloride 40 meq/ (Dextrose) 520 mls @ 130 mls/hr IV UD PRN PRN Reason: Potassium < 3 Magnesium Sulfate (Magnesium Sulfate) 2 gm in 50 mls @ 50 mls/hr IV UD PRN PRN Reason: Magnesium </= 1.6 Sodium Chloride (Sodium Chloride 0.9%) 1,000 mls @ 100 mls/hr IV .Q10H [facility] Stop: 08/14/22 15:59 Last Admin: 08/14/22 07:34 Dose: Not Given Piperacillin Sod/Tazobactam (Sod 2.25 gm/ Dextrose) 50 mls @ 100 mls/hr IV Q6H [facility] Last Infusion: 08/14/22 10:20 Dose: Infused Insulin Human Lispro (Insulin Lispro 1 Unit/0.01 Ml Unit) 0 unit SQ [facility]; Protocol Last Admin: 08/14/22 11:49 Dose: Not Given Labetalol HCl (Labetalol 5 Mg/Ml Ml) 0 mg IV Q2HP PRN PRN Reason: Hypertension Lidocaine (Lidocaine Patch) 1 patch TOPICAL DAILY@1000 [facility] Last Admin: 08/14/22 10:41 Dose: 1 patch Metoprolol Tartrate (Metoprolol Tartrate 5 Mg/5 Ml Vial) 5 mg IV Q2HP PRN PRN Reason: Tachyarrhythmias HR>110 Multivitamins/Minerals (Vit A,C & E/Lutein/Minerals Tablet) 1 tab PO BID [facility] Last Admin: 08/14/22 08:26 Dose: 1 tab Nystatin (Nystatin Crm 1 Dose Tube) 1 dose TOPICAL BID [facility] Ondansetron HCl (Ondansetron 4 Mg/2 Ml Vial) 4 mg IV Q4HP PRN PRN Reason: Nausea And Vomiting Polyethylene Glycol (Polyethylene Glycol 3350 17 Gm Packet) 17 gm PO DAILYP PRN PRN Reason: Constipation Potassium Chloride (Potassium Chloride 20 Meq Tablet) 40 meq PO UD PRN PRN Reason: Potssium is 3-3.5 Potassium Chloride (Potassium Chloride 20 Meq Tablet) 40 meq PO UD PRN PRN Reason: Potassium < 3 Senna (Sennosides 1 Tablet) 2 tab PO DAILYP PRN PRN Reason: Constipation Simvastatin (Simvastatin 20 Mg Tablet) 20 mg PO QHS [facility] Last Admin: 08/13/22 22:07 Dose: 20 mg Sodium Chloride (0.9 % Sodium Chloride 10 Ml Syringe) 10 ml IV Q8 [facility] Last Admin: 08/14/22 12:12 Dose: 10 ml Tamsulosin HCl (Tamsulosin 0.4 Mg Capsule) 0.4 mg PO QAM [facility] Last Admin: 08/14/22 08:28 Dose: 0.4 mg A/P Narrative A/P Narrative: Assessment and plan: *LLL PNA, possible aspiration: Patient with left lower lobe opacity. There is mild left diaphragm elevation and some changes consistent with atelectasis. This may be related to underlying malignancy and postobstructive pneumonia. Patient leukocytosis is improving slowly. MRSA screen negative. Patient is on Zosyn COPD exacerbation (not on home oxygen): Currently on 2 L nasal cannula oxygen. Patient with emphysema on CT scan. Patient has bilateral rales. We will give him DuoNebs. Acute hypoxemic respiratory failure. On 2 L nasal cannula. Nebulization therapy, wean oxygen as tolerated. Continue pulmonary toileting Leukocytosis, acute on chronic: Patient has baseline WBC count of about 12- 15,000. He however presented with 40,000 leukocytosis. This is likely secondary to infection on top of chronicity. Malignancy may be contributing. Left upper lobe mass, suspected malignant neoplasm of upper lobe, left CT with 7.3 cm mass in the anterior segment of the left upper lobe adjacent to the mediastinum. It is suspicious for primary lung carcinoma. Patient is yet to see oncologist. Per biopsy report at outside hospital on 07/31 this is poorly differentiated carcinoma and likely metastatic changes to left adrenal and right kidney. Patient will need close follow-up with oncology. 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 Serum creatinine 1.3 down from 2.0 on admission *Hyperkalemia: pt is on an ARB and KCl, s/p Kayexalate. hold home ARB for now, cont Norvasc. home KCl stopped. Hyperkalemia resolved *Anemia, likely chronic. No indication for transfusion *Generalized weakness/deconditioning. Continue PT OT *Paroxysmal A-fib: on eliquis *Obesity: BMI 38, counseled on weight reduction *KEZIA on CPAP: Stable *DM2: Monitor blood glucose *HTN/HLD: cont statin *Tobacco abuse: Counseled on complete tobacco cessation *Chronic pain: On pain meds *h/o gout: On allopurinol DVT ppx: Home Eliquis DNR Time Spent With Patient Time: Total time spent is greater than 50% in coordination of care (as documented) at patient's floor/unit and/or counseling patient: Subsequent: Total time with patient: 50 - 65 Minutes Portions of this chart may have been created with [employer] voice recognition software. Occasional wrong-word or sound-like substitutions may have occurred due to the inherent limitations of voice recognition software. Please read the chart carefully and recognize, using context, where the substitutions have occurred. Time Spent With Patient Time: Total time spent is greater than 50% in coordination of care (as documented) at patient's floor/unit and/or counseling patient: Subsequent: Total time with patient: 50 - 65 Minutes
[2022-08-14 16:34] LABS: Platelet Estimate INCREASED (Normal)
[2022-08-14] MEDS: SIMVASTATIN 20 MG TABLET PO SCH (20:10)
[2022-08-14] MEDS: NYSTATIN CRM 1 DOSE TUBE TOPICAL SCH (20:10)
[2022-08-14] MEDS: GABAPENTIN 300 MG CAPSULE PO SCH (20:10)
[2022-08-15] MEDS: PIPERACILLIN SODIUM/TAZOBACTAM 2.25 GM in DEXTROSE 5% IN WATER 50 ML IV SCH ×4 (03:51→21:12)
[2022-08-15] MEDS: 0.9 % SODIUM CHLORIDE 10 ML SYRINGE IV SCH ×5 (03:52→23:51)
[2022-08-15] MEDS: hydrALAZINE 20 MG/ML VIAL IV PRN ×2 (04:03→23:49)
[2022-08-15] MEDS: HYDROcodone/APAP 10/325MG TABLET PO PRN ×2 (07:11→16:07)
[2022-08-15] MEDS: INSULIN LISPRO 1 UNIT/0.01 ML UNIT SQ SCH ×4 (07:16→21:20)
[2022-08-15 08:03] LABS: Blood Urea Nitrogen 22 mg/dL (8-23); Calcium 9.2 mg/dL (8.6-10.4); Carbon Dioxide 19 mmol/L (22-30); Chloride 109 mmol/L (96-108); Glomerular Filtration Rate 52; Glucose 111 mg/dL (70-105)
[2022-08-15] MEDS: TAMSULOSIN 0.4 MG CAPSULE PO SCH (08:31)
[2022-08-15] MEDS: amLODIPine 5 MG TABLET PO SCH (08:31)
[2022-08-15] MEDS: VIT A,C & E/LUTEIN/MINERALS TABLET PO SCH ×2 (08:32→21:12)
[2022-08-15] MEDS: APIXABAN 5 MG TABLET PO SCH ×2 (08:32→21:12)
[2022-08-15] MEDS: DOCUSATE SODIUM 100 MG CAPSULE PO SCH ×2 (08:32→21:12)
[2022-08-15] MEDS: GABAPENTIN 300 MG CAPSULE PO SCH ×2 (08:32→21:12)
[2022-08-15] MEDS: ALLOPURINOL 100 MG TABLET PO SCH (08:32)
[2022-08-15] MEDS: NYSTATIN CRM 1 DOSE TUBE TOPICAL SCH ×3 (08:34→21:00)
[2022-08-15] MEDS: LIDOCAINE PATCH TOPICAL SCH (09:49)
--- NOTE | 2022-08-15 10:51 | EKG ---
[facility] Test Date: 2022-08-13 Pat Name: Shubham Ceballos Department: ED Room: Gender: Male [employer]: : 1945 Requested By: Franck Kenney Order Number: [id number] MD: Buster Jacobs M.D. Measurements Intervals [place] Rate: 90 P: -54 MA: 172 QRS: -6 QRSD: 86 T: 23 QT: 350 QTc: 430 Interpretive Statements Ectopic atrial rhythm Low voltage, precordial leads Electronically Signed On 08-15-2022 10:50:45 PDT by Buster Jacobs M.D. /store/[email or web address]/[id number]
[2022-08-15] MEDS: hydrALAZINE 25 MG TABLET PO SCH ×3 (11:43→21:12)
[2022-08-15] MEDS: IPRATROPIUM/ALBUTEROL 3 ML AMPUL.NEB NEB SCH ×2 (12:14→19:46)
[2022-08-15] MEDS: LIDOCAINE VISCOUS 2% 15 ML UNIT DOSE CUP PO SCH ×2 (14:26→17:01)
[2022-08-15] MEDS: SIMVASTATIN 20 MG TABLET PO SCH (21:12)
[2022-08-16] MEDS: IPRATROPIUM/ALBUTEROL 3 ML AMPUL.NEB NEB SCH ×4 (01:28→19:12)
[2022-08-16] MEDS: PIPERACILLIN SODIUM/TAZOBACTAM 2.25 GM in DEXTROSE 5% IN WATER 50 ML IV SCH ×4 (03:19→21:38)
[2022-08-16] MEDS: 0.9 % SODIUM CHLORIDE 10 ML SYRINGE IV SCH ×4 (03:20→21:00)
[2022-08-16] MEDS: HYDROcodone/APAP 10/325MG TABLET PO PRN ×2 (07:03→17:18)
[2022-08-16] MEDS: INSULIN LISPRO 1 UNIT/0.01 ML UNIT SQ SCH ×4 (07:10→20:59)
[2022-08-16 08:12] LABS: Basophils # (Auto) 0.07 K/mcL (0.00-0.30); Basophils % (Auto) 0.2 % (0.0-2.0); Eosinophils # (Auto) 1.01 K/mcL (0.00-0.70); Eosinophils % (Auto) 3.3 % (0.0-7.0); Hemoglobin 8.4 g/dL (13.7-17.5); Lymphocytes # (Auto) 1.93 K/mcL (1.50-4.80); Lymphocytes % (Auto) 6.3 % (15.5-49.0); Mean Cell Volume 87.8 fL (80.0-100.0); Mean Platelet Volume 8.8 fL (8.8-12.5); Monocytes # (Auto) 1.22 K/mcL (0.10-0.90); Neutrophils % (Auto) 83.6 % (38.0-78.0); Platelet Count 394 K/mcL (140-440); RBC 3.19 M/mcL (4.63-6.08); Red Cell Distribution Width 17.2 % (11.5-14.5); WBC 30.7 K/mcL (4.5-11.0)
[2022-08-16 08:31] LABS: ALT/SGPT 34 U/L (<40); AST/SGOT 18 U/L (<40); Albumin/Globulin Ratio 0.8 (1.0-2.3); Alkaline Phosphatase 130 U/L (39-117); Bilirubin,Total 0.2 mg/dL (0.1-1.0); Blood Urea Nitrogen 20 mg/dL (8-23); Calcium 8.8 mg/dL (8.6-10.4); Carbon Dioxide 19 mmol/L (22-30); Chloride 107 mmol/L (96-108); Globulin 3.7 gm/dL (2.2-3.7); Glomerular Filtration Rate 52; Glucose 107 mg/dL (70-105)
[2022-08-16] MEDS: hydrALAZINE 25 MG TABLET PO SCH ×4 (09:38→20:58)
[2022-08-16] MEDS: amLODIPine 5 MG TABLET PO SCH (09:38)
[2022-08-16] MEDS: GABAPENTIN 300 MG CAPSULE PO SCH ×2 (09:38→20:58)
[2022-08-16] MEDS: LIDOCAINE PATCH TOPICAL SCH (09:39)
[2022-08-16] MEDS: VIT A,C & E/LUTEIN/MINERALS TABLET PO SCH ×2 (09:39→20:58)
[2022-08-16] MEDS: APIXABAN 5 MG TABLET PO SCH ×2 (09:39→20:58)
[2022-08-16] MEDS: DOCUSATE SODIUM 100 MG CAPSULE PO SCH ×2 (09:39→20:58)
[2022-08-16] MEDS: TAMSULOSIN 0.4 MG CAPSULE PO SCH (09:39)
[2022-08-16] MEDS: ALLOPURINOL 100 MG TABLET PO SCH (09:41)
[2022-08-16] MEDS: LIDOCAINE VISCOUS 2% 15 ML UNIT DOSE CUP PO SCH ×3 (10:58→16:56)
[2022-08-16] MEDS: NYSTATIN CRM 1 DOSE TUBE TOPICAL SCH ×2 (10:58→21:00)
--- NOTE | 2022-08-16 14:34 | Internal Med Progress Note ---
SUBJECTIVE Subjective Patient information: Note initiated : 08/15/22 at 3:06 pm Service Date, if different from initiated Date: [] Patient: Shubham Ceballos a 76 y/o M admitted on 08/13/22 for Elevated WBC and K+. Chief Complaint: [] Additional PMFSH (Level 3 Only): Mr. Ceballos is a 76 year old male with history of CAD, diabetes mellitus 2, hypertension, COPD, atrial fibrillation, morbid obesity was discharged on 08/04/2022 from [facility] where he was treated for left knee gouty arthritis and underwent washout by orthopedics. 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 There was discussion in [facility] notes about referral to oncology but it is unclear if patient saw oncology. Patient MRSA screen was positive. He was treated with vancomycin, Zosyn and was discharged to SNF on Zyvox and cefdinir. At the time of discharge his WBC count was 20,000. Patient presented to our ER on 08/13/2022 with a WBC count of 40,000 and hyperkalemia of 6.0 on outpatient labs. In the ED patient lab work showed leukocytosis of 32,000, platelets 598 likely reactive, BUN and creatinine elevated at 39/2.0, serum potassium 5.8. Lactic acid was normal. CRP was elevated. Chest x-ray showed left lower lobe infiltrate, patient was started on vancomycin and Zosyn and was given insulin for hyperkalemia. Patient did not have much in the way of cough, he has mild chronic shortness of breath. 08/15 Review of previous record shows that patient has mild chronic leukocytosis. WBC has improved to 28,000 however no labs available from this morning. CRP has trended down. Hyperkalemia has resolved. Mild chronic anemia unchanged. Patient reports that he has minimal cough, and may have produced some clear sputum but denies any shortness of breath. He received as needed hydralazine and labetalol for his blood pressure of 150 systolic overnight. He has lidocaine patch for chronic pain. 08/16 feeling better, no fever or chills, leukocytosis slightly up to 30,000 from 28.9. Hemoglobin 8.4 creatinine 1.3. Patient feels his strength is getting back however he does not feel he is strong enough to go home Review of Systems: Constitutional Constitutional: No fever, chills, feeling better EENT Eyes: Absent change in vision Nose, mouth and throat: Absent sore throat Cardiovascular Cardiovascular: Absent chest pain, dyspnea or palpatations Respiratory Respiratory: Reports some cough and clear sputum Gastrointestinal Gastrointestinal: Absent abdominal pain; Absent nausea Genitourinary Genitourinary: No flank pain Musculoskeletal Musculoskeletal: Denies any muscle or joint pain Integumentary Integumentary: Absent rash Neurological Neurological: Absent headache, focal weakness PHYSICAL EXAM General: Alert, sitting up in bed, appears comfortable Eyes/N/T: EOMI, no scleral icterus, PERRL, Head/Neck: neck supple, full ROM, normocephalic atraumatic CV: RRR, No murmurs, normal s1/s2 Pulm: Mild bilateral rales in the mid and lower zone, on 2 L nasal cannula oxygen Abd: soft, nontender, +BS x4 : No flank pain Ext: no clubbing/cyanosis/edema, nontender Neuro: Alert, no focal deficits, moves all extremities, CN 2-12 grossly intact, sensations intact b/l upper/lower Psychiatric: Appropriate mood and affect Skin: warm/dry, normal color Assessment and plan: *LLL PNA, possible aspiration: Patient with left lower lobe opacity. There is mild left diaphragm elevation and some changes consistent with atelectasis. This may be related to underlying malignancy and postobstructive pneumonia. Leukocytosis slightly went up, will obtain CRP and procalcitonin. Patient is on Zosyn he remains afebrile and clinically seems to be doing good COPD exacerbation (not on home oxygen): Currently on 2 L nasal cannula oxygen. Patient with emphysema on CT scan. Patient has bilateral rales. We will give him DuoNebs. Acute hypoxemic respiratory failure. Currently on room air, 94% sats. Nebulization therapy, wean oxygen as tolerated. Continue pulmonary toileting Leukocytosis, acute on chronic: Patient has baseline elevated WBC count. He however presented with 40,000 leukocytosis. This is likely secondary to infection on top of chronicity. Malignancy is likely contributing Left upper lobe mass, suspected malignant neoplasm of upper lobe, left CT with7.3 cm mass in the anterior segment of the left upper lobe adjacent to the mediastinum. It is suspicious for primary lung carcinoma. Patient is yet to see oncologist. Per biopsy report at outside hospital on 07/31 this is poorly differentiated carcinoma and likely metastatic changes to left adrenal and right kidney. Patient will need close follow-up with oncology. 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 Serum creatinine 1.3 down from 2.0 on admission *Hyperkalemia: pt is on an ARB and KCl, s/p Kayexalate. hold home ARB for now, cont Norvasc. home KCl stopped. Hyperkalemia resolved *Anemia, likely chronic. No indication for transfusion *Generalized weakness/deconditioning. Continue PT OT *Paroxysmal A-fib: on eliquis *Obesity: BMI 38, counseled on weight reduction *KEZIA on CPAP: Stable *DM2: Monitor blood glucose *HTN/HLD: cont statin *Tobacco abuse: Counseled on complete tobacco cessation *Chronic pain: On pain meds *h/o gout: On allopurinol DVT ppx: Home Eliquis DNR Time Spent With Patient Time: Total time spent is greater than 50% in coordination of care (as documented) at patient's floor/unit and/or counseling patient: Subsequent: Total time with patient: 50 - 65 Minutes Portions of this chart may have been created with [email or web address] voice recognition software. Occasional wrong-word or sound-like substitutions may have occurred due to the inherent limitations of voice recognition software. Please read the chart carefully and recognize, using context, where the substitutions have occurred. Constitutional Vitals: Vital Signs Temp Pulse Resp BP Pulse Ox O2 Del Method O2 Flow Rate 97.8 F 81 18 151/61 95 Room Air 2 08/15/22 11:51 08/15/22 14:24 08/15/22 12:10 08/15/22 14:24 08/15/22 11:51 08/15/22 12:10 08/15/22 04:00 Period Temp Pulse Resp BP Sys/Gonzalez Pulse Ox O2 Del Method O2 Flow Rate Last 24 Hr 96.2 F-98 F 28-94 18-20 129-164/58-82 94-97 CPAP-Room Air 2-2 Intake and Output 08/15/22 08/15/22 08/15/22 03:59 11:59 19:59 Intake Total 250 1080 480 Output Total 400 450 325 Balance -150 630 155 Weight 111.493 kg Intake & Output: Intake & Output 08/15/22 08/15/22 08/15/22 03:59 11:59 19:59 Intake Total 250 1080 480 Output Total 400 450 325 Balance -150 630 155 Weight 111.493 kg Intake: Nourishment/Supplement quantity 60 (ml) IV 50 100 Zosyn 2.25 gm In Dextrose 5% in 50 100 Water 50 ml @ 100 mls/hr IV Q6H [facility] Rx#:[id number] Oral 200 920 480 Output: Void Amount 400 450 325 Other: Meal Breakfast Lunch Percent of Meal Consumed 75% 25% Feeding Ability Assist with Tray Set Up Assist with Tray Set Up Urine Appearance Clear Clear Urine Color Yellow Yellow OBJ DATA Labs 08/14/22 05:45 08/15/22 06:12 Labs: Abnormal Lab Results 08/15/22 08/14/22 08/14/22 06:12 05:45 05:45 WBC 28.9 H RBC 3.30 L Hgb 8.7 L Hct 28.9 L POC Hct MCHC 30.1 L RDW 16.9 H Plt Count 491 H Immature Gran % (Auto) Neut % (Auto) Lymph % (Auto) Vance # (Auto) Eos # (Auto) Seg Neutrophils % 81 H Lymphocytes % 6 L Immature Gran # Absolute Neutrophils Platelet Estimate Increased A RBC Morphology Abnormal A Polychromasia Few A Hypochromasia 1+ A Anisocytosis 1+ A ESR PT INR POC Potassium POC Chloride Chloride 109 H Carbon Dioxide 19 L 18 L POC Total CO2 POC BUN BUN 30 H Creatinine 1.3 H 1.4 H POC Creatinine Glucose 111 H 108 H Phosphorus 4.7 H Alkaline Phosphatase 173 H Lactate Dehydrogenase 229 H C-Reactive Protein 7.50 H Globulin 4.1 H Albumin/Globulin Ratio 0.8 L Triglycerides 154 H Procalcitonin Urine Opiates Screen 08/13/22 08/13/22 08/13/22 19:19 11:36 11:33 WBC RBC Hgb Hct POC Hct 31.0 L MCHC RDW Plt Count Immature Gran % (Auto) Neut % (Auto) Lymph % (Auto) Vance # (Auto) Eos # (Auto) Seg Neutrophils % Lymphocytes % Immature Gran # Absolute Neutrophils Platelet Estimate RBC Morphology Polychromasia Hypochromasia Anisocytosis ESR PT 21.0 H INR 1.7 H POC Potassium 5.8 H POC Chloride 113 H Chloride Carbon Dioxide POC Total CO2 20.0 L POC BUN 39 H BUN Creatinine POC Creatinine 2.0 H Glucose Phosphorus Alkaline Phosphatase Lactate Dehydrogenase C-Reactive Protein Globulin Albumin/Globulin Ratio Triglycerides Procalcitonin Urine Opiates Screen Suspect positive A 08/13/22 08/13/22 08/13/22 11:33 11:33 11:30 WBC 33.1 H* RBC 3.61 L Hgb 9.6 L Hct 32.0 L POC Hct MCHC 30.0 L RDW 16.7 H Plt Count 598 H Immature Gran % (Auto) 3.0 H Neut % (Auto) 83.4 H Lymph % (Auto) 5.1 L Vance # (Auto) 1.22 H Eos # (Auto) 1.47 H Seg Neutrophils % Lymphocytes % Immature Gran # 1.00 H Absolute Neutrophils 27.64 H Platelet Estimate RBC Morphology Polychromasia Hypochromasia Anisocytosis ESR PT INR POC Potassium POC Chloride Chloride Carbon Dioxide POC Total CO2 POC BUN BUN Creatinine POC Creatinine Glucose Phosphorus Alkaline Phosphatase Lactate Dehydrogenase C-Reactive Protein 9.70 H Globulin Albumin/Globulin Ratio Triglycerides Procalcitonin 0.22 H Urine Opiates Screen 08/13/22 11:30 WBC RBC Hgb Hct POC Hct MCHC RDW Plt Count Immature Gran % (Auto) Neut % (Auto) Lymph % (Auto) Vance # (Auto) Eos # (Auto) Seg Neutrophils % Lymphocytes % 14 L Immature Gran # Absolute Neutrophils Platelet Estimate Increased A RBC Morphology Abnormal A Polychromasia 1+ A Hypochromasia 1+ A Anisocytosis 1+ A ESR 126 H PT INR POC Potassium POC Chloride Chloride Carbon Dioxide POC Total CO2 POC BUN BUN Creatinine POC Creatinine Glucose Phosphorus Alkaline Phosphatase Lactate Dehydrogenase C-Reactive Protein Globulin Albumin/Globulin Ratio Triglycerides Procalcitonin Urine Opiates Screen Meds: Medications Acetaminophen (Acetaminophen 325 Mg Tablet) 650 mg PO Q6HP PRN; Protocol PRN Reason: Per Pain Protocol/Fever > 101 Hydrocodone Bitart/Acetaminophen (Hydrocodone/Apap 10/325mg Tablet) 2 tab PO Q6HP PRN; Protocol PRN Reason: Pain Last Admin: 08/15/22 07:11 Dose: 2 tab Albuterol/Ipratropium (Ipratropium/Albuterol 3 Ml Ampul.Neb) 3 ml NEB Q4HP PRN PRN Reason: Shortness Of Breath Albuterol/Ipratropium (Ipratropium/Albuterol 3 Ml Ampul.Neb) 3 ml NEB Q6HRT [facility] Last Admin: 08/15/22 12:14 Dose: 3 ml Allopurinol (Allopurinol 100 Mg Tablet) 50 mg PO QAM [facility] Last Admin: 08/15/22 08:32 Dose: 50 mg Amlodipine Besylate (Amlodipine 5 Mg Tablet) 10 mg PO QAM [facility] Last Admin: 08/15/22 08:31 Dose: 10 mg Apixaban (Apixaban 5 Mg Tablet) 5 mg PO BID [facility] Last Admin: 08/15/22 08:32 Dose: 5 mg Dextrose (Dextrose 50% 50 Ml Vial) 0 ml IV UD PRN PRN Reason: Per Sliding Scale Diagnostic Test (Pha) (Accu-Chek 1 Each Strip) 1 each FS ACHS [facility] Last Admin: 08/15/22 11:50 Dose: 1 each Docusate Sodium (Docusate Sodium 100 Mg Capsule) 100 mg PO BID [facility] Last Admin: 08/15/22 08:32 Dose: 100 mg Gabapentin (Gabapentin 300 Mg Capsule) 600 mg PO BID [facility] Last Admin: 08/15/22 08:32 Dose: 600 mg Glucose (Dextrose 31 Gm Oral.Susp) 15 gm PO PRN PRN PRN Reason: Hypoglycemia Hydralazine HCl (Hydralazine 20 Mg/Ml Vial) 0 mg IV Q2HP PRN PRN Reason: Hypertension Last Admin: 08/15/22 04:03 Dose: 10 mg Hydralazine HCl (Hydralazine 25 Mg Tablet) 25 mg PO TID [facility] Last Admin: 08/15/22 14:26 Dose: 25 mg Potassium Chloride 40 meq/ (Dextrose) 520 mls @ 130 mls/hr IV UD PRN PRN Reason: Potassium < 3 Magnesium Sulfate (Magnesium Sulfate) 2 gm in 50 mls @ 50 mls/hr IV UD PRN PRN Reason: Magnesium </= 1.6 Piperacillin Sod/Tazobactam (Sod 2.25 gm/ Dextrose) 50 mls @ 100 mls/hr IV Q6H [facility] Last Infusion: 08/15/22 10:26 Dose: Infused Insulin Human Lispro (Insulin Lispro 1 Unit/0.01 Ml Unit) 0 unit SQ ACHS [facility]; Protocol Last Admin: 08/15/22 11:50 Dose: Not Given Labetalol HCl (Labetalol 5 Mg/Ml Ml) 0 mg IV Q2HP PRN PRN Reason: Hypertension Last Admin: 08/15/22 05:17 Dose: 10 mg Lidocaine (Lidocaine Patch) 1 patch TOPICAL DAILY@1000 [facility] Last Admin: 08/15/22 09:49 Dose: 1 patch Lidocaine HCl (Lidocaine Viscous 2% 15 Ml Unit Dose Cup) 15 ml PO TIDCC [facility] Last Admin: 08/15/22 14:26 Dose: 15 ml Metoprolol Tartrate (Metoprolol Tartrate 5 Mg/5 Ml Vial) 5 mg IV Q2HP PRN PRN Reason: Tachyarrhythmias HR>110 Multivitamins/Minerals (Vit A,C & E/Lutein/Minerals Tablet) 1 tab PO BID [facility] Last Admin: 08/15/22 08:32 Dose: 1 tab Nystatin (Nystatin Crm 1 Dose Tube) 1 dose TOPICAL BID [facility] Last Admin: 08/15/22 09:50 Dose: 1 dose Ondansetron HCl (Ondansetron 4 Mg/2 Ml Vial) 4 mg IV Q4HP PRN PRN Reason: Nausea And Vomiting Polyethylene Glycol (Polyethylene Glycol 3350 17 Gm Packet) 17 gm PO DAILYP PRN PRN Reason: Constipation Potassium Chloride (Potassium Chloride 20 Meq Tablet) 40 meq PO UD PRN PRN Reason: Potssium is 3-3.5 Potassium Chloride (Potassium Chloride 20 Meq Tablet) 40 meq PO UD PRN PRN Reason: Potassium < 3 Senna (Sennosides 1 Tablet) 2 tab PO DAILYP PRN PRN Reason: Constipation Simvastatin (Simvastatin 20 Mg Tablet) 20 mg PO QHS [facility] Last Admin: 08/14/22 20:10 Dose: 20 mg Sodium Chloride (0.9 % Sodium Chloride 10 Ml Syringe) 10 ml IV Q8 [facility] Last Admin: 08/15/22 14:26 Dose: 10 ml Tamsulosin HCl (Tamsulosin 0.4 Mg Capsule) 0.4 mg PO QAM [facility] Last Admin: 08/15/22 08:31 Dose: 0.4 mg A/P Time Spent With Patient Time: Total time spent is greater than 50% in coordination of care (as documented) at patient's floor/unit and/or counseling patient: Initial: Total time with patient: 55 - 74 minutes
[2022-08-16] MEDS: SIMVASTATIN 20 MG TABLET PO SCH (20:58)
[2022-08-16] MEDS: diphenhydrAMINE 25 MG CAPSULE PO PRN (21:38)
[2022-08-17] MEDS: IPRATROPIUM/ALBUTEROL 3 ML AMPUL.NEB NEB SCH ×4 (00:54→19:17)
[2022-08-17] MEDS: PIPERACILLIN SODIUM/TAZOBACTAM 2.25 GM in DEXTROSE 5% IN WATER 50 ML IV SCH (04:07)
[2022-08-17] MEDS: 0.9 % SODIUM CHLORIDE 10 ML SYRINGE IV SCH ×3 (05:25→20:49)
[2022-08-17] MEDS: INSULIN LISPRO 1 UNIT/0.01 ML UNIT SQ SCH ×4 (07:26→20:56)
[2022-08-17] MEDS: HYDROcodone/APAP 10/325MG TABLET PO PRN ×3 (07:38→20:57)
[2022-08-17] MEDS: LIDOCAINE VISCOUS 2% 15 ML UNIT DOSE CUP PO SCH ×3 (07:43→16:29)
[2022-08-17] MEDS: GABAPENTIN 300 MG CAPSULE PO SCH ×2 (08:13→20:43)
[2022-08-17] MEDS: NYSTATIN CRM 1 DOSE TUBE TOPICAL SCH ×2 (08:13→20:49)
[2022-08-17] MEDS: hydrALAZINE 25 MG TABLET PO SCH ×3 (08:13→20:44)
[2022-08-17] MEDS: DOCUSATE SODIUM 100 MG CAPSULE PO SCH ×2 (08:13→20:43)
[2022-08-17] MEDS: amLODIPine 5 MG TABLET PO SCH (08:13)
[2022-08-17] MEDS: VIT A,C & E/LUTEIN/MINERALS TABLET PO SCH ×2 (08:13→20:43)
[2022-08-17] MEDS: TAMSULOSIN 0.4 MG CAPSULE PO SCH (08:13)
[2022-08-17] MEDS: ALLOPURINOL 100 MG TABLET PO SCH (08:13)
[2022-08-17] MEDS: APIXABAN 5 MG TABLET PO SCH ×2 (08:13→20:43)
[2022-08-17] MEDS: diphenhydrAMINE 25 MG CAPSULE PO PRN ×3 (09:05→16:27)
[2022-08-17] MEDS: LIDOCAINE PATCH TOPICAL SCH (09:46)
[2022-08-17] MEDS: PIPERACILLIN SODIUM/TAZOBACTAM 3.375 GM in DEXTROSE 5% IN WATER 50 ML IV SCH ×2 (11:08→17:15)
--- NOTE | 2022-08-17 15:32 | Internal Med Progress Note ---
SUBJECTIVE Subjective Patient information: Note initiated : 08/17/22 at 3:22 pm Service Date, if different from initiated Date: [] Patient: Shubham Ceballos a 76 y/o M admitted on 08/13/22 for Elevated WBC and K+. Chief Complaint: [] Additional PMFSH (Level 3 Only): Mr. Ceballos is a 76 year old male with history of CAD, diabetes mellitus 2, hypertension, COPD, atrial fibrillation, morbid obesity was discharged on 08/04/2022 from [facility] where he was treated for left knee gouty arthritis and underwent washout by orthopedics. 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 There was discussion in [facility] notes about referral to oncology but it is unclear if patient saw oncology. Patient MRSA screen was positive. He was treated with vancomycin, Zosyn and was discharged to SNF on Zyvox and cefdinir. At the time of discharge his WBC count was 20,000. Patient presented to our ER on 08/13/2022 with a WBC count of 40,000 and hyperkalemia of 6.0 on outpatient labs. In the ED patient lab work showed leukocytosis of 32,000, platelets 598 likely reactive, BUN and creatinine elevated at 39/2.0, serum potassium 5.8. Lactic acid was normal. CRP was elevated. Chest x-ray showed left lower lobe infiltrate, patient was started on vancomycin and Zosyn and was given insulin for hyperkalemia. Patient did not have much in the way of cough, he has mild chronic shortness of breath. 08/15 Review of previous record shows that patient has mild chronic leukocytosis. WBC has improved to 28,000 however no labs available from this morning. CRP has trended down. Hyperkalemia has resolved. Mild chronic anemia unchanged. Patient reports that he has minimal cough, and may have produced some clear sputum but denies any shortness of breath. He received as needed hydralazine and labetalol for his blood pressure of 150 systolic overnight. He has lidocaine patch for chronic pain. 08/16 feeling better, no fever or chills, leukocytosis slightly up to 30,000 from 28.9. Hemoglobin 8.4 creatinine 1.3. Patient feels his strength is getting back however he does not feel he is strong enough to go home 08/17. No acute events, did denies any fever, any chills. Feeling stronger by the day, he has to get his physical therapy today. Lab work pending from this morning Review of Systems: Constitutional Constitutional: No fever, chills, feeling better EENT Eyes: Absent change in vision Nose, mouth and throat: Absent sore throat Cardiovascular Cardiovascular: Absent chest pain, dyspnea or palpatations Respiratory Respiratory: Reports some cough and clear sputum Gastrointestinal Gastrointestinal: Absent abdominal pain; Absent nausea Genitourinary Genitourinary: No flank pain Musculoskeletal Musculoskeletal: Denies any muscle or joint pain Integumentary Integumentary: Absent rash Neurological Neurological: Absent headache, focal weakness PHYSICAL EXAM General: Alert, sitting up in bed, appears comfortable Eyes/N/T: EOMI, no scleral icterus, PERRL, Head/Neck: neck supple, full ROM, normocephalic atraumatic CV: RRR, No murmurs, normal s1/s2 Pulm: Mild bilateral rales in the mid and lower zone, on 2 L nasal cannula oxygen Abd: soft, nontender, +BS x4 : No flank pain Ext: no clubbing/cyanosis/edema, nontender Neuro: Alert, no focal deficits, moves all extremities, CN 2-12 grossly intact, sensations intact b/l upper/lower Psychiatric: Appropriate mood and affect Skin: warm/dry, normal color Assessment and plan: *LLL PNA, possible aspiration: Patient with left lower lobe opacity. There is mild left diaphragm elevation and some changes consistent with atelectasis. This may be related to underlying malignancy and postobstructive pneumonia. Leukocytosis slightly went up, will obtain CRP and procalcitonin. Patient is on Zosyn he remains afebrile and cli nically seems to be doing good COPD exacerbation (not on home oxygen): Currently on 2 L nasal cannula oxygen. Patient with emphysema on CT scan. Patient has bilateral rales. We will give him DuoNebs. Acute hypoxemic respiratory failure. Currently on room air, 94% sats. Nebulization therapy, wean oxygen as tolerated. Continue pulmonary toileting Leukocytosis, acute on chronic: Patient has baseline elevated WBC count. He however presented with 40,000 leukocytosis. This is likely secondary to infection on top of chronicity. Malignancy is likely contributing Left upper lobe mass, suspected malignant neoplasm of upper lobe, left CT with7.3 cm mass in the anterior segment of the left upper lobe adjacent to the mediastinum. It is suspicious for primary lung carcinoma. Patient is yet to see oncologist. Per biopsy report at outside hospital on 07/31 this is poorly differentiated carcinoma and likely metastatic changes to left adrenal and right kidney. Patient will need close follow-up with oncology. 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 Serum creatinine 1.3 down from 2.0 on admission *Hyperkalemia: pt is on an ARB and KCl, s/p Kayexalate. hold home ARB for now, cont Norvasc. home KCl stopped. Hyperkalemia resolved *Anemia, likely chronic. No indication for transfusion *Generalized weakness/deconditioning. Continue PT OT *Paroxysmal A-fib: on eliquis *Obesity: BMI 38, counseled on weight reduction *KEZIA on CPAP: Stable *DM2: Monitor blood glucose *HTN/HLD: cont statin *Tobacco abuse: Counseled on complete tobacco cessation *Chronic pain: On pain meds *h/o gout: On allopurinol DVT ppx: Home Eliquis DNR Constitutional Vitals: Vital Signs Temp Pulse Resp BP Pulse Ox O2 Del Method O2 Flow Rate 98.7 F 97 H 20 136/60 92 Room Air 2 08/17/22 12:00 08/17/22 13:04 08/17/22 13:04 08/17/22 12:00 08/17/22 13:04 08/17/22 13:04 08/17/22 04:11 Period Temp Pulse Resp BP Sys/Gonzalez Pulse Ox O2 Del Method O2 Flow Rate Last 24 Hr 96.9 F-98.9 F 82-108 16-20 117-143/47-79 91-97 CPAP-Room Air 2-2 Intake and Output 08/17/22 08/17/22 08/17/22 03:59 11:59 19:59 Intake Total 50 880 Output Total 400 Balance 50 480 Weight 110.223 kg Patient Weight 08/18/22 03:59 Weight 110.223 kg Intake & Output: Intake & Output 08/17/22 08/17/22 08/17/22 03:59 11:59 19:59 Intake Total 50 880 Output Total 400 Balance 50 480 Weight 110.223 kg Intake: IV 50 100 Zosyn 2.25 gm In Dextrose 5% in 50 50 Water 50 ml @ 100 mls/hr IV Q6H [facility] Rx#:[id number] Zosyn 3.375 gm In Dextrose 5% 50 in Water 50 ml @ 100 mls/hr IV Q6H [facility] Rx#:[id number] Oral 780 Output: Void Amount 400 Other: Meal Breakfast Percent of Meal Consumed 100% Feeding Ability Independent Urine Appearance Clear Urine Color Yellow OBJ DATA Labs 08/16/22 07:20 08/16/22 07:20 Labs: Abnormal Lab Results 08/16/22 08/16/22 08/16/22 07:20 07:20 07:20 WBC RBC Hgb Hct MCHC RDW Immature Gran % (Auto) Neut % (Auto) Lymph % (Auto) Wells # (Auto) Eos # (Auto) Immature Gran # Absolute Neutrophils Platelet Estimate Chloride Carbon Dioxide 19 L Creatinine 1.3 H Glucose 107 H Alkaline Phosphatase 130 H C-Reactive Protein 5.00 H Albumin 3.0 L Albumin/Globulin Ratio 0.8 L Procalcitonin 0.15 H 08/16/22 08/15/22 08/13/22 07:20 06:12 11:30 WBC 30.7 H* RBC 3.19 L Hgb 8.4 L Hct 28.0 L MCHC 30.0 L RDW 17.2 H Immature Gran % (Auto) 2.6 H Neut % (Auto) 83.6 H Lymph % (Auto) 6.3 L Wells # (Auto) 1.22 H Eos # (Auto) 1.01 H Immature Gran # 0.80 H Absolute Neutrophils 25.66 H Platelet Estimate Increased A Chloride 109 H Carbon Dioxide 19 L Creatinine 1.3 H Glucose 111 H Alkaline Phosphatase C-Reactive Protein Albumin Albumin/Globulin Ratio Procalcitonin Meds: Medications Acetaminophen (Acetaminophen 325 Mg Tablet) 650 mg PO Q6HP PRN; Protocol PRN Reason: Per Pain Protocol/Fever > 101 Hydrocodone Bitart/Acetaminophen (Hydrocodone/Apap 10/325mg Tablet) 2 tab PO Q6HP PRN; Protocol PRN Reason: Pain Last Admin: 08/17/22 13:36 Dose: 2 tab Albuterol/Ipratropium (Ipratropium/Albuterol 3 Ml Ampul.Neb) 3 ml NEB Q4HP PRN PRN Reason: Shortness Of Breath Albuterol/Ipratropium (Ipratropium/Albuterol 3 Ml Ampul.Neb) 3 ml NEB Q6HRT [facility] Last Admin: 08/17/22 13:04 Dose: 3 ml Allopurinol (Allopurinol 100 Mg Tablet) 50 mg PO QAM [facility] Last Admin: 08/17/22 08:13 Dose: 50 mg Amlodipine Besylate (Amlodipine 5 Mg Tablet) 10 mg PO QAM [facility] Last Admin: 08/17/22 08:13 Dose: 10 mg Apixaban (Apixaban 5 Mg Tablet) 5 mg PO BID [facility] Last Admin: 08/17/22 08:13 Dose: 5 mg Dextrose (Dextrose 50% 50 Ml Vial) 0 ml IV UD PRN PRN Reason: Per Sliding Scale Diagnostic Test (Pha) (Accu-Chek 1 Each Strip) 1 each FS ACHS [facility] Last Admin: 08/17/22 11:08 Dose: 1 each Diphenhydramine HCl (Diphenhydramine 25 Mg Capsule) 25 mg PO TIDP PRN PRN Reason: Allergic Symptoms Last Admin: 08/17/22 14:42 Dose: 25 mg Docusate Sodium (Docusate Sodium 100 Mg Capsule) 100 mg PO BID [facility] Last Admin: 08/17/22 08:13 Dose: 100 mg Gabapentin (Gabapentin 300 Mg Capsule) 600 mg PO BID [facility] Last Admin: 08/17/22 08:13 Dose: 600 mg Glucose (Dextrose 31 Gm Oral.Susp) 15 gm PO PRN PRN PRN Reason: Hypoglycemia Hydralazine HCl (Hydralazine 20 Mg/Ml Vial) 0 mg IV Q2HP PRN PRN Reason: Hypertension Last Admin: 08/15/22 23:49 Dose: 10 mg Hydralazine HCl (Hydralazine 25 Mg Tablet) 25 mg PO TID [facility] Last Admin: 08/17/22 14:42 Dose: 25 mg Potassium Chloride 40 meq/ (Dextrose) 520 mls @ 130 mls/hr IV UD PRN PRN Reason: Potassium < 3 Magnesium Sulfate (Magnesium Sulfate) 2 gm in 50 mls @ 50 mls/hr IV UD PRN PRN Reason: Magnesium </= 1.6 Piperacillin Sod/Tazobactam (Sod 3.375 gm/ Dextrose) 50 mls @ 100 mls/hr IV Q6H [facility] Last Infusion: 08/17/22 11:41 Dose: Infused Insulin Human Lispro (Insulin Lispro 1 Unit/0.01 Ml Unit) 0 unit SQ [facility]; Protocol Last Admin: 08/17/22 11:53 Dose: 4 units Labetalol HCl (Labetalol 5 Mg/Ml Ml) 0 mg IV Q2HP PRN PRN Reason: Hypertension Last Admin: 08/15/22 05:17 Dose: 10 mg Lidocaine (Lidocaine Patch) 1 patch TOPICAL DAILY@1000 [facility] Last Admin: 08/17/22 09:46 Dose: 1 patch Lidocaine HCl (Lidocaine Viscous 2% 15 Ml Unit Dose Cup) 15 ml PO TIDCC [facility] Last Admin: 08/17/22 12:04 Dose: 15 ml Metoprolol Tartrate (Metoprolol Tartrate 5 Mg/5 Ml Vial) 5 mg IV Q2HP PRN PRN Reason: Tachyarrhythmias HR>110 Multivitamins/Minerals (Vit A,C & E/Lutein/Minerals Tablet) 1 tab PO BID [facility] Last Admin: 08/17/22 08:13 Dose: 1 tab Nystatin (Nystatin Crm 1 Dose Tube) 1 dose TOPICAL BID [facility] Last Admin: 08/17/22 08:13 Dose: 1 dose Ondansetron HCl (Ondansetron 4 Mg/2 Ml Vial) 4 mg IV Q4HP PRN PRN Reason: Nausea And Vomiting Polyethylene Glycol (Polyethylene Glycol 3350 17 Gm Packet) 17 gm PO DAILYP PRN PRN Reason: Constipation Potassium Chloride (Potassium Chloride 20 Meq Tablet) 40 meq PO UD PRN PRN Reason: Potssium is 3-3.5 Potassium Chloride (Potassium Chloride 20 Meq Tablet) 40 meq PO UD PRN PRN Reason: Potassium < 3 Senna (Sennosides 1 Tablet) 2 tab PO DAILYP PRN PRN Reason: Constipation Simvastatin (Simvastatin 20 Mg Tablet) 20 mg PO QHS [facility] Last Admin: 08/16/22 20:58 Dose: 20 mg Sodium Chloride (0.9 % Sodium Chloride 10 Ml Syringe) 10 ml IV Q8 [facility] Last Admin: 08/17/22 14:27 Dose: 10 ml Tamsulosin HCl (Tamsulosin 0.4 Mg Capsule) 0.4 mg PO QAM [facility] Last Admin: 08/17/22 08:13 Dose: 0.4 mg A/P Time Spent With Patient Time: Total time spent is greater than 50% in coordination of care (as documented) at patient's floor/unit and/or counseling patient: Initial: Total time with patient: 55 - 74 minutes
[2022-08-17 16:11] LABS: Basophils % (Auto) 0.3 % (0.0-2.0); Eosinophils # (Auto) 1.23 K/mcL (0.00-0.70); Eosinophils % (Auto) 3.4 % (0.0-7.0); Hematocrit 28.2 % (40.1-51.0); Hemoglobin 8.4 g/dL (13.7-17.5); Lymphocytes # (Auto) 1.93 K/mcL (1.50-4.80); Lymphocytes % (Auto) 5.3 % (15.5-49.0); Mean Cell Volume 87.9 fL (80.0-100.0); Mean Corpuscular HGB Conc 29.8 g/dL (31.0-36.0); Mean Platelet Volume 8.7 fL (8.8-12.5); Monocytes # (Auto) 1.13 K/mcL (0.10-0.90); Monocytes % (Auto) 3.1 % (1.0-12.0); Neutrophils % (Auto) 84.8 % (38.0-78.0); Platelet Count 379 K/mcL (140-440); RBC 3.21 M/mcL (4.63-6.08); Red Cell Distribution Width 17.5 % (11.5-14.5); WBC 36.2 K/mcL (4.5-11.0)
[2022-08-17 16:26] LABS: ALT/SGPT 57 U/L (<40); AST/SGOT 40 U/L (<40); Albumin 3.2 gm/dL (3.2-5.2); Albumin/Globulin Ratio 0.8 (1.0-2.3); Alkaline Phosphatase 166 U/L (39-117); Bilirubin,Total < 0.2 mg/dL (0.1-1.0); Blood Urea Nitrogen 28 mg/dL (8-23); Carbon Dioxide 20 mmol/L (22-30); Chloride 104 mmol/L (96-108); Globulin 3.8 gm/dL (2.2-3.7); Glomerular Filtration Rate 38; Glucose 102 mg/dL (70-105)
[2022-08-17] MEDS: SIMVASTATIN 20 MG TABLET PO SCH (20:43)
[2022-08-18] MEDS: PIPERACILLIN SODIUM/TAZOBACTAM 3.375 GM in DEXTROSE 5% IN WATER 50 ML IV SCH ×3 (00:11→11:28)
[2022-08-18] MEDS: 0.9 % SODIUM CHLORIDE 10 ML SYRINGE IV SCH ×3 (00:12→14:16)
[2022-08-18] MEDS: diphenhydrAMINE 25 MG CAPSULE PO PRN ×2 (00:37→08:51)
[2022-08-18] MEDS: IPRATROPIUM/ALBUTEROL 3 ML AMPUL.NEB NEB SCH ×2 (00:53→07:31)
[2022-08-18] MEDS: INSULIN LISPRO 1 UNIT/0.01 ML UNIT SQ SCH ×2 (07:13→12:02)
[2022-08-18] MEDS ORDERED: NYSTATIN POWDER BOTTLE 15GM TOPICAL PRN (07:32)
[2022-08-18] MEDS: HYDROcodone/APAP 10/325MG TABLET PO PRN (07:38)
[2022-08-18] MEDS: LIDOCAINE VISCOUS 2% 15 ML UNIT DOSE CUP PO SCH ×2 (07:54→11:25)
[2022-08-18] MEDS: NYSTATIN CRM 1 DOSE TUBE TOPICAL SCH (07:56)
[2022-08-18] MEDS: VIT A,C & E/LUTEIN/MINERALS TABLET PO SCH (08:13)
[2022-08-18] MEDS: ALLOPURINOL 100 MG TABLET PO SCH (08:13)
[2022-08-18] MEDS: amLODIPine 5 MG TABLET PO SCH (08:13)
[2022-08-18] MEDS: APIXABAN 5 MG TABLET PO SCH (08:13)
[2022-08-18] MEDS: GABAPENTIN 300 MG CAPSULE PO SCH (08:13)
[2022-08-18] MEDS: DOCUSATE SODIUM 100 MG CAPSULE PO SCH (08:14)
[2022-08-18] MEDS: hydrALAZINE 25 MG TABLET PO SCH (08:14)
[2022-08-18] MEDS: TAMSULOSIN 0.4 MG CAPSULE PO SCH (08:14)
[2022-08-18 08:23] LABS: Basophils # (Auto) 0.09 K/mcL (0.00-0.30); Basophils % (Auto) 0.3 % (0.0-2.0); Eosinophils # (Auto) 1.32 K/mcL (0.00-0.70); Eosinophils % (Auto) 3.8 % (0.0-7.0); Hematocrit 27.9 % (40.1-51.0); Hemoglobin 8.5 g/dL (13.7-17.5); Lymphocytes # (Auto) 1.69 K/mcL (1.50-4.80); Lymphocytes % (Auto) 4.9 % (15.5-49.0); Mean Cell Volume 87.5 fL (80.0-100.0); Mean Corpuscular HGB Conc 30.5 g/dL (31.0-36.0); Mean Platelet Volume 8.7 fL (8.8-12.5); Monocytes # (Auto) 1.21 K/mcL (0.10-0.90); Monocytes % (Auto) 3.5 % (1.0-12.0); Neutrophils % (Auto) 84.4 % (38.0-78.0); Platelet Count 346 K/mcL (140-440); RBC 3.19 M/mcL (4.63-6.08); Red Cell Distribution Width 17.5 % (11.5-14.5); WBC 34.8 K/mcL (4.5-11.0)
[2022-08-18 08:41] LABS: ALT/SGPT 47 U/L (<40); AST/SGOT 26 U/L (<40); Albumin 2.9 gm/dL (3.2-5.2); Albumin/Globulin Ratio 0.7 (1.0-2.3); Alkaline Phosphatase 262 U/L (39-117); Bilirubin,Total 0.2 mg/dL (0.1-1.0); Blood Urea Nitrogen 29 mg/dL (8-23); Carbon Dioxide 20 mmol/L (22-30); Chloride 105 mmol/L (96-108); Glomerular Filtration Rate 38; Glucose 100 mg/dL (70-105)
[2022-08-18] MEDS: LIDOCAINE PATCH TOPICAL SCH (10:02)
--- NOTE | 2022-08-18 11:59 | Discharge Summary ---
Discharge Provider Provider IMPORTANT FOLLOW-UP INFORMATION FOR PCP: Patient information: Note initiated : 08/18/22 at 11:52 am Service Date, if different from initiated Date: [] Patient: Shubham Ceballos 76 y/o M admitted on 08/13/22 for Elevated WBC and K+. Chief Complaint: [] Date of admission: 08/13/22 19:40 Discharge date: 08/18/22 Primary care physician: Reza Graham MD Consults: 08/13/22 Consult to Physician [CONS] Stat Comment: Consulting Provider: Renan Ledesma Reason For Exam: Physician to Consult COURSE Hospital Course Hospital course: Mr. Ceballos is a 76 year old male with history of CAD, diabetes mellitus 2, hypertension, COPD, atrial fibrillation, morbid obesity was discharged on 08/04/2022 from [facility] where he was treated for left knee gouty arthritis and underwent washout by orthopedics. 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 There was discussion in [place]'s notes about referral to oncology but it is unclear if patient saw oncology. Patient MRSA screen was positive. He was treated with vancomycin, Zosyn and was discharged to SNF on Zyvox and cefdinir. At the time of discharge his WBC count was 20,000. Patient presented to our ER on 08/13/2022 with a WBC count of 40,000 and hyperkalemia of 6.0 on outpatient l abs. In the ED patient lab work showed leukocytosis of 32,000, platelets 598 likely reactive, BUN and creatinine elevated at 39/2.0, serum potassium 5.8. Lactic acid was normal. CRP was elevated 9.7. Chest x-ray showed left lower lobe infiltrate, patient was started on vancomycin and Zosyn and was given insulin for hyperkalemia. Patient did not have much in the way of cough, he has mild chronic shortness of breath. CT chest showed 7.3 cm mass in the anterior segment of the left upper lobe adjacent to the mediastinum, suspicious for primary lung carcinoma. 2.6 cm mass right kidney increased from before, suspicious for metastatic vs primary cancer.. Patient is yet to see oncologist. Per biopsy report at outside hospital on 07/31 this is poorly differentiated carcinoma and likely metastatic changes to left adrenal and right kidney. Patient will need close follow-up with oncology. Review of previous record shows that patient has mild chronic leukocytosis. Patient was continued on vancomycin and Zosyn, MRSA screen came back negative and vancomycin was discontinued. Patient was continued on Zosyn. Patient clinically improved, CRP trended down. Patient remained afebrile. White cell counts fluctuate, this is likely in this setting of lung malignancy, leukocytosis improved but still remains around 30,000. Serum creatinine remained within his baseline. Hemoglobin remained stable. Patient continued to do physical therapy and slowly improved. Patient accepted at [facility] and will be transferred there. PHYSICAL EXAM General: Alert, sitting up, in no acute distress Eyes/N/T: EOMI, no scleral icterus, PERRL, Head/Neck: neck supple, full ROM, normocephalic atraumatic CV: RRR, No murmurs, normal s1/s2 Pulm: Slightly reduced air entry globally however no rhonchi or wheezing, satting 93% on room air Abd: soft, nontender, +BS x4 : No flank pain Ext: no clubbing/cyanosis/edema, nontender Neuro: Alert, no focal deficits, moves all extremities, CN 2-12 grossly intact, sensations intact b/l upper/lower Psychiatric: Appropriate mood and affect Skin: warm/dry, normal color Discharge diagnoses: *LLL PNA, possible aspiration: Patient with left lower lobe opacity. There is mild left diaphragm elevation and some changes consistent with atelectasis. This may be related to underlying malignancy and postobstructive pneumonia. Patient received vancomycin and Zosyn, MRSA screen was negative vancomycin was discontinued and patient continued on Zosyn CRP and procalcitonin trended down. Now afebrile, hypoxia resolved. Will transition to p.o. Augmentin upon discharge. Leukocytosis slightly went up, will obtain CRP and procalcitonin. Patient is on Zosyn he remains afebrile and clinically seems to be doing good COPD exacerbation (not on home oxygen): Patient with bilateral rails and rhonchi, acute hypoxic respiratory failure and emphysema on CT scan. This resolved with nebulization therapy and pulmonary toileting. Acute hypoxemic respiratory failure. Resolved. Currently on room air, 93% sats. Nebulization therapy, wean oxygen as tolerated. Continue pulmonary t oileting. Patient uses 2 L nasal cannula oxygen with CPAP at bedtime. Leukocytosis, acute on chronic: Patient has baseline elevated WBC count. He however presented with 40,000 leukocytosis. Malignancy is likely the main contributor in addition to acute component. Left upper lobe mass, suspected malignant neoplasm of upper lobe, left CT chest showed 7.3 cm mass in the anterior segment of the left upper lobe adjacent to the mediastinum, suspicious for primary lung carcinoma. 2.6 cm mass right kidney increased from before, suspicious for metastatic vs primary cancer.. Patient is yet to see oncologist. Per biopsy report at outside hospital on 07/31 this is poorly differentiated carcinoma and likely metastatic changes to left adrenal and right kidney. Patient will need close follow-up with oncology. 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 Serum creatinine 1.7 down from 2.0 on admission, CR at baseline *Hyperkalemia: Valsartan and KCl discontinued, s/p Kayexalate. Hyperkalemia resolved *Anemia, likely chronic. No indication for transfusion *Generalized weakness/deconditioning. Continue PT OT *Paroxysmal A-fib: on eliquis *Obesity: BMI 38, counseled on weight reduction *KEZIA on CPAP: Stable *DM2: Monitor blood glucose *HTN/HLD: DC ARB and continue amlodipine, BP stable. Cont statin *Tobacco abuse: Counseled on complete tobacco cessation *Chronic pain: On pain meds *h/o gout: On allopurinol DVT ppx: Home Eliquis DNR Disposition: SNF Discharge diagnosis: COPD exacerbation, PNA, Leukocytosis, Left upper lobe mass, LIV, Anemia Time Spent with Patient Time attestation: Total time spent providing and/or coordinating discharge services: Time spent: Greater than 30 minutes EXAM Constitutional Vitals: Temp Pulse Resp BP Pulse Ox O2 Del Method O2 Flow Rate 95.9 F L 107 H 18 106/46 91 Room Air 2 08/18/22 08:55 08/18/22 08:55 08/18/22 08:55 08/18/22 08:55 08/18/22 08:55 08/18/22 08:55 08/18/22 03:25 Discharge Data Data Completed and Pending Labs on day of discharge: Labs from last 24 hours 08/18/22 08/18/22 08/17/22 07:39 07:38 15:40 WBC 34.8 H* RBC 3.19 L Hgb 8.5 L Hct 27.9 L MCV 87.5 MCH 26.6 MCHC 30.5 L RDW 17.5 H Plt Count 346 MPV 8.7 L Immature Gran % (Auto) 3.1 H Neut % (Auto) 84.4 H Lymph % (Auto) 4.9 L [place] % (Auto) 3.5 Eos % (Auto) 3.8 Baso % (Auto) 0.3 Lymph # (Auto) 1.69 [place] # (Auto) 1.21 H Eos # (Auto) 1.32 H Baso # (Auto) 0.09 Immature Gran # 1.07 H Absolute Neutrophils 29.37 H Sodium 137 137 Potassium 4.5 4.5 Chloride 105 104 Carbon Dioxide 20 L 20 L Anion Gap 12.0 13.0 BUN 29 H 28 H Creatinine 1.7 H 1.7 H GFR Calculation 38 38 Glucose 100 102 Calcium 9.0 9.0 Total Bilirubin 0.2 < 0.2 AST 26 40 H ALT 47 H 57 H Alkaline Phosphatase 262 H 166 H Total Protein 6.9 7.0 Albumin 2.9 L 3.2 Globulin 4.0 H 3.8 H Albumin/Globulin Ratio 0.7 L 0.8 L 08/17/22 15:40 WBC 36.2 H* RBC 3.21 L Hgb 8.4 L Hct 28.2 L MCV 87.9 MCH 26.2 MCHC 29.8 L RDW 17.5 H Plt Count 379 MPV 8.7 L Immature Gran % (Auto) 3.1 H Neut % (Auto) 84.8 H Lymph % (Auto) 5.3 L [place] % (Auto) 3.1 Eos % (Auto) 3.4 Baso % (Auto) 0.3 Lymph # (Auto) 1.93 [place] # (Auto) 1.13 H Eos # (Auto) 1.23 H Baso # (Auto) 0.10 Immature Gran # 1.11 H Absolute Neutrophils 30.71 H Sodium Potassium Chloride Carbon Dioxide Anion Gap BUN Creatinine GFR Calculation Glucose Calcium Total Bilirubin AST ALT Alkaline Phosphatase Total Protein Albumin Globulin Albumin/Globulin Ratio Preliminary micro results at discharge 08/13/22 15:02 Blood Culture - Preliminary Blood 08/13/22 14:56 Blood Culture - Preliminary Blood Discharge Plan Patient/Caregiver Discharge Instructions Activity: as per physical therapy Instructions: Diphenhydramine (By mouth), Amoxicillin/Clavulanate Potassium (By mouth), Hydralazine (By mouth), Acute Kidney Injury (DC) Activity Restrictions/Additional Instructions: Resume home diet as tolerated. Take all meals up in chair, sitting at 90 degrees, to prevent aspiration. Increase activity as tolerated. Continue fall precautions. Have repeat CBC and CMP in 1 week. Take all medication as directed. Pain medication can cause constipation; take an over the counter stool softener and/or laxative while on pain medication. Return to ER for fever, chills, uncontrolled pain, inability to urinate or have a bowel movement, nausea and/or vomiting, swelling, redness, signs of infection, shortness of breath, chest pain, return of symptoms, or other acute symptom. This discharge packet is provided to you to help keep you informed about your care. We want to ensure you get everything you need when you go home. You will also be receiving a call from us in a few days to follow up with you and see how you are doing since your discharge. This gives us a chance to listen to any concerns you maybe experiencing since you were discharged or any additional needs you may have, as well as providing us feedback on your care experience. We strive to always provide excellent care and thank you for your feedback and for choosing [facility]. Prescriptions: New hydralazine 25 mg Tablet 25 mg PO TID Qty: 90 0RF diphenhydramine HCl 25 mg Capsule 25 mg PO TIDP PRN (Reason: Allergic Symptoms) Qty: 16 0RF amoxicillin-pot clavulanate 875-125 mg tablet 1 tab PO BID Qty: 6 0RF hydrocodone-acetaminophen 10-300 mg tablet 2 tab PO Q6H PRN (Reason: pain) Qty: 20 0RF Continued (DME) Accu-Chek Jeimy Plus test strp strip See Rx Instructions .ROUTE .MEDSUPPLY Qty: 10 Rx Instructions: Use to check blood sugar daily (DME) lancets [Accu-Chek Softclix Lancets] Misc See Rx Instructions .ROUTE .MEDSUPPLY Qty: 100 5RF Rx Instructions: Use to check blood sugar daily (DME) Diabetic shoes Qty: 1 0RF Rx Instructions: As directed (DME) CPAP Qty: 1 8RF Rx Instructions: .RouteChange CPAP setting to 13 cmH20.; full face mask. ; repeat sleep oximetry in 2 weeks. G47.33 r09.02 (DME) cpap mask Qty: 1 0RF Dose Instruction: As directed Rx Instructions: Assist patient with new masks and supplies. amlodipine 5 mg tablet 10 mg PO QAM (DME) Lumbar back brace See Rx Instructions .Route .MEDSUPPLY Qty: 1 0RF Rx Instructions: As directed allopurinol 100 mg Tablet 300 mg PO QAM PreserVision AREDS-2 250-90-40-1 mg Capsule 1 tab PO BID simvastatin 20 mg Tablet 20 mg PO QHS metformin 500 mg tablet 1,000 mg PO BIDCC Eliquis 5 mg Tablet 5 mg PO BID Qty: 60 0RF thiamine HCl (vitamin B1) 100 mg Tablet 100 mg PO QAM ascorbic acid (vitamin C) [Vitamin C] 250 mg Tablet 500 mg PO QAM tamsulosin 0.4 mg capsule 0.4 mg PO QAM magnesium oxide 400 mg magnesium capsule 400 mg PO HS docusate sodium 100 mg capsule 100 mg PO BID Qty: 60 0RF potassium chloride 10 mEq capsule, extended release 10 meq PO QAM lidocaine 1.8 % Adhesive Patch,Medicated 1 patch TOPICAL QDAY Rx Instructions: leave on most painful area for up to 12 hrs furosemide 40 mg tablet 40 mg PO QAM Changed gabapentin 600 mg Tablet 600 mg PO BID Qty: 30 0RF Discontinued valsartan 320 mg Tablet 320 mg PO QAM linezolid 600 mg Tablet 600 mg PO BID hydrocodone-acetaminophen 10-325 mg tablet 2 tab PO Q4 PRN (Reason: Pain) Rx Instructions: Pt takes 2 pills in the morning and at night, then 1 every 4 hours PRN Other Ambulatory Orders: Basic Metabolic Panel (Routine) Timeframe: 1 Week Facility: [facility] - Location: Laboratory Ordered By: Jeffry Jin Complete Blood Count (Routine) Timeframe: 1 Week Facility: [facility] - Location: Laboratory Ordered By: Jeffry Jin OT Discharge Order (Routine) Location: None Selected Ordered By: Jeffry Jin Physical Therapy at Discharge - General (Routine) Location: None Selected Ordered By: Jeffry Jin Follow Up Plan Follow up with: Reza Graham MD [Primary Care Provider] - (Follow-up as needed) Patient Disposition: Xfer SNF Overall status at discharge: patient is progressing back to baseline Discharge Orders: Discharge Order (Routine); Ordered 08/18/22 Ordered By: Jeffry Jin
[2022-08-21 14:13] LABS: Opiate Confirmation Positive
== END 2022-08-18 14:46 | DRG 177 ==
LOC: ED 11:19 → MEDSUR 19:40
PROVIDERS: ADMIT Internal Medicine; ATTEND Internal Medicine

== ENCOUNTER 2022-09-13 20:08 | Inpatient (IN) ==
[2022-09-13] MEDS ORDERED: IOPAMIDOL 100 ML BOTTLE IV ONE (20:09)
[2022-09-13 20:16] LABS: POC Blood Urea Nitrogen 51 (6-20); POC Calcium, Ionized 1.22 (1.16-1.32); POC Chloride 110 (96-108); POC Creatinine < 0.2 (0.6-1.2); POC Glucose, Random 118 (70-105); POC Sodium 135 (133-145)
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
[2022-09-13] MEDS ORDERED: ONDANSETRON 4 MG/2 ML VIAL IV ONE (20:29)
[2022-09-13] MEDS ORDERED: ASPIRIN 81 MG TAB.CHEW CHEWED ONE (20:29)
[2022-09-13] MEDS ORDERED: HYDROmorphone 0.5 MG/0.5 ML SYRINGE IV PRN (20:29)
[2022-09-13] MEDS ORDERED: IPRATROPIUM/ALBUTEROL 3 ML AMPUL.NEB NEB ONE (20:29)
[2022-09-13] MEDS ORDERED: CALCIUM GLUCONATE 7 MEQ in DEXTROSE 5% IN WATER 50 ML IV ONE (21:09)
[2022-09-13] MEDS ORDERED: ALBUTEROL SULFATE 2.5 MG/3 ML NEBULIZER NEB ONE (21:09)
[2022-09-13] MEDS ORDERED: FUROSEMIDE 100 MG/10 ML VIAL IV ONE (21:09)
[2022-09-13] MEDS ORDERED: CALCIUM GLUCONATE 4.65 MEQ in DEXTROSE 5% IN WATER 50 ML IV ONE (21:43)
[2022-09-13 22:26] LABS: Basophils # (Auto) 0.11 K/mcL (0.00-0.30); Basophils % (Auto) 0.4 % (0.0-2.0); Eosinophils # (Auto) 1.45 K/mcL (0.00-0.70); Eosinophils % (Auto) 5.1 % (0.0-7.0); Hematocrit 26.2 % (40.1-51.0); Hemoglobin 7.9 g/dL (13.7-17.5); Lymphocytes # (Auto) 2.06 K/mcL (1.50-4.80); Lymphocytes % (Auto) 7.3 % (15.5-49.0); Mean Cell Volume 86.2 fL (80.0-100.0); Mean Corpuscular HGB Conc 30.2 g/dL (31.0-36.0); Monocytes # (Auto) 1.21 K/mcL (0.10-0.90); Monocytes % (Auto) 4.3 % (1.0-12.0); Neutrophils % (Auto) 81.7 % (38.0-78.0); Platelet Count 389 K/mcL (140-440); RBC 3.04 M/mcL (4.63-6.08); Red Cell Distribution Width 17.8 % (11.5-14.5); WBC 28.3 K/mcL (4.5-11.0)
[2022-09-13 22:35] LABS: ALT/SGPT 15 U/L (<40); AST/SGOT 9 U/L (<40); Albumin 3.3 gm/dL (3.2-5.2); Alkaline Phosphatase 129 U/L (39-117); Bilirubin,Direct < 0.2 mg/dL (0-0.3); Bilirubin,Total < 0.2 mg/dL (0.1-1.0); Globulin 3.8 gm/dL (2.2-3.7)
[2022-09-13] MEDS ORDERED: PIPERACILLIN SODIUM/TAZOBACTAM 3.375 GM in DEXTROSE 5% IN WATER 50 ML IV ONE (23:26)
[2022-09-14] MEDS ORDERED: 0.9 % SODIUM CHLORIDE 250 ML IV SCH (01:00)
[2022-09-14 01:09] LABS: POC Calcium, Ionized 1.28 (1.16-1.32); POC Creatinine 2.1 (0.6-1.2); POC Potassium 5.1 (3.3-5.1)
[2022-09-14 01:44] LABS: Appearance,Urine CLEAR (Clear); Bilirubin,Urine Negative (Negative); Color,Urine YELLOW; Culture Indicated,Urine No; Glucose,Urine (UA) Negative (Negative); Ketones,Urine Negative (Negative); Leukocyte Esterase,Urine Negative /uL (Negative); Nitrate,Urine Negative (Negative); Protein,Urine Negative (Negative); Specific Gravity,Urine 1.012 (1.000-1.035); Urine Blood Negative (Negative); Urobilinogen,Urine Negative
[2022-09-14] MEDS ORDERED: HYDROcodone/APAP 5/325MG TABLET PO PRN (05:29)
[2022-09-14] MEDS ORDERED: HYDROcodone/APAP 5/325MG TABLET PO ONE (05:33)
[2022-09-14] MEDS ORDERED: tiZANidine 4 MG TABLET PO PRN (08:43)
[2022-09-14] MEDS ORDERED: HYDROCODONE ACETAMINOPHEN PO PRN (08:43)
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
[2022-09-14] MEDS ORDERED: MAGNESIUM SULFATE 2 GM/50 ML BAG IV PRN (08:45)
[2022-09-14] MEDS ORDERED: DEXTROSE 31 GM ORAL.SUSP PO PRN (08:45)
[2022-09-14] MEDS ORDERED: DEXTROSE 50% 50 ML VIAL IV PRN (08:45)
[2022-09-14] MEDS ORDERED: SENNOSIDES 1 TABLET PO PRN (08:45)
[2022-09-14] MEDS ORDERED: IPRATROPIUM/ALBUTEROL 3 ML AMPUL.NEB NEB PRN (08:45)
[2022-09-14] MEDS ORDERED: ACETAMINOPHEN 325 MG TABLET PO PRN (08:45)
[2022-09-14] MEDS ORDERED: POTASSIUM CHLORIDE 20 MEQ TABLET PO PRN ×2 (08:45)
[2022-09-14] MEDS ORDERED: ONDANSETRON 4 MG/2 ML VIAL IV PRN (08:45)
[2022-09-14] MEDS ORDERED: POLYETHYLENE GLYCOL 3350 17 GM PACKET PO PRN (08:45)
[2022-09-14] MEDS ORDERED: 0.9 % SODIUM CHLORIDE 1,000 ML IV ONE (08:46)
[2022-09-14] MEDS ORDERED: HYDROcodone/APAP 10/325MG TABLET PO PRN (08:59)
[2022-09-14] MEDS ORDERED: GABAPENTIN 300 MG CAPSULE PO SCH (09:00)
[2022-09-14] MEDS: APIXABAN 5 MG TABLET PO SCH ×2 (09:12→20:12)
[2022-09-14] MEDS: THIAMINE 100 MG TABLET PO SCH (09:12)
[2022-09-14] MEDS: DOCUSATE SODIUM 100 MG CAPSULE PO SCH ×2 (09:12→20:12)
[2022-09-14] MEDS: amLODIPine 5 MG TABLET PO SCH (09:12)
[2022-09-14] MEDS: GABAPENTIN 400 MG CAPSULE PO SCH ×2 (09:12→20:12)
[2022-09-14] MEDS: cefTRIAXone 2 GM in DEXTROSE 5% IN WATER 50 ML IV SCH (09:13)
[2022-09-14] MEDS: ALLOPURINOL 100 MG TABLET PO SCH (09:13)
--- NOTE | 2022-09-14 09:48 | XRay Report ---
HISTORY: Pain in the left side of the chest and around the left scapula FINDINGS: There is a large tumor medially in the left upper thorax. This appeared to be arising from the anterior mediastinum on the prior chest CT done on 08/14/22. The overall size has not changed significantly. Patient has moderate elevation of the left diaphragm with mild atelectasis in the basilar segments. This has not changed significantly. Small band of scar or discoid atelectasis is present above the right costophrenic sulcus. The right lung is otherwise clear. Heart size is within normal limits. There is no congestive heart failure. Visualized portions of the ribs and shoulders appear normal without evidence of fracture or metastasis. IMPRESSION: Stable tumor in the left upper thorax and chronic atelectasis in the left lower lobe with an associated elevated diaphragm Interpreted and Authenticated by: Franki Jacobs 09/14/22
[2022-09-14 10:08] LABS: ALT/SGPT 14 U/L (<40); AST/SGOT 6 U/L (<40); Albumin 3.4 gm/dL (3.2-5.2); Albumin/Globulin Ratio 0.9 (1.0-2.3); Alkaline Phosphatase 131 U/L (39-117); Bilirubin,Direct < 0.2 mg/dL (0-0.3); Bilirubin,Total < 0.2 mg/dL (0.1-1.0); Blood Urea Nitrogen 42 mg/dL (8-23); Calcium 9.6 mg/dL (8.6-10.4); Carbon Dioxide 19 mmol/L (22-30); Chloride 101 mmol/L (96-108); Globulin 3.7 gm/dL (2.2-3.7); Glomerular Filtration Rate 38; Glucose 96 mg/dL (70-105); Lactate Dehydrogenase 126 U/L (135-225); Phosphorous 5.4 mg/dL (2.5-4.5); Triglycerides 167 mg/dL (<150); Uric Acid 5.5 mg/dL (2.5-8.0)
[2022-09-14] MEDS: AZITHROMYCIN 500 MG in DEXTROSE 5% IN WATER 250 ML IV SCH (10:12)
[2022-09-14] MEDS ORDERED: SODIUM POLYSTYRENE SULFONATE 15 GM/60 ML SUSPENSION PO ONE (10:15)
--- NOTE | 2022-09-14 10:34 | Cat Scan Report ---
History: Left anterior and lateral pleuritic chest pain, short of breath, known mediastinal mass, known left adrenal mass TECHNIQUE: Following injection of intravenous nonionic contrast the chest and abdomen were imaged from the thoracic inlet through the symphysis pubis at 2.5 mm intervals. Sagittal, coronal and MIPS images were created. The radiation exposure was limited using dose reduction technology. FINDINGS: CHEST: There is a large solid tumor in the left anterior mediastinum which displaces the adjacent left upper lobe. It measures 6.4 x 11.0 cm. It measured 5.4 x 7.3 cm on the prior CT done on 08/14/22. In the pretracheal retrocaval space there is a 1.5 cm lymph node. Medially in the left upper lobe of the left upper hilum there is a 0.5 cm solid nodule which may be a metastasis. Patient has mild emphysema. There is moderate consolidation with air bronchograms in the posterior medial basal segments of left lower lobe. This has become worse since 08/14/22. Mild dependent atelectasis is present posteriorly in the right lower lobe. Heart size is normal. No pericardial or pleural effusion are present. Bone windows show no lytic or blastic metastasis. Central pulmonary arteries are normal without evidence of emboli. Abdomen and pelvis: The liver is normal in size. Spleen is heterogeneous due to the early arterial phase imaging but is normal in size. No gallstones are abnormality is seen in the gallbladder. Bile ducts are nondilated. No mass or inflammation are present in the pancreas. There is a 6.7 x 9.0 cm mass in the left adrenal. It measured 6.4 x 9.0 cm on 08/14/22 and in 2013 it measured 3.3 cm. Medially in the upper pole of the right kidney there is an exophytic solid tumor which measures 2.8 x 3.0 cm. Measures 2.6 x 2.7 cm on 08/14/22. There is a 1.3 cm cortical cyst posteriorly in the upper pole the right kidney. No mass or cyst are present in left kidney. There are multiple calcifications in the hilar region of both kidneys. Most of these are vascular. However, there could be a small nonobstructing calyceal stone in either kidney. No abnormally enlarged lymph nodes are present in the abdomen or pelvis. There is no ascites. There is nonspecific stranding of the fat in the left lower pelvis anterior to the psoas muscle. Multiple diverticula are present in the descending and sigmoid colon. There is no acute diverticulitis. Couple air-fluid levels are present in nondilated small bowel. This could be an ileus. Urinary bladder is normal. Patient has a right hip prosthesis and there has been prior fusion in the lumbar spine at L4-5. There is no evidence of bone metastasis. IMPRESSION: Enlarging tumor in the left anterior mediastinum. This could be metastasis or primary malignancy. Enlarging tumor in the right kidney. This probably a primary renal cancer. Slowly enlarging mass in left adrenal which may be metastasis. Worsening atelectasis in left lower lobe Diverticulosis Interpreted and Authenticated by: Franki Jacobs 09/14/22
[2022-09-14] MEDS: INSULIN LISPRO 1 UNIT/0.01 ML UNIT SQ SCH ×3 (11:51→20:15)
[2022-09-14] MEDS: morphine 4 MG/ML VIAL IV PRN ×3 (11:53→20:10)
[2022-09-14] MEDS: HYDROcodone/APAP 10/325MG TABLET PO PRN ×3 (13:31→21:52)
[2022-09-14] MEDS: 0.9 % SODIUM CHLORIDE 10 ML SYRINGE IV SCH ×2 (13:33→20:15)
[2022-09-15] MEDS: morphine 4 MG/ML VIAL IV PRN ×3 (00:10→14:13)
[2022-09-15] MEDS: HYDROcodone/APAP 10/325MG TABLET PO PRN ×3 (02:57→11:49)
[2022-09-15] MEDS: 0.9 % SODIUM CHLORIDE 10 ML SYRINGE IV SCH ×2 (05:08→14:12)
[2022-09-15 06:43] LABS: Basophils # (Auto) 0.07 K/mcL (0.00-0.30); Basophils % (Auto) 0.3 % (0.0-2.0); Eosinophils # (Auto) 1.15 K/mcL (0.00-0.70); Eosinophils % (Auto) 5.5 % (0.0-7.0); Hematocrit 25.4 % (40.1-51.0); Hemoglobin 7.4 g/dL (13.7-17.5); Lymphocytes # (Auto) 1.77 K/mcL (1.50-4.80); Lymphocytes % (Auto) 8.4 % (15.5-49.0); Mean Cell Volume 85.5 fL (80.0-100.0); Mean Corpuscular HGB Conc 29.1 g/dL (31.0-36.0); Mean Platelet Volume 9.6 fL (8.8-12.5); Monocytes # (Auto) 0.89 K/mcL (0.10-0.90); Monocytes % (Auto) 4.2 % (1.0-12.0); Neutrophils % (Auto) 80.5 % (38.0-78.0); Platelet Count 386 K/mcL (140-440); RBC 2.97 M/mcL (4.63-6.08)
[2022-09-15] MEDS: INSULIN LISPRO 1 UNIT/0.01 ML UNIT SQ SCH ×2 (07:08→11:33)
[2022-09-15 07:14] LABS: ALT/SGPT 9 U/L (<40); AST/SGOT 7 U/L (<40); Albumin 3.1 gm/dL (3.2-5.2); Albumin/Globulin Ratio 0.9 (1.0-2.3); Alkaline Phosphatase 138 U/L (39-117); Bilirubin,Total < 0.2 mg/dL (0.1-1.0); Blood Urea Nitrogen 44 mg/dL (8-23); Calcium 9.2 mg/dL (8.6-10.4); Carbon Dioxide 21 mmol/L (22-30); Chloride 106 mmol/L (96-108); Globulin 3.6 gm/dL (2.2-3.7); Glomerular Filtration Rate 35; Glucose 75 mg/dL (70-105)
[2022-09-15] MEDS: THIAMINE 100 MG TABLET PO SCH (08:27)
[2022-09-15] MEDS: amLODIPine 5 MG TABLET PO SCH (08:27)
[2022-09-15] MEDS: GABAPENTIN 400 MG CAPSULE PO SCH (08:28)
[2022-09-15] MEDS: APIXABAN 5 MG TABLET PO SCH (08:29)
[2022-09-15] MEDS: DOCUSATE SODIUM 100 MG CAPSULE PO SCH (08:29)
[2022-09-15] MEDS: ALLOPURINOL 100 MG TABLET PO SCH (08:29)
[2022-09-15] MEDS: cefTRIAXone 2 GM in DEXTROSE 5% IN WATER 50 ML IV SCH (09:05)
[2022-09-15] MEDS: AZITHROMYCIN 500 MG in DEXTROSE 5% IN WATER 250 ML IV SCH (10:09)
--- NOTE | 2022-09-15 12:42 | Discharge Summary ---
Discharge Provider Provider IMPORTANT FOLLOW-UP INFORMATION FOR PCP: Patient information: Note initiated : 09/15/22 at 12:40 pm Service Date, if different from initiated Date: [] Patient: Shubham Ceballos 77 y/o M admitted on 09/14/22 for SOB, CP. Chief Complaint: [] Date of admission: 09/14/22 04:42 Discharge date: 09/15/22 Primary care physician: Reza Graham MD Attending physician on admission: Renan Ledesma Consults: 09/14/22 09:51 Consult to Physician [CONS] Routine Comment: Consulting Provider: Renan Ledesma Reason For Exam: Physician to Consult Attending physician on discharge: Chi Diane Pui COURSE Hospital Course Hospital course: Mr. Ceballos is a 77 year old M Patient presents to the ED with shortness of breath and left-sided chest wall pain. Patient found to be hyperkalemic at 6.3. I was told he was hypoxic but there is no report of any hypoxia in the ED note or the chart. Patient states that over the past couple days his shortness of breath is worsened although his chronic cough has not changed. He denies any fevers complains of some chills. Patient is on 2 L at night typically but not during the day. Patient was here in July for concern for aspiration possibly pneumonia although the findings which appear to be more chronic and was more likely related to the lung malignancy although aspiration or pneumonia could not be ruled out. Patient was in the process of following up with oncology as had not established any treatment yet. Patient was discharged on Augmentin pain medication and hydralazine 25 tid. See last note for details on recent [facility] admission and discovery of cancer. Updated CT chest in the ED showed... Patient saw oncologist just early August. Per note his cancer type was nonspecific and so further testing needed to be done. And that is current performance status chemotherapy was not recommended 09/15: Discharge back to [place] home. Prescription given to the patient's. Follow-up appointment with PCP and with oncology as arranged for the patient's. All questions answered prior to patient being physically discharged. Discharge diagnosis: community acquired pneumonia Time Spent with Patient Time attestation: Total time spent providing and/or coordinating discharge services: Time spent: Greater than 30 minutes EXAM Constitutional Vitals: Temp Pulse Resp BP Pulse Ox O2 Del Method O2 Flow Rate 36.3 C 78 18 123/54 92 Room Air 2 09/15/22 11:00 09/15/22 11:00 09/15/22 11:00 09/15/22 11:00 09/15/22 11:00 09/15/22 11:00 09/15/22 05:03 General appearance: cooperative and no acute distress Head Head exam: Present atraumatic and normocephalic Eye Eye exam: Present EOMI and PERRL ENT ENT exam: Present mucous membranes moist, normal exam and normal external ear exam Neck Neck exam: Present normal inspection; Absent lymphadenopathy, tenderness or thyromegaly Respiratory Respiratory exam: Present decreased breath sounds; Absent accessory muscle use, respiratory distress or wheezes Cardiovascular Cardiovascular exam: Present normal rate and rhythm; Absent JVD GI/Abdominal GI/Abdominal exam: Present normal bowel sounds and soft; Absent organomegaly or tenderness Rectal Rectal exam: Present deferred Extremities Exam Extremities exam: Present full ROM, normal capillary refill and normal inspection; Absent tenderness Neurological Exam Neurological exam: Present alert, CN II-XII intact and oriented X3; Absent motor sensory deficit Psychiatric Psychiatric exam: Present normal affect and normal mood; Absent anxious or depressed Skin Skin exam: Present dry and intact Discharge Data Data Completed and Pending Labs on day of discharge: Labs from last 24 hours 09/15/22 09/15/22 05:23 05:23 WBC 21.0 H RBC 2.97 L Hgb 7.4 L Hct 25.4 L MCV 85.5 MCH 24.9 L MCHC 29.1 L RDW 18.0 H Plt Count 386 MPV 9.6 Immature Gran % (Auto) 1.1 H Neut % (Auto) 80.5 H Lymph % (Auto) 8.4 L Mayes % (Auto) 4.2 Eos % (Auto) 5.5 Baso % (Auto) 0.3 Lymph # (Auto) 1.77 Mayes # (Auto) 0.89 Eos # (Auto) 1.15 H Baso # (Auto) 0.07 Immature Gran # 0.24 H Absolute Neutrophils 16.87 H Sodium 140 Potassium 5.4 H Chloride 106 Carbon Dioxide 21 L Anion Gap 13.0 BUN 44 H Creatinine 1.8 H GFR Calculation 35 Glucose 75 Calcium 9.2 Total Bilirubin < 0.2 AST 7 ALT 9 Alkaline Phosphatase 138 H Total Protein 6.7 Albumin 3.1 L Globulin 3.6 Albumin/Globulin Ratio 0.9 L Preliminary micro results at discharge 09/13/22 02:55 Urine Culture - Preliminary Urine - Clean Void Mid-Stream Discharge Plan Patient/Caregiver Discharge Instructions Activity: increase activity as tolerated Diet: Consistent Carbohydrate Prescriptions: New morphine [MS Contin] 15 mg tablet extended release 15 mg PO Q12H Qty: 60 0RF Continued (DME) Accu-Chek Jeimy Plus test strp strip See Rx Instructions .ROUTE .MEDSUPPLY Qty: 10 Rx Instructions: Use to check blood sugar daily (DME) lancets [Accu-Chek Softclix Lancets] Misc See Rx Instructions .ROUTE .MEDSUPPLY Qty: 100 5RF Rx Instructions: Use to check blood sugar daily (DME) Diabetic shoes Qty: 1 0RF Rx Instructions: As directed (DME) CPAP Qty: 1 8RF Rx Instructions: .RouteChange CPAP setting to 13 cmH20.; full face mask. ; repeat sleep oximetry in 2 weeks. G47.33 r09.02 (DME) cpap mask Qty: 1 0RF Dose Instruction: As directed Rx Instructions: Assist patient with new masks and supplies. amlodipine 5 mg tablet 10 mg PO QAM (DME) Lumbar back brace See Rx Instructions .Route .MEDSUPPLY Qty: 1 0RF Rx Instructions: As directed allopurinol 100 mg Tablet 300 mg PO QAM metformin 500 mg tablet 1,000 mg PO BIDCC Eliquis 5 mg Tablet 5 mg PO BID Qty: 60 0RF thiamine HCl (vitamin B1) 100 mg Tablet 100 mg PO QAM ascorbic acid (vitamin C) [Vitamin C] 250 mg Tablet 500 mg PO QAM magnesium oxide 400 mg magnesium capsule 400 mg PO HS lidocaine 1.8 % Adhesive Patch,Medicated 1 patch TOPICAL QDAY Rx Instructions: leave on most painful area for up to 12 hrs furosemide 40 mg tablet 40 mg PO QAM gabapentin 600 mg Tablet 600 mg PO BID Qty: 30 0RF valsartan 320 mg Tablet 320 mg PO DAILY I-Keily 1 tab PO DAILY tizanidine 4 mg Tablet 4 mg PO DAILY PRN (Reason: Muscle Spasm) naproxen 250 mg Tablet 220 mg PO BID Rx Instructions: Two times a day for pain for 7 days, CA pain to L shoulder cholecalciferol (vitamin D3) 50 mcg (2,000 unit) Capsule 2,000 unit PO DAILY amoxicillin-pot clavulanate 875-125 mg tablet 1 tab PO BID Qty: 20 0RF hydrocodone-acetaminophen 10-300 mg tablet 2 tab PO Q6H PRN (Reason: pain) Qty: 20 0RF Follow Up Plan Follow up with: Reza Graham MD [Primary Care Provider] - Patient Disposition: Xfer SNF Rehab Potential: Good I certify that the patient requires SNF services: Yes Overall status at discharge: patient is progressing back to baseline Discharge Orders: Discharge Order (Routine); Ordered 09/15/22 Ordered By: Cezar HOBSON VTE Deep Vein Thrombosis/Pulmonary Embolism Present on Admission: No
--- NOTE | 2022-09-16 15:43 | EKG ---
[facility] Test Date: 2022-09-13 Pat Name: Shubham Ceballos Department: ED Room: Gender: Male [facility] Coordinator: hayden : 1945 Requested By: Malachi Warner Order Number: [id number] Reading MD: Buster Jacobs M.D. Measurements Intervals [place] Rate: 58 P: UT: QRS: 36 QRSD: 82 T: -22 QT: 447 QTc: 440 Interpretive Statements Junctional rhythm Low voltage, extremity and precordial leads Electronically Signed On 09-16-2022 15:43:19 PDT by Buster Jacobs M.D. /[id number]
== END 2022-09-15 15:45 | DRG 194 ==
LOC: ED 20:08 → MEDSUR 09-14 04:42
PROVIDERS: ADMIT Internal Medicine; ATTEND Internal Medicine